=== PATIENT | male | born 1935 | race Caucasian/White ===

== ENCOUNTER 2017-04-27 06:29 | Inpatient (IN) ==
--- NOTE | 2017-04-24 10:22 | Anesthesia Evaluation PreOp ---
Date of Encounter: 04/27/17 Time of Encounter: 07:28 - Past History Planned Operation: CABG Cardiac History: Angina, HTN, Hyperlipidemia, Other (PAD) Pulmonary History: Denies Any Significant HX MEDICAL RECORDS TECHNICIAN History: Denies Any Significant HX Other Medical History: Diabetes Type II, Other (BPH and urine incontinence) Anesthesia History: No Prior Anesthetic Complications, Past Anesthesia (hernia) Alcohol Use: none Drug use: none Medications and Allergies Aspirin [Lo-Dose Aspirin EC] 81 mg PO DAILY 04/08/17 [History] Atorvastatin Calcium [Lipitor] 20 mg PO DAILY 04/08/17 [History] Docusate [Colace] 100 mg PO DAILY 04/08/17 [History] Donepezil [Aricept] 10 mg PO HS 04/08/17 [History] Famotidine [Heartburn Prevention] 20 mg PO DAILY 04/08/17 [History] Fluticasone Propionate Nasal [Flonase] 50 mcg NS PRN PRN 04/08/17 [History] Lisinopril 2.5 mg PO DAILY 04/08/17 [History] Loratadine [Claritin] 10 mg PO DAILY 04/08/17 [History] Metformin HCl [Metformin HCl ER] 1,000 mg PO DAILY 04/08/17 [History] Metoprolol Tartrate 12.5 mg PO BID 04/08/17 [History] Mirabegron [Myrbetriq] 50 mg PO DAILY 04/08/17 [History] Pregabalin [Lyrica] 50 mg PO TID 04/08/17 [History] Tamsulosin [Flomax] 0.4 mg PO DAILY 04/08/17 [History] 3 Allergy/AdvReac Type Severity Reaction Status Date / Time horse serum Allergy Itching Uncoded 04/08/17 11:21 - Meds/Allergy Pre-op Review Medications Reviewed: Yes Allergies Reviewed: Yes Beta Blockers on Current Med List: No Anesthesia Results - Labs Laboratory Tests 04/07/17 04/07/17 04/07/17 14:33 14:33 14:33 Hgb 13.7 Hct 41.6 Plt Count 369 PT 12.0 INR 1.1 Sodium 141 Potassium 4.3 BUN 15 Creatinine 0.90 Hemoglobin A1c 04/22/17 11:18 Hgb Hct Plt Count PT INR Sodium Potassium BUN Creatinine Hemoglobin A1c 8.3 H - Imaging Additional studies: cath: Impressions: There is severe three vessel coronary artery disease. The left ventricle contractility EF 50% stress: Impression: Pharmacologic stress ECG is non-diagnostic for ischemia due to submaximal HR. Gated EF = 59%. Small sized, moderate intensity, fixed defect throughout the inferior segments possibly due to a prior infarct. Moderate amount of maximino-infarct ischemia involving the inferolateral segments. SDS 6. echo: mpressions: LVEF 60%. Normal left ventricular size and systolic function. There is evidence of mild diastolic dysfunction of the left ventricle. Normal right ventricular size and function. No significant valvular dysfunction. Lack of sufficient TR gradient to estimate RVSP. Anesthesia Exam Weight: 73kg NPO (# of Hours): 8 - HEENT Pupil (Motor): EOMI Mallampati: II Teeth: Missing, Poor dentition Oral Opening: Greater than 3 - MEDICAL RECORDS TECHNICIAN LOC: Oriented MEDICAL RECORDS TECHNICIAN Motor: Normal RUE, Normal LUE, Normal RLE, Normal LLE, Normal Face MEDICAL RECORDS TECHNICIAN Sensory: Normal: RUE, LUE, RLE, LLE, Face - Cardiac Rhythm: Regular Murmur: None - Pulmonary Breath Sounds: bilateral Clear Respiratory Effort: Symmetrical Anesthesia Assess/Plan ASA Score: 4 Modified Morton Scale for Level of Consciousness: Cooperative, oriented, and tranquil Monitoring Plan: Standard Monitors, A-Line, PAC, MARIJA Recovery Plan: ICU (discussed risks of GA, lines, MARIJA and blood products. Agrees to proceed)
[2017-04-27] MEDS ORDERED: *HR* Etomidate 20 MG/10 ML AMPUL IVP ONE (06:54)
[2017-04-27] MEDS ORDERED: Famotidine 20 MG/2 ML VIAL ONE (06:54)
[2017-04-27] MEDS ORDERED: *HR* Rocuronium Bromide 50 MG/5 ML VIAL ONE (06:54)
[2017-04-27] MEDS ORDERED: Aspirin 81 MG TAB.CHEW PO ONE (06:54)
[2017-04-27] MEDS ORDERED: Tranexamic Acid 1,000 MG/10 ML VIAL ONE ×2 (06:54→09:23)
[2017-04-27] MEDS ORDERED: Protamine Sulfate 250 MG/25 ML VIAL IVP ONE (06:54)
[2017-04-27] MEDS ORDERED: CeFAZolin Syr 2,000MG/20 ML 2,000 MG/20 ML SYRINGE IVPB ONE (06:54)
[2017-04-27] MEDS ORDERED: *HR* Phenylephrine 10 MG/ML VIAL ONE ×2 (06:54→07:00)
[2017-04-27] MEDS ORDERED: Ringers Solution, Lactated 1,000 ML IVC SCH (07:00)
[2017-04-27] MEDS ORDERED: *HR* Midazolam HCl 5 MG/5 ML VIAL IVP ONE (07:02)
[2017-04-27] MEDS ORDERED: *HR* FentaNYL (PF) 1,000 MCG/20 ML VIAL ONE (07:02)
[2017-04-27] MEDS ORDERED: NiCARdipine 2.5 MG/10 ML Syringe IVPB ONE (07:04)
[2017-04-27] MEDS ORDERED: Nitroglycerin 25 MG/250 ML INFUS..BTL IVC ONE ×2 (07:04→09:16)
[2017-04-27] MEDS ORDERED: Chlorhexidine Rinse 15 ML MOUTHWASH MM ONE (07:15)
--- NOTE | 2017-04-27 07:17 | History & Physical Report ---
Date of Encounter: 04/27/17 Time of Encounter: 07:16 24 Hour HP Update - Instructions Instructions: If the History and Physical is less than 30 days old and was completed prior to A.M. admission and or procedure and has NOT been updated on calendar day of procedure please complete this update prior to performing procedure. - Update Patient reports changes in Medical Condition: No Changes in examination, assessment, or condition: No Changes in Medication: No Preop tests/diagnostics Reviewed: No Pre-Op MRSA Screen: Negative Surgery Remains Indicated: Yes Consent for Planned Operative Procedure(s) Verified: Yes - Pre-Operative Checklist Preoperative Checklist Indicated: No Prophylactic Antibiotic Ordered: Yes Home Medications Include Beta Jagruti: Yes Beta Jagruti Taken Today (Day of Surgery): Yes Beta Jagruti Taken Yesterday (Day Prior to Surgery): No Is VTE Prophylaxis Indicated?: NO
[2017-04-27 08:15] LABS: ABG Base Excess 1 mEq/L (-2 to 3); ABG Chloride 105 mEq/L (98-107); ABG Glucose 209 mg/dL (60-95); ABG HCO3 28 mEq/L (21-27); ABG Ionized Calcium 1.21 mmol/L (1.15-1.35); ABG Oxygen Saturation 66 % (95-98); ABG PCO2 55 mmHg (35-45); ABG PH 7.32 pH Units (7.32-7.45); ABG PO2 38 mmHg (85-104); ABG TCO2 30 mEq/L (20-26)
[2017-04-27 08:23] LABS: ABG Base Excess 1 mEq/L (-2 to 3); ABG Chloride 106 mEq/L (98-107); ABG Glucose 221 mg/dL (60-95); ABG HCO3 27 mEq/L (21-27); ABG Ionized Calcium 1.23 mmol/L (1.15-1.35); ABG Oxygen Saturation 100 % (95-98); ABG PCO2 49 mmHg (35-45); ABG PH 7.35 pH Units (7.32-7.45); ABG PO2 449 mmHg (85-104); ABG TCO2 29 mEq/L (20-26)
[2017-04-27] MEDS ORDERED: Insulin Regular, Human 100 UNIT/ML ONE (09:06)
[2017-04-27] MEDS ORDERED: Albumin Human 5% 50.0 GM/1,000 ML VIAL ONE (09:16)
[2017-04-27 09:22] LABS: ABG Base Excess -2 mEq/L (-2 to 3); ABG Chloride 108 mEq/L (98-107); ABG Glucose 218 mg/dL (60-95); ABG HCO3 24 mEq/L (21-27); ABG Ionized Calcium 1.02 mmol/L (1.15-1.35); ABG Oxygen Saturation 100 % (95-98); ABG PCO2 48 mmHg (35-45); ABG PH 7.31 pH Units (7.32-7.45); ABG PO2 207 mmHg (85-104); ABG TCO2 26 mEq/L (20-26)
[2017-04-27 09:48] LABS: ABG Base Excess 3 mEq/L (-2 to 3); ABG Chloride 99 mEq/L (98-107); ABG Glucose 227 mg/dL (60-95); ABG HCO3 27 mEq/L (21-27); ABG Ionized Calcium 0.93 mmol/L (1.15-1.35); ABG PCO2 41 mmHg (35-45); ABG PH 7.44 pH Units (7.32-7.45); ABG PO2 > 630 mmHg (85-104); ABG TCO2 29 mEq/L (20-26)
--- NOTE | 2017-04-27 10:07 | Anesthesia Procedures ---
Date of Encounter: 04/27/17 Time of Encounter: 08:05 Procedures: Anesthesia - Arterial Line Consent obtained: written consent Time out performed: Yes Sedation: Versed (mg): 2 Sedation: Fentanyl (mcg): 100 Supplemental Oxygen via Nasal Cannula (L/min): 2 Size (Gauge): 20 Length (inches): 5 Technique Used: sterile prep, guide wire technique, direct puncture technique Post-Procedure: line sutured into place, line taped into place, dry sterile dressing placed Patient tolerated procedure: well, no complications Complications: none Site: Radial L (easy, attempt x 1) - Central Line Placement Right IJ Consent obtained: written consent Time out performed: Yes Patient placed on monitor/pulse ox: Yes MD prep: mask, gown, gloves Central line prep: Chlorhexidine scrub Ultrasound used for placement: Yes Technique: Seldinger Lumen Inserted: Introducer Post procedure: sutured in place, good blood return, all ports aspirated, flushed, capped, sterile dressing applied Patient tolerated procedure: well, no complications Complications: none (attempt x 1, placed easily, swan placed without arrythmias , wedge approx 56cm)
[2017-04-27 10:15] LABS: ABG Base Excess 4 mEq/L (-2 to 3); ABG Chloride 99 mEq/L (98-107); ABG Glucose 202 mg/dL (60-95); ABG HCO3 28 mEq/L (21-27); ABG Ionized Calcium 1.02 mmol/L (1.15-1.35); ABG Oxygen Saturation 100 % (95-98); ABG PCO2 41 mmHg (35-45); ABG PH 7.45 pH Units (7.32-7.45); ABG PO2 555 mmHg (85-104); ABG TCO2 30 mEq/L (20-26)
[2017-04-27 10:49] LABS: ABG Base Excess 1 mEq/L (-2 to 3); ABG Chloride 104 mEq/L (98-107); ABG Glucose 136 mg/dL (60-95); ABG HCO3 27 mEq/L (21-27); ABG Oxygen Saturation 100 % (95-98); ABG PCO2 45 mmHg (35-45); ABG PH 7.38 pH Units (7.32-7.45); ABG PO2 206 mmHg (85-104); ABG TCO2 28 mEq/L (20-26)
[2017-04-27] MEDS ORDERED: Potassium Chloride 40 MEQ/200 ML BAG IVPB PRN (11:23)
[2017-04-27] MEDS ORDERED: *HR* Dextrose 50 % in Water (Syg) 50 ML SYRINGE IVP PRN (11:23)
[2017-04-27] MEDS ORDERED: Ondansetron 4 MG/2 ML VIAL IVP PRN (11:23)
[2017-04-27] MEDS ORDERED: Naloxone 0.4 MG/ML INJ IVP PRN (11:23)
[2017-04-27] MEDS ORDERED: Acetaminophen 650 MG RECTAL SUPP RC PRN (11:23)
[2017-04-27] MEDS ORDERED: Insulin Regular, Human 100 UNIT/ML IV PRN (11:23)
[2017-04-27] MEDS ORDERED: Acetaminophen 325 MG TABLET PO PRN (11:23)
--- NOTE | 2017-04-27 11:36 | Operative Note ---
Date of procedure: 04/27/17 Pre-op diagnosis: CAD Post-op diagnosis: same Procedure: 1. CABG 3 (AMIN to LAD, SVG to ramus intermediate, SVG to PDA). 2. Endoscopic vein harvest, greater saphenous vein from right lower extremity. Implants: None. Complications: None. Anesthesia: MARGE Surgeon: Susan Martinez Verifying Specialist: Aaron Sykes Specimen: None. Condition: stable Disposition: ICU Procedure in Detail: INDICATIONS FOR OPERATION: The patient is an 81-year-old type II diabetic, hypertensive man with hypercholesterolemia and COPD who has been experiencing exertional substernal chest pain radiating to both arms for several months. The patient has no associated symptoms, denying any shortness of breath, dyspnea on exertion, lightheadedness, nausea, palpitations, syncope, or vomiting. The patient states that the pain will occur with walking, carrying groceries, or occasionally awakening him from sleep. Once the pain has occurred, he requires to 60 minutes of rest in order for the symptoms to resolve. The patient underwent an excise nuclear stress test which revealed an LVEF 59% with moderate maximino-infarct ischemia involving the inferolateral segments. Subsequent cardiac catheterization revealed severe 3 vessel CAD and an LVEF 50% . In particular, the patient had a 30% ostial left main lesion, a 70-80% ostial LAD lesion, a 90% mid LAD lesion, a 95% proximal D1 lesion, a long 90% proximal LCx lesion (small vessel), a 95% distal LCx lesion, a 99% proximal OM1 lesion, a 95% ostial ramus intermediate lesion, and a completely occluded ostial RCA which fills distally via [id number] collaterals. The LCx and RCA vessels appear small and non-bypassable. The patient has been treated medically; however , has persistent symptoms that has been recommended for high risk CABG. FINDINGS AT OPERATION: The aorta was normal caliber and slightly thickened. The coronary arteries measure proximally 1.5-2 mm in diameter and had mild distal disease. The greater saphenous vein was harvested endoscopically from the right lower extremity from the knee to the groin and was of good quality. Total bypass time was 60 minutes, cross-clamp time 33 minutes, intentional hypothermia 35C. DESCRIPTION OF OPERATION: After obtaining informed Consent from the patient, he was taken to the operative were satisfactory general tracheal anesthetic was induced. Appropriate monitor lines placed and the patient's chest, abdomen, and lower extremity were prepped and draped in sterile fashion. A syringe of old blood was withdrawn from the [place] catheter for PRP treatment postoperatively. The greater saphenous vein was harvested endoscopically from the right lower extremity from the knee to the groin. The vein was removed, distended, and found to be good quality. The simultaneous tissue and skin edge reapproximation running Vicryl sutures. Simultaneously a standard mean sternotomy incision was made and the sternum divided. The AMIN was taken down from its bed and side branches divided between hemoclips. The sternum was and the pericardium opened and reflected laterally. The patient was prepared for cannulation with placing pursestring sutures in the distal ascending aorta, mid-ascending aorta, and right atrial appendage. The patient was heparinized when ACT was greater than 200 seconds, the distal ascending aorta was cannulated followed by placement of a dual stage venous cannula through the right atrial appendage and into the inferior vena cava. A stab-in antegrade metabolic cannula was placed in the mid-ascending aorta. The patient was placed on bypass and the temperature allowed to drift to 35C. The distal targets were identified and the aorta was crossclamped. The patient received 700 mL of cold antegrade crystalloid cardioplegia the aortic root and the patient's heart obtain rapid diastolic arrest. The PDA was opened with Marshall blade and the vein was anastomosed in an end-to-side fashion using running 7-0 Prolene suture. The anastomosis found to be hemostatic. This process was then repeated for the ramus intermediate branch. After completion of this anastomosis the patient received a final dose of cold antegrade crystalloid cartilage of 50 aortic root. The LAD was opened with a Marshall blade in the distal one-third where it became epicardial. The proximal two-thirds of the vessels were intramyocardial. The AMIN was anastomosed to the LAD in end-to- side fashion using running 7-0 Prolene suture. The anastomosis was found hemostatic and the mammary pedicle was tacked to the epicardium using interrupted 5-0 silk suture. Rewarming was begun during this anastomosis. The aortic cross-clamp was released and the heart distended. The veins were measured and cut at appropriate lengths. A partial occluding clamp was placed across the mid-ascending aorta and the antegrade and metabolic cannula was removed. An additional aortotomy site was made with an 11 blade in both sites enlargement 4 mm punch. The veins were anastomosed in an end-to-side fashion to the aorta using a running 5-0 Prolene suture. The vein grafts were occluded with a bulldog clamp and de-aired with a 25-gauge needle prior to removing the partial occluding clamp. The proximal distal anastomoses were found to be hemostatic and the proximal anastomoses were marked with radiopaque loops. Two right ventricular temporary Burkard patient was replaced, and 3 chest suture placed, 2 in the mediastinum and one into the left pleural space. During rewarming the patient's heart regained normal sinus rhythm spontaneously. The patient's systemic temperature reached 36C, he was ventilated and received volume. He was weaned from bypass required no inotropic support. Protamine was administered and the aortic and venous cannula removed. The pursestring sutures were secured and the venous cannulation site was reinforced with a running 4-0 Prolene suture. The pericardium was loosely approximated the midline using interrupted 0 silk suture and the sternum was refluxed using combination of sternal wires and plates. Prior to closing the sternum the PRP solution was applied to the sternal edges and the subcutaneous tissue. The pectoralis major fascia, rectus abdominis fascia, simultaneous tissue, and skin edges were reapproximated using running Vicryl sutures. A negative pressure sterile dressing was applied to the sternotomy incision. The patient was transferred to the ICU in satisfactory postoperative condition. There were no intraoperative complications, and the stripper met, needle, and sponge count were correct at end of operation. - Open Heart Detail JESSICA (Internal Mammary Artery) Usage: Yes Cardiopulmonary Bypass Time (mins): 60 Aortic Cross Clamp Time (mins): 33 Intentional Hypothermia Temperature (C.): 35
[2017-04-27] MEDS: Norepinephrine 4 MG in D5% in Water 250 ML IVC SCH (11:38)
[2017-04-27 12:10] LABS: Basophils # 0.1 K/mcL (0.0-0.2); Basophils % 0.3 %; Eosinophils # 0.3 K/mcL (0.0-0.6); Eosinophils % 1.3 %; Hematocrit 30.3 % (37.5-50.1); Hemoglobin 10.4 g/dL (12.9-16.9); Immature Granulocytes % 1.3 % (0-4); Lymphocytes # 4.6 K/mcL (0.6-4.6); Lymphocytes % 18.1 %; Mean Corpuscular HGB Conc 34.3 g/dL (31.6-35.5); Mean Corpuscular Hemoglobin 29.2 pg (28.0-33.3); Mean Corpuscular Volume 85.1 fL (83.0-100.0); Mean Platelet Volume 9.5 fL (9.4-12.4); Monocytes # 0.3 K/mcL (0.0-1.3); Monocytes % 1.2 %; Platelet Count 203 K/mcL (140-400); Red Blood Count 3.56 M/mcL (4.19-5.50); Red Cell Distribution Width 14.9 % (11.5-14.5); Segmented Neutrophils % 77.8 %
[2017-04-27 12:11] LABS: Neutrophils # 19.6 K/mcL (1.6-8.9)
[2017-04-27 12:20] LABS: INR 1.5; Prothrombin Time 16.4 Seconds (9.4-12.1)
[2017-04-27 12:21] LABS: Activated Partial Thrombo Time 33.6 Seconds (26.0-36.0)
[2017-04-27 12:24] LABS: BUN/Creatinine Ratio 16 (6-26); Blood Urea Nitrogen 11 mg/dL (8-26); Calcium 8.3 mg/dL (8.6-10.8); Carbon Dioxide 26 mEq/L (19-29); Chloride 107 mEq/L (98-109); Glucose 88 mg/dL (70-99); Magnesium 2.1 mg/dL (1.6-2.6); Osmolality,Calculated 289 (280-300); Potassium 3.5 mEq/L (3.5-4.5); Sodium 140 mEq/L (136-145); eGFR For African Americans > 60 (> 60); eGFR For Non-African Americans > 60 (> 60)
[2017-04-27 12:28] LABS: ABG Base Excess 2 mEq/L (-2 to 3); ABG HCO3 26 mEq/L (21-27); ABG Oxygen Saturation 99 % (95-98); ABG PCO2 38 mmHg (35-45); ABG PH 7.45 pH Units (7.32-7.45); ABG PO2 134 mmHg (85-104); ABG TCO2 28 mEq/L (20-26)
[2017-04-27] MEDS: *HR* Morphine 2 MG/ML SYRINGE IVP PRN ×4 (12:58→23:42)
[2017-04-27] MEDS: 0.9 % Sodium Chloride w KCl 20 MEQ/1,000 ML MLS IVC SCH (13:17)
[2017-04-27] MEDS: Pantoprazole 40 MG VIAL IVP SCH (13:17)
[2017-04-27] MEDS: Metoclopramide 10 MG/2 ML VIAL IVP SCH ×3 (13:17→23:29)
[2017-04-27] MEDS: niCARdipine 40 MG/200 ML MLS IVC SCH ×2 (13:41→20:24)
[2017-04-27] MEDS: Insulin Human Regular 100 UNIT in 0.9 % Sodium Chloride 100 ML IVC SCH (14:07)
[2017-04-27] MEDS ORDERED: 0.9 % Sodium Chloride 500 ML ONE (15:07)
--- NOTE | 2017-04-27 15:18 | Electrocardiograph Report ---
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
[2017-04-27] MEDS: CeFAZolin Premix DUPLEX 2,000 MG/50 ML BAG IVPB SCH ×2 (17:07→23:30)
[2017-04-27 18:07] LABS: Magnesium 2.3 mg/dL (1.6-2.6); Potassium 3.6 mEq/L (3.5-4.5)
[2017-04-27 18:09] LABS: ABG Base Excess 2 mEq/L (-2 to 3); ABG HCO3 27 mEq/L (21-27); ABG Oxygen Saturation 97 % (95-98); ABG PCO2 43 mmHg (35-45); ABG PH 7.41 pH Units (7.32-7.45); ABG PO2 91 mmHg (85-104); ABG TCO2 28 mEq/L (20-26)
[2017-04-27 18:16] LABS: Hematocrit 32.7 % (37.5-50.1); Hemoglobin 11.2 g/dL (12.9-16.9); Mean Corpuscular HGB Conc 34.3 g/dL (31.6-35.5); Mean Corpuscular Hemoglobin 29.4 pg (28.0-33.3); Mean Corpuscular Volume 85.8 fL (83.0-100.0); Platelet Count 269 K/mcL (140-400); Red Blood Count 3.81 M/mcL (4.19-5.50); Red Cell Distribution Width 15.2 % (11.5-14.5)
[2017-04-27 20:51] LABS: ABG Base Excess 4 mEq/L (-2 to 3); ABG HCO3 29 mEq/L (21-27); ABG Oxygen Saturation 97 % (95-98); ABG PCO2 43 mmHg (35-45); ABG PH 7.44 pH Units (7.32-7.45); ABG PO2 91 mmHg (85-104); ABG TCO2 30 mEq/L (20-26); Blood Gas Modality ASSIST CONTROL; Blood Gas PEEP 5 cm H2O; Blood Gas Respiration Rate 10; Blood Gas VT 600 cc
[2017-04-27] MEDS: Chlorhexidine Rinse 15 ML MOUTHWASH MM SCH (20:54)
[2017-04-28 00:09] LABS: ABG Base Excess 3 mEq/L (-2 to 3); ABG HCO3 27 mEq/L (21-27); ABG Oxygen Saturation 98 % (95-98); ABG PCO2 40 mmHg (35-45); ABG PH 7.44 pH Units (7.32-7.45); ABG PO2 95 mmHg (85-104); ABG TCO2 29 mEq/L (20-26); Blood Gas Modality ASSIST CONTROL; Blood Gas PEEP 5 cm H2O; Blood Gas Respiration Rate 10; Blood Gas VT 600 cc
[2017-04-28 04:24] LABS: Basophils % 0.2 %; Hematocrit 29.6 % (37.5-50.1); Immature Granulocytes % 0.7 % (0-4); Lymphocytes # 1.8 K/mcL (0.6-4.6); Lymphocytes % 8.3 %; Mean Corpuscular HGB Conc 33.8 g/dL (31.6-35.5); Mean Corpuscular Hemoglobin 28.7 pg (28.0-33.3); Mean Corpuscular Volume 85.1 fL (83.0-100.0); Mean Platelet Volume 10.1 fL (9.4-12.4); Monocytes % 9.1 %; Neutrophils # 17.6 K/mcL (1.6-8.9); Platelet Count 224 K/mcL (140-400); Red Blood Count 3.48 M/mcL (4.19-5.50); Red Cell Distribution Width 15.4 % (11.5-14.5); Segmented Neutrophils % 81.7 %
[2017-04-28 04:28] LABS: INR 1.3; Prothrombin Time 14.6 Seconds (9.4-12.1)
[2017-04-28 04:30] LABS: ABG Base Excess 3 mEq/L (-2 to 3); ABG HCO3 27 mEq/L (21-27); ABG Oxygen Saturation 98 % (95-98); ABG PCO2 38 mmHg (35-45); ABG PH 7.46 pH Units (7.32-7.45); ABG PO2 95 mmHg (85-104); ABG TCO2 28 mEq/L (20-26)
[2017-04-28 04:31] LABS: Activated Partial Thrombo Time 33.8 Seconds (26.0-36.0)
[2017-04-28 04:36] LABS: BUN/Creatinine Ratio 19 (6-26); Blood Urea Nitrogen 16 mg/dL (8-26); Calcium 8.2 mg/dL (8.6-10.8); Carbon Dioxide 26 mEq/L (19-29); Chloride 109 mEq/L (98-109); Glucose 132 mg/dL (70-99); Magnesium 2.1 mg/dL (1.6-2.6); Osmolality,Calculated 295 (280-300); Potassium 4.3 mEq/L (3.5-4.5); Sodium 141 mEq/L (136-145); eGFR For African Americans > 60 (> 60); eGFR For Non-African Americans > 60 (> 60)
[2017-04-28] MEDS: *HR* OxyCODONE/APAP 5/325 TABLET PO PRN ×2 (05:17→20:20)
[2017-04-28] MEDS: niCARdipine 40 MG/200 ML MLS IVC SCH ×3 (05:41→17:10)
[2017-04-28] MEDS: Metoclopramide 10 MG/2 ML VIAL IVP SCH ×3 (05:42→17:08)
[2017-04-28] MEDS ORDERED: Mannitol 25% vial 12.5 GM/50 ML VIAL IVP ONE (07:58)
[2017-04-28] MEDS ORDERED: Albumin Human 25% 25 GM/100 ML IV.SOLN IV ONE (07:58)
[2017-04-28] MEDS ORDERED: *HR* Heparin 10,000 UNIT/10 ML VIAL IV ONE (07:58)
[2017-04-28] MEDS ORDERED: *HR* Phenylephrine 10 MG/ML VIAL IVC ONE (07:58)
[2017-04-28] MEDS ORDERED: Lidocaine 2% Syringe 100 MG/5 ML IV ONE (07:58)
[2017-04-28] MEDS ORDERED: *HR* Magnesium Sulfate 2 GM/50 ML PIGGYBACK IVPB ONE (07:58)
[2017-04-28] MEDS ORDERED: Sodium Bicarbonate 50 MEQ/50 ML VIAL IVC ONE (07:58)
--- NOTE | 2017-04-28 08:03 | Cardiothoracic Progress Note ---
Date of Encounter: 04/28/17 Time of Encounter: 08:01 - Assessment and plan (1) CAD (coronary artery disease) Current Visit: Yes Status: Acute The patient has remained hemodynamically stable overnight. He remains intubated ; however, he is completely awake and appropriate. Hopefully he will be able to tolerate his CPAP trial this morning and be extubated. The patient will be monitored in the ICU today. The assessment and plan as outlined above was discussed with the patient and/or family members who expressed understanding and agreement. All questions were answered. Qualifiers: Coronary Disease-Associated Artery/Lesion type: [place] artery [place] vs. transplanted heart: [place] heart Associated angina: with unstable angina Qualified Code(s): I25.110 - Atherosclerotic heart disease of [place] coronary artery with unstable angina pectoris - Subjective Procedure(s) Performed: POD#1 S/P CABG3 Interval history: The patient remained hemodynamically stable overnight. He is still intubated since he has not tolerated two previous CPAP trials. This morning he is awake and appropriate. Vital Signs, Last 4 Hours Temp Pulse Resp BP Pulse Ox 04/28/17 07:00 86 10 130/58 99 04/28/17 06:22 10 122/57 99 04/28/17 06:00 99.8 F H 80 10 109/52 98 04/28/17 05:00 79 10 133/57 04/28/17 04:38 10 144/59 98 [place]gy[place] Flow Rate Oxygen Flow Rate (LPM) 35 Clinical Data, last 8 Hours Output, Chest Tube Drainage 0 Amount [Mediastinal #2] Output, Chest Tube Drainage 5 Amount [Mediastinal #2] Output, Chest Tube Drainage 5 Amount [Mediastinal #2] Output, Chest Tube Drainage 5 Amount [Mediastinal #2] Output, Chest Tube Drainage 5 Amount [Mediastinal #2] Output, Chest Tube Drainage 10 Amount [Mediastinal #2] Output, Chest Tube Drainage 5 Amount [Mediastinal #2] Output, Chest Tube Drainage 5 Amount [Mediastinal #2] Output, Chest Tube Drainage 0 Amount [Mediastinal #1] Output, Chest Tube Drainage 10 Amount [Mediastinal #1] Output, Chest Tube Drainage 0 Amount [Mediastinal #1] Output, Chest Tube Drainage 5 Amount [Mediastinal #1] Output, Chest Tube Drainage 5 Amount [Mediastinal #1] Output, Chest Tube Drainage 5 Amount [Mediastinal #1] Output, Chest Tube Drainage 5 Amount [Mediastinal #1] Output, Chest Tube Drainage 5 Amount [Mediastinal #1] Weight 04/26/17 04/27/17 04/28/17 23:59 23:59 23:59 Weight 73.028 kg - Physical Examination General: Conversant, No Apparent Distress Neck: No JVD, Normal carotid pulses Cardiac: Reg Rate and Rhythm, Normal S1 and S2, No Murmur Incision: No signs of infection, Dry/intact dressing Sternum: Stable Chest tubes: Minimal drainage, Other (No air leak.) Pacing Wires: In place Lungs: Normal Breath Sounds, No Wheeze, Rales, Rhonchi Neuro: Alert and responsive, No focal deficits noted Vascular: Normal capillary refill Extremities: No Clubbing, No Cyanosis, No Edema - Labs 04/28/17 04:10 04/28/17 04:10 Lab Results, Last 24 hours 04/27/17 04/27/17 04/27/17 11:55 11:55 11:55 WBC 25.2 H Hgb 10.4 L Hct 30.3 L Plt Count 203 INR 1.5 APTT 33.6 Sodium 140 Potassium 3.5 Chloride 107 Carbon Dioxide 26 BUN 11 Creatinine 0.67 L Glucose 88 Calcium 8.3 L Magnesium 2.1 04/27/17 04/27/17 04/28/17 17:48 17:48 04:10 WBC 37.6 H* 21.6 H Hgb 11.2 L 10.0 L Hct 32.7 L 29.6 L Plt Count 269 224 INR APTT Sodium Potassium 3.6 Chloride Carbon Dioxide BUN Creatinine Glucose Calcium Magnesium 2.3 04/28/17 04/28/17 04:10 04:10 WBC Hgb Hct Plt Count INR 1.3 APTT 33.8 Sodium 141 Potassium 4.3 Chloride 109 Carbon Dioxide 26 BUN 16 Creatinine 0.85 Glucose 132 H Calcium 8.2 L Magnesium 2.1 - Imaging Chest Xray: image reviewed (No pneumothorax. Minimal atelectasis/infiltrates.) - VTE Reasons for not Prescribing Prophylaxis: Medical contraindication Documentation of Mechanical Device: Graduated compression elastic hosiery Consult Discharge Plan - Plan Referrals: Charlene Long, [employer] [Primary Care Provider] -
[2017-04-28] MEDS: Chlorhexidine Rinse 15 ML MOUTHWASH MM SCH ×2 (08:10→20:22)
[2017-04-28] MEDS: Furosemide 20 MG/2 ML VIAL IVP SCH ×2 (08:10→20:21)
[2017-04-28] MEDS: Pantoprazole 40 MG VIAL IVP SCH (08:11)
[2017-04-28] MEDS: 0.9 % Sodium Chloride w KCl 20 MEQ/1,000 ML MLS IVC SCH (08:17)
[2017-04-28] MEDS: *HR* Morphine 2 MG/ML SYRINGE IVP PRN (09:04)
[2017-04-28] MEDS: Norepinephrine 4 MG in D5% in Water 250 ML IVC SCH (11:29)
[2017-04-28] MEDS: Insulin Human Regular 100 UNIT in 0.9 % Sodium Chloride 100 ML IVC SCH (11:29)
--- NOTE | 2017-04-28 12:07 | Pulmonology Consult Note ---
Date of Encounter: 04/28/17 Time of Encounter: 12:06 Assessment and Plan (1) Acute respiratory failure Current Visit: Yes Status: Acute In conclusion this is an 81-year-old gentleman with a history of type 2 diabetes and COPD who is POD#1 status post CABG 3. Patient has noted periods of apnea during spontaneous breathing trial I suspect that this is a reflection upon overventilation perioperatively decreasing respiratory drive which is been complicated by splinting from chest wall pain and narcotic use. One prolonged spontaneous breathing trial attempted the patient is noted to breathe and assess satisfactory rate to keep minute ventilation within the normal range this was demonstrated by repeat ABG after 30 minutes of spontaneous breathing trial. I do not feel that his underlying COPD is acutely to blame for complications related to extubation and do not feel that he has an acute exacerbation of COPD. His chest x-ray is notable for mild pulmonary vascular congestion and a close monitoring of his volume status and blood pressure is warranted given her underlying albeit mild diastolic dysfunction. If patient has continued. Of apnea postextubation would likely warrant further evaluation of central causes including stroke (intraoperative) although neurologic exam is symmetric and without focal deficit today. Again this is felt to be very unlikely. -Extubated to NIPPV which can be transitioned to NC O2 to keep SAO2 % >88% -Schedule bronchodilators every 6 hours (Duonebs) -BP control currently with Cardizem gtt which can be transitioned to oral agents in next 24-48 hours per protocol -net negative fluid balance 0.5-1L negative in next 12 hours. Agree with Lasix for this. -DVT prophylaxis per protocol -Cont narcotic analgesia to decrease splinting. -Post CABG surgical evaluation per CTS. -Statin, ASA, (given) -Outpatient Pulmonary F/u with PFTs. Thank you for consult and having us on this patient and look forward following closely with you Qualifiers: Respiratory failure complication: hypoxia Qualified Code(s): J96.01 - Acute respiratory failure with hypoxia (2) Difficulty with tracheal extubation Current Visit: Yes Status: Acute (3) Diastolic heart failure Current Visit: Yes Status: Acute Qualifiers: Heart failure chronicity: chronic Qualified Code(s): I50.32 - Chronic diastolic (congestive) heart failure (4) COPD (chronic obstructive pulmonary disease) Current Visit: Yes Status: Acute Qualifiers: COPD type: emphysema Emphysema type: unspecified Qualified Code(s): 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 (5) S/P CABG x 3 Current Visit: Yes Status: Acute (6) CAD (coronary artery disease) Current Visit: Yes Status: Acute Qualifiers: Coronary Disease-Associated Artery/Lesion type: [place] artery [place] vs. transplanted heart: [place] heart Associated angina: with unstable angina Qualified Code(s): I25.110 - Atherosclerotic heart disease of [place] coronary artery with unstable angina pectoris History of Present Illness Consult date: 04/28/17 Requesting physician: Susan Martinez Reason for consult: other (Ventilator Managment ) Chief complaint: Chest Pain History of present illness: This is an 81-year-old gentleman who is postop day 1 status post CABG with difficulty in liberation from the ventilator postoperatively. The majority of the information was gathered from the medical record and somewhat provided from the patient although conversation is limited secondary to endotracheal tube. In brief, he has a history of coronary artery disease and COPD I do not have any pulmonary function testing to evaluate the degree of obstruction. He was a longtime smoker started in his teenage years and quit about 5 years ago. From the record he also has a history of type 2 diabetes hypertension and hypercholesterolemia. He presented with substernal chest pain that had been radiating aching down both arms for several months which prompted a exercise nuclear stress test which showed a preserved ejection fraction but a moderate. Infarct ischemia involving the inferolateral segments subsequent left heart catheterization revealed severe three-vessel coronary artery disease. The patient underwent CABG 3 AMIN to LAD and SVG to ramus intermediate and SVG to PDA. There were no intraoperative complications per the record however at the time for spontaneous breathing triial patient was noted to have periods of apnea preventing extubation postoperatively this morning and was tried again and he again demonstrated periods of apnea of unclear etiology although the patient was awake and able to follow commands he would breathe upon command but he would not take breaths unless prompted. Past Med Surg Social Fam HX - Past Medical History Medical history: diabetes, hyperlipidemia, hypertension Psychiatric history: no psych history - Past Surgical History Surgical History: other - Social History Smoking Status: Unknown if ever smoked Smokeless Tobacco Status: No Alcohol use: none Drug use: none Medications and Allergies Aspirin [Lo-Dose Aspirin EC] 81 mg PO DAILY 04/08/17 [History] Atorvastatin Calcium [Lipitor] 20 mg PO DAILY 04/08/17 [History] Docusate [Colace] 100 mg PO DAILY 04/08/17 [History] Famotidine [Heartburn Prevention] 20 mg PO DAILY 04/08/17 [History] Fluticasone Propionate Nasal [Flonase] 50 mcg NS PRN PRN 04/08/17 [History] Lisinopril 2.5 mg PO DAILY 04/08/17 [History] Loratadine [Claritin] 10 mg PO DAILY 04/08/17 [History] Metformin HCl [Metformin HCl ER] 1,000 mg PO DAILY 04/08/17 [History] Metoprolol [Lopressor] 12.5 mg PO BID #0 04/08/17 [History] Mirabegron [Myrbetriq] 50 mg PO DAILY 04/08/17 [History] Pregabalin [Lyrica] 50 mg PO TID 04/08/17 [History] Tamsulosin [Flomax] 0.4 mg PO DAILY 04/08/17 [History] Donepezil HCl [Aricept] 5 mg PO DAILY 04/27/17 [History] Nitroglycerin [Nitrostat] 0.4 mg SL Q5M PRN 04/27/17 [History] Omeprazole [PriLOSEC] 40 mg PO DAILY 04/27/17 [History] Pioglitazone [Actos] 45 mg PO 0800 04/27/17 [History] Tolterodine LA (24 HR) [Detrol LA] 4 mg PO DAILY 04/27/17 [History] 3 Allergy/AdvReac Type Severity Reaction Status Date / Time horse serum Allergy Itching Uncoded 04/08/17 11:21 All Systems: A 10-system review of systems was performed and is negative for pertinent findings except as documented above in the HPI. Physical Examination Vital Signs: Vital Signs, Last 4 Hours Temp Pulse Resp BP Pulse Ox 04/28/17 11:12 10 125/58 99 04/28/17 11:00 99.5 F 68 10 130/60 99 04/28/17 10:00 70 10 127/60 98 04/28/17 09:11 10 142/63 98 04/28/17 09:00 71 10 147/63 100 General appearance: no acute distress Eyes: nonicteric ENT: other (Endotracheal tube noted in satisfactory position) Neck: no lymphadenopathy Effort: normal Inspection: other (Midline surgical scar noted clean dry and intact chest tubes noted from central anterior insertion point) Auscultation: bilateral: diminished breath sounds Cardiovascular: regular rate and rhythm Gastrointestinal: normoactive bowel sounds, hypoactive bowel sounds, soft, non- tender Integumentary: normal Extremities: no edema Musculoskeletal: no deformities normal mental status, non-focal exam mood appropriate Ventilator Settings Ventilator Settings: Ventilator Settings, Last 8 Hours Ventilator Mode A/C Ventilator Mode A/C Ventilator Mode A/C Ventilator Mode A/C Ventilator Mode A/C Ventilator Mode A/C Ventilator Mode A/C Ventilator Mode A/C Ventilator Mode A/C Ventilator Mode A/C Ventilator Mode A/C Ventilator Mode A/C Ventilator Mode A/C Ventilator Mode A/C Ventilator Tidal Volume 600 Setting Ventilator Tidal Volume 600 Setting Ventilator Tidal Volume 600 Setting Ventilator Tidal Volume 600 Setting Ventilator Tidal Volume 600 Setting Ventilator Tidal Volume 600 Setting Ventilator Tidal Volume 600 Setting Ventilator Tidal Volume 600 Setting Ventilator Tidal Volume 600 Setting Ventilator Tidal Volume 600 Setting Ventilator Tidal Volume 600 Setting Ventilator Tidal Volume 600 Setting Ventilator Tidal Volume 600 Setting Ventilator Tidal Volume 600 Setting Ventilator Respiratory Rate 10 Setting Ventilator Respiratory Rate 10 Setting Ventilator Respiratory Rate 10 Setting Ventilator Respiratory Rate 10 Setting Ventilator Respiratory Rate 10 Setting Ventilator Respiratory Rate 10 Setting Ventilator Respiratory Rate 10 Setting Ventilator Respiratory Rate 10 Setting Ventilator Respiratory Rate 10 Setting Ventilator Respiratory Rate 10 Setting Ventilator Respiratory Rate 10 Setting Ventilator Respiratory Rate 10 Setting Ventilator Respiratory Rate 10 Setting Ventilator Respiratory Rate 10 Setting Actual Respiratory Rate 10 Actual Respiratory Rate 10 Actual Respiratory Rate 12 Actual Respiratory Rate 12 Actual Respiratory Rate 12 Actual Respiratory Rate 10 Actual Respiratory Rate 10 Actual Respiratory Rate 10 Actual Respiratory Rate 10 Actual Respiratory Rate 10 Actual Respiratory Rate 10 Actual Respiratory Rate 10 Actual Respiratory Rate 10 Positive End Expiratory 5 Pressure Positive End Expiratory 5 Pressure Positive End Expiratory 5 Pressure Positive End Expiratory 5 Pressure Positive End Expiratory 5 Pressure Positive End Expiratory 5 Pressure Positive End Expiratory 5 Pressure Positive End Expiratory 5 Pressure Positive End Expiratory 5 Pressure Positive End Expiratory 5 Pressure Positive End Expiratory 5 Pressure Positive End Expiratory 5 Pressure Positive End Expiratory 5 Pressure Positive End Expiratory 5 Pressure Peak Inspiratory Airway 21 Pressure Peak Inspiratory Airway 21 Pressure Peak Inspiratory Airway 20 Pressure Peak Inspiratory Airway 20 Pressure Peak Inspiratory Airway 20 Pressure Peak Inspiratory Airway 19 Pressure Peak Inspiratory Airway 19 Pressure Peak Inspiratory Airway 19 Pressure Peak Inspiratory Airway 19 Pressure Peak Inspiratory Airway 19 Pressure Peak Inspiratory Airway 20 Pressure Peak Inspiratory Airway 21 Pressure Peak Inspiratory Airway 21 Pressure Results - Laboratory Findings CBC and BMP: 04/28/17 04:10 04/28/17 04:10 ABG ABG pH 7.46 pH Units (7.32-7.45) H 04/28/17 04:26 ABG pCO2 38 mmHg (35-45) 04/28/17 04:26 ABG pO2 95 mmHg (85-104) 04/28/17 04:26 ABG O2 Saturation 98 % (95-98) 04/28/17 04:26 PT/INR, D-dimer PT 14.6 Seconds (9.4-12.1) H 04/28/17 04:10 Abnormal lab findings: Abnormal lab results WBC 21.6 K/mcL (4.3-11.1) H 04/28/17 04:10 RBC 3.48 M/mcL (4.19-5.50) L 04/28/17 04:10 Hgb 10.0 g/dL (12.9-16.9) L 04/28/17 04:10 Hct 29.6 % (37.5-50.1) L 04/28/17 04:10 RDW 15.4 % (11.5-14.5) H 04/28/17 04:10 Neutrophils # 17.6 K/mcL (1.6-8.9) H 04/28/17 04:10 Monocytes # 2.0 K/mcL (0.0-1.3) H 04/28/17 04:10 PT 14.6 Seconds (9.4-12.1) H 04/28/17 04:10 ABG pH 7.46 pH Units (7.32-7.45) H 04/28/17 04:26 ABG Total CO2 28 mEq/L (20-26) H 04/28/17 04:26 ABG Hematocrit 23.0 % (37.5-50.1) L 04/27/17 10:43 Glucose 136 mg/dL (60-95) H 04/27/17 10:43 Glucose 132 mg/dL (70-99) H 04/28/17 04:10 POC Glucose 124 (58-89) H 04/28/17 11:21 Calcium 8.2 mg/dL (8.6-10.8) L 04/28/17 04:10 Arterial Blood Ionized Calcium 1.40 mmol/L (1.15-1.35) H 04/27/17 10:43 - Diagnostic Findings Chest x-ray: report reviewed, image reviewed - Clinical Findings Intake & Output: Intake & Output 04/27/17 04/28/17 04/28/17 23:59 07:59 15:59 Intake Total 50 / 50 50 / 50 1051 / 1051 Output Total 198 / 198 394 / 394 280 / 280 Balance -148 / -148 -344 / -344 771 / 771 Consult Discharge Plan - Plan Referrals: Charlene Long, [employer] TOP INSTALLER [Primary Care Provider] -
[2017-04-28 14:57] LABS: ABG Base Excess 0 mEq/L (-2 to 3); ABG HCO3 25 mEq/L (21-27); ABG Oxygen Saturation 96 % (95-98); ABG PCO2 41 mmHg (35-45); ABG PO2 80 mmHg (85-104); ABG TCO2 27 mEq/L (20-26); Blood Gas Modality CPAP/PS; Blood Gas PEEP 5 cm H2O; Blood Gas Pressure Support 5 cm H2O
[2017-04-28] MEDS: Insulin LISPRO 300 UNITS/3 ML VIAL SQ SCH ×2 (15:54→19:59)
[2017-04-28] MEDS: Ipratropium/Albuterol Neb 3 ML IH SCH ×2 (15:58→21:04)
[2017-04-28] MEDS ORDERED: Haloperidol Lactate 5 MG/ML VIAL IVP ONE (20:36)
[2017-04-28] MEDS ORDERED: *HR* Metoprolol 5 MG/5 ML VIAL IVP ONE (20:46)
[2017-04-29] MEDS: Metoclopramide 10 MG/2 ML VIAL IVP SCH ×3 (01:19→12:18)
[2017-04-29] MEDS: Insulin LISPRO 300 UNITS/3 ML VIAL SQ SCH ×6 (01:19→21:09)
[2017-04-29] MEDS: Ipratropium/Albuterol Neb 3 ML IH SCH ×4 (03:41→20:58)
[2017-04-29] MEDS: 0.9 % Sodium Chloride w KCl 20 MEQ/1,000 ML MLS IVC SCH ×2 (03:48→23:56)
[2017-04-29 04:04] LABS: Basophils % 0.2 %; Hematocrit 29.1 % (37.5-50.1); Hemoglobin 9.4 g/dL (12.9-16.9); Immature Granulocytes % 1.1 % (0-4); Lymphocytes # 1.9 K/mcL (0.6-4.6); Lymphocytes % 9.7 %; Mean Corpuscular HGB Conc 32.3 g/dL (31.6-35.5); Mean Corpuscular Hemoglobin 28.5 pg (28.0-33.3); Mean Corpuscular Volume 88.2 fL (83.0-100.0); Mean Platelet Volume 10.3 fL (9.4-12.4); Monocytes # 1.6 K/mcL (0.0-1.3); Monocytes % 8.2 %; Neutrophils # 16.1 K/mcL (1.6-8.9); Platelet Count 208 K/mcL (140-400); Red Cell Distribution Width 15.6 % (11.5-14.5); Segmented Neutrophils % 80.8 %
[2017-04-29] MEDS: niCARdipine 40 MG/200 ML MLS IVC SCH ×3 (04:05→18:33)
[2017-04-29 04:10] LABS: BUN/Creatinine Ratio 22 (6-26); Blood Urea Nitrogen 15 mg/dL (8-26); Calcium 8.6 mg/dL (8.6-10.8); Carbon Dioxide 23 mEq/L (19-29); Chloride 107 mEq/L (98-109); Glucose 164 mg/dL (70-99); Osmolality,Calculated 288 (280-300); Potassium 4.3 mEq/L (3.5-4.5); Sodium 137 mEq/L (136-145); eGFR For African Americans > 60 (> 60); eGFR For Non-African Americans > 60 (> 60)
--- NOTE | 2017-04-29 07:04 | Anesthesia Evaluation Post Op ---
Date of Encounter: 04/29/17 Time of Encounter: 07:02 - Vital Signs Vital Signs: Selected Entries 04/29/17 04:00 04/29/17 06:00 Temperature 99.9 F H Pulse Rate 97 Respiratory Rate 10 Blood Pressure 134/72 O2 Sat by Pulse Oximetry 95 Oxygen Delivery Method Room Air - Lungs Lungs: Clear Ascult./Percussion - Airway Airway: Non-obstructed - Cardiovascular Regular Rate - Mental Status Mental Status: Alert & Oriented, Answers Appropriately - Pain Pain Scale: 0 Pain Scale used: Numeric (1 - 10) - Nausea Vomiting Nausea Vomiting: Not Present - Hydration Hydration: Tolerates oral liquids, Acosta catheter
--- NOTE | 2017-04-29 07:25 | Cardiothoracic Progress Note ---
Date of Encounter: 04/29/17 Time of Encounter: 07:23 - Assessment and plan (1) CAD (coronary artery disease) Current Visit: Yes Status: Acute The patient has remained hemodynamically stable overnight. He remains extubated and is breathing comfortably this morning. He had some confusion last night appears appropriate this morning. Chest tubes were removed. The patient will be monitored in the ICU today. The assessment and plan as outlined above was discussed with the patient and/or family members who expressed understanding and agreement. All questions were answered. Qualifiers: Coronary Disease-Associated Artery/Lesion type: [place] artery [place] vs. transplanted heart: [place] heart Associated angina: with unstable angina Qualified Code(s): I25.110 - Atherosclerotic heart disease of [place] coronary artery with unstable angina pectoris - Subjective Procedure(s) Performed: POD#2 S/P CABG3 Interval history: The patient remained hemodynamically stable overnight. He is extubated and breathing comfortably. He had confusion last night and required Haldol. This morning he is awake and appropriate. Vital Signs, Last 4 Hours Temp Pulse Resp BP Pulse Ox 04/29/17 06:00 97 10 134/72 95 04/29/17 05:00 96 16 128/69 95 04/29/17 04:00 99.9 F H 93 14 131/67 95 04/29/17 03:41 14 95 Oxgyen Flow Rate Oxygen Flow Rate (LPM) 35 Clinical Data, last 8 Hours Output, Chest Tube Drainage 0 Amount [Mediastinal #2] Output, Chest Tube Drainage 5 Amount [Mediastinal #2] Output, Chest Tube Drainage 40 Amount [Mediastinal #1] Output, Chest Tube Drainage 20 Amount [Mediastinal #1] Weight 04/27/17 04/28/17 04/29/17 23:59 23:59 23:59 Weight 73.028 kg - Physical Examination General: Conversant, No Apparent Distress Neck: No JVD, Normal carotid pulses Cardiac: Reg Rate and Rhythm, Normal S1 and S2, No Murmur Incision: No signs of infection, Dry/intact dressing Sternum: Stable Chest tubes: Minimal drainage, Other (No air leak.) Lungs: Normal Breath Sounds, No Wheeze, Rales, Rhonchi Neuro: Alert and responsive, No focal deficits noted Vascular: Normal capillary refill Extremities: No Clubbing, No Cyanosis, No Edema - Labs 04/29/17 03:55 04/29/17 03:55 Lab Results, Last 24 hours 04/29/17 04/29/17 03:55 03:55 WBC 19.9 H Hgb 9.4 L Hct 29.1 L Plt Count 208 Sodium 137 Potassium 4.3 Chloride 107 Carbon Dioxide 23 BUN 15 Creatinine 0.69 L Glucose 164 H Calcium 8.6 - Imaging Chest Xray: image reviewed (No pneumothorax. Improved bibasilar atelectasis.) - VTE Reasons for not Prescribing Prophylaxis: Medical contraindication Documentation of Mechanical Device: Graduated compression elastic hosiery Consult Discharge Plan - Plan Referrals: Charlene Long, LEAD SOFTWARE TESTER [Primary Care Provider] -
[2017-04-29] MEDS ORDERED: Haloperidol Lactate 5 MG/ML VIAL IVP PRN (07:31)
[2017-04-29] MEDS: Chlorhexidine Rinse 15 ML MOUTHWASH MM SCH ×2 (08:59→21:09)
[2017-04-29] MEDS: *HR* OxyCODONE/APAP 5/325 TABLET PO PRN ×2 (09:07→21:54)
[2017-04-29] MEDS: Aspirin Enteric Coated 81 MG Tablet PO SCH (09:07)
[2017-04-29] MEDS: Furosemide 20 MG/2 ML VIAL IVP SCH ×2 (09:09→21:08)
[2017-04-29] MEDS: Pantoprazole 40 MG VIAL IVP SCH (09:09)
--- NOTE | 2017-04-29 09:36 | Pulmonology Progress Note ---
Date of Encounter: 04/29/17 Time of Encounter: 09:36 Assessment and Plan (1) Acute respiratory failure Current Visit: Yes Status: Acute He is tolerated nasal cannula o2 plan to wean to goal SaO2 around 92-94% Qualifiers: Respiratory failure complication: hypoxia Qualified Code(s): J96.01 - Acute respiratory failure with hypoxia (2) Difficulty with tracheal extubation Current Visit: Yes Status: Acute Successfully liberated I feel that the patient is likely over ventilated in the context of suspected obstructive lung disease he is doing well (3) Diastolic heart failure Current Visit: Yes Status: Acute Recommend that negative volume status agree with continued Lasix diuresis Qualifiers: Heart failure chronicity: chronic Qualified Code(s): I50.32 - Chronic diastolic (congestive) heart failure (4) COPD (chronic obstructive pulmonary disease) Current Visit: Yes Status: Acute It is unclear as the actual amount of time the patient has smoked is his underlying dementia and delirium likely fabricated results that was given to me per his he quit smoking in the late 1970s. At this point I would just schedule bronchodilators on an as needed basis Qualifiers: COPD type: emphysema Emphysema type: unspecified Qualified Code(s): 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 (5) S/P CABG x 3 Current Visit: Yes Status: Acute Cardiothoracic surgery is managing this. Chest tubes have been removed (6) CAD (coronary artery disease) Current Visit: Yes Status: Acute Patient to continue aspirin and statin can likely be started on beta padmaja Qualifiers: Coronary Disease-Associated Artery/Lesion type: [place] artery [place] vs. transplanted heart: [place] heart Associated angina: with unstable angina Qualified Code(s): I25.110 - Atherosclerotic heart disease of [place] coronary artery with unstable angina pectoris (7) Delirium Current Visit: Yes Status: Acute This is likely secondary to advanced age medical comorbidities critical illness. Focus on moravian of sleep-wake cycle consider adding melatonin to night regimen avoid [employer] RO[employer] HELPER medications as able avoid sensory deprivation. Consider bedside sitter and frequent orientation including impairing family to speak with the patient at bedside as able and safe Subjective Principal diagnosis: S/p CABG Interval history: Patient was successfully liberated from yesterday afternoon. Unfortunately became very delirious and inappropriate overnight. He remains hemodynamically stable. He denies complaints today when examined and appears relatively calm although he clearly confused. Chest drains were removed by CTS as well. Objective PUL Vital signs: Last Vital Signs Temp 99.0 F 04/29/17 08:00 Pulse 96 04/29/17 09:00 Resp 10 04/29/17 09:00 BP 134/68 04/29/17 09:00 Pulse Ox 95 04/29/17 09:00 General appearance: no acute distress ENT: oropharynx moist Auscultation: bilateral: diminished breath sounds Cardiovascular: regular rate and rhythm Extremities: no edema non-focal exam, other (unable to consistently or correctly answer basic questions. ) Results - Laboratory Findings CBC and BMP: 04/29/17 03:55 04/29/17 03:55 ABG ABG pH 7.40 pH Units (7.32-7.45) 04/28/17 14:52 ABG pCO2 41 mmHg (35-45) 04/28/17 14:52 ABG pO2 80 mmHg (85-104) L 04/28/17 14:52 ABG O2 Saturation 96 % (95-98) 04/28/17 14:52 PT/INR, D-dimer PT 14.6 Seconds (9.4-12.1) H 04/28/17 04:10 Abnormal lab findings: Abnormal lab results WBC 19.9 K/mcL (4.3-11.1) H 04/29/17 03:55 RBC 3.30 M/mcL (4.19-5.50) L 04/29/17 03:55 Hgb 9.4 g/dL (12.9-16.9) L 04/29/17 03:55 Hct 29.1 % (37.5-50.1) L 04/29/17 03:55 RDW 15.6 % (11.5-14.5) H 04/29/17 03:55 Neutrophils # 16.1 K/mcL (1.6-8.9) H 04/29/17 03:55 Monocytes # 1.6 K/mcL (0.0-1.3) H 04/29/17 03:55 PT 14.6 Seconds (9.4-12.1) H 04/28/17 04:10 ABG pO2 80 mmHg (85-104) L 04/28/17 14:52 ABG Total CO2 27 mEq/L (20-26) H 04/28/17 14:52 ABG Hematocrit 23.0 % (37.5-50.1) L 04/27/17 10:43 Glucose 136 mg/dL (60-95) H 04/27/17 10:43 Creatinine 0.69 mg/dL (0.72-1.25) L 04/29/17 03:55 Glucose 164 mg/dL (70-99) H 04/29/17 03:55 POC Glucose 119 (58-89) H 04/29/17 07:13 Arterial Blood Ionized Calcium 1.40 mmol/L (1.15-1.35) H 04/27/17 10:43 - Diagnostic Findings Chest x-ray: report reviewed, image reviewed - Clinical Findings Intake & Output: Intake & Output 04/28/17 04/29/17 04/29/17 23:59 07:59 15:59 Intake Total 95 / 95 1000 / 1000 Output Total 1135 / 1135 965 / 965 Balance -1040 / -1040 35 / 35 - VTE Reasons for not Prescribing Prophylaxis: Medical contraindication Documentation of Mechanical Device: Graduated compression elastic hosiery Consult Discharge Plan - Plan Referrals: Charlene Long, POST OFFICE MANAGER [Primary Care Provider] -
[2017-04-29] MEDS: Norepinephrine 4 MG in D5% in Water 250 ML IVC SCH (12:17)
[2017-04-30] MEDS: Ipratropium/Albuterol Neb 3 ML IH SCH ×5 (03:58→22:34)
[2017-04-30] MEDS: Insulin LISPRO 300 UNITS/3 ML VIAL SQ SCH ×7 (04:12→23:58)
[2017-04-30] MEDS: niCARdipine 40 MG/200 ML MLS IVC SCH (04:12)
[2017-04-30 04:45] LABS: Basophils % 0.2 %; Eosinophils % 0.1 %; Hematocrit 29.6 % (37.5-50.1); Hemoglobin 9.8 g/dL (12.9-16.9); Immature Granulocytes % 1.2 % (0-4); Lymphocytes # 1.4 K/mcL (0.6-4.6); Lymphocytes % 7.5 %; Mean Corpuscular HGB Conc 33.1 g/dL (31.6-35.5); Mean Corpuscular Hemoglobin 28.7 pg (28.0-33.3); Mean Corpuscular Volume 86.8 fL (83.0-100.0); Mean Platelet Volume 10.2 fL (9.4-12.4); Monocytes # 1.1 K/mcL (0.0-1.3); Monocytes % 6.2 %; Neutrophils # 15.2 K/mcL (1.6-8.9); Platelet Count 244 K/mcL (140-400); Red Blood Count 3.41 M/mcL (4.19-5.50); Red Cell Distribution Width 15.3 % (11.5-14.5); Segmented Neutrophils % 84.8 %
[2017-04-30 04:49] LABS: BUN/Creatinine Ratio 30 (6-26); Blood Urea Nitrogen 19 mg/dL (8-26); Calcium 8.8 mg/dL (8.6-10.8); Carbon Dioxide 25 mEq/L (19-29); Chloride 103 mEq/L (98-109); Glucose 168 mg/dL (70-99); Osmolality,Calculated 288 (280-300); Potassium 3.7 mEq/L (3.5-4.5); Sodium 136 mEq/L (136-145); eGFR For African Americans > 60 (> 60); eGFR For Non-African Americans > 60 (> 60)
--- NOTE | 2017-04-30 07:22 | Cardiothoracic Progress Note ---
Date of Encounter: 04/30/17 Time of Encounter: 07:21 - Assessment and plan (1) CAD (coronary artery disease) Current Visit: Yes Status: Acute The patient has remained hemodynamically stable overnight. He is breathing comfortably this morning. He was able to sit in a chair last evening without difficulty. The Acosta catheter will remain in place for accurate I's and O's. The patient will be transferred to the stepdown unit when a bed is available. The assessment and plan as outlined above was discussed with the patient and/or family members who expressed understanding and agreement. All questions were answered. Qualifiers: Coronary Disease-Associated Artery/Lesion type: [place] artery [place] vs. transplanted heart: [place] heart Associated angina: with unstable angina Qualified Code(s): I25.110 - Atherosclerotic heart disease of [place] coronary artery with unstable angina pectoris - Subjective Procedure(s) Performed: POD#3 S/P CABG3 Interval history: The patient remained hemodynamically stable overnight. He is breathing comfortably. He was able to sit in a chair last night without difficulty. Vital Signs, Last 4 Hours Temp Pulse Resp BP Pulse Ox 04/30/17 06:00 87 17 144/61 96 04/30/17 05:00 82 16 120/59 95 04/30/17 04:00 81 16 125/60 97 04/30/17 03:43 97.4 F L Oxgyen Flow Rate Oxygen Flow Rate (LPM) 35 Weight 04/28/17 04/29/17 04/30/17 23:59 23:59 23:59 Weight 69.1 kg - Physical Examination General: Conversant, No Apparent Distress Neck: No JVD, Normal carotid pulses Cardiac: Reg Rate and Rhythm, Normal S1 and S2, No Murmur Incision: No signs of infection, Dry/intact dressing Sternum: Stable Pacing Wires: In place Lungs: Normal Breath Sounds, No Wheeze, Rales, Rhonchi Neuro: Alert and responsive, No focal deficits noted Vascular: Normal capillary refill Extremities: No Clubbing, No Cyanosis, No Edema - Labs 04/30/17 04:15 04/30/17 04:15 Lab Results, Last 24 hours 04/30/17 04/30/17 04:15 04:15 WBC 18.0 H Hgb 9.8 L Hct 29.6 L Plt Count 244 Sodium 136 Potassium 3.7 Chloride 103 Carbon Dioxide 25 BUN 19 Creatinine 0.64 L Glucose 168 H Calcium 8.8 - VTE Reasons for not Prescribing Prophylaxis: Medical contraindication Documentation of Mechanical Device: Intermittent pneumatic compression device Consult Discharge Plan - Plan Referrals: Charlene Long CNP [Primary Care Provider] -
[2017-04-30] MEDS: Furosemide 20 MG/2 ML VIAL IVP SCH ×2 (08:42→21:15)
[2017-04-30] MEDS: Aspirin Enteric Coated 81 MG Tablet PO SCH (08:42)
[2017-04-30] MEDS: Pantoprazole 40 MG VIAL IVP SCH (08:42)
[2017-04-30] MEDS: Chlorhexidine Rinse 15 ML MOUTHWASH MM SCH ×2 (08:43→21:18)
[2017-04-30] MEDS ORDERED: *HR* Dextrose 50 % in Water (Syg) 50 ML SYRINGE IVP PRN (09:33)
[2017-04-30] MEDS ORDERED: *HR* Morphine 2 MG/ML SYRINGE IVP PRN ×2 (09:33)
[2017-04-30] MEDS ORDERED: *HR* OxyCODONE/APAP 5/325 TABLET PO PRN (09:33)
[2017-04-30] MEDS ORDERED: Naloxone 0.4 MG/ML INJ IVP PRN (09:33)
[2017-04-30] MEDS: *HR* Metformin 500 MG TABLET PO SCH (11:31)
[2017-04-30] MEDS: Loratadine 10 MG TABLET PO SCH (11:31)
[2017-04-30] MEDS: *HR* Pioglitazone 45 MG TABLET PO SCH (11:32)
[2017-04-30] MEDS: Tolterodine LA (24 HR) 4 MG CAP.ER.24H PO SCH (11:32)
[2017-04-30] MEDS: Pregabalin 50 MG CAPSULE PO SCH ×3 (11:38→21:18)
[2017-04-30] MEDS: *HR* Heparin 5,000 UNIT/ML VIAL SQ SCH ×2 (11:38→17:51)
[2017-04-30] MEDS: (Mirabegron [Myrbetriq] 50 MG) PO SCH (11:39)
[2017-05-01] MEDS: Ipratropium/Albuterol Neb 3 ML IH SCH ×4 (04:19→23:13)
[2017-05-01] MEDS: *HR* Heparin 5,000 UNIT/ML VIAL SQ SCH ×2 (06:06→16:54)
[2017-05-01] MEDS: Insulin LISPRO 300 UNITS/3 ML VIAL SQ SCH ×5 (06:06→21:41)
--- NOTE | 2017-05-01 08:01 | Cardiothoracic Progress Note ---
Date of Encounter: 05/01/17 Time of Encounter: 07:59 - Assessment and plan (1) CAD (coronary artery disease) Current Visit: Yes Status: Acute The patient has remained hemodynamically stable overnight. He is breathing comfortably this morning. He began ambulating in the room today and then in the hallway. The assessment and plan as outlined above was discussed with the patient and/or family members who expressed understanding and agreement. All questions were answered. Qualifiers: Coronary Disease-Associated Artery/Lesion type: [place] artery [place] vs. transplanted heart: [place] heart Associated angina: with unstable angina Qualified Code(s): I25.110 - Atherosclerotic heart disease of [place] coronary artery with unstable angina pectoris - Subjective Procedure(s) Performed: POD#4 S/P CABG3 Interval history: The patient remained hemodynamically stable overnight. He is breathing comfortably. He was able to sit in a chair last night without difficulty. He is more appropriate this morning. Vital Signs, Last 4 Hours Resp Pulse Ox 05/01/17 04:19 14 96 Oxgyen Flow Rate Oxygen Flow Rate (LPM) 35 Weight 04/29/17 04/30/17 05/01/17 23:59 23:59 23:59 Weight 69.1 kg 66.5 kg - Physical Examination General: Conversant, No Apparent Distress Neck: No JVD, Normal carotid pulses Cardiac: Reg Rate and Rhythm, Normal S1 and S2, No Murmur Incision: No signs of infection, Dry/intact dressing Sternum: Stable Pacing Wires: In place Lungs: Normal Breath Sounds, No Wheeze, Rales, Rhonchi Neuro: Alert and responsive, No focal deficits noted Vascular: Normal capillary refill Extremities: No Clubbing, No Cyanosis, No Edema - Labs 04/30/17 04:15 04/30/17 04:15 - VTE Reasons for not Prescribing Prophylaxis: Medical contraindication Documentation of Mechanical Device: Graduated compression elastic hosiery Consult Discharge Plan - Plan Referrals: Charlene Long CNP [Primary Care Provider] -
[2017-05-01] MEDS: Pantoprazole 40 MG VIAL IVP SCH (08:06)
[2017-05-01] MEDS: Furosemide 20 MG/2 ML VIAL IVP SCH ×2 (08:06→21:39)
[2017-05-01] MEDS: Tolterodine LA (24 HR) 4 MG CAP.ER.24H PO SCH (08:07)
[2017-05-01] MEDS: Loratadine 10 MG TABLET PO SCH (08:07)
[2017-05-01] MEDS: *HR* Metformin 500 MG TABLET PO SCH (08:07)
[2017-05-01] MEDS: Fluticasone Propionate Nasal 50 MCG/SPRAY BOTTLE NS SCH (08:08)
[2017-05-01] MEDS: *HR* Pioglitazone 45 MG TABLET PO SCH (08:08)
[2017-05-01] MEDS: Pregabalin 50 MG CAPSULE PO SCH ×3 (08:08→21:35)
[2017-05-01] MEDS: Chlorhexidine Rinse 15 ML MOUTHWASH MM SCH ×2 (08:08→21:45)
[2017-05-01] MEDS: Aspirin Enteric Coated 81 MG Tablet PO SCH (08:08)
[2017-05-01] MEDS: (Mirabegron [Myrbetriq] 50 MG) PO SCH (08:09)
[2017-05-02] MEDS: Ipratropium/Albuterol Neb 3 ML IH SCH ×4 (04:54→22:23)
[2017-05-02] MEDS: *HR* Heparin 5,000 UNIT/ML VIAL SQ SCH ×2 (05:49→17:35)
[2017-05-02 05:57] LABS: Basophils # 0.1 K/mcL (0.0-0.2); Basophils % 0.6 %; Eosinophils # 0.2 K/mcL (0.0-0.6); Eosinophils % 2.1 %; Hematocrit 28.6 % (37.5-50.1); Hemoglobin 9.4 g/dL (12.9-16.9); Immature Granulocytes % 0.9 % (0-4); Lymphocytes # 3.1 K/mcL (0.6-4.6); Lymphocytes % 28.6 %; Mean Corpuscular HGB Conc 32.9 g/dL (31.6-35.5); Mean Corpuscular Hemoglobin 28.4 pg (28.0-33.3); Mean Corpuscular Volume 86.4 fL (83.0-100.0); Monocytes # 0.9 K/mcL (0.0-1.3); Monocytes % 8.1 %; Neutrophils # 6.4 K/mcL (1.6-8.9); Nucleated Red Blood Cells 0.2 /100 WBC (0); Platelet Count 352 K/mcL (140-400); Red Blood Count 3.31 M/mcL (4.19-5.50); Red Cell Distribution Width 15.1 % (11.5-14.5); Segmented Neutrophils % 59.7 %
[2017-05-02 06:26] LABS: BUN/Creatinine Ratio 37 (6-26); Blood Urea Nitrogen 25 mg/dL (8-26); Calcium 8.4 mg/dL (8.6-10.8); Carbon Dioxide 26 mEq/L (19-29); Chloride 100 mEq/L (98-109); Glucose 151 mg/dL (70-99); Osmolality,Calculated 289 (280-300); Potassium 3.2 mEq/L (3.5-4.5); Sodium 136 mEq/L (136-145); eGFR For African Americans > 60 (> 60); eGFR For Non-African Americans > 60 (> 60)
[2017-05-02] MEDS: Insulin LISPRO 300 UNITS/3 ML VIAL SQ SCH ×4 (08:26→21:07)
[2017-05-02] MEDS: Furosemide 20 MG/2 ML VIAL IVP SCH (08:27)
[2017-05-02] MEDS: Pantoprazole 40 MG VIAL IVP SCH (08:27)
[2017-05-02] MEDS: Chlorhexidine Rinse 15 ML MOUTHWASH MM SCH ×2 (08:27→21:06)
[2017-05-02] MEDS: Loratadine 10 MG TABLET PO SCH (08:29)
[2017-05-02] MEDS: *HR* Pioglitazone 45 MG TABLET PO SCH (08:29)
[2017-05-02] MEDS: *HR* Metformin 500 MG TABLET PO SCH (08:29)
[2017-05-02] MEDS: Aspirin Enteric Coated 81 MG Tablet PO SCH (08:30)
[2017-05-02] MEDS: Tolterodine LA (24 HR) 4 MG CAP.ER.24H PO SCH (08:31)
[2017-05-02] MEDS: Pregabalin 50 MG CAPSULE PO SCH ×3 (08:31→21:05)
[2017-05-02] MEDS: (Mirabegron [Myrbetriq] 50 MG) PO SCH (08:32)
[2017-05-02] MEDS: Fluticasone Propionate Nasal 50 MCG/SPRAY BOTTLE NS SCH (08:32)
--- NOTE | 2017-05-02 10:40 | Cardiothoracic Progress Note ---
Date of Encounter: 05/02/17 Time of Encounter: 10:38 - Assessment and plan (1) CAD (coronary artery disease) Current Visit: Yes Status: Acute The patient remained hemodynamically stable overnight. He is breathing comfortably this morning. He began ambulating in the room yesterday however, he is extremely weak and will require inpatient physical therapy and rehabilitation as a bridge to home. The assessment and plan as outlined above was discussed with the patient and/or family members who expressed understanding and agreement. All questions were answered. Qualifiers: Coronary Disease-Associated Artery/Lesion type: [place] artery [place] vs. transplanted heart: [place] heart Associated angina: with unstable angina Qualified Code(s): I25.110 - Atherosclerotic heart disease of [place] coronary artery with unstable angina pectoris - Subjective Procedure(s) Performed: POD#5 S/P CABG3 Interval history: The patient remained hemodynamically stable overnight. He is breathing comfortably. He was able to sit in a chair last night without difficulty; however, he is not ambulating well. He requires at least 2 person assistance when ambulating. Vital Signs, Last 4 Hours Temp Pulse Resp BP Pulse Ox 05/02/17 09:36 16 135/71 99 05/02/17 08:00 95 05/02/17 07:25 98.2 F 94 16 135/71 93 Oxgyen Flow Rate Oxygen Flow Rate (LPM) 0 Clinical Data, last 8 Hours Output, Urine Amount 0 Weight 04/30/17 05/01/17 05/02/17 23:59 23:59 23:59 Weight 69.1 kg 66.5 kg - Physical Examination General: Conversant, No Apparent Distress Neck: No JVD, Normal carotid pulses Cardiac: Reg Rate and Rhythm, Normal S1 and S2, No Murmur Incision: No signs of infection, Dry/intact dressing Lungs: Normal Breath Sounds, No Wheeze, Rales, Rhonchi Neuro: Alert and responsive, No focal deficits noted Vascular: Normal capillary refill Musculoskeletal: No Chest Wall Tenderness Extremities: No Clubbing, No Cyanosis, No Edema - Labs 05/02/17 05:35 05/02/17 05:35 Lab Results, Last 24 hours 05/02/17 05/02/17 05:35 05:35 WBC 10.8 Hgb 9.4 L Hct 28.6 L Plt Count 352 Sodium 136 Potassium 3.2 L Chloride 100 Carbon Dioxide 26 BUN 25 Creatinine 0.68 L Glucose 151 H Calcium 8.4 L - VTE Reasons for not Prescribing Prophylaxis: Medical contraindication Documentation of Mechanical Device: Graduated compression elastic hosiery Consult Discharge Plan - Plan Referrals: Charlene Long CNP [Primary Care Provider] -
[2017-05-02] MEDS: Furosemide 20 MG TABLET PO SCH (16:26)
[2017-05-03] MEDS: Ipratropium/Albuterol Neb 3 ML IH SCH ×5 (04:44→22:33)
[2017-05-03] MEDS: *HR* Heparin 5,000 UNIT/ML VIAL SQ SCH ×2 (06:32→16:54)
[2017-05-03 06:50] LABS: BUN/Creatinine Ratio 32 (6-26); Blood Urea Nitrogen 24 mg/dL (8-26); Calcium 8.8 mg/dL (8.6-10.8); Carbon Dioxide 25 mEq/L (19-29); Chloride 100 mEq/L (98-109); Glucose 181 mg/dL (70-99); Osmolality,Calculated 291 (280-300); Potassium 3.9 mEq/L (3.5-4.5); Sodium 136 mEq/L (136-145); eGFR For African Americans > 60 (> 60); eGFR For Non-African Americans > 60 (> 60)
[2017-05-03] MEDS: (Mirabegron [Myrbetriq] 50 MG) PO SCH (08:03)
[2017-05-03] MEDS: Loratadine 10 MG TABLET PO SCH (08:16)
[2017-05-03] MEDS: *HR* Metformin 500 MG TABLET PO SCH (08:16)
[2017-05-03] MEDS: Pregabalin 50 MG CAPSULE PO SCH ×3 (08:16→20:10)
[2017-05-03] MEDS: Aspirin Enteric Coated 81 MG Tablet PO SCH (08:16)
[2017-05-03] MEDS: *HR* Pioglitazone 45 MG TABLET PO SCH (08:17)
[2017-05-03] MEDS: Fluticasone Propionate Nasal 50 MCG/SPRAY BOTTLE NS SCH (08:17)
[2017-05-03] MEDS: Tolterodine LA (24 HR) 4 MG CAP.ER.24H PO SCH (08:17)
[2017-05-03] MEDS: Insulin LISPRO 300 UNITS/3 ML VIAL SQ SCH ×4 (08:17→21:27)
[2017-05-03] MEDS: Chlorhexidine Rinse 15 ML MOUTHWASH MM SCH ×2 (08:17→20:10)
[2017-05-03] MEDS: Furosemide 20 MG TABLET PO SCH ×2 (08:26→16:54)
--- NOTE | 2017-05-03 08:49 | Cardiothoracic Progress Note ---
Date of Encounter: 05/03/17 Time of Encounter: 08:47 - Assessment and plan (1) CAD (coronary artery disease) Current Visit: Yes Status: Acute The patient remained hemodynamically stable overnight. He is breathing comfortably this morning. He is ambulating in the room; however, he is extremely weak and will require inpatient physical therapy and rehabilitation as a bridge to home. The assessment and plan as outlined above was discussed with the patient and/or family members who expressed understanding and agreement. All questions were answered. Qualifiers: Coronary Disease-Associated Artery/Lesion type: [place] artery [place] vs. transplanted heart: [place] heart Associated angina: with unstable angina Qualified Code(s): I25.110 - Atherosclerotic heart disease of [place] coronary artery with unstable angina pectoris - Subjective Procedure(s) Performed: POD#6 S/P CABG3 Interval history: The patient remained hemodynamically stable overnight. He is breathing comfortably. He was able to sit in a chair last night without difficulty; however, he is not ambulating well. He requires at least 2 person assistance when ambulating. Vital Signs, Last 4 Hours Temp Pulse Resp BP Pulse Ox 05/03/17 08:26 74 05/03/17 07:46 97.8 F 90 18 123/68 93 Oxgyen Flow Rate Oxygen Flow Rate (LPM) 0 Weight 05/01/17 05/02/17 05/03/17 23:59 23:59 23:59 Weight 66.5 kg - Physical Examination General: Conversant, No Apparent Distress Neck: No JVD, Normal carotid pulses Cardiac: Reg Rate and Rhythm, Normal S1 and S2, No Murmur Incision: No signs of infection, Dry/intact dressing Pacing Wires: In place Lungs: Normal Breath Sounds, No Wheeze, Rales, Rhonchi Neuro: Alert and responsive, No focal deficits noted Vascular: Normal capillary refill Extremities: No Clubbing, No Cyanosis, No Edema - Labs 05/02/17 05:35 05/03/17 06:15 Lab Results, Last 24 hours 05/03/17 06:15 Sodium 136 Potassium 3.9 Chloride 100 Carbon Dioxide 25 BUN 24 Creatinine 0.76 Glucose 181 H Calcium 8.8 - VTE Reasons for not Prescribing Prophylaxis: Medical contraindication Documentation of Mechanical Device: Graduated compression elastic hosiery Consult Discharge Plan - Plan Referrals: Charlene Long CNP [Primary Care Provider] -
[2017-05-04] MEDS: Ipratropium/Albuterol Neb 3 ML IH SCH ×2 (04:04→10:35)
[2017-05-04] MEDS: *HR* Heparin 5,000 UNIT/ML VIAL SQ SCH (08:58)
[2017-05-04] MEDS: Loratadine 10 MG TABLET PO SCH (08:59)
[2017-05-04] MEDS: Chlorhexidine Rinse 15 ML MOUTHWASH MM SCH (08:59)
[2017-05-04] MEDS: Insulin LISPRO 300 UNITS/3 ML VIAL SQ SCH ×2 (08:59→12:01)
[2017-05-04] MEDS: Furosemide 20 MG TABLET PO SCH (08:59)
[2017-05-04] MEDS: Aspirin Enteric Coated 81 MG Tablet PO SCH (08:59)
[2017-05-04] MEDS: (Mirabegron [Myrbetriq] 50 MG) PO SCH (08:59)
[2017-05-04] MEDS: Pregabalin 50 MG CAPSULE PO SCH ×2 (08:59→10:10)
[2017-05-04] MEDS: *HR* Pioglitazone 45 MG TABLET PO SCH (08:59)
[2017-05-04] MEDS: *HR* Metformin 500 MG TABLET PO SCH (08:59)
[2017-05-04] MEDS: Tolterodine LA (24 HR) 4 MG CAP.ER.24H PO SCH (08:59)
[2017-05-04] MEDS: Fluticasone Propionate Nasal 50 MCG/SPRAY BOTTLE NS SCH (08:59)
--- NOTE | 2017-05-04 09:28 | Discharge Summary ---
Date of Encounter: 05/04/17 Time of Encounter: 09:20 - Discharge Diagnosis (1) CAD (coronary artery disease) Priority: Primary Status: Acute Qualifiers: Coronary Disease-Associated Artery/Lesion type: [place] artery [place] vs. transplanted heart: [place] heart Associated angina: with unstable angina Qualified Code(s): I25.110 - Atherosclerotic heart disease of [place] coronary artery with unstable angina pectoris - Discharge Medications Prescriptions: OxyCODONE/APAP 5/325 [Percocet 5/325 MG] 1 each PO Q4HR PRN #42 tablet PRN Reason: Severe Pain Home Medications: Aspirin [Lo-Dose Aspirin EC] 81 mg PO DAILY 04/08/17 [History] Atorvastatin Calcium [Lipitor] 20 mg PO DAILY 04/08/17 [History] Docusate [Colace] 100 mg PO DAILY 04/08/17 [History] Famotidine [Heartburn Prevention] 20 mg PO DAILY 04/08/17 [History] Fluticasone Propionate Nasal [Flonase] 50 mcg NS PRN PRN 04/08/17 [History] Lisinopril 2.5 mg PO DAILY 04/08/17 [History] Loratadine [Claritin] 10 mg PO DAILY 04/08/17 [History] Metformin HCl [Metformin HCl ER] 1,000 mg PO DAILY 04/08/17 [History] Metoprolol [Lopressor] 12.5 mg PO BID #0 04/08/17 [History] Mirabegron [Myrbetriq] 50 mg PO DAILY 04/08/17 [History] Pregabalin [Lyrica] 50 mg PO TID 04/08/17 [History] Tamsulosin [Flomax] 0.4 mg PO DAILY 04/08/17 [History] Nitroglycerin [Nitrostat] 0.4 mg SL Q5M PRN 04/27/17 [History] Omeprazole [PriLOSEC] 40 mg PO DAILY 04/27/17 [History] Pioglitazone [Actos] 45 mg PO 0800 04/27/17 [History] Tolterodine LA (24 HR) [Detrol LA] 4 mg PO DAILY 04/27/17 [History] Donepezil HCl [Aricept] 5 mg PO DAILY #30 05/04/17 [Rx] Donepezil [Aricept] 10 mg PO HS tablet 05/04/17 [Rx] OxyCODONE/APAP 5/325 [Percocet 5/325 MG] 1 each PO Q4HR PRN #42 tablet 05/04/17 [Rx] Allergies/Adverse Reactions: 3 Allergy/AdvReac Type Severity Reaction Status Date / Time horse serum Allergy Itching Uncoded 04/08/17 11:21 Date of admission: 04/27/17 10:29 Primary care physician: Charlene Long CNP Consults: 04/27/17 11:23 Consult to Cardiac Rehabilitation-Phase1 [CONS] Routine Comment: Reason for Consult: Post open heart Call Completed: Yes Consult to Radiological Engineer [CONS] Routine Reason for SW Consult: Inpatient rehabilitation placement. 04/28/17 08:00 Consult to Occupational Therapy [CONS] Routine Comment: Evaluate, develop and implement POC Reason for Consult: rehab placement Consult to Physical Therapy [CONS] Routine Comment: Evaluate, develop and implement POC Reason for Consult: rehab placement 04/28/17 12:02 Consult to Pulmonology [CONS] Stat Consulting Provider: [facility] Reason for Consult: for vent management Call Completed: Yes Procedure(s) Performed: 1. CABG 3 (AMIN to LAD, SVG to ramus intermediate, SVG to PDA) performed April 27, 2017. 2. Endoscopic vein harvest, greater saphenous vein from right lower extremity performed April 27, 2017. Discharging clinician: Susan Martinez Anticipated date of discharge: 05/04/17 - Patient Status Disposition: Transfer Inpatient Rehab Fac Condition: Fair Functional capacity at discharge: uses cane/walker Overall status at discharge: patient is progressing back to baseline - Discharge Instructions Follow Up With: Charlene Long CNP [Primary Care Provider] - - Diet and Activity Activity: sternal precautions, no driving for four weeks, no lifting greater than 10 pounds for eight weeks - Hospital Course Hospital course: Mr. Nath is a 81 year old type II diabetic, hypertensive man with hypercholesterolemia and COPD who has been experiencing exertional substernal chest pain radiating to both arms for several months. The patient has no associated symptoms, denying any shortness of breath, dyspnea on exertion, lightheadedness, nausea, palpitations, syncope, or vomiting. The patient states that the pain will occur with walking, carrying groceries, or occasionally awakening him from sleep. Once the pain has occurred, he requires to 60 minutes of rest in order for the symptoms to resolve. The patient underwent an excise nuclear stress test which revealed an LVEF 59% with moderate maximino-infarct ischemia involving the inferolateral segments. Subsequent cardiac catheterization revealed severe 3 vessel CAD and an LVEF 50% . In particular, the patient had a 30% ostial left main lesion, a 70-80% ostial LAD lesion, a 90% mid LAD lesion, a 95% proximal D1 lesion, a long 90% proximal LCx lesion (small vessel), a 95% distal LCx lesion, a 99% proximal OM1 lesion, a 95% ostial ramus intermediate lesion, and a completely occluded ostial RCA which fills distally via [id number] collaterals. The LCx and RCA vessels appear small and non-bypassable. The patient has been treated medically; however , has persistent symptoms that has been recommended for high risk CABG. The patient underwent CABG 3 on April 27, 2017. His post-operative course was uncomplicated except for some baseline confusion. This gradually resolved over his hospital stay. The patient was transferred to the telemetry unit on POD #3. He had difficulty ambulating and will require inpatient rehabilitation as a bridge to home. He was discharged to [facility] in [place], [place] on POD #7. - Time Spent with Patient Total time spent providing and/or coordinating discharge services: Physical Examination Vital Signs, Last 4 Hours Temp Pulse Resp BP Pulse Ox 05/04/ 06:58 98.2 F 85 18 144/73 97 General: Conversant, No Apparent Distress Neck: No JVD, Normal carotid pulses Cardiac: Reg Rate and Rhythm, Normal S1 and S2, No Murmur Lungs: Normal Breath Sounds, No Wheeze, Rales, Rhonchi Neuro: Alert and responsive, No focal deficits noted Vascular: Normal capillary refill Abdomen: Soft, Non-tender Musculoskeletal: No Chest Wall Tenderness Extremities: No Clubbing, No Cyanosis, No Edema Open Heart Registry Aspirin Cont/Prescribed at DC: Yes Beta [place] Cont/Prescribed at DC: Yes Statin Cont/Prescribed at DC: Yes DAWIT/ARB Cont/Prescribed at DC: Yes - VTE Reasons for not Prescribing Prophylaxis: Medical contraindication Documentation of Mechanical Device: Graduated compression elastic hosiery
--- NOTE | 2017-05-04 09:50 | Physician Discharge Referral ---
ExtendedCare Referral Info Transfer To: [facility] Provider in Charge: Axel Martinez MD Provider in Charge after Transfer: PCP Institutional Level of Care: Skilled - Diagnosis (1) CAD (coronary artery disease) Priority: Primary Status: Acute Prognosis: Fair Aware of Diagnosis: Patient, Family Aware of Prognosis: Patient, Family - Transfer Medications Prescriptions: OxyCODONE/APAP 5/325 [Percocet 5/325 MG] 1 each PO Q4HR PRN #42 tablet PRN Reason: Severe Pain Home Medications: Aspirin [Lo-Dose Aspirin EC] 81 mg PO DAILY 04/08/17 [History] Atorvastatin Calcium [Lipitor] 20 mg PO DAILY 04/08/17 [History] Docusate [Colace] 100 mg PO DAILY 04/08/17 [History] Famotidine [Heartburn Prevention] 20 mg PO DAILY 04/08/17 [History] Fluticasone Propionate Nasal [Flonase] 50 mcg NS PRN PRN 04/08/17 [History] Lisinopril 2.5 mg PO DAILY 04/08/17 [History] Loratadine [Claritin] 10 mg PO DAILY 04/08/17 [History] Metformin HCl [Metformin HCl ER] 1,000 mg PO DAILY 04/08/17 [History] Metoprolol [Lopressor] 12.5 mg PO BID #0 04/08/17 [History] Mirabegron [Myrbetriq] 50 mg PO DAILY 04/08/17 [History] Pregabalin [Lyrica] 50 mg PO TID 04/08/17 [History] Tamsulosin [Flomax] 0.4 mg PO DAILY 04/08/17 [History] Nitroglycerin [Nitrostat] 0.4 mg SL Q5M PRN 04/27/17 [History] Omeprazole [PriLOSEC] 40 mg PO DAILY 04/27/17 [History] Pioglitazone [Actos] 45 mg PO 0800 04/27/17 [History] Tolterodine LA (24 HR) [Detrol LA] 4 mg PO DAILY 04/27/17 [History] Donepezil HCl [Aricept] 5 mg PO DAILY #30 05/04/17 [Rx] Donepezil [Aricept] 10 mg PO HS tablet 05/04/17 [Rx] OxyCODONE/APAP 5/325 [Percocet 5/325 MG] 1 each PO Q4HR PRN #42 tablet 05/04/17 [Rx] Allergies/Adverse Reactions: 3 Allergy/AdvReac Type Severity Reaction Status Date / Time horse serum Allergy Itching Uncoded 04/08/17 11:21 - Respiratory Orders Smoking Cessation: Smoking cessation has been advised. For more information, call the [place] Tobacco Quit Line at 5-242-BYVN-NOW. - Ancillary Orders May use pressure relief devices daily prn, May go on SAL[place] w/family/respon democrat w /meds at nurse discretion PRN, May consult with Dentist, Artist Relationship Manager, Toll Test Worker PRN - Advance Directives Code Status: Full Code - Mobility Orders Ambulate - Rehabiliation Orders Rehab Potential: Fair Rehab Orders: Sternal Precautions, ROM Exercises, Evaluation for Physical Therapy, Evaluation for Occupational Therapy - Treatments Skin tear care topically daily PRN per policy, May check for fecal impaction rectally daily PRN, Fleet enema rectally every other day PRN cleansing purposes - Diet Orders Regular CERTIFICATION: I certify that the transfer of the above named patient to an Extended Care Facility is necessary for the continuing treatment of the diagnosis listed. The above information is true and accurate reflection of patient's current condition. Confidential - Redisclosure prohibited without a patient's written consent.
[2017-05-04 12:10] VITALS: BP 126/67
== END 2017-05-04 13:20 | DRG 235 ==
LOC: SAMDAY 06:29 → ICNU 10:29 → 2NNU 04-30 14:42
PROVIDERS: ADMIT Thoracic Surgery (Cardiothoracic Vascular Surgery); ATTEND Thoracic Surgery (Cardiothoracic Vascular Surgery)

== ENCOUNTER 2018-03-09 09:35 | Inpatient (IN) ==
[2018-03-09] MEDS ORDERED: 0.9 % Sodium Chloride 1,000 ML IVC ONE (10:53)
--- NOTE | 2018-03-09 11:29 | Emergency Department Note ---
Disposition Clinical Impression: Pleural effusion, left, Chest pain, rule out acute myocardial infarction Disposition: Admitted As Inpatient Condition: Fair Referrals: Charlene Long CNP [Primary Care Provider] - Forms: ED Satisfaction Letter General Adult HPI - General Chief complaint: ED Shortness of Breath/Dyspnea Stated complaint: sent from Dr Time Seen by Provider: 03/09/18 10:32 Source: patient Mode of arrival: private vehicle Limitations: no limitations Nursing Notes Reviewed: Yes Vital Signs Reviewed: Yes - History of Present Illness HPI Narrative: Patient presents from home for evaluation of "lung collapsing." He states his primary care provider sent him here because his x-ray showed that his lung was collapsing. He points to the left side. He denies any pain at this time, but states that he does have intermittent left-sided chest pain that radiates into the left upper back. He also sometimes has shortness of breath, but denies feeling short of breath right now. He denies fever, chills, nausea or vomiting. He is somewhat hard of hearing and is a very poor historian. Pt Subjective Complaint: "My Doctor sent me here because my lung is collapsing" Onset (ago): day(s) Location: chest Radiation: back (Left upper) Pain Scale: 0 Quality: aching Consistency: intermittent Improves with: nothing Worsens with: nothing Associated symptoms: Reports: chest pain, malaise. Denies: confusion, cough, diaphoresis, fever/chills, headaches, loss of appetite, nausea/vomiting, rash, seizure, shortness of breath, syncope, weakness, other Treatments Prior to Arrival: none - Related Data Home Medications Medication Instructions Recorded Confirmed Aspirin [Lo-Dose Aspirin EC] 81 mg PO DAILY 04/08/17 03/09/18 Atorvastatin Calcium [Lipitor] 20 mg PO DAILY 04/08/17 03/09/18 Docusate [Colace] 100 mg PO DAILY 04/08/17 03/09/18 Famotidine [Heartburn Prevention] 20 mg PO DAILY 04/08/17 03/09/18 Fluticasone Propionate Nasal 50 mcg NS PRN PRN 04/08/17 03/09/18 [Flonase] Metformin HCl [Metformin HCl ER] 1,000 mg PO DAILY 04/08/17 03/09/18 Metoprolol [Lopressor] 12.5 mg PO BID #0 04/08/17 03/09/18 Tamsulosin [Flomax] 0.4 mg PO DAILY 04/08/17 03/09/18 Pioglitazone [Actos] 45 mg PO 0800 04/27/17 03/09/18 Insulin Glargine,Hum.rec.anlog 10 unit SQ DAILY 03/09/18 03/09/18 [Lantus Solostar] Levofloxacin [Levaquin] 750 mg PO DAILY 03/09/18 03/09/18 Linagliptin [Tradjenta] 5 mg PO DAILY 03/09/18 03/09/18 Ondansetron HCl [Zofran] 4 mg PO Q6H PRN 03/09/18 03/09/18 Pregabalin [Lyrica] 25 mg PO TID 03/09/18 03/09/18 Tolterodine Tartrate [Detrol] 4 mg PO DAILY 03/09/18 03/09/18 Previous Rx's Medication Instructions Recorded Donepezil HCl [Aricept] 5 mg PO DAILY #30 05/04/17 Allergies Allergy/AdvReac Type Severity Reaction Status Date / Time horse serum Allergy Itching Uncoded 04/08/17 11:21 All systems ED: reviewed and negative except as stated. Review of Systems: As Per HPI Constitutional: Denies: fever, chills, weakness ENT ED: Denies: throat pain, congestion, dysphagia Cardiovascular: Reports: as per HPI, chest pain, dyspnea on exertion (, "Sometimes"). Denies: palpitations, orthopnea, edema, syncope Respiratory: Reports: as per HPI, dyspnea (Sometimes), sputum production ( Sometimes, clear). Denies: cough, wheezes, hemoptysis, stridor Gastrointestinal: Denies: abdominal pain, nausea, vomiting, diarrhea, constipation Musculoskeletal: Denies: joint swelling, arthralgia Integumentary: Denies: rash Neurological: Denies: headache, weakness, numbness, paresthesias, confusion, vertigo Endocrine: Reports: fatigue Hematological/Lymphatic: Denies: easy bleeding, easy bruising Past Medical History - Past Medical History Attestation: Yes The following information was validated with the patient. Source: patient Medical history: Reports: diabetes, hyperlipidemia, hypertension, TIA Surgical history: Reports: other Psychiatric history: Reports: no psych history - Social History Smoking Status: Never smoker Smokeless Tobacco Status: No Alcohol use: Reports: none Drug use: Reports: none Physical Exam - General Limitations: no limitations General appearance: alert, in no apparent distress - Head Head exam: atraumatic, normocephalic, normal inspection - Eye Eye exam: Present: normal appearance, PERRL. Absent: scleral icterus, conjunctival injection, periorbital swelling - ENT ENT exam: mucous membranes dry - Neck Neck exam: Present: normal inspection, full ROM, trachea midline. Absent: tenderness, meningismus, lymphadenopathy - Chest Chest inspection: Present: normal inspection, symmetric chest wall rise. Absent : tenderness - Respiratory Respiratory exam: Present: respiratory distress (Tachypneic), other. Absent: wheezes, stridor, accessory muscle use, prolonged expiratory phase - Expanded Respiratory Exam Location: rhonchi: Upper (Bilateral, mild), decreased breath sounds: Left, Lower (Absent breath sounds, left lower) - Cardiovascular Cardiovascular exam: Present: normal rhythm, tachycardia, systolic murmur - Abdominal Exam Abdominal exam: Present: soft, Non-Tender. Absent: distention, guarding, rebound, rigidity, mass - Extremities Exam Extremities exam: Present: normal inspection - Back Exam Back exam: Present: normal inspection - Neurological Exam Neurological exam: Present: alert, oriented X3, CN II-XII intact, normal gait - Psychiatric Psychiatric exam: Present: normal affect, normal mood - Skin Skin exam: Present: warm, dry, intact, normal color Course Course Narrative: Patient presents for evaluation of left lung abnormality on chest x-ray. It was ordered by his primary care provider. He states that he was told his left lung is collapsed. He does have breath sounds in the left upper but no breath sounds in the left lower. He is mildly tachypneic but denies pain. He denies feeling short of breath. He is mildly tachycardic, normal rhythm, no history of trauma. No traumatic findings on exam. Labs, EKG and x-ray ordered. The x- ray from his primary care provider was done yesterday. Case discussed with Dr. Rashi Pathak. He has had [id number] time with the patient and agrees with the assessment and plan. Patient's EKG shows a sinus rhythm, no ST elevation or depression. Chest x-ray was read by the radiologist as expanding pleural effusion with compressive atelectasis of the left lung base. Patient also had a CT of the chest done yesterday which was read similarly but also shows pulmonary nodules. Follow-up CT after lung expansion recommended by radiologist. Patient's heart rate is elevated, blood pressure is 95/65. There is concern for sepsis. Sepsis order set has been added. Patient care transferred to Dr. Pathak. Vital Signs Temperature 97.4 F L 03/09/18 09:46 Pulse Rate 104 03/09/18 09:46 Respiratory Rate 16 03/09/18 09:46 Blood Pressure 95/65 03/09/18 09:46 O2 Sat by Pulse Oximetry 91 03/09/18 09:46 Temperature 97.4 F L 03/09/18 09:46 Pulse Rate 91 03/09/18 11:50 Respiratory Rate 23 03/09/18 11:50 Blood Pressure 122/78 03/09/18 11:51 O2 Sat by Pulse Oximetry 94 03/09/18 11:50 Oxygen Delivery Oxygen Delivery Room Air Medical Decision Making - Medical Records Medical records reviewed: Yes I reviewed the patient's medical records. - Lab Data Lab results reviewed: Yes I reviewed the patient's lab results. Lab results narrative: Laboratory Last Values WBC 13.6 K/mcL (4.3-11.1) H 03/09/18 11:57 RBC 4.83 M/mcL (4.19-5.50) 03/09/18 11:57 Hgb 13.7 g/dL (12.9-16.9) D 03/09/18 11:57 Hct 41.0 % (37.5-50.1) 03/09/18 11:57 MCV 84.9 fL (83.0-100.0) 03/09/18 11:57 MCH 28.4 pg (28.0-33.3) 03/09/18 11:57 MCHC 33.4 g/dL (31.6-35.5) 03/09/18 11:57 RDW 15.5 % (11.5-14.5) H 03/09/18 11:57 Plt Count 458 K/mcL (140-400) H 03/09/18 11:57 MPV 9.5 fL (9.4-12.4) 03/09/18 11:57 Immature Gran % 0.6 % (0-4) 03/09/18 11:57 Seg Neutrophils % 77.4 % 03/09/18 11:57 Lymphocytes % 13.3 % 03/09/18 11:57 Monocytes % 7.9 % 03/09/18 11:57 Eosinophils % 0.4 % 03/09/18 11:57 Basophils % 0.4 % 03/09/18 11:57 Neutrophils # 10.6 K/mcL (1.6-8.9) H 03/09/18 11:57 Lymphocytes # 1.8 K/mcL (0.6-4.6) 03/09/18 11:57 Monocytes # 1.1 K/mcL (0.0-1.3) 03/09/18 11:57 Eosinophils # 0.1 K/mcL (0.0-0.6) 03/09/18 11:57 Basophils # 0.1 K/mcL (0.0-0.2) 03/09/18 11:57 Immature Plt Fraction 4.5 % (1.1-6.1) 03/09/18 11:57 PT 12.8 Seconds (9.4-12.1) H 03/09/18 11:23 INR 1.1 03/09/18 11:23 APTT 31.5 Seconds (26.0-36.0) 03/09/18 11:23 Sodium 134 mEq/L (136-145) L 03/09/18 11:23 Potassium 4.6 mEq/L (3.5-5.1) 03/09/18 11:23 Chloride 97 mEq/L (98-107) L 03/09/18 11:23 Carbon Dioxide 30 mEq/L (23-29) H 03/09/18 11:23 BUN 16 mg/dL (8-23) 03/09/18 11:23 Creatinine 0.86 mg/dL (0.70-1.30) 03/09/18 11:23 Est GFR ( Amer) > 60 (> 60) 03/09/18 11:23 Est GFR (Non-Af Amer) > 60 (> 60) 03/09/18 11:23 BUN/Creatinine Ratio 19 (6-26) 03/09/18 11:23 Glucose 260 mg/dL (70-105) H 03/09/18 11:23 Calculated Osmolality 288 (280-300) 03/09/18 11:23 Lactic Acid 1.3 mmol/L (0.5-2.2) 03/09/18 11:23 Calcium 9.7 mg/dL (8.6-10.3) 03/09/18 11:23 Phosphorus 2.8 mg/dL (2.7-4.5) 03/09/18 11:23 Magnesium 2.0 mg/dL (1.6-2.6) 03/09/18 11:23 Total Bilirubin 0.6 mg/dL (0.3-1.0) 03/09/18 11:23 Direct Bilirubin 0.1 mg/dL (0.0-0.2) 03/09/18 11:23 Indirect Bilirubin 0.5 mg/dL (0.0-1.2) 03/09/18 11:23 AST 12 Units/L (13-39) L 03/09/18 11:23 ALT 9 Units/L (7-52) 03/09/18 11:23 Alkaline Phosphatase 85 Units/L (34-104) 03/09/18 11:23 Troponin I < 0.03 ng/mL (< 0.04) 03/09/18 11:23 B-Natriuretic Peptide 91 pg/mL (Less than 100) 03/09/18 11:57 Serum Total Protein 7.2 g/dL (6.4-8.9) 03/09/18 11:23 Albumin 3.6 g/dL (3.5-5.7) 03/09/18 11:23 Globulin 3.6 g/dL (2.4-3.5) H 03/09/18 11:23 Albumin/Globulin Ratio 1.0 (1.1-2.2) L 03/09/18 11:23 Result diagrams: 03/09/18 11:57 03/09/18 11:23 Lab Results 03/09/18 03/09/18 03/09/18 Range/Units 11:23 11:23 11:23 WBC (4.3-11.1) K/mcL RBC (4.19-5.50) M/mcL Hgb (12.9-16.9) g/dL Hct (37.5-50.1) % MCV (83.0-100.0) fL MCH (28.0-33.3) pg MCHC (31.6-35.5) g/dL RDW (11.5-14.5) % Plt Count (140-400) K/mcL MPV (9.4-12.4) fL Immature Gran % (0-4) % Seg Neutrophils % % Lymphocytes % % Monocytes % % Eosinophils % % Basophils % % Neutrophils # (1.6-8.9) K/mcL Lymphocytes # (0.6-4.6) K/mcL Monocytes # (0.0-1.3) K/mcL Eosinophils # (0.0-0.6) K/mcL Basophils # (0.0-0.2) K/mcL Immature Plt Fraction (1.1-6.1) % PT 12.8 H (9.4-12.1) Seconds INR 1.1 APTT 31.5 (26.0-36.0) Seconds Sodium 134 L (136-145) mEq/L Potassium 4.6 (3.5-5.1) mEq/L Chloride 97 L (98-107) mEq/L Carbon Dioxide 30 H (23-29) mEq/L BUN 16 (8-23) mg/dL Creatinine 0.86 (0.70-1.30) mg/dL Est GFR ( Amer) > 60 (> 60) Est GFR (Non-Af Amer) > 60 (> 60) BUN/Creatinine Ratio 19 (6-26) Glucose 260 H (70-105) mg/dL Calculated Osmolality 288 (280-300) Lactic Acid 1.3 (0.5-2.2) mmol/L Calcium 9.7 (8.6-10.3) mg/dL Phosphorus 2.8 (2.7-4.5) mg/dL Magnesium 2.0 (1.6-2.6) mg/dL Total Bilirubin 0.6 (0.3-1.0) mg/dL Direct Bilirubin 0.1 (0.0-0.2) mg/dL Indirect Bilirubin 0.5 (0.0-1.2) mg/dL AST 12 L (13-39) Units/L ALT 9 (7-52) Units/L Alkaline Phosphatase 85 (34-104) Units/L Troponin I < 0.03 (< 0.04) ng/mL B-Natriuretic Peptide (Less than 100) pg/mL Serum Total Protein 7.2 (6.4-8.9) g/dL Albumin 3.6 (3.5-5.7) g/dL Globulin 3.6 H (2.4-3.5) g/dL Albumin/Globulin Ratio 1.0 L (1.1-2.2) 03/09/18 03/09/18 Range/Units 11:57 11:57 WBC 13.6 H (4.3-11.1) K/mcL RBC 4.83 (4.19-5.50) M/mcL Hgb 13.7 D (12.9-16.9) g/dL Hct 41.0 (37.5-50.1) % MCV 84.9 (83.0-100.0) fL MCH 28.4 (28.0-33.3) pg MCHC 33.4 (31.6-35.5) g/dL RDW 15.5 H (11.5-14.5) % Plt Count 458 H (140-400) K/mcL MPV 9.5 (9.4-12.4) fL Immature Gran % 0.6 (0-4) % Seg Neutrophils % 77.4 % Lymphocytes % 13.3 % Monocytes % 7.9 % Eosinophils % 0.4 % Basophils % 0.4 % Neutrophils # 10.6 H (1.6-8.9) K/mcL Lymphocytes # 1.8 (0.6-4.6) K/mcL Monocytes # 1.1 (0.0-1.3) K/mcL Eosinophils # 0.1 (0.0-0.6) K/mcL Basophils # 0.1 (0.0-0.2) K/mcL Immature Plt Fraction 4.5 (1.1-6.1) % PT (9.4-12.1) Seconds INR APTT (26.0-36.0) Seconds Sodium (136-145) mEq/L Potassium (3.5-5.1) mEq/L Chloride (98-107) mEq/L Carbon Dioxide (23-29) mEq/L BUN (8-23) mg/dL Creatinine (0.70-1.30) mg/dL Est GFR ( Amer) (> 60) Est GFR (Non-Af Amer) (> 60) BUN/Creatinine Ratio (6-26) Glucose (70-105) mg/dL Calculated Osmolality (280-300) Lactic Acid (0.5-2.2) mmol/L Calcium (8.6-10.3) mg/dL Phosphorus (2.7-4.5) mg/dL Magnesium (1.6-2.6) mg/dL Total Bilirubin (0.3-1.0) mg/dL Direct Bilirubin (0.0-0.2) mg/dL Indirect Bilirubin (0.0-1.2) mg/dL AST (13-39) Units/L ALT (7-52) Units/L Alkaline Phosphatase (34-104) Units/L Troponin I (< 0.04) ng/mL B-Natriuretic Peptide 91 (Less than 100) pg/mL Serum Total Protein (6.4-8.9) g/dL Albumin (3.5-5.7) g/dL Globulin (2.4-3.5) g/dL Albumin/Globulin Ratio (1.1-2.2) - Radiology Data Radiology results reviewed: Yes I reviewed the patient's radiology results. Chest X-Ray 03/09/18 10:55 IMPRESSION: Enlarging or shifting left pleural effusion which occupies the lower half of the left hemithorax with some compressive atelectasis left lung base. D/ / 03/09/2018 11:37:06 Edward Shah MD / Yashira Chau Interpreting Provider: Edward Shah MD - EKG Data EKG #1 EKG attestation: Yes I reviewed and interpreted this EKG. EKG shows normal: sinus rhythm Rate: normal Rhythm: NSR When compared to previous EKG there are: previous EKG unavailable Interpretation: nonspecific ST-T wave changes
[2018-03-09] MEDS ORDERED: Azithromycin 500 MG in D5% in Water 250 ML IVPB ONE (11:30)
[2018-03-09] MEDS ORDERED: cefTRIAXone 1,000 MG in 0.9 % Sodium Chloride Mini Bag 100 ML IVPB ONE (11:30)
[2018-03-09 11:59] LABS: INR 1.1; Prothrombin Time 12.8 Seconds (9.4-12.1)
[2018-03-09 12:02] LABS: Activated Partial Thrombo Time 31.5 Seconds (26.0-36.0)
[2018-03-09 12:04] LABS: Basophils # 0.1 K/mcL (0.0-0.2); Basophils % 0.4 %; Eosinophils # 0.1 K/mcL (0.0-0.6); Eosinophils % 0.4 %; Immature Granulocytes % 0.6 % (0-4); Immature Platelets 4.5 % (1.1-6.1); Lymphocytes # 1.8 K/mcL (0.6-4.6); Lymphocytes % 13.3 %; Mean Corpuscular HGB Conc 33.4 g/dL (31.6-35.5); Mean Corpuscular Hemoglobin 28.4 pg (28.0-33.3); Mean Corpuscular Volume 84.9 fL (83.0-100.0); Mean Platelet Volume 9.5 fL (9.4-12.4); Monocytes # 1.1 K/mcL (0.0-1.3); Monocytes % 7.9 %; Neutrophils # 10.6 K/mcL (1.6-8.9); Platelet Count 458 K/mcL (140-400); Red Blood Count 4.83 M/mcL (4.19-5.50); Red Cell Distribution Width 15.5 % (11.5-14.5); Segmented Neutrophils % 77.4 %
[2018-03-09 12:05] LABS: Hemoglobin 13.7 g/dL (12.9-16.9)
[2018-03-09 12:07] LABS: Troponin I < 0.03 ng/mL (< 0.04)
[2018-03-09 12:12] LABS: Alanine Aminotransferase 9 Units/L (7-52); Albumin 3.6 g/dL (3.5-5.7); Alkaline Phosphatase 85 Units/L (34-104); Aspartate Amino Transferase 12 Units/L (13-39); BUN/Creatinine Ratio 19 (6-26); Bilirubin,Direct 0.1 mg/dL (0.0-0.2); Bilirubin,Indirect 0.5 mg/dL (0.0-1.2); Bilirubin,Total 0.6 mg/dL (0.3-1.0); Blood Urea Nitrogen 16 mg/dL (8-23); Calcium 9.7 mg/dL (8.6-10.3); Carbon Dioxide 30 mEq/L (23-29); Chloride 97 mEq/L (98-107); Globulin 3.6 g/dL (2.4-3.5); Glucose 260 mg/dL (70-105); Osmolality,Calculated 288 (280-300); Phosphorous 2.8 mg/dL (2.7-4.5); Potassium 4.6 mEq/L (3.5-5.1); Sodium 134 mEq/L (136-145); Total Protein 7.2 g/dL (6.4-8.9); eGFR For Non-African Americans > 60 (> 60)
--- NOTE | 2018-03-09 12:26 | Emergency Department Note ---
Disposition Clinical Impression: Pleural effusion, left, Chest pain, rule out acute myocardial infarction Disposition: Admitted As Inpatient Condition: Fair Referrals: Charlene Long CNP [Primary Care Provider] - Forms: ED Satisfaction Letter Time of Disposition: 12:31 SOB HPI - General Chief Complaint: ED Shortness of Breath/Dyspnea Stated Complaint: sent from Time Seen by Provider: 03/09/18 10:32 Source: patient Limitations: no limitations Nursing Notes Reviewed: Yes Vital Signs Reviewed: Yes - History of Present Illness 82-year-old male received in signout start of my shift pending laboratory evaluation and imaging. Patient presented to the emergency department today for evaluation of intermittent chest pain and shortness of breath. He had a chest x-ray performed by his PCP which showed a large amount of fluid in the left lung. Patient believes that he had a history of tumor however he has not had an evaluation prior to this time. Patient becomes very dyspneic with exertion. He does report intermittent chest pain with exertion that is in the center of his chest, denies associated diaphoresis or nausea. Patient is resting comfortably in the emergency department. On his initial evaluation the patient was tachycardic and there was concern for possible sepsis in the septic order set was initiated. He was given fluids and ceftriaxone, on my reevaluation the patient has a BP of systolic 116 and a heart rate of 89 and is resting comfortably in the room. Denies nausea, vomiting, diarrhea, abdominal pain, rash, syncope. - Related Data Home Medications Medication Instructions Recorded Confirmed Aspirin [Lo-Dose Aspirin EC] 81 mg PO DAILY 04/08/17 04/27/17 Atorvastatin Calcium [Lipitor] 20 mg PO DAILY 04/08/17 04/27/17 Docusate [Colace] 100 mg PO DAILY 04/08/17 04/27/17 Famotidine [Heartburn Prevention] 20 mg PO DAILY 04/08/17 04/27/17 Fluticasone Propionate Nasal 50 mcg NS PRN PRN 04/08/17 04/27/17 [Flonase] Lisinopril 2.5 mg PO DAILY 04/08/17 04/27/17 Loratadine [Claritin] 10 mg PO DAILY 04/08/17 04/27/17 Metformin HCl [Metformin HCl ER] 1,000 mg PO DAILY 04/08/17 04/27/17 Metoprolol [Lopressor] 12.5 mg PO BID #0 04/08/17 04/27/17 Mirabegron [Myrbetriq] 50 mg PO DAILY 04/08/17 04/27/17 Pregabalin [Lyrica] 50 mg PO TID 04/08/17 04/27/17 Tamsulosin [Flomax] 0.4 mg PO DAILY 04/08/17 04/27/17 Nitroglycerin [Nitrostat] 0.4 mg SL Q5M PRN 04/27/17 04/27/17 Omeprazole [PriLOSEC] 40 mg PO DAILY 04/27/17 04/27/17 Pioglitazone [Actos] 45 mg PO 0800 04/27/17 04/27/17 Tolterodine LA (24 HR) [Detrol LA] 4 mg PO DAILY 04/27/17 04/27/17 Previous Rx's Medication Instructions Recorded Donepezil HCl [Aricept] 5 mg PO DAILY #30 05/04/17 Donepezil [Aricept] 10 mg PO HS tablet 05/04/17 OxyCODONE/APAP 5/325 [Percocet 1 each PO Q4HR PRN #42 tablet 05/04/17 5/325 MG] Allergies Allergy/AdvReac Type Severity Reaction Status Date / Time horse serum Allergy Itching Uncoded 04/08/17 11:21 All systems ED: reviewed and negative except as stated. Review of Systems: As Per HPI Past Medical History - Past Medical History Medical history: Reports: diabetes, hyperlipidemia, hypertension, TIA Surgical history: Reports: other Psychiatric history: Reports: no psych history - Social History Smoking Status: Never smoker Smokeless Tobacco Status: No Alcohol use: Reports: none Drug use: Reports: none Physical Exam General: Alert and in no acute distress Skin: Warm, dry, intact Head: Normocephalic and atraumatic Neck: Supple, trachea midline and no tenderness Cardiovascular: RRR, no murmur, normal perfusion Respiratory: Decreased lung sounds on the left without evidence of wheezing or rhonchi Musculoskeletal: Normal strength, no tenderness, swelling or deformity GI: Soft, nontender, nondistended. Bowel sounds present Neuro: A&O to person, place, time and situation. No focal deficits noted on exam - General Limitations: no limitations General appearance: alert, in no apparent distress Course Vital Signs Temperature 97.4 F L 03/09/18 09:46 Pulse Rate 104 03/09/18 09:46 Respiratory Rate 16 03/09/18 09:46 Blood Pressure 95/65 03/09/18 09:46 O2 Sat by Pulse Oximetry 91 03/09/18 09:46 Temperature 97.4 F L 03/09/18 09:46 Pulse Rate 91 03/09/18 11:50 Respiratory Rate 23 03/09/18 11:50 Blood Pressure 122/78 03/09/18 11:51 O2 Sat by Pulse Oximetry 94 03/09/18 11:50 Oxygen Delivery Oxygen Delivery Room Air Shortness of Breath/Dyspnea - MDM Narrative Medical decision making narrative: Patient will be admitted for further evaluation of his chest pain as well as the large left pleural effusion. Upon review of the labs and patient vital signs I do not believe the patient has sepsis as he is without fever or leukocytosis and his heart rate improved after 1 L of fluids. Patient is comfortable with the plan for admission to hospital for further evaluation. - Medical Records Medical records reviewed: Yes I reviewed the patient's medical records. - Lab Data Lab results reviewed: Yes I reviewed the patient's lab results. Result diagrams: 03/09/18 11:57 03/09/18 11:23 Lab Results 03/09/18 03/09/18 03/09/18 Range/Units 11:23 11:23 11:23 WBC (4.3-11.1) K/mcL RBC (4.19-5.50) M/mcL Hgb (12.9-16.9) g/dL Hct (37.5-50.1) % MCV (83.0-100.0) fL MCH (28.0-33.3) pg MCHC (31.6-35.5) g/dL RDW (11.5-14.5) % Plt Count (140-400) K/mcL MPV (9.4-12.4) fL Immature Gran % (0-4) % Seg Neutrophils % % Lymphocytes % % Monocytes % % Eosinophils % % Basophils % % Neutrophils # (1.6-8.9) K/mcL Lymphocytes # (0.6-4.6) K/mcL Monocytes # (0.0-1.3) K/mcL Eosinophils # (0.0-0.6) K/mcL Basophils # (0.0-0.2) K/mcL Immature Plt Fraction (1.1-6.1) % PT 12.8 H (9.4-12.1) Seconds INR 1.1 APTT 31.5 (26.0-36.0) Seconds Sodium 134 L (136-145) mEq/L Potassium 4.6 (3.5-5.1) mEq/L Chloride 97 L (98-107) mEq/L Carbon Dioxide 30 H (23-29) mEq/L BUN 16 (8-23) mg/dL Creatinine 0.86 (0.70-1.30) mg/dL Est GFR ( Amer) > 60 (> 60) Est GFR (Non-Af Amer) > 60 (> 60) BUN/Creatinine Ratio 19 (6-26) Glucose 260 H (70-105) mg/dL Calculated Osmolality 288 (280-300) Lactic Acid 1.3 (0.5-2.2) mmol/L Calcium 9.7 (8.6-10.3) mg/dL Phosphorus 2.8 (2.7-4.5) mg/dL Magnesium 2.0 (1.6-2.6) mg/dL Total Bilirubin 0.6 (0.3-1.0) mg/dL Direct Bilirubin 0.1 (0.0-0.2) mg/dL Indirect Bilirubin 0.5 (0.0-1.2) mg/dL AST 12 L (13-39) Units/L ALT 9 (7-52) Units/L Alkaline Phosphatase 85 (34-104) Units/L Troponin I < 0.03 (< 0.04) ng/mL Serum Total Protein 7.2 (6.4-8.9) g/dL Albumin 3.6 (3.5-5.7) g/dL Globulin 3.6 H (2.4-3.5) g/dL Albumin/Globulin Ratio 1.0 L (1.1-2.2) 03/09/18 Range/Units 11:57 WBC 13.6 H (4.3-11.1) K/mcL RBC 4.83 (4.19-5.50) M/mcL Hgb 13.7 D (12.9-16.9) g/dL Hct 41.0 (37.5-50.1) % MCV 84.9 (83.0-100.0) fL MCH 28.4 (28.0-33.3) pg MCHC 33.4 (31.6-35.5) g/dL RDW 15.5 H (11.5-14.5) % Plt Count 458 H (140-400) K/mcL MPV 9.5 (9.4-12.4) fL Immature Gran % 0.6 (0-4) % Seg Neutrophils % 77.4 % Lymphocytes % 13.3 % Monocytes % 7.9 % Eosinophils % 0.4 % Basophils % 0.4 % Neutrophils # 10.6 H (1.6-8.9) K/mcL Lymphocytes # 1.8 (0.6-4.6) K/mcL Monocytes # 1.1 (0.0-1.3) K/mcL Eosinophils # 0.1 (0.0-0.6) K/mcL Basophils # 0.1 (0.0-0.2) K/mcL Immature Plt Fraction 4.5 (1.1-6.1) % PT (9.4-12.1) Seconds INR APTT (26.0-36.0) Seconds Sodium (136-145) mEq/L Potassium (3.5-5.1) mEq/L Chloride (98-107) mEq/L Carbon Dioxide (23-29) mEq/L BUN (8-23) mg/dL Creatinine (0.70-1.30) mg/dL Est GFR ( Amer) (> 60) Est GFR (Non-Af Amer) (> 60) BUN/Creatinine Ratio (6-26) Glucose (70-105) mg/dL Calculated Osmolality (280-300) Lactic Acid (0.5-2.2) mmol/L Calcium (8.6-10.3) mg/dL Phosphorus (2.7-4.5) mg/dL Magnesium (1.6-2.6) mg/dL Total Bilirubin (0.3-1.0) mg/dL Direct Bilirubin (0.0-0.2) mg/dL Indirect Bilirubin (0.0-1.2) mg/dL AST (13-39) Units/L ALT (7-52) Units/L Alkaline Phosphatase (34-104) Units/L Troponin I (< 0.04) ng/mL Serum Total Protein (6.4-8.9) g/dL Albumin (3.5-5.7) g/dL Globulin (2.4-3.5) g/dL Albumin/Globulin Ratio (1.1-2.2) - Radiology Data Radiology results reviewed: Yes I reviewed the patient's radiology results.
[2018-03-09] MEDS ORDERED: OXYCODONE Oral CONC 10 MG/0.5 ML ORAL.SYG SL PRN ×2 (13:04)
[2018-03-09] MEDS ORDERED: Naloxone 0.4 MG/ML INJ IVP PRN (13:04)
[2018-03-09] MEDS ORDERED: Ipratropium/Albuterol Neb 3 ML IH PRN (14:51)
--- NOTE | 2018-03-09 15:02 | Internal Med History&Physical ---
Date of Encounter: 03/09/18 Time of Encounter: 14:00 Internal Medicine - H&P: HPI Chief complaint: SOB Admitted From: Home History of present illness: Mr. Nath is a 82 year old male with past history of CAD status post CABG in April 2017, PAD, diabetes, hypertension, ex-smoker, presented to the ED after being referred by his PCP for incidental finding of large left-sided pleural effusion. He was being worked up for prolonged history of dyspnea and underwent CT chest yesterday. It showed large left-sided pleural effusion with compressive atelectasis of the left lower lobe. In addition, there was a hypoattenuating 2.6 x 1.9 cm nodular area within the atelectatic left lower lobe and a noncalcified 6 mm nodule along the major fissure in the right lower lobe. Therefore, his PCP directed him to come to the ED for further evaluation. He reports that he has been short of breath for the last 3-4 month with recently developed cough without significant sputum production. Associated with intermittent left-sided chest pain that occurs usually upon coughing. Denies any fever/chills, chest pain, palpitation, orthopnea, PND, or leg swelling. No nausea/vomiting, abdominal pain, change in bowel habits, dysuria, or urinary frequency. Denies any sick contacts. He has a history of 35 pack year smoking but quit about 30 years ago. In the ED, he was borderline hypotensive and had heart rate of 104. He was afebrile and saturating 91% on room air. His heart rate and blood pressure did improve with 1 L of IV fluid. Labwork showed mild leukocytosis of 13.6 but otherwise unremarkable. Lactic acid, BNP, and troponin were normal. Repeat chest x-ray done in the ED showed enlarging or shifting left pleural effusion occupying the lower half of the left hemithorax. He was admitted for further management. Past Med Surg Social Fam HX - Past Medical History Medical history: coronary artery disease, diabetes, hyperlipidemia, hypertension , TIA Additional medical history: OSTEOPOROSIS,GOUT,BPH, PAD Psychiatric history: no psych history - Past Surgical History Surgical History: other Additional surgical history: HERNIA REPAIR INGUINAL. CABG April 2017 - Social History Smoking Status: Former smoker Smokeless Tobacco Status: No Alcohol use: none Drug use: none - Family History Mother History Unknown: Yes Living Status: Father History Unknown: Yes Living Status: Internal Medicine - H&P: Meds Aspirin [Lo-Dose Aspirin EC] 81 mg PO DAILY 04/08/17 [History] Atorvastatin Calcium [Lipitor] 20 mg PO DAILY 04/08/17 [History] Docusate [Colace] 100 mg PO DAILY 04/08/17 [History] Famotidine [Heartburn Prevention] 20 mg PO DAILY 04/08/17 [History] Fluticasone Propionate Nasal [Flonase] 50 mcg NS PRN PRN 04/08/17 [History] Metformin HCl [Metformin HCl ER] 1,000 mg PO DAILY 04/08/17 [History] Metoprolol [Lopressor] 12.5 mg PO BID #0 04/08/17 [History] Tamsulosin [Flomax] 0.4 mg PO DAILY 04/08/17 [History] Pioglitazone [Actos] 45 mg PO 0800 04/27/17 [History] Donepezil HCl [Aricept] 5 mg PO DAILY #30 05/04/17 [Rx] Insulin Glargine,Hum.rec.anlog [Lantus Solostar] 10 unit SQ DAILY 03/09/18 [ History] Levofloxacin [Levaquin] 750 mg PO DAILY 03/09/18 [History] Linagliptin [Tradjenta] 5 mg PO DAILY 03/09/18 [History] Ondansetron HCl [Zofran] 4 mg PO Q6H PRN 03/09/18 [History] Pregabalin [Lyrica] 25 mg PO TID 03/09/18 [History] Tolterodine Tartrate [Detrol] 4 mg PO DAILY 03/09/18 [History] 3 Allergy/AdvReac Type Severity Reaction Status Date / Time horse serum Allergy Itching Uncoded 04/08/17 11:21 All Systems PM: A 10-system review of systems was performed and is negative for pertinent findings except as documented above in the HPI. - Constitutional Vitals: Temp Pulse Resp BP Pulse Ox 97.4 F L 89 21 127/78 95 03/09/18 09:46 03/09/18 13:49 03/09/18 13:49 03/09/18 13:49 03/09/18 13:49 Exam: General: Alert and oriented, not in acute distress. HEENT:EOMI, pupils equal, round and reactive. Cardiovascular:Normal S1 & S2, No JVD. Pulse regular. Lungs: Absent breath sound on the left lower lung field, otherwise no rhonchi/ wheeze/rales Abdomen:Soft, non-tender, no rigidity. Extremities:No deformity or swelling Neurological:Normal cognition and motor skills. Non-focal Skin:Normal color, no rash, no lesions. Pulses:Carotid and radial pulses normal +2. Rest of the physical exam is non contributory Internal Med - H&P Results - Labs CBC & Chem 7: 03/09/18 11:57 03/09/18 11:23 - Assessment and plan (1) Pleural effusion, left Current Visit: Yes Status: Acute Assessment and plan: Incidental finding noted on the outpatient CT chest done yesterday for the workup of chronic dyspnea It also showed possible hypoattenuating nodular area in the left lower lobe, patient does have history of 35 pack year of smoking -> quit 30 years ago ?malignant effusion vs. parapneumonic effusion given elevated WBC BNP normal, no JVD or leg swelling. Low suspicion for CHF Saturating well on room air, no evidence of mediastinal shift spoke to IR for pleural drainage, send fluid for analysis including LDH, protein , Gram stain, culture Treat for CAP with IV Hector/azithromycin Sputum culture if possible may need repeat imaging once lung has expanded to better characterize a questionable left lower lobe nodule (2) CAD (coronary artery disease) Current Visit: No Status: Acute Assessment and plan: Status post CABG in April 2017. Continue statin, beta padmaja Resume aspirin post thoracentesis Qualifiers: Coronary Disease-Associated Artery/Lesion type: unspecified vessel or lesion type [place] vs. transplanted heart: [place] heart Associated angina: without angina Qualified Code(s): I25.10 - Atherosclerotic heart disease of [place] coronary artery without angina pectoris (3) Diabetes mellitus Current Visit: Yes Status: Acute Assessment and plan: Patient takes Tradjenta, Actos, and metformin at home ADA diet post-procedure Accu-Cheks before meals and at bedtime Hold off on oral hypoglycemic agents, Low-dose scale coverage Qualifiers: Diabetes mellitus type: type 2 Diabetes mellitus snf insulin use: unspecified manager intermediate insulin use status Diabetes mellitus complication status : with unspecified complications Qualified Code(s): E11.8 - Type 2 diabetes mellitus with unspecified complications (4) Hypertension Current Visit: Yes Status: Acute Assessment and plan: Resume all meds Qualifiers: Hypertension type: essential hypertension Qualified Code(s): I10 - Essential (primary) hypertension (5) DVT prophylaxis Current Visit: Yes Status: Acute Assessment and plan: Subcutaneous heparin postprocedure - Time Spent With Patient Total time spent is greater than 50% in coordination of care (as documented) at patient's floor/unit and/or counseling patient: Greater than 35 minutes
[2018-03-09] MEDS ORDERED: D5% in Water 1,000 ML IVC PRN (15:21)
[2018-03-09] MEDS ORDERED: *HR* Dextrose 50 % in Water (Syg) 50 ML SYRINGE IVP PRN (15:21)
[2018-03-09] MEDS ORDERED: Dextrose Gel 15 GM/37.5 ML TUBE PO PRN ×2 (15:21)
[2018-03-09 15:43] LABS: RBC,Pleural Fluid 0.004 M/mcL
[2018-03-09 16:07] LABS: Appearance of Pleural Fl Hazy (Clear)
[2018-03-09 16:09] LABS: Total Protein,Pleural Fluid 4.7 g/dL (No Ref Range)
[2018-03-09 17:40] LABS: Bilirubin,Urine Negative (Negative); Blood,Urine Negative (Negative); Clarity,Urine Clear (Clear); Color,Urine Yellow (Yellow); Glucose,Urine (UA) 250 mg/dL (Normal); Ketones,Urine Negative (Negative); Leukocyte Esterase,Urine Negative (Negative); Nitrite,Urine Negative (Negative); PH,Urine 6.5 pH Units (5.0-8.0); Protein,Urine Trace mg/dL (Neg-Trace); Specific Gravity,Urine > 1.030 (1.010-1.025); Urobilinogen,Urine Normal (Normal)
[2018-03-09 17:44] LABS: Bacteria,Urine None Seen per hpf (None-Few); Hyaline Casts,Urine None Seen per lpf (None-Few); RBC,Urine 0-3 per hpf (0-3); Squamous Epithelial Cell,Urine Few per lpf (None-Few); WBC,Urine 0-3 per hpf (0-3)
[2018-03-09] MEDS: Pregabalin 25 MG CAPSULE PO SCH ×2 (18:39→20:57)
[2018-03-09] MEDS: *HR* Heparin 5,000 UNIT/ML VIAL SQ SCH (19:01)
[2018-03-09] MEDS: Insulin LISPRO 300 UNITS/3 ML VIAL SQ SCH ×2 (19:01→20:59)
[2018-03-09] MEDS ORDERED: Ondansetron ODT 4 MG TAB.RAPDIS PO PRN (20:45)
[2018-03-10 04:36] LABS: Basophils # 0.1 K/mcL (0.0-0.2); Basophils % 0.7 %; Eosinophils # 0.2 K/mcL (0.0-0.6); Eosinophils % 1.3 %; Hematocrit 50.6 % (37.5-50.1); Immature Granulocytes % 0.6 % (0-4); Lymphocytes # 2.7 K/mcL (0.6-4.6); Lymphocytes % 23.9 %; Mean Corpuscular HGB Conc 31.6 g/dL (31.6-35.5); Mean Corpuscular Hemoglobin 27.9 pg (28.0-33.3); Mean Corpuscular Volume 88.2 fL (83.0-100.0); Mean Platelet Volume 12.1 fL (9.4-12.4); Monocytes # 0.8 K/mcL (0.0-1.3); Monocytes % 6.7 %; Neutrophils # 7.6 K/mcL (1.6-8.9); Platelet Count 269 K/mcL (140-400); Red Blood Count 5.74 M/mcL (4.19-5.50); Segmented Neutrophils % 66.8 %
[2018-03-10 06:27] LABS: BUN/Creatinine Ratio 21 (6-26); Blood Urea Nitrogen 14 mg/dL (8-23); Calcium 8.9 mg/dL (8.6-10.3); Carbon Dioxide 22 mEq/L (23-29); Chloride 105 mEq/L (98-107); Glucose 183 mg/dL (70-105); Osmolality,Calculated 289 (280-300); Potassium 5.1 mEq/L (3.5-5.1); Sodium 137 mEq/L (136-145); eGFR For Non-African Americans > 60 (> 60)
[2018-03-10] MEDS: *HR* Heparin 5,000 UNIT/ML VIAL SQ SCH ×2 (06:32→16:38)
[2018-03-10] MEDS: Insulin LISPRO 300 UNITS/3 ML VIAL SQ SCH ×4 (08:21→21:47)
[2018-03-10] MEDS: Pregabalin 25 MG CAPSULE PO SCH ×3 (08:22→21:46)
[2018-03-10] MEDS: Aspirin Enteric Coated 81 MG Tablet PO SCH (08:22)
[2018-03-10] MEDS: Fluticasone Propionate Nasal 50 MCG/SPRAY BOTTLE NS SCH (08:22)
[2018-03-10] MEDS: Famotidine 20 MG TABLET PO SCH (08:22)
[2018-03-10] MEDS: cefTRIAXone 1,000 MG in Water for inj. (sterile) 20 ML 10 ML IVP SCH (11:53)
--- NOTE | 2018-03-10 12:58 | Pulmonology Consult Note ---
Date of Encounter: 03/10/18 Time of Encounter: 11:00 Assessment and Plan (1) Pleural effusion, left Current Visit: Yes Status: Acute Patient pleural effusion more likely is transudate of likely due to secondary to diastolic heart failure to continue diuresis as tolerated. We will reevaluate tomorrow for possible ultrasound-guided thoracentesis if needed. I reviewed the CT scan images the left lower lobe atelectasis has not doubtful hypoattenuating lesion but we need to be reevaluated after good lung expansion. So we will repeat imaging as an outpatient after adequate drainage of pleural fluid. Patient V/Q mismatch is at baseline patient is saturating well on room air. (2) COPD (chronic obstructive pulmonary disease) Current Visit: No Status: Acute To continue with current regimen of bronchodilators agree with ceftriaxone and azithromycin. low likelihood for pneumonia and was soon de-escalate. Qualifiers: COPD type: emphysema Emphysema type: unspecified Qualified Code(s): 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 (3) Diastolic heart failure Current Visit: No Status: Acute To diuresis as tolerated the repeat Echo tomorrow Qualifiers: Heart failure chronicity: chronic Qualified Code(s): I50.32 - Chronic diastolic (congestive) heart failure History of Present Illness Consult date: 03/10/18 Requesting physician: Harjinder Torres Reason for consult: pleural effusion Chief complaint: Shortness of breath History of present illness: 82-year-old male with past medical history significant for diastolic heart failure, coronary artery disease, CABG comes with worsening shortness of breath is going on for 3-4 weeks with some cough not much sputum production denies any fever or chills found to have a large left-sided pleural effusion Showed most likely transudate and proteins were little bit higher, body fluid culture preliminary was negative on the Gram stain and no organism on cultures. Patient denies any fever or chills denies any chest pain or chest tightness palpitation or syncope pulmonary was consult that for doubtful hypoattenuating lesion in the left lower lobe atelectasis for possible malignancy. Past Med Surg Social Fam HX - Past Medical History Medical history: coronary artery disease, diabetes, hyperlipidemia, hypertension , TIA Additional medical history: OSTEOPOROSIS,GOUT,BPH, PAD Psychiatric history: no psych history - Past Surgical History Surgical History: other Additional surgical history: HERNIA REPAIR INGUINAL. CABG April 2017 - Social History Smoking Status: Former smoker Smokeless Tobacco Status: No Alcohol use: none Drug use: none - Family History Mother History Unknown: Yes Living Status: Father History Unknown: Yes Living Status: Medications and Allergies Aspirin [Lo-Dose Aspirin EC] 81 mg PO DAILY 04/08/17 [History] Atorvastatin Calcium [Lipitor] 20 mg PO DAILY 04/08/17 [History] Docusate [Colace] 100 mg PO DAILY 04/08/17 [History] Famotidine [Heartburn Prevention] 20 mg PO DAILY 04/08/17 [History] Fluticasone Propionate Nasal [Flonase] 50 mcg NS PRN PRN 04/08/17 [History] Metformin HCl [Metformin HCl ER] 1,000 mg PO DAILY 04/08/17 [History] Metoprolol [Lopressor] 12.5 mg PO BID #0 04/08/17 [History] Tamsulosin [Flomax] 0.4 mg PO DAILY 04/08/17 [History] Pioglitazone [Actos] 45 mg PO 0800 04/27/17 [History] Donepezil HCl [Aricept] 5 mg PO DAILY #30 05/04/17 [Rx] Insulin Glargine,Hum.rec.anlog [Lantus Solostar] 10 unit SQ DAILY 03/09/18 [ History] Levofloxacin [Levaquin] 750 mg PO DAILY 03/09/18 [History] Linagliptin [Tradjenta] 5 mg PO DAILY 03/09/18 [History] Ondansetron HCl [Zofran] 4 mg PO Q6H PRN 03/09/18 [History] Pregabalin [Lyrica] 25 mg PO TID 03/09/18 [History] Tolterodine Tartrate [Detrol] 4 mg PO DAILY 03/09/18 [History] 3 Allergy/AdvReac Type Severity Reaction Status Date / Time horse serum Allergy Itching Uncoded 04/08/17 11:21 All Systems: The remainder of the systems were reviewed and are negative Physical Examination Vital Signs: Vital Signs, Last 4 Hours Pulse Resp BP Pulse Ox 03/10/18 11:38 80 17 107/71 91 Auscultation: left: diminished breath sounds Results - Laboratory Findings CBC and BMP: 03/10/18 04:02 03/10/18 05:31 PT/INR, D-dimer PT 12.8 Seconds (9.4-12.1) H 03/09/18 11:23 Abnormal lab findings: Abnormal lab results WBC 11.4 K/mcL (4.3-11.1) H 03/10/18 04:02 RBC 5.74 M/mcL (4.19-5.50) H 03/10/18 04:02 Hct 50.6 % (37.5-50.1) H 03/10/18 04:02 MCH 27.9 pg (28.0-33.3) L 03/10/18 04:02 RDW 18.0 % (11.5-14.5) H 03/10/18 04:02 PT 12.8 Seconds (9.4-12.1) H 03/09/18 11:23 Carbon Dioxide 22 mEq/L (23-29) L 03/10/18 05:31 Creatinine 0.66 mg/dL (0.70-1.30) L 03/10/18 05:31 Glucose 183 mg/dL (70-105) H 03/10/18 05:31 POC Glucose 166 mg/dL (70-99) H 03/09/18 18:48 AST 12 Units/L (13-39) L 03/09/18 11:23 Globulin 3.6 g/dL (2.4-3.5) H 03/09/18 11:23 Albumin/Globulin Ratio 1.0 (1.1-2.2) L 03/09/18 11:23 Ur Specific [place] > 1.030 (1.010-1.025) H 03/09/18 17:24 Urine Glucose (UA) 250 mg/dL (Normal) H 03/09/18 17:24 Pleural Appearance Hazy (Clear) A 03/09/18 14:15 Pleural RBC 0.004 M/mcL (0.000-0.002) H 03/09/18 14:15 - Clinical Findings Intake & Output: Intake & Output 03/09/18 03/10/18 03/10/18 23:59 07:59 15:59 Intake Total 350 / 350 0 / 0 250 / 250 Output Total 650 / 650 Balance 350 / 350 0 / 0 -400 / -400 Weight 72.3 kg Consult Discharge Plan - Plan Referrals: Charlene Long, COMPLIANCE AND CONTROL ANALYST [Primary Care Provider] -
[2018-03-10 13:20] LABS: Lactate Dehydrogenase 265 Units/L (140-271)
[2018-03-10] MEDS: Azithromycin 500 MG in D5% in Water 250 ML IVPB SCH (14:24)
[2018-03-10] MEDS ORDERED: Furosemide 40 MG/4 ML VIAL IVP ONE (14:26)
--- NOTE | 2018-03-10 14:32 | Internal Med Progress Note ---
Hospitalist Progress Note - Encounter Date of Encounter: 03/10/18 Time of Encounter: 12:45 - Subjective Interval History: Underwent thoracentesis yesterday uneventfully. Drained 1L of straw-colored fluid. States that he feels about the same as yesterday. Denies any chest pain , worsening cough or sputum production. No fever/chills. - Exam Vitals: Temp Pulse Resp BP Pulse Ox 98.0 F 80 17 107/71 91 03/10/18 07:15 03/10/18 11:38 03/10/18 11:38 03/10/18 11:38 03/10/18 11:38 Exam: General: Alert and oriented, not in acute distress. Cardiovascular:Normal S1 & S2, No JVD. Pulse regular. Lungs: diminished breath sound on the left lower lung field, otherwise no rhonchi/wheeze/rales Abdomen:Soft, non-tender, no rigidity. Extremities:No deformity or swelling Neurological:Normal cognition and motor skills. Non-focal - Assessment and Plan (1) Pleural effusion, left Current Visit: Yes Status: Acute Assessment and Plan: Incidental finding noted on the outpatient CT chest done yesterday for the workup of chronic dyspnea It also showed possible hypoattenuating nodular area in the left lower lobe, patient does have history of 35 pack year of smoking -> quit 30 years ago ?malignant effusion vs. parapneumonic effusion given elevated WBC BNP normal, no JVD or leg swelling. Pleural fluid LDH 100, protein 4.7. Gram stain -ve discussed with pulmonary, leaning toward transudate effusion given low LDH. Will try 1 dose of IV lasix 40mg and monitor will also get Echocardiogram WBC downtrending with IV Hector/azithromycin, continue PT/OT, 6 minute walk test to evaluate for home oxygen requirement (2) CAD (coronary artery disease) Current Visit: No Status: Acute Assessment and Plan: Status post CABG in April 2017. Continue statin, beta padmaja aspirin resumed after thoracentesis Echo as above (3) Diabetes mellitus Current Visit: Yes Status: Acute Assessment and Plan: Patient takes Tradjenta, Actos, and metformin at home ADA diet, Accu-Cheks before meals and at bedtime Hold off on oral hypoglycemic agents, Low-dose scale coverage (4) Hypertension Current Visit: Yes Status: Acute Assessment and Plan: Given low normal blood pressure, we will hold off on beta padmaja while being diuresed. (5) DVT prophylaxis Current Visit: Yes Status: Acute Assessment and Plan: Subcutaneous heparin - Time Spent with Patient Total time spent is greater than 50% in coordination of care (as documented) at patient's floor/unit and/or counseling patient: Greater than 35 minutes Plan of Care Discussed with: patient (Also discussed with pulmonology in great length) Internal Medicine: Result - Labs CBC & Chem 7: 03/10/18 04:02 03/10/18 05:31 Labs: Short CBC 03/10/18 Range/Units 04:02 WBC 11.4 H (4.3-11.1) K/mcL Hgb 16.0 D (12.9-16.9) g/dL Hct 50.6 H (37.5-50.1) % Plt Count 269 (140-400) K/mcL Neutrophils # 7.6 (1.6-8.9) K/mcL BMP 03/10/18 05:31 Sodium 137 Potassium 5.1 Chloride 105 Carbon Dioxide 22 L BUN 14 Creatinine 0.66 L Glucose 183 H Calcium 8.9 Cardiac Enzymes 03/09/18 Range/Units 18:09 Troponin I < 0.03 (< 0.04) ng/mL Urine 03/09/18 Range/Units 17:24 Urine Color Yellow (Yellow) Urine Clarity Clear (Clear) Urine pH 6.5 (5.0-8.0) pH Units Ur Specific [place] > 1.030 H (1.010-1.025) Urine Protein Trace (Neg-Trace) mg/dL Urine Glucose (UA) 250 H (Normal) mg/dL - ABG Interpretation ABG results: PT/INR, D-dimer PT 12.8 Seconds (9.4-12.1) H 03/09/18 11:23 Consult Discharge Plan - Plan Referrals: Charlene Long, [employer] STEWARD/STEWARDESS [Primary Care Provider] - (2) CAD (coronary artery disease) Qualifiers: Coronary Disease-Associated Artery/Lesion type: unspecified vessel or lesion type [place] vs. transplanted heart: [place] heart Associated angina: without angina Qualified Code(s): I25.10 - Atherosclerotic heart disease of [place] coronary artery without angina pectoris (3) Diabetes mellitus Qualifiers: Diabetes mellitus type: type 2 Diabetes mellitus snf insulin use: unspecified terminal system operator insulin use status Diabetes mellitus complication status : with unspecified complications Qualified Code(s): E11.8 - Type 2 diabetes mellitus with unspecified complications (4) Hypertension Qualifiers: Hypertension type: essential hypertension Qualified Code(s): I10 - Essential (primary) hypertension
[2018-03-10 22:25] LABS: Bilirubin,Urine Negative (Negative); Blood,Urine Negative (Negative); Clarity,Urine Clear (Clear); Color,Urine Yellow (Yellow); Glucose,Urine (UA) Normal (Normal); Ketones,Urine Negative (Negative); Leukocyte Esterase,Urine Negative (Negative); Nitrite,Urine Negative (Negative); Protein,Urine Negative (Neg-Trace); Specific Gravity,Urine 1.005 (1.010-1.025); Urobilinogen,Urine Normal (Normal)
[2018-03-11] MEDS: *HR* Heparin 5,000 UNIT/ML VIAL SQ SCH ×2 (06:39→17:39)
[2018-03-11] MEDS: Insulin LISPRO 300 UNITS/3 ML VIAL SQ SCH ×3 (10:01→17:39)
[2018-03-11 10:46] VITALS: BP 146/87
[2018-03-11] MEDS: Aspirin Enteric Coated 81 MG Tablet PO SCH (11:31)
[2018-03-11] MEDS: cefTRIAXone 1,000 MG in Water for inj. (sterile) 20 ML 10 ML IVP SCH (11:31)
[2018-03-11] MEDS: Famotidine 20 MG TABLET PO SCH (11:31)
[2018-03-11] MEDS: Pregabalin 25 MG CAPSULE PO SCH ×2 (11:31→17:39)
[2018-03-11] MEDS: Fluticasone Propionate Nasal 50 MCG/SPRAY BOTTLE NS SCH (11:33)
--- NOTE | 2018-03-11 12:59 | Pulmonology Progress Note ---
Date of Encounter: 03/11/18 Time of Encounter: 10:00 Assessment and Plan (1) Pleural effusion, left Current Visit: Yes Status: Acute Patient is left-sided pleural effusion most likely due to heart failure. Need to make sure that it does not have malignant pleural effusion we will do a repeat left-sided thoracentesis and will send back pleural fluid studies and cytology. We will recommend an outpatient diuretic regimen and we will see him in the clinic in 2 weeks. Patient will need repeat imaging as an outpatient once get reexpansion after thoracentesis. Please order a CAT scan within 1 week of discharge. (2) COPD (chronic obstructive pulmonary disease) Current Visit: No Status: Acute In terms of her baseline we will send him on short-acting bronchodilators and Spiriva. Qualifiers: COPD type: emphysema Emphysema type: unspecified Qualified Code(s): 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 (3) Diastolic heart failure Current Visit: No Status: Acute To continue diuresis as tolerated patient will need outpatient editor managing director management he will need education about cardiac diet like salt water restriction. Qualifiers: Heart failure chronicity: chronic Qualified Code(s): I50.32 - Chronic diastolic (congestive) heart failure Subjective Principal diagnosis: Left sided pleural effusion Interval history: 82-year-old male persistent has acute on chronic diastolic heart failure left- sided pleural effusion the initial thoracentesis showed most likely transudative /pseudo-exudative patient repeat x-ray showed still persistent moderate to large pleural effusion we will attempt thoracentesis today afternoon. Patient denies any chest pain or chest tightness has some shortness of breath on exertion denies any fever or chills much cough or sputum production. Objective PUL Vital signs: Last Vital Signs Temp 97.9 F 03/11/18 10:44 Pulse 96 03/11/18 10:44 Resp 15 03/11/18 10:44 BP 146/87 03/11/18 10:44 Pulse Ox 94 03/11/18 10:44 Auscultation: left: diminished breath sounds Results - Laboratory Findings CBC and BMP: 03/11/18 14:14 03/11/18 14:14 PT/INR, D-dimer PT 12.8 Seconds (9.4-12.1) H 03/09/18 11:23 Abnormal lab findings: Abnormal lab results WBC 11.4 K/mcL (4.3-11.1) H 03/10/18 04:02 RBC 5.74 M/mcL (4.19-5.50) H 03/10/18 04:02 Hct 50.6 % (37.5-50.1) H 03/10/18 04:02 MCH 27.9 pg (28.0-33.3) L 03/10/18 04:02 RDW 18.0 % (11.5-14.5) H 03/10/18 04:02 PT 12.8 Seconds (9.4-12.1) H 03/09/18 11:23 Carbon Dioxide 22 mEq/L (23-29) L 03/10/18 05:31 Creatinine 0.66 mg/dL (0.70-1.30) L 03/10/18 05:31 Glucose 183 mg/dL (70-105) H 03/10/18 05:31 POC Glucose 220 mg/dL (70-99) H 03/11/18 11:21 AST 12 Units/L (13-39) L 03/09/18 11:23 Globulin 3.6 g/dL (2.4-3.5) H 03/09/18 11:23 Albumin/Globulin Ratio 1.0 (1.1-2.2) L 03/09/18 11:23 Ur Specific [place] 1.005 (1.010-1.025) L 03/10/18 22:15 Pleural Appearance Hazy (Clear) A 03/09/18 14:15 Pleural RBC 0.004 M/mcL (0.000-0.002) H 03/09/18 14:15 - Clinical Findings Intake & Output: Intake & Output 03/10/18 03/11/18 03/11/18 23:59 07:59 15:59 Intake Total 250 / 250 120 / 120 Output Total 100 / 100 Balance 150 / 150 120 / 120 Weight 70.6 kg Consult Discharge Plan - Plan Instructions: Diabetes Mellitus Type 2 in Adults (DC), Chronic Hypertension (DC ) Additional Instructions: Follow up with pulmonary in 2 weeks Referrals: Charlene Long CNP [Primary Care Provider] - 03/16/18 1:00 pm Clayton Lin MD [Partnered Physician] - (Web request entered, office will call with date and time of appointment. thank you) Prescriptions: Furosemide [Lasix] 20 mg PO DAILY #30 tablet
--- NOTE | 2018-03-11 13:46 | Discharge Summary ---
- NOTES TO OUTPATIENT PROVIDER Notes to Outpatient Provider: Patient was admitted for incidental finding of left-sided pleural effusion. Underwent thoracentesis 2 uneventfully. Given low pleural fluid LDH, it was deemed that the fluid is consistent with transudative and was diuresed with IV Lasix. Repeat echo did not show any significant change in his EF. He was also treated empirically for possible CAP given his symptoms of cough and leukocytosis. He will be discharged home on PO lasix 20mg and was advised to complete the course of levaquin that was prescribed to him as an outpatient. Cytology pending at the time of admission and he will follow with pulmonary in 2 weeks. Orders not resulted at time of discharge: Pending orders 03/11/18 08:00 Basic Metabolic Panel AM 0400 Complete Blood Count [HEME] AM 0400 Magnesium AM 0400 03/11/18 13:43 CXR, portable [XR chest 1V portable] [XR] Routine Date of Encounter: 03/11/18 Time of Encounter: 13:30 - Discharge Diagnosis (1) Pleural effusion, left Priority: Primary Status: Acute (2) CAD (coronary artery disease) Priority: Secondary Status: Acute Qualifiers: Coronary Disease-Associated Artery/Lesion type: unspecified vessel or lesion type [place] vs. 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 Nath is a 82 year old male was admitted for incidental finding of left- sided pleural effusion that was noted during the workup of chronic dyspnea. Underwent thoracentesis 2 uneventfully. Given low pleural fluid LDH, it was deemed that the fluid is consistent with transudative and was diuresed with IV Lasix. Repeat echo did not show any significant change in his EF. He was also treated empirically for possible CAP given his symptoms of cough and leukocytosis. He will be discharged home on PO lasix 20mg and was advised to complete the course of levaquin that was prescribed to him as an outpatient. Cytology pending at the time of admission and he will follow with pulmonary in 2 weeks. Discharge discussed with: patient, social work, labor relations consultant - Time Spent with Patient Total time spent providing and/or coordinating discharge services: Greater than 30 minutes - Discharge Medications Prescriptions: Furosemide [Lasix] 20 mg PO DAILY #30 tablet Home Medications: Aspirin [Lo-Dose Aspirin EC] 81 mg PO DAILY 04/08/17 [History] Atorvastatin Calcium [Lipitor] 20 mg PO DAILY 04/08/17 [History] Docusate [Colace] 100 mg PO DAILY 04/08/17 [History] Famotidine [Heartburn Prevention] 20 mg PO DAILY 04/08/17 [History] Fluticasone Propionate Nasal [Flonase] 50 mcg NS PRN PRN 04/08/17 [History] Metformin HCl [Metformin HCl ER] 1,000 mg PO DAILY 04/08/17 [History] Metoprolol [Lopressor] 12.5 mg PO BID #0 04/08/17 [History] Tamsulosin [Flomax] 0.4 mg PO DAILY 04/08/17 [History] Pioglitazone [Actos] 45 mg PO 0800 04/27/17 [History] Donepezil HCl [Aricept] 5 mg PO DAILY #30 05/04/17 [Rx] Insulin Glargine,Hum.rec.anlog [Lantus Solostar] 10 unit SQ DAILY 03/09/18 [ History] Levofloxacin [Levaquin] 750 mg PO DAILY 03/09/18 [History] Linagliptin [Tradjenta] 5 mg PO DAILY 03/09/18 [History] Ondansetron HCl [Zofran] 4 mg PO Q6H PRN 03/09/18 [History] Pregabalin [Lyrica] 25 mg PO TID 03/09/18 [History] Tolterodine Tartrate [Detrol] 4 mg PO DAILY 03/09/18 [History] Furosemide [Lasix] 20 mg PO DAILY #30 tablet 03/11/18 [Rx] Allergies/Adverse Reactions: 3 Allergy/AdvReac Type Severity Reaction Status Date / Time horse serum Allergy Itching Uncoded 04/08/17 11:21 Date of admission: 03/09/18 14:52 Primary care physician: Charlene Long CNP Consults: 03/10/18 10:02 Consult to Pulmonology [CONS] Routine Consulting Provider: [facility] [place] Reason for Consult: new onset left side pleural effusion, malignant vs. parapneumonic Call Completed: Yes 03/10/18 14:25 Consult to Occupational Therapy [CONS] Routine Comment: Evaluate, develop and implement POC Reason for Consult: left pleural effusion, deconditioning Does patient have active BEDREST order?: No Is patient medically & hemodynamically stable?: Yes Consult to Physical Therapy [CONS] Routine Comment: Evaluate, develop and implement POC Reason for Consult: left pleural effusion, deconditioning Does patient have active BEDREST order?: No Is patient medically & hemodynamically stable?: Yes 03/10/18 16:12 Consult to Pulmonology [CONS] Routine Consulting Provider: Clayton Lin Reason for Consult: L pleural effusion Call Completed: Yes - Constitutional Vitals: Temp Pulse Resp BP Pulse Ox 97.9 F 96 15 146/87 94 03/11/18 10:44 03/11/18 10:44 03/11/18 10:44 03/11/18 10:44 03/11/18 10:44 Exam: General: Alert and oriented, not in acute distress. Cardiovascular:Normal S1 & S2, No JVD. Pulse regular. Lungs: diminished breath sound on the left lower lung field, otherwise no rhonchi/wheeze/rales Abdomen:Soft, non-tender, no rigidity. Extremities:No deformity or swelling Neurological:Normal cognition and motor skills. Non-focal - Patient Status Disposition: Home Health Service Condition: Fair Overall status at discharge: patient is progressing back to baseline - Discharge Instructions Instructions: Diabetes Mellitus Type 2 in Adults (DC), Chronic Hypertension (DC ) Follow Up With: Charlene Long CNP [Primary Care Provider] - Additional Instructions: Follow up with pulmonary in 2 weeks - Diet and Activity Activity: as per physical therapy Diet: diabetic diet
--- NOTE | 2018-03-11 13:51 | Procedure Note ---
<Dk Valdez - Last Filed: 03/11/18 14:01> Date of procedure: 03/11/18 Pre-op diagnosis: pleural effusion Post-op diagnosis: same Procedure: Informed consent was obtained from the patient. Time out performed. Area of pleural effusion was identified by ultrasound and site was marked. Area over left back was prepped and draped in normal sterile technique, and anesthetized using 3cc of lidocaine. A 20 guage needle/catheter was advanced into the pleural space and clear yellow fluid was seen in the syringe. Approximately ` 1500 cc of fluid was drained. Pt tolerated the procedure well, EBL was none. Post-procedure chest xray is pending. Specimen was sent to lab for further anaylsis. Surgeon: Dk Valdez Manual Arts Teacher: Clayton Lin Estimated blood loss (cc): 2 Specimen: pleural fluid <Clayton Lin - Last Filed: 03/11/18 16:58> Procedure: 1.5 litres of Serosanguineous fluid was removed patient tolerated well Post operative CXR interval resolution of pleural effusion with expansion of left lung no pneumothorax . Was there an bankruptcy assistant present: Yes Manual Arts Teacher: Clayton Lin
--- NOTE | 2018-03-11 13:52 | Physician Discharge Referral ---
Home Health/Hosp Referral Info Transfer to: Home Health - Diagnosis (1) Pleural effusion, left Priority: Primary Status: Acute (2) CAD (coronary artery disease) Priority: Secondary Status: Acute (3) Diabetes mellitus Priority: Secondary Status: Acute (4) Hypertension Priority: Secondary Status: Acute (5) DVT prophylaxis Priority: Secondary Status: Acute - Respiratory Orders Smoking Cessation: Smoking cessation has been advised. For more information, call the [place] Tobacco Quit Line at 4-987-TRSJ-NOW. - Services Needed Following services are medically necessary services: Physical Therapy, Occupational Therapy - Transfer Medications Prescriptions: Furosemide [Lasix] 20 mg PO DAILY #30 tablet Home Medications: Aspirin [Lo-Dose Aspirin EC] 81 mg PO DAILY 04/08/17 [History] Atorvastatin Calcium [Lipitor] 20 mg PO DAILY 04/08/17 [History] Docusate [Colace] 100 mg PO DAILY 04/08/17 [History] Famotidine [Heartburn Prevention] 20 mg PO DAILY 04/08/17 [History] Fluticasone Propionate Nasal [Flonase] 50 mcg NS PRN PRN 04/08/17 [History] Metformin HCl [Metformin HCl ER] 1,000 mg PO DAILY 04/08/17 [History] Metoprolol [Lopressor] 12.5 mg PO BID #0 04/08/17 [History] Tamsulosin [Flomax] 0.4 mg PO DAILY 04/08/17 [History] Pioglitazone [Actos] 45 mg PO 0800 04/27/17 [History] Donepezil HCl [Aricept] 5 mg PO DAILY #30 05/04/17 [Rx] Insulin Glargine,Hum.rec.anlog [Lantus Solostar] 10 unit SQ DAILY 03/09/18 [ History] Levofloxacin [Levaquin] 750 mg PO DAILY 03/09/18 [History] Linagliptin [Tradjenta] 5 mg PO DAILY 03/09/18 [History] Ondansetron HCl [Zofran] 4 mg PO Q6H PRN 03/09/18 [History] Pregabalin [Lyrica] 25 mg PO TID 03/09/18 [History] Tolterodine Tartrate [Detrol] 4 mg PO DAILY 03/09/18 [History] Furosemide [Lasix] 20 mg PO DAILY #30 tablet 03/11/18 [Rx] Allergies/Adverse Reactions: 3 Allergy/AdvReac Type Severity Reaction Status Date / Time horse serum Allergy Itching Uncoded 04/08/17 11:21 Certification: Further, I certify that my clinical findings support that this patient is homebound (i.e. absences from home require considerable and taxing effort and are for medical reasons or [employer] services or infrequently or short duration when for other reasons) because: Homebound Reason: Patient requires assistance of a person or device to safely leave home Attestation: My signature below is to certify that this patient is under my care and that I, or nurse practitioner, or a physician's special events assistant working with me, has a face-to -face encounter with this patient.
[2018-03-11 14:35] LABS: Basophils # 0.1 K/mcL (0.0-0.2); Basophils % 0.5 %; Eosinophils # 0.1 K/mcL (0.0-0.6); Eosinophils % 0.7 %; Hematocrit 49.3 % (37.5-50.1); Hemoglobin 16.2 g/dL (12.9-16.9); Immature Granulocytes % 0.5 % (0-4); Lymphocytes # 2.5 K/mcL (0.6-4.6); Mean Corpuscular HGB Conc 32.9 g/dL (31.6-35.5); Mean Corpuscular Hemoglobin 27.7 pg (28.0-33.3); Mean Corpuscular Volume 84.3 fL (83.0-100.0); Mean Platelet Volume 9.9 fL (9.4-12.4); Monocytes # 0.8 K/mcL (0.0-1.3); Monocytes % 5.7 %; Neutrophils # 9.7 K/mcL (1.6-8.9); Platelet Count 413 K/mcL (140-400); Red Blood Count 5.85 M/mcL (4.19-5.50); Red Cell Distribution Width 15.7 % (11.5-14.5); Segmented Neutrophils % 73.6 %
[2018-03-11 14:49] LABS: BUN/Creatinine Ratio 17 (6-26); Blood Urea Nitrogen 12 mg/dL (8-23); Calcium 9.5 mg/dL (8.6-10.3); Carbon Dioxide 26 mEq/L (23-29); Chloride 98 mEq/L (98-107); Glucose 216 mg/dL (70-105); Magnesium 1.9 mg/dL (1.6-2.6); Osmolality,Calculated 282 (280-300); Sodium 133 mEq/L (136-145); eGFR For Non-African Americans > 60 (> 60)
[2018-03-11] MEDS: Azithromycin 500 MG in D5% in Water 250 ML IVPB SCH (17:31)
--- NOTE | 2018-03-12 00:32 | Electrocardiograph Report ---
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
[2018-03-12 13:45] LABS: Fluid Source for Albumin PLEURAL FLD
[2018-03-12 13:47] LABS: Fluid Source for Albumin PLEURAL FLD
== END 2018-03-11 18:50 | disposition home health service (06) | DRG 291 ==
LOC: 3ANU 09:35 → EMEROOARM 09:35 → SUATTDRO 14:21 → 3ANU 17:29
PROVIDERS: ADMIT Internal Medicine; ATTEND Internal Medicine

== ENCOUNTER 2018-04-09 10:04 | Observation (INO) ==
--- NOTE | 2018-04-09 10:22 | Emergency Department Note ---
Disposition Clinical Impression: Pleural effusion, Elevated brain natriuretic peptide (BNP) level Chest pain Qualifiers: Chest pain type: unspecified Qualified Code(s): R07.9 - Chest pain, unspecified Pneumonia Qualifiers: Pneumonia type: due to unspecified organism Laterality: left Lung location: unspecified part of lung Qualified Code(s): J18.9 - Pneumonia, unspecified organism Disposition: Admitted As Inpatient Condition: Fair Time of Disposition: 11:43 General Adult HPI - General Chief complaint: ED Chest Pain Stated complaint: CP Time Seen by Provider: 04/09/18 10:08 Source: patient, family Limitations: no limitations Nursing Notes Reviewed: Yes Vital Signs Reviewed: Yes - History of Present Illness HPI Narrative: Patient is a 82-year-old male that since emergency department with left-sided c hest pain. Patient states this is been ongoing since yesterday evening. Patient states that the chest pain is intermittent. Patient does have a history of coronary bypass surgery done in 2017. Patient does state that he has 3 stents placed. Patient denies any radiation of his pain. Patient states that he has not short of breath, nauseated or diaphoretic. Patient states that he had similar pain approximately 2 weeks ago and was seen here in the emergency department was discharged home. Patient states that the pain began when he was asleep last night and woke him from sleep. Patient states that nothing seems to make his pain any better or worse. Patient denies significant nitroglycerin or aspirin. Pain Scale: 0 - Related Data Home Medications Medication Instructions Recorded Confirmed Aspirin [Lo-Dose Aspirin EC] 81 mg PO DAILY 04/08/17 04/09/18 Atorvastatin Calcium [Lipitor] 20 mg PO DAILY 04/08/17 04/09/18 Docusate [Colace] 100 mg PO DAILY 04/08/17 04/09/18 Metoprolol [Lopressor] 12.5 mg PO BID #0 04/08/17 04/09/18 Insulin Glargine,Hum.rec.anlog 15 unit SQ DAILY 03/09/18 04/09/18 [Lantus Solostar] Ondansetron HCl [Zofran] 4 mg PO Q6H PRN 03/09/18 04/09/18 Omeprazole [PriLOSEC] 40 mg PO DAILY 04/09/18 04/09/18 Previous Rx's Medication Instructions Recorded Furosemide [Lasix] 20 mg PO DAILY #30 tablet 03/11/18 Allergies Allergy/AdvReac Type Severity Reaction Status Date / Time horse serum Allergy Itching Uncoded 04/09/18 10:07 All systems ED: reviewed and negative except as stated. Constitutional: Denies: other (denies diaphoresis) Cardiovascular: Reports: chest pain Respiratory: Denies: dyspnea Gastrointestinal: Denies: nausea Past Medical History - Past Medical History Medical history: Reports: coronary artery disease, diabetes, hyperlipidemia, hypertension, TIA Surgical history: Reports: other Psychiatric history: Reports: no psych history - Social History Smoking Status: Former smoker Smokeless Tobacco Status: No Alcohol use: Reports: none Drug use: Reports: none Physical Exam - General Limitations: no limitations General appearance: alert, in no apparent distress - Head Head exam: atraumatic, normocephalic - Eye Eye exam: Present: normal appearance, EOMI - Neck Neck exam: Present: normal inspection, full ROM, trachea midline - Respiratory Respiratory exam: Present: normal lung sounds bilaterally. Absent: respiratory distress, wheezes - Cardiovascular Cardiovascular exam: Present: regular rate, normal rhythm, normal heart sounds, +S1, +S2 - Abdominal Exam Abdominal exam: Present: soft, Non-Tender, normal bowel sounds - Extremities Exam Extremities exam: Present: other (2+ pitting edema) - Neurological Exam Neurological exam: Present: alert, oriented X3 - Psychiatric Psychiatric exam: Present: normal affect, normal mood - Skin Skin exam: Present: warm, dry, intact Course Vital Signs Temperature 97.8 F 04/09/18 10:08 Pulse Rate 90 04/09/18 10:08 Respiratory Rate 20 04/09/18 10:08 Blood Pressure 124/82 04/09/18 10:08 O2 Sat by Pulse Oximetry 93 04/09/18 10:08 Temperature 97.8 F 04/09/18 10:13 Pulse Rate 80 04/09/18 10:13 Respiratory Rate 20 04/09/18 10:13 Blood Pressure 138/75 04/09/18 10:13 O2 Sat by Pulse Oximetry 95 04/09/18 10:20 Oxygen Delivery Oxygen Delivery Room Air Medical Decision Making - MDM Narrative Medical decision making narrative: Due the patient presents emergency Department with left-sided chest pain and a extensive cardiac history there is concern for possible cardiac involvement. We will obtain basic laboratory tests including CBC, BMP troponin chest x-ray and EKG. patient's troponin was negative. Patient had a mildly elevated BNP. EKG did not show any acute ischemic changes. Chest x-ray show concerning for worsening left-sided pleural effusion and possible pneumonia. Patient had been hospitalized approximately one month ago. Patient will be started on vancomycin and Zosyn to cover for HCAP. Patient is a mildly elevated white count of 12.7. Patient is afebrile and not tachycardic at this time. I do not feel the patient needs surgical criteria or sepsis. Do not feel the patient requires any form of fluid bolus. Patient will need to be admitted to the hospital for further evaluation and management. I spoke with Dr. Farris and she has accepted the patient to their service. Patient be admitted to the hospital this time for further evaluation and management. - Medical Records Medical records reviewed: Yes I reviewed the patient's medical records. - Lab Data Lab results reviewed: Yes I reviewed the patient's lab results. Result diagrams: 04/09/18 10:29 04/09/18 10:29 Lab Results 04/09/18 04/09/18 04/09/18 Range/Units 10:29 10:29 10:29 WBC 12.7 H (4.3-11.1) K/mcL RBC 5.35 (4.19-5.50) M/mcL Hgb 14.3 (12.9-16.9) g/dL Hct 44.8 (37.5-50.1) % MCV 83.7 (83.0-100.0) fL MCH 26.7 L (28.0-33.3) pg MCHC 31.9 (31.6-35.5) g/dL RDW 15.4 H (11.5-14.5) % Plt Count 548 H (140-400) K/mcL MPV 9.6 (9.4-12.4) fL Immature Gran % 0.6 (0-4) % Seg Neutrophils % 73.1 % Lymphocytes % 16.3 % Monocytes % 8.1 % Eosinophils % 1.3 % Basophils % 0.6 % Neutrophils # 9.3 H (1.6-8.9) K/mcL Lymphocytes # 2.1 (0.6-4.6) K/mcL Monocytes # 1.0 (0.0-1.3) K/mcL Eosinophils # 0.2 (0.0-0.6) K/mcL Basophils # 0.1 (0.0-0.2) K/mcL PT 13.2 H (9.4-12.1) Seconds INR 1.2 Sodium (136-145) mEq/L Potassium (3.5-5.1) mEq/L Chloride (98-107) mEq/L Carbon Dioxide (23-29) mEq/L BUN (8-23) mg/dL Creatinine (0.70-1.30) mg/dL Est GFR ( Amer) (> 60) Est GFR (Non-Af Amer) (> 60) BUN/Creatinine Ratio (6-26) Glucose (70-105) mg/dL Calculated Osmolality (280-300) Calcium (8.6-10.3) mg/dL Troponin I (< 0.04) ng/mL B-Natriuretic Peptide 130 H (Less than 100) pg/mL 04/09/18 Range/Units 10:29 WBC (4.3-11.1) K/mcL RBC (4.19-5.50) M/mcL Hgb (12.9-16.9) g/dL Hct (37.5-50.1) % MCV (83.0-100.0) fL MCH (28.0-33.3) pg MCHC (31.6-35.5) g/dL RDW (11.5-14.5) % Plt Count (140-400) K/mcL MPV (9.4-12.4) fL Immature Gran % (0-4) % Seg Neutrophils % % Lymphocytes % % Monocytes % % Eosinophils % % Basophils % % Neutrophils # (1.6-8.9) K/mcL Lymphocytes # (0.6-4.6) K/mcL Monocytes # (0.0-1.3) K/mcL Eosinophils # (0.0-0.6) K/mcL Basophils # (0.0-0.2) K/mcL PT (9.4-12.1) Seconds INR Sodium 136 (136-145) mEq/L Potassium 4.5 (3.5-5.1) mEq/L Chloride 99 (98-107) mEq/L Carbon Dioxide 28 (23-29) mEq/L BUN 12 (8-23) mg/dL Creatinine 0.76 (0.70-1.30) mg/dL Est GFR ( Amer) > 60 (> 60) Est GFR (Non-Af Amer) > 60 (> 60) BUN/Creatinine Ratio 16 (6-26) Glucose 183 H (70-105) mg/dL Calculated Osmolality 286 (280-300) Calcium 9.8 (8.6-10.3) mg/dL Troponin I < 0.03 (< 0.04) ng/mL B-Natriuretic Peptide (Less than 100) pg/mL - Radiology Data Radiology results reviewed: Yes I reviewed the patient's radiology results. Chest X-Ray 04/09/18 10:17 IMPRESSION: Worsened opacification of left mid to lower lung zones concerning for worsening left pleural effusion with associated atelectasis or infiltrate. Other underlying pathology not excluded. Continued follow-up recommended. D/ / 04/09/2018 11:09:58 [facility] Inter[facility] Provider: Te Martinez MD - EKG Data EKG #1 EKG attestation: Yes I reviewed and interpreted this EKG. EKG results narrative: EKG shows a sinus rhythm at 82 bpm, OR interval 253 consistent with a first- degree AV block. QRS duration 93, QTC 420. No evidence of STEMI on EKG. This is compared to previous EKG on 03/15/18 which showed a sinus rhythm at a rate of 97 bpm. Attestation Statement - Attestation Attestation: I examined this patient and my medical decision-making was reviewed with the Resident Physician, Dr. León. I agree with the documented findings, disposition and treatment plan as described except to the extent set forth below. Patient is an 82-year-old white male with a history of diabetes hypertension hyperlipidemia who presents to emergency permit today with complaints of left- sided chest pain. Patient states the pain began during the night and woke him from sleep. Patient has associated mild dyspnea. Patient was hospitalized present one month ago with similar symptoms and found to have a left pleural effusion which required thoracentesis 2, fluid analysis showed translated changes and he was covered with antibiotics for possible pneumonia. Patient states he really has not felt better since he arrived home from that hospitalization and then began to have recurrent pain and shortness of breath last night. Patient is in no acute distress resting comfortably at bedside with no increased work of breathing. Patient denies any diaphoresis, no abdominal pain nausea vomiting no back or flank discomfort. Patient had prior CABG remotely. I agree with patient's physical exam findings as documented. Vital signs are stable. EKG was normal sinus rhythm with no acute ischemia. Patient's chest x-ray shows worsening left pleural effusion. Patient with leukocytosis otherwise labs unremarkable. Patient will be admitted for evaluation of this pleural effusion. He will receive a dose of Lasix here and likely require repeat thoracentesis. Patient's troponin is within normal limits. We will cover him also for pneumonia due to persistent worsening pleural effusion. Patient at this time as stable respiratory status and resting E bedside hemodynamically stable. Case was discussed with hospitalist to accept patient for admission.
[2018-04-09 10:39] LABS: Basophils # 0.1 K/mcL (0.0-0.2); Basophils % 0.6 %; Eosinophils # 0.2 K/mcL (0.0-0.6); Eosinophils % 1.3 %; Hematocrit 44.8 % (37.5-50.1); Hemoglobin 14.3 g/dL (12.9-16.9); Immature Granulocytes % 0.6 % (0-4); Lymphocytes # 2.1 K/mcL (0.6-4.6); Lymphocytes % 16.3 %; Mean Corpuscular HGB Conc 31.9 g/dL (31.6-35.5); Mean Corpuscular Hemoglobin 26.7 pg (28.0-33.3); Mean Corpuscular Volume 83.7 fL (83.0-100.0); Mean Platelet Volume 9.6 fL (9.4-12.4); Monocytes % 8.1 %; Neutrophils # 9.3 K/mcL (1.6-8.9); Platelet Count 548 K/mcL (140-400); Red Blood Count 5.35 M/mcL (4.19-5.50); Red Cell Distribution Width 15.4 % (11.5-14.5); Segmented Neutrophils % 73.1 %
[2018-04-09] MEDS: Aspirin 81 MG TAB.CHEW PO ONE ×2 (10:40→10:43)
[2018-04-09 10:48] LABS: INR 1.2; Prothrombin Time 13.2 Seconds (9.4-12.1)
[2018-04-09 11:00] LABS: Troponin I < 0.03 ng/mL (< 0.04)
[2018-04-09 11:02] LABS: BUN/Creatinine Ratio 16 (6-26); Blood Urea Nitrogen 12 mg/dL (8-23); Calcium 9.8 mg/dL (8.6-10.3); Carbon Dioxide 28 mEq/L (23-29); Chloride 99 mEq/L (98-107); Glucose 183 mg/dL (70-105); Osmolality,Calculated 286 (280-300); Potassium 4.5 mEq/L (3.5-5.1); Sodium 136 mEq/L (136-145); eGFR For Non-African Americans > 60 (> 60)
[2018-04-09] MEDS ORDERED: Piperacillin/Tazobactam 3.375 GM in 0.9 % Sodium Chloride Mini Bag 100 ML IVPB ONE (11:16)
[2018-04-09] MEDS ORDERED: Acetaminophen 325 MG TABLET PO PRN (13:24)
[2018-04-09] MEDS ORDERED: *HR* OxyCODONE Immed Rel 5 MG TABLET PO PRN (13:24)
[2018-04-09] MEDS ORDERED: *HR* HYDROcodone/Acet 5/325 mg TABLET PO PRN (13:24)
[2018-04-09] MEDS ORDERED: Naloxone 0.4 MG/ML INJ IVP PRN (13:24)
[2018-04-09] MEDS ORDERED: Furosemide 40 MG/4 ML VIAL IVP ONE (13:26)
[2018-04-09] MEDS ORDERED: *HR* Dextrose 50 % in Water (Syg) 50 ML SYRINGE IVP PRN (13:29)
[2018-04-09] MEDS ORDERED: Dextrose Gel 15 GM/37.5 ML TUBE PO PRN ×2 (13:29)
[2018-04-09] MEDS ORDERED: D5% in Water 1,000 ML IVC PRN (13:29)
[2018-04-09 14:12] LABS: Lactate Dehydrogenase 141 Units/L (140-271)
--- NOTE | 2018-04-09 16:12 | Electrocardiograph Report ---
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
[2018-04-09 16:31] LABS: Total Protein,Pleural Fluid 3.8 g/dL (No Ref Range)
[2018-04-09 16:53] LABS: Appearance of Pleural Fl Cloudy (Clear)
[2018-04-09] MEDS: *HR* Heparin 5,000 UNIT/ML VIAL SQ SCH (18:05)
[2018-04-09] MEDS: Insulin LISPRO 300 UNITS/3 ML VIAL SQ SCH (18:27)
--- NOTE | 2018-04-09 19:23 | Internal Med History&Physical ---
Addendum entered and electronically signed by Harjinder Torres MD 04/09/18 14:34: Also discussed with pulmonary regarding his recurrent L pleural effusion. Will follow up after thoracentesis to re-evaluate the lesion seen on the last scan. Original Note: Date of Encounter: 04/09/18 Time of Encounter: 14:00 Internal Medicine - H&P: HPI Chief complaint: chest discomfort Admitted From: Home History of present illness: Mr. Nath is a 82 year old male with past history of CAD status post CABG in April 2017, PAD, diabetes, hypertension, ex-smoker, presented to the ED for left sided chest pain. Sharp, intermittent, non-radiating, no aggravating/relieving factors. Similar to the episode that led to an admission back in late February when he was found to have incidental finding of large left-sided pleural effusion. It was deemed transudative and was discharged home on PO lasix 20mg QD with repeat CT and follow up with Pulmonary as an outpatient which he was not able to make it to. At that time, there was a hypoattenuating 2.6 x 1.9 cm nodular area within the atelectatic left lower lobe and a nonca lcified 6 mm nodule along the major fissure in the right lower lobe. Otherwise, he endorses cough that is actually resolving, no sputum production or hemoptysis. He does however have 40lbs weight loss for the last several months. Denies any fever/chills, palpitation, orthopnea, PND, or leg swelling. No nausea/vomiting, abdominal pain, change in bowel habits, dysuria, or urinary frequency. Denies any sick contacts. He has a history of 35 pack year smoking but quit about 30 years ago. In the ED, he was afebrile and hemodynamically stable. Saturating 95% on room air. Labwork showed mild leukocytosis of 12.7 and slightly elevated BNP of 130. Troponin -ve, EKG NSR without ST-T changes. Chest x-ray showed worsening left-sided pleural effusion. He was started on IV Vanc/zosyn and admitted for further management. Past Med Surg Social Fam HX - Past Medical History Attestation: Yes The following information was validated with the patient. Medical history: coronary artery disease, diabetes, hyperlipidemia, hypertension, osteoporosis, peripheral artery disease, TIA Additional medical history: gout, bph Psychiatric history: no psych history - Past Surgical History Surgical History: coronary bypass (CABG), other Additional surgical history: hernia repair - Social History Smoking Status: Former smoker Smokeless Tobacco Status: No Alcohol use: none Drug use: none - Family History Mother Living Status: Father Living Status: Internal Medicine - H&P: Meds Aspirin [Lo-Dose Aspirin EC] 81 mg PO DAILY 04/08/17 [History] Atorvastatin Calcium [Lipitor] 20 mg PO DAILY 04/08/17 [History] Docusate [Colace] 100 mg PO DAILY 04/08/17 [History] Metoprolol [Lopressor] 12.5 mg PO BID #0 04/08/17 [History] Insulin Glargine,Hum.rec.anlog [Lantus Solostar] 15 unit SQ DAILY 03/09/18 [History] Ondansetron HCl [Zofran] 4 mg PO Q6H PRN 03/09/18 [History] Furosemide [Lasix] 20 mg PO DAILY #30 tablet 03/11/18 [Rx] Omeprazole [PriLOSEC] 40 mg PO DAILY 04/09/18 [History] Allergy/AdvReac Type Severity Reaction Status Date / Time horse serum Allergy Itching Uncoded 04/09/18 10:07 All Systems PM: A 10-system review of systems was performed and is negative for pertinent findi ngs except as documented above in the HPI. - Constitutional Vitals: Temp Pulse Resp BP Pulse Ox 97.4 F L 85 14 120/68 93 04/09/18 12:47 04/09/18 12:47 04/09/18 12:47 04/09/18 12:47 04/09/18 12:47 Exam: General: Alert and oriented, not in acute distress. HEENT:EOMI, pupils equal, round and reactive. Cardiovascular:Normal S1 & S2, No JVD. Pulse regular. Lungs: Absent breath sound on the left lung field, dull to percussion. Otherwise no rhonchi/wheeze/rales Abdomen:Soft, non-tender, no rigidity. Extremities:No deformity or swelling Neurological:Normal cognition and motor skills. Non-focal Skin:Normal color, no rash, no lesions. Pulses:Carotid and radial pulses normal +2. Rest of the physical exam is non contributory Internal Med - H&P Results - Labs CBC & Chem 7: 04/09/18 10:29 04/09/18 10:29 Labs: Short CBC 04/09/18 Range/Units 10:29 WBC 12.7 H (4.3-11.1) K/mcL Hgb 14.3 (12.9-16.9) g/dL Hct 44.8 (37.5-50.1) % Plt Count 548 H (140-400) K/mcL Neutrophils # 9.3 H (1.6-8.9) K/mcL BMP 04/09/18 10:29 Sodium 136 Potassium 4.5 Chloride 99 Carbon Dioxide 28 BUN 12 Creatinine 0.76 Glucose 183 H Calcium 9.8 Cardiac Enzymes 04/09/18 Range/Units 10:29 Troponin I < 0.03 (< 0.04) ng/mL - Impressions ITS Impressions Chest X-Ray 04/09/18 10:17 IMPRESSION: Worsened opacification of left mid to lower lung zones concerning for worsening left pleural effusion with associated atelectasis or infiltrate. Other underlying pathology not excluded. Continued follow-up recommended. D/ / 04/09/2018 11:09:58 Te Martinez MD / [facility] Interpreting Provider: Te Martinez MD - Assessment and plan (1) Pleural effusion, left Current Visit: Yes Status: Acute Assessment and plan: recent admission in late February for same problem, was discharged on a course of abx for CAP as well as low dose diuretics as his pleural fluid was deemed to be transudative based on low LDH cytology was negative at that time discussed with IR, for thoracentesis today send fluid for analysis including LDH, protein, bacterial/fungal culture Imaging study back then showed possible hypoattenuating nodular area in the left lower lobe, patient does have history of 35 pack year of smoking -> quit [address] chest after thoracentesis for re-evaluation of that nodular area BNP also slightly elevated compared to the prior, will give IV lasix 40mg and reassess for the need of diuretics tomorrow Started on vanc/zosyn for HCAP coverage, continue (2) Diabetes mellitus Current Visit: No Status: Chronic Assessment and plan: NPO for now in anticipation for thoracentesis ADA diet after the procedure, can then switch accuchecks and sliding scale coverage to AC+HS resume levemir at lower dose Qualifiers: Diabetes mellitus type: type 2 Diabetes mellitus group home insulin use: 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 Continue ASA, statin, beta padmaja Qualifiers: Coronary Disease-Associated Artery/Lesion type: unspecified vessel or lesion type [place] vs. transplanted heart: [place] heart Associated angina: without angina Qualified Code(s): I25.10 - Atherosclerotic heart disease of [place] co ronary artery without angina pectoris (4) Hypertension Current Visit: No Status: Chronic Assessment and plan: resume home meds Qualifiers: Hypertension type: essential hypertension Qualified Code(s): I10 - Essential (primary) hypertension (5) DVT prophylaxis Current Visit: Yes Status: Acute Assessment and plan: SQ heparin - Time Spent With Patient Total time spent is greater than 50% in coordination of care (as documented) at patient's floor/unit and/or counseling patient:
--- NOTE | 2018-04-09 19:33 | IR Procedure Note ---
Date of procedure: 04/09/18 Consent Obtained: Verbal consent, Written consent Timeout: Correct patient and procedure verified, Correct site verified, Time out performed, Skin prep completed Local anesthetic: Lidocaine 1% Indications: pleural effusion Procedure Performed: left thoracentesis Was there an marketing administrative assistant present: No Results/Findings: multiloculated effusion Estimated blood loss (cc): 1 Complications: None; Tolerated procedure well Post Procedure Treatment Plan: CXR Specimen: 15 cc serosanguinous fluid aspirated
[2018-04-09] MEDS: Piperacillin/Tazobactam 3.375 GM in 0.9 % Sodium Chloride Mini Bag 100 ML IVPB SCH (21:27)
[2018-04-09] MEDS: Insulin DETEMIR 100 UNIT/ML X5UNITS SQ SCH (21:27)
[2018-04-10] MEDS: Piperacillin/Tazobactam 3.375 GM in 0.9 % Sodium Chloride Mini Bag 100 ML IVPB SCH ×4 (00:05→23:36)
[2018-04-10] MEDS: Insulin LISPRO 300 UNITS/3 ML VIAL SQ SCH ×4 (02:21→17:19)
[2018-04-10 05:17] LABS: Basophils # 0.1 K/mcL (0.0-0.2); Basophils % 0.5 %; Eosinophils # 0.2 K/mcL (0.0-0.6); Eosinophils % 1.4 %; Immature Granulocytes % 0.5 % (0-4); Lymphocytes # 2.5 K/mcL (0.6-4.6); Lymphocytes % 19.1 %; Mean Corpuscular HGB Conc 33.3 g/dL (31.6-35.5); Mean Corpuscular Volume 80.9 fL (83.0-100.0); Mean Platelet Volume 10.2 fL (9.4-12.4); Monocytes # 1.1 K/mcL (0.0-1.3); Monocytes % 8.4 %; Platelet Count 447 K/mcL (140-400); Red Blood Count 5.19 M/mcL (4.19-5.50); Red Cell Distribution Width 15.4 % (11.5-14.5); Segmented Neutrophils % 70.1 %
[2018-04-10 05:20] LABS: Neutrophils # 9.3 K/mcL (1.6-8.9)
[2018-04-10] MEDS: *HR* Heparin 5,000 UNIT/ML VIAL SQ SCH ×2 (06:25→17:20)
[2018-04-10] MEDS ORDERED: Insulin DETEMIR 100 UNIT/ML X5UNITS SQ SCH (09:00)
[2018-04-10 09:12] LABS: BUN/Creatinine Ratio 17 (6-26); Blood Urea Nitrogen 12 mg/dL (8-23); Calcium 9.3 mg/dL (8.6-10.3); Carbon Dioxide 28 mEq/L (23-29); Chloride 100 mEq/L (98-107); Glucose 161 mg/dL (70-105); Osmolality,Calculated 289 (280-300); Potassium 3.9 mEq/L (3.5-5.1); Sodium 138 mEq/L (136-145); eGFR For Non-African Americans > 60 (> 60)
[2018-04-10] MEDS: Aspirin Enteric Coated 81 MG Tablet PO SCH (10:00)
--- NOTE | 2018-04-10 10:27 | Pulmonology Consult Note ---
Date of Encounter: 04/10/18 Time of Encounter: 09:00 Assessment and Plan (1) Pleural effusion Current Visit: Yes Status: Acute Patient has this recurrent pleural effusion on the left side most of the does lymphocyte 8 and it was transudative secondary to his diastolic heart failure this time the pleural fluid LDH according to light study vasitis 5 exudative criteria but we need to get the pleural fluid to serum albumin gradient was less than 1.2 that is transudative or if it is greater than 1.2 that it is exudative I called the lab and the pleural fluid albumin order and serum albumin order. Since the patient has recurrent pleural effusion we will disucss about the Pleurx catheter if patient is agreeable we will talk with Dr. Marks our int erventional farm management professor.will give CT chest to evaluate for pleural anatomy for possible loculated pleural effusion in that case he will need Ct guided chest tube drainage. (2) Diastolic heart failure Current Visit: No Status: Acute Patient has chronic diastolic heart failure clinically doesnt look like he has fluid overload Qualifiers: Heart failure chronicity: chronic Qualified Code(s): I50.32 - Chronic diastolic (congestive) heart failure (3) Pneumonia Current Visit: Yes Status: Acute patient doesnt have clinically symptoms the chest imaging might be old changes from the previous episode will get CT chest . Qualifiers: Pneumonia type: due to unspecified organism Laterality: left Lung location: lower lobe of lung Qualified Code(s): J18.1 - Lobar pneumonia, unspecified organism (4) COPD (chronic obstructive pulmonary disease) Current Visit: No Status: Acute To continue bronchodilators doent look he is in COPD exacerbations . Qualifiers: COPD type: emphysema Emphysema type: unspecified Qualified Code(s): 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 History of Present Illness Consult date: 04/10/18 Requesting physician: Harjinder Torres Reason for consult: chest pain, abnormal CXR/CT Chief complaint: chest pain History of present illness: 82-year-old male known well known to the pulmonary service was seen last time for left-sided pleural effusion which seems to be transudative at that time had some left lower lobe consolidation with the plan to follow-up in pulmonary clinic in 8 weeks to document resolution in the meantime before he made to the pulmonary clinic he developed this left-sided chest pain which is nonspecific found to have this left-sided recurrent pleural effusion yesterday interventional radiology try to tap cannot get much pulmonary was consult that for suspicion for loculated left-sided pleural effusion. Patient denies any complaints except for some cough not much sputum production denies any hemoptysis patient has this 40 pound weight loss denies any constitutional symptoms denies any active GERD or neuro symptoms. Past Med Surg Social Fam HX - Past Medical History Medical history: coronary artery disease, diabetes, hyperlipidemia, hypertension, osteoporosis, peripheral artery disease, TIA Additional medical history: gout, bph Psychiatric history: no psych history - Past Surgical History Surgical History: coronary bypass (CABG), other Additional surgical history: hernia repair - Social History Smoking Status: Former smoker Smokeless Tobacco Status: No Alcohol use: none Drug use: none - Family History Mother Living Status: Father Living Status: Medications and Allergies Aspirin [Lo-Dose Aspirin EC] 81 mg PO DAILY 04/08/17 [History] Atorvastatin Calcium [Lipitor] 20 mg PO DAILY 04/08/17 [History] Docusate [Colace] 100 mg PO DAILY 04/08/17 [History] Metoprolol [Lopressor] 12.5 mg PO BID #0 04/08/17 [History] Insulin Glargine,Hum.rec.anlog [Lantus Solostar] 15 unit SQ DAILY 03/09/18 [History] Ondansetron HCl [Zofran] 4 mg PO Q6H PRN 03/09/18 [History] Furosemide [Lasix] 20 mg PO DAILY #30 tablet 03/11/18 [Rx] Omeprazole [PriLOSEC] 40 mg PO DAILY 04/09/18 [History] Allergy/AdvReac Type Severity Reaction Status Date / Time horse serum Allergy Itching Uncoded 04/09/18 10:07 All Systems: The remainder of the systems were reviewed and are negative. Physical Examination Vital Signs: Vital Signs, Last 4 Hours Temp Pulse Resp BP Pulse Ox 04/10/18 10:00 92 04/10/18 08:03 97.5 F L 87 16 110/74 92 Results - Laboratory Findings CBC and BMP: 04/10/18 04:26 04/10/18 08:44 PT/INR, D-dimer PT 13.2 Seconds (9.4-12.1) H 04/09/18 10:29 Abnormal lab findings: Abnormal lab results WBC 13.2 K/mcL (4.3-11.1) H 04/10/18 04:26 MCV 80.9 fL (83.0-100.0) L 04/10/18 04:26 MCH 27.0 pg (28.0-33.3) L 04/10/18 04:26 RDW 15.4 % (11.5-14.5) H 04/10/18 04:26 Plt Count 447 K/mcL (140-400) H 04/10/18 04:26 Neutrophils # 9.3 K/mcL (1.6-8.9) H 04/10/18 04:26 PT 13.2 Seconds (9.4-12.1) H 04/09/18 10:29 Creatinine 0.69 mg/dL (0.70-1.30) L 04/10/18 08:44 Glucose 161 mg/dL (70-105) H 04/10/18 08:44 POC Glucose 216 mg/dL (70-99) H 04/09/18 18:18 B-Natriuretic Peptide 130 pg/mL (Less than 100) H 04/09/18 10:29 Pleural Appearance Cloudy (Clear) A 04/09/18 15:25 - Microbiology Findings Microbiology Findings: Microbiology, Last 48 Hours 04/09/18 15:25 Body Fluid Culture - Preliminary Pleural Fluid - Clinical Findings Intake & Output: Intake & Output 04/09/18 04/10/18 04/10/18 23:59 07:59 15:59 Intake Total 350 / 350 350 / 350 Balance 350 / 350 350 / 350 Consult Discharge Plan - Plan Referrals: NONE,PCP [Primary Care Provider] -
--- NOTE | 2018-04-10 11:28 | Internal Med Progress Note ---
Hospitalist Progress Note - Encounter Date of Encounter: 04/10/18 Time of Encounter: 10:00 - Subjective Interval History: States that he feels about the same as yesterday, no SOB or hemoptysis. - Exam Vitals: Temp Pulse Resp BP Pulse Ox 97.5 F L 71 16 102/65 92 04/10/18 11:25 04/10/18 11:25 04/10/18 11:25 04/10/18 11:25 04/10/18 11:25 Exam: General: Alert and oriented, not in acute distress. Cardiovascular:Normal S1 & S2, No JVD. Pulse regular. Lungs: Absent breath sound on the left lung field, dull to percussion. Otherwise no rhonchi/wheeze/rales Abdomen:Soft, non-tender, no rigidity. Extremities:No deformity or swelling Neurological:Normal cognition and motor skills. Non-focal - Assessment and Plan (1) Pleural effusion, left Current Visit: Yes Status: Acute Assessment and Plan: recent admission in late February for same problem, was discharged on a course of abx for CAP as well as low dose diuretics as his pleural fluid was deemed to be transudative based on low LDH Imaging study back then showed possible hypoattenuating nodular area in the left lower lobe, patient does have history of 35 pack year of smoking -> quit 30 years ago cytology was negative at that time underwent thoracentesis by IR, concern for loculated effusion and was only able to aspirate 15ml pleural fluid analysis appears to be exudative this time discussed with pulm at length today, will obtain CT chest to see whether there is loculation or not continue D2 abx and diuresis (2) Diabetes mellitus Current Visit: No Status: Chronic Assessment and Plan: levemir 10U at HS and sliding scale coverage ADA diet, accuchecks AC+HS (3) CAD (coronary artery disease) Current Visit: No Status: Chronic Assessment and Plan: Status post CABG in April 2017. Continue ASA, statin, beta padmaja (4) Hypertension Current Visit: No Status: Chronic Assessment and Plan: resume home meds (5) DVT prophylaxis Current Visit: Yes Status: Acute Assessment and Plan: SQ heparin - Time Spent with Patient Total time spent is greater than 50% in coordination of care (as documented) at patient's floor/unit and/or counseling patient: Plan of Care Discussed with: income tax consultant (with pulmonary) Internal Medicine: Result - Labs CBC & Chem 7: 04/10/18 04:26 04/10/18 08:44 Labs: Short CBC 04/10/18 Range/Units 04:26 WBC 13.2 H (4.3-11.1) K/mcL Hgb 14.0 (12.9-16.9) g/dL Hct 42.0 (37.5-50.1) % Plt Count 447 H (140-400) K/mcL Neutrophils # 9.3 H (1.6-8.9) K/mcL BMP 04/09/18 04/10/18 10:29 08:44 Sodium 136 138 Potassium 4.5 3.9 Chloride 99 100 Carbon Dioxide 28 28 BUN 12 12 Creatinine 0.76 0.69 L Glucose 183 H 161 H Calcium 9.8 9.3 Cardiac Enzymes 04/09/18 04/09/18 Range/Units 10:29 16:20 Troponin I < 0.03 < 0.03 (< 0.04) ng/mL - ABG Interpretation ABG results: PT/INR, D-dimer PT 13.2 Seconds (9.4-12.1) H 04/09/18 10:29 - Impressions Impressions Chest X-Ray 04/09/18 10:17 IMPRESSION: Worsened opacification of left mid to lower lung zones concerning for worsening left pleural effusion with associated atelectasis or infiltrate. Other underlying pathology not excluded. Continued follow-up recommended. D/ / 04/09/2018 11:09:58 Te Martinez MD / [facility] Interpreting Provider: Te Martinez MD Thoracentesis 04/09/18 13:48 IMPRESSION: Multiloculated left pleural effusion. Ultrasound-guided thoracentesis performed. D/ / Jagdish Coon MD / Jagdish Coon MD Interpreting Provider: Jagdish Coon MD Chest X-Ray 04/09/18 15:31 IMPRESSION: Minimal decrease in size of large left effusion. No pneumothorax/hydropneumothorax. D/ / Alessio Delgadillo / Alessio Delgadillo Interpreting Provider: Alessio Delgadillo Consult Discharge Plan - Plan Referrals: NONE,PCP [Primary Care Provider] - (2) Diabetes mellitus Qualifiers: Diabetes mellitus type: type 2 Diabetes mellitus detention insulin use: unspecified detention insulin use status Diabetes mellitus complication status: with unspecified complications Qualified Code(s): E11.8 - Type 2 diabetes m ellitus with unspecified complications (3) CAD (coronary artery disease) Qualifiers: Coronary Disease-Associated Artery/Lesion type: unspecified vessel or lesion type [place] vs. transplanted heart: [place] heart Associated angina: without angina Qualified Code(s): I25.10 - Atherosclerotic heart disease of [place] coronary artery without angina pectoris (4) Hypertension Qualifiers: Hypertension type: essential hypertension Qualified Code(s): I10 - Essential (primary) hypertension
[2018-04-10] MEDS: Furosemide 40 MG/4 ML VIAL IVP SCH (14:21)
[2018-04-10] MEDS: Insulin DETEMIR 100 UNIT/ML X5UNITS SQ SCH (20:27)
[2018-04-10] MEDS ORDERED: Insulin LISPRO 300 UNITS/3 ML VIAL SQ SCH (21:00)
[2018-04-11 01:15] LABS: Basophils # 0.1 K/mcL (0.0-0.2); Basophils % 0.5 %; Eosinophils # 0.2 K/mcL (0.0-0.6); Eosinophils % 1.5 %; Hematocrit 39.3 % (37.5-50.1); Hemoglobin 13.3 g/dL (12.9-16.9); Immature Granulocytes % 0.5 % (0-4); Lymphocytes # 2.2 K/mcL (0.6-4.6); Mean Corpuscular HGB Conc 33.8 g/dL (31.6-35.5); Mean Corpuscular Hemoglobin 27.3 pg (28.0-33.3); Mean Corpuscular Volume 80.7 fL (83.0-100.0); Mean Platelet Volume 9.6 fL (9.4-12.4); Monocytes % 7.8 %; Neutrophils # 9.3 K/mcL (1.6-8.9); Platelet Count 552 K/mcL (140-400); Red Blood Count 4.87 M/mcL (4.19-5.50); Red Cell Distribution Width 15.1 % (11.5-14.5); Segmented Neutrophils % 72.7 %
[2018-04-11 01:34] LABS: BUN/Creatinine Ratio 20 (6-26); Blood Urea Nitrogen 14 mg/dL (8-23); Carbon Dioxide 26 mEq/L (23-29); Chloride 96 mEq/L (98-107); Glucose 217 mg/dL (70-105); Magnesium 1.7 mg/dL (1.6-2.6); Osmolality,Calculated 285 (280-300); Potassium 3.2 mEq/L (3.5-5.1); Sodium 134 mEq/L (136-145); Vancomycin,Trough 9 mcg/mL (5-10); eGFR For Non-African Americans > 60 (> 60)
[2018-04-11] MEDS: *HR* Heparin 5,000 UNIT/ML VIAL SQ SCH ×2 (05:25→18:38)
[2018-04-11] MEDS: Piperacillin/Tazobactam 3.375 GM in 0.9 % Sodium Chloride Mini Bag 100 ML IVPB SCH ×2 (08:41→18:43)
[2018-04-11] MEDS: Furosemide 40 MG/4 ML VIAL IVP SCH (08:41)
[2018-04-11] MEDS: Aspirin Enteric Coated 81 MG Tablet PO SCH (08:41)
--- NOTE | 2018-04-11 10:44 | Pulmonology Progress Note ---
Date of Encounter: 04/11/18 Time of Encounter: 10:30 Assessment and Plan (1) Pleural effusion Current Visit: Yes Status: Acute Patient is coming with recurrent pleural effusion almost every 2-[address] scan did not show any evidence of loculated effusion discussed with Dr. Marks patient agreeable for Pleurx catheter patient is on list tomorrow morning. (2) Diastolic heart failure Current Visit: No Status: Acute Continue diuresis as tolerated the management according to primary team. Qualifiers: Heart failure chronicity: chronic Qualified Code(s): I50.32 - Chronic diastolic (congestive) heart failure (3) Pneumonia Current Visit: Yes Status: Acute He now pneumonia and this current admission de-escalate antibiotics. Qualifiers: Pneumonia type: due to unspecified organism Laterality: left Lung location: lower lobe of lung Qualified Code(s): J18.1 - Lobar pneumonia, unspecified organism (4) COPD (chronic obstructive pulmonary disease) Current Visit: No Status: Acute To continue with bronchodilators. Qualifiers: COPD type: emphysema Emphysema type: unspecified Qualified Code(s): 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 Subjective Principal diagnosis: left sided recurrent pleural effusion Interval history: Patient says his back to his baseline denies any chest pain denies any cough or sputum production repeat CT chest showed slightly increased pocket of pleural effusion no evidence of loculation patient denies any fever or chills or any other constitutional symptoms. Objective PUL Vital signs: Last Vital Signs Temp 97.3 F L 04/11/18 07:21 Pulse 83 04/11/18 07:21 Resp 18 04/11/18 07:21 BP 135/71 04/11/18 07:21 Pulse Ox 94 04/11/18 08:45 Auscultation: left: diminished breath sounds (basilar ) depressed Results - Laboratory Findings CBC and BMP: 04/11/18 00:47 04/11/18 00:47 PT/INR, D-dimer PT 13.2 Seconds (9.4-12.1) H 04/09/18 10:29 Abnormal lab findings: Abnormal lab results WBC 12.8 K/mcL (4.3-11.1) H 04/11/18 00:47 MCV 80.7 fL (83.0-100.0) L 04/11/18 00:47 MCH 27.3 pg (28.0-33.3) L 04/11/18 00:47 RDW 15.1 % (11.5-14.5) H 04/11/18 00:47 Plt Count 552 K/mcL (140-400) H 04/11/18 00:47 Neutrophils # 9.3 K/mcL (1.6-8.9) H 04/11/18 00:47 PT 13.2 Seconds (9.4-12.1) H 04/09/18 10:29 Sodium 134 mEq/L (136-145) L 04/11/18 00:47 Potassium 3.2 mEq/L (3.5-5.1) L 04/11/18 00:47 Chloride 96 mEq/L (98-107) L 04/11/18 00:47 Glucose 217 mg/dL (70-105) H 04/11/18 00:47 POC Glucose 364 mg/dL (70-99) H 04/10/18 19:31 B-Natriuretic Peptide 130 pg/mL (Less than 100) H 04/09/18 10:29 Pleural Appearance Cloudy (Clear) A 04/09/18 15:25 - Microbiology Findings Microbiology Findings: Microbiology, Last 48 Hours 04/09/18 15:25 Body Fluid Culture - Preliminary Pleural Fluid - Clinical Findings Intake & Output: Intake & Output 04/10/18 04/11/18 04/11/18 23:59 07:59 15:59 Intake Total 460 / 460 350 / 350 120 / 120 Output Total 200 / 200 Balance 460 / 460 150 / 150 120 / 120 Weight 69 kg Consult Discharge Plan - Plan Referrals: NONE,PCP [Primary Care Provider] -
[2018-04-11] MEDS: Insulin LISPRO 300 UNITS/3 ML VIAL SQ SCH ×4 (11:29→21:46)
--- NOTE | 2018-04-11 11:34 | Internal Med Progress Note ---
Hospitalist Progress Note - Encounter Date of Encounter: 04/11/18 Time of Encounter: 10:00 - Subjective Interval History: No acute events overnight, no significant improvement from when he first presented but denies worsening chest pain, SOB. No hemoptysis. - Exam Vitals: Temp Pulse Resp BP Pulse Ox 97.3 F L 83 18 135/71 94 04/11/18 07:21 04/11/18 07:21 04/11/18 07:21 04/11/18 07:21 04/11/18 08:45 Exam: General: Alert and oriented, not in acute distress. Cardiovascular:Normal S1 & S2, No JVD. Pulse regular. Lungs: Absent breath sound on the left lung field, dull to percussion. Otherwise no rhonchi/wheeze/rales Abdomen:Soft, non-tender, no rigidity. Extremities:No deformity or swelling Neurological:Normal cognition and motor skills. Non-focal - Assessment and Plan (1) Pleural effusion, left Current Visit: Yes Status: Acute Assessment and Plan: recent admission in late February for same problem, was discharged on a course of abx for CAP as well as low dose diuretics as his pleural fluid was deemed to be transudative based on low LDH Imaging study back then showed possible hypoattenuating nodular area in the left lower lobe, patient does have history of 35 pack year of smoking -> quit 30 years ago. Cytology was negative at that time underwent thoracentesis by IR on 04/09, concern for loculated effusion and was only able to aspirate 15ml pleural fluid analysis appears to be exudative this time CT chest 04/10 did not show any loculation. Slightly increased L pleural effusion with L basilar consolidation discussed with pulm Re: CT findings, potentially plan for PleurX catheter insertion tomorrow continue D3 abx and diuresis the above plan was discussed in detail with the pt's son (2) Diabetes mellitus Current Visit: No Status: Chronic Assessment and Plan: levemir 10U at HS. Increase sliding scale coverage to moderate dose ADA diet, accuchecks AC+HS (3) CAD (coronary artery disease) Current Visit: No Status: Chronic Assessment and Plan: Status post CABG in April 2017. Continue ASA, statin, beta padmaja (4) Hypertension Current Visit: No Status: Chronic Assessment and Plan: resume home meds (5) Hypokalemia Current Visit: Yes Status: Acute Assessment and Plan: likely due to diuresis, replete orally (6) DVT prophylaxis Current Visit: Yes Status: Acute Assessment and Plan: SQ heparin - Time Spent with Patient Total time spent is greater than 50% in coordination of care (as documented) at patient's floor/unit and/or counseling patient: Plan of Care Discussed with: patient Internal Medicine: Result - Labs CBC & Chem 7: 04/11/18 00:47 04/11/18 00:47 Labs: Short CBC 04/11/18 Range/Units 00:47 WBC 12.8 H (4.3-11.1) K/mcL Hgb 13.3 (12.9-16.9) g/dL Hct 39.3 (37.5-50.1) % Plt Count 552 H (140-400) K/mcL Neutrophils # 9.3 H (1.6-8.9) K/mcL BMP 04/11/18 00:47 Sodium 134 L Potassium 3.2 L Chloride 96 L Carbon Dioxide 26 BUN 14 Creatinine 0.71 Glucose 217 H Calcium 9.0 - ABG Interpretation ABG results: PT/INR, D-dimer PT 13.2 Seconds (9.4-12.1) H 04/09/18 10:29 - Impressions Impressions Chest CT 04/10/18 11:24 IMPRESSION: 1. Slight interval increased volume left-sided pleural effusion with left basilar consolidation which may reflect pneumonia. 2. Sequela from old granulomatous disease. 3. Calcific atherosclerosis aorta and coronary arteries. Previous open-heart surgery. 4. Small hiatal hernia. D/ / Boogie Drew / Boogie Drew Interpreting Provider: Boogie Drew Consult Discharge Plan - Plan Referrals: NONE,PCP [Primary Care Provider] - (2) Diabetes mellitus Qualifiers: Diabetes mellitus type: type 2 Diabetes mellitus snf insulin use: unspecified long term care administrator insulin use status Diabetes mellitus complication status: with unspecified complications Qualified Code(s): E11.8 - Type 2 diabetes mellitus with unspecified complications (3) CAD (coronary artery disease) Qualifiers: Coronary Disease-Associated Artery/Lesion type: unspecified vessel or lesion type [place] vs. transplanted heart: [place] heart Associated angina: without angina Qualified Code(s): I25.10 - Atherosclerotic heart disease of [place] coronary artery without angina pectoris (4) Hypertension Qualifiers: Hypertension type: essential hypertension Qualified Code(s): I10 - Essential (primary) hypertension
[2018-04-11 15:53] LABS: Fluid Source for Albumin PLEURAL
[2018-04-11] MEDS: Insulin DETEMIR 100 UNIT/ML X5UNITS SQ SCH (21:46)
[2018-04-12] MEDS: Piperacillin/Tazobactam 3.375 GM in 0.9 % Sodium Chloride Mini Bag 100 ML IVPB SCH ×3 (03:08→20:43)
[2018-04-12 05:17] LABS: Basophils # 0.1 K/mcL (0.0-0.2); Basophils % 0.6 %; Eosinophils # 0.1 K/mcL (0.0-0.6); Hemoglobin 14.2 g/dL (12.9-16.9); Immature Granulocytes % 0.6 % (0-4); Lymphocytes # 2.6 K/mcL (0.6-4.6); Lymphocytes % 20.5 %; Mean Corpuscular Volume 81.9 fL (83.0-100.0); Neutrophils # 8.6 K/mcL (1.6-8.9); Platelet Count 550 K/mcL (140-400); Red Blood Count 5.25 M/mcL (4.19-5.50); Red Cell Distribution Width 15.3 % (11.5-14.5); Segmented Neutrophils % 69.3 %
[2018-04-12 05:24] LABS: INR 1.2; Prothrombin Time 13.6 Seconds (9.4-12.1)
[2018-04-12 05:34] LABS: BUN/Creatinine Ratio 19 (6-26); Blood Urea Nitrogen 13 mg/dL (8-23); Calcium 9.1 mg/dL (8.6-10.3); Carbon Dioxide 26 mEq/L (23-29); Chloride 101 mEq/L (98-107); Glucose 167 mg/dL (70-105); Magnesium 1.7 mg/dL (1.6-2.6); Osmolality,Calculated 286 (280-300); Potassium 3.7 mEq/L (3.5-5.1); Sodium 136 mEq/L (136-145); eGFR For Non-African Americans > 60 (> 60)
[2018-04-12] MEDS: *HR* Heparin 5,000 UNIT/ML VIAL SQ SCH ×2 (05:55→17:53)
[2018-04-12] MEDS: Insulin LISPRO 300 UNITS/3 ML VIAL SQ SCH ×4 (09:14→20:50)
[2018-04-12] MEDS: Aspirin Enteric Coated 81 MG Tablet PO SCH (09:15)
[2018-04-12] MEDS: Furosemide 20 MG TABLET PO SCH (09:15)
--- NOTE | 2018-04-12 11:22 | Pulmonology Progress Note ---
<Therese Markslove M - Last Filed: 04/12/18 16:51> Objective PUL Vital signs: Last Vital Signs Temp 97.5 F L 04/12/18 15:39 Pulse 88 04/12/18 15:39 Resp 16 04/12/18 15:39 BP 138/74 04/12/18 15:39 Pulse Ox 95 04/12/18 15:39 Results - Laboratory Findings CBC and BMP: 04/12/18 04:04 04/12/18 04:04 PT/INR, D-dimer PT 13.6 Seconds (9.4-12.1) H 04/12/18 04:04 Abnormal lab findings: Abnormal lab results WBC 12.5 K/mcL (4.3-11.1) H 04/12/18 04:04 MCV 81.9 fL (83.0-100.0) L 04/12/18 04:04 MCH 27.0 pg (28.0-33.3) L 04/12/18 04:04 RDW 15.3 % (11.5-14.5) H 04/12/18 04:04 Plt Count 550 K/mcL (140-400) H 04/12/18 04:04 PT 13.6 Seconds (9.4-12.1) H 04/12/18 04:04 Creatinine 0.67 mg/dL (0.70-1.30) L 04/12/18 04:04 Glucose 167 mg/dL (70-105) H 04/12/18 04:04 POC Glucose 220 mg/dL (70-99) H 04/11/18 21:02 B-Natriuretic Peptide 130 pg/mL (Less than 100) H 04/09/18 10:29 Pleural Appearance Cloudy (Clear) A 04/09/18 15:25 Pleural RBC 0.018 M/mcL (0.000-0.002) H 04/12/18 10:36 Vancomycin Trough 21 mcg/mL (5-10) H 04/12/18 14:03 - Microbiology Findings Microbiology Findings: Microbiology, Last 48 Hours 04/12/18 10:36 Body Fluid Culture - Preliminary Pleural Fluid 04/09/18 15:25 Body Fluid Culture - Final Pleural Fluid 04/09/18 15:25 Acid Fast Stain - Final Pleural Fluid - Clinical Findings Intake & Output: Intake & Output 04/12/18 04/12/18 04/12/18 07:59 15:59 23:59 Intake Total 700 / 700 0 / 0 Balance 700 / 700 0 / 0 Weight 72.3 kg Consult Discharge Plan - Plan Referrals: NONE,PCP [Primary Care Provider] - - Attending Attestation I examined this patient and my medical decision-making was reviewed with the Resident Physician. I agree with the documented findings, disposition and treatment plan as described except to the extent set forth below. Patient seen and examined. Labs, radiology, chart personally reviewed. 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 Catheter was connected with chest tube chamber and more fluid was draining and since there is a masslike on the chest x-ray will repeat CT chest to have a better visualization of that area. Patient can be discharged home soon and he will need and home health aid. take away worker is working on that. Cytology of the fluid has been sent again and it is pending. <Zeynep Doshi - Last Filed: 04/12/18 19:41> Date of Encounter: 04/12/18 Time of Encounter: 11:15 Assessment and Plan (1) Pleural effusion Current Visit: Yes Status: Acute History of recurrent pleural effusions PleurX catheter placed today, no complications--1150 mL bloody fluid drained CXR showing position of catheter, decreased size of partially loculated left pleural effusion, LLL mass 4.4 x 4.7 cm 04/09 Acid fast smear of pleural fluid: no acid fast bacilli seen 04/09 Acid fast pleural fluid culture: no growth--incubation ongoing 04/12 Pleural fluid culture results pending Plan Await cytology and lab results Repeat chest CT without contrast for better visualization of left lung mass Outpatient follow up in pulmonology clinic Will need Home Health as he is going home with PleurX Anticipate he'll be discharged soon (2) Diastolic heart failure Current Visit: No Status: Acute Furosemide 20 mg PO dailyy--management per primary team Qualifiers: Heart failure chronicity: chronic Qualified Code(s): I50.32 - Chronic diastolic (congestive) heart failure (3) Pneumonia Current Visit: Yes Status: Acute Currently receiving zosyn, will go home on PO antibiotics Antibiotic therapy as per primary team Qualifiers: Pneumonia type: due to unspecified organism Laterality: left Lung location: lower lobe of lung Qualified Code(s): J18.1 - Lobar pneumonia, unspecified organism (4) COPD (chronic obstructive pulmonary disease) Current Visit: No Status: Acute Qualifiers: COPD type: emphysema Emphysema type: unspecified Qualified Code(s): 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 Subjective Principal diagnosis: left sided recurrent pleural effusion Interval history: Seen and examined at bedside this morning. Patient was asleep in bed when I entered the room, but awake easily. He has no complaints and denies pain at site of PleurX catheter insertion. He reports his breathing is the same as yesterday; dyspnea has not increased and has had no chest pain. Objective PUL Vital signs: Last Vital Signs Temp 97.4 F L 04/12/18 09:41 Pulse 89 04/12/18 09:41 Resp 16 04/12/18 09:41 BP 155/75 04/12/18 09:41 Pulse Ox 97 04/12/18 09:41 General appearance: no acute distress, asleep Eyes: nonicteric ENT: oropharynx moist Neck: supple Effort: normal Auscultation: bilateral: clear Cardiovascular: regular rate and rhythm Gastrointestinal: normoactive bowel sounds, soft, non-tender, non-distended Integumentary: normal Extremities: no cyanosis, no edema, no clubbing, pink and warm, pulses normal Musculoskeletal: no deformities, other (PleurX dressing is clean and dry) normal mental status, non-focal exam, pupils equal and round, CN II-XII normal mood appropriate, affect normal Results - Laboratory Findings CBC and BMP: 04/12/18 04:04 04/12/18 04:04 PT/INR, D-dimer PT 13.6 Seconds (9.4-12.1) H 04/12/18 04:04 Abnormal lab findings: Abnormal lab results WBC 12.5 K/mcL (4.3-11.1) H 04/12/18 04:04 MCV 81.9 fL (83.0-100.0) L 04/12/18 04:04 MCH 27.0 pg (28.0-33.3) L 04/12/18 04:04 RDW 15.3 % (11.5-14.5) H 04/12/18 04:04 Plt Count 550 K/mcL (140-400) H 04/12/18 04:04 PT 13.6 Seconds (9.4-12.1) H 04/12/18 04:04 Creatinine 0.67 mg/dL (0.70-1.30) L 04/12/18 04:04 Glucose 167 mg/dL (70-105) H 04/12/18 04:04 POC Glucose 220 mg/dL (70-99) H 04/11/18 21:02 B-Natriuretic Peptide 130 pg/mL (Less than 100) H 04/09/18 10:29 Pleural Appearance Cloudy (Clear) A 04/09/18 15:25 - Microbiology Findings Microbiology Findings: Microbiology, Last 48 Hours 04/09/18 15:25 Acid Fast Stain - Final Pleural Fluid 04/09/18 15:25 Body Fluid Culture - Preliminary Pleural Fluid - Clinical Findings Intake & Output: Intake & Output 04/11/18 04/12/18 04/12/18 23:59 07:59 15:59 Intake Total 250 / 250 700 / 700 0 / 0 Balance 250 / 250 700 / 700 0 / 0 Weight 72.3 kg
[2018-04-12] MEDS ORDERED: Aminoglycoside Consult 1 EACH MC ONE (11:44)
--- NOTE | 2018-04-12 11:48 | Internal Med Progress Note ---
Hospitalist Progress Note - Encounter Date of Encounter: 04/12/18 Time of Encounter: 11:00 - Subjective Interval History: No acute events overnight, underwent PleurX catheter insertion uneventfully this morning. Denies worsening chest pain, SOB. No hemoptysis. - Exam Vitals: Temp Pulse Resp BP Pulse Ox 97.4 F L 89 16 155/75 97 04/12/18 09:41 04/12/18 09:41 04/12/18 09:41 04/12/18 09:41 04/12/18 09:41 Exam: General: Alert and oriented, not in acute distress. Cardiovascular:Normal S1 & S2, No JVD. Pulse regular. Lungs: Improving breath sound on the left lung field. No rhonchi/wheeze/rales. Dressing over Pleurx catheter site appears dry and clean Abdomen:Soft, non-tender, no rigidity. Extremities:No deformity or swelling Neurological:Normal cognition and motor skills. Non-focal - Assessment and Plan (1) Pleural effusion, left Current Visit: Yes Status: Acute Assessment and Plan: recent admission in late February for same problem, was discharged on a course of abx for CAP as well as low dose diuretics as his pleural fluid was deemed to be transudative based on low LDH Imaging study back then showed possible hypoattenuating nodular area in the left lower lobe, patient does have history of 35 pack year of smoking -> quit 30 years ago. Cytology was negative at that time underwent thoracentesis by IR on 04/09, concern for loculated effusion and was only able to aspirate 15ml pleural fluid analysis appears to be exudative this time CT chest 04/10 did not show any loculation. Slightly increased L pleural effusion with L basilar consolidation underwent Pleurx catheter insertion today, post procedure XR shows LLL mass Patient is not keen on having bx done as inpatient continue D4 abx and diuresis PT/OT and SW to assist him with catheter care anticipate d/c tomorrow with PO abx and follow up outpatient for bx and cytology follow up (2) Diabetes mellitus Current Visit: No Status: Chronic Assessment and Plan: levemir 10U at HS with moderate sliding scale coverage ADA diet, accuchecks AC+HS (3) CAD (coronary artery disease) Current Visit: No Status: Chronic Assessment and Plan: Status post CABG in April 2017. Continue ASA, statin, beta padmaja (4) Hypertension Current Visit: No Status: Chronic Assessment and Plan: resume home meds (5) Hypokalemia Current Visit: Yes Status: Acute Assessment and Plan: likely due to diuresis, normal today (6) DVT prophylaxis Current Visit: Yes Status: Acute Assessment and Plan: SQ heparin - Time Spent with Patient Total time spent is greater than 50% in coordination of care (as documented) at patient's floor/unit and/or counseling patient: Plan of Care Discussed with: patient Internal Medicine: Result - Labs CBC & Chem 7: 04/12/18 04:04 04/12/18 04:04 Labs: Short CBC 04/12/18 Range/Units 04:04 WBC 12.5 H (4.3-11.1) K/mcL Hgb 14.2 (12.9-16.9) g/dL Hct 43.0 (37.5-50.1) % Plt Count 550 H (140-400) K/mcL Neutrophils # 8.6 (1.6-8.9) K/mcL BMP 04/12/18 04:04 Sodium 136 Potassium 3.7 Chloride 101 Carbon Dioxide 26 BUN 13 Creatinine 0.67 L Glucose 167 H Calcium 9.1 - ABG Interpretation ABG results: PT/INR, D-dimer PT 13.6 Seconds (9.4-12.1) H 04/12/18 04:04 - Impressions Impressions Chest X-Ray 04/12/18 10:24 IMPRESSION: Placement of a left chest tube with significantly decreased size of the partially loculated left pleural effusion. Left lower lobe mass measuring approximately 4.4 x 4.7 cm in size. 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 transplanted heart: [place] heart Associated angina: without angina Qualified Code(s): I25.10 - Atherosclerotic heart disease of [place] artery without angina pectoris (4) Hypertension Qualifiers: Hypertension type: essential hypertension Qualified Code(s): I10 - Essential (primary) hypertension
[2018-04-12 15:27] LABS: RBC,Pleural Fluid 0.018 M/mcL
[2018-04-12 17:43] LABS: Appearance of Pleural Fl Cloudy (Clear)
[2018-04-12] MEDS: Insulin DETEMIR 100 UNIT/ML X5UNITS SQ SCH (20:49)
[2018-04-13] MEDS: *HR* Heparin 5,000 UNIT/ML VIAL SQ SCH ×2 (04:20→17:55)
[2018-04-13] MEDS: Piperacillin/Tazobactam 3.375 GM in 0.9 % Sodium Chloride Mini Bag 100 ML IVPB SCH ×3 (04:25→15:31)
[2018-04-13] MEDS: Insulin LISPRO 300 UNITS/3 ML VIAL SQ SCH ×3 (08:00→17:56)
--- NOTE | 2018-04-13 08:30 | Pulmonology Progress Note ---
<SudhapollyLiz M - Last Filed: 04/13/18 13:08> Objective PUL Vital signs: Last Vital Signs Temp 97.5 F L 04/13/18 11:43 Pulse 98 04/13/18 11:43 Resp 16 04/13/18 11:43 BP 155/85 04/13/18 11:43 Pulse Ox 95 04/13/18 11:43 Results - Laboratory Findings CBC and BMP: 04/13/18 11:21 04/13/18 11:21 PT/INR, D-dimer PT 13.6 Seconds (9.4-12.1) H 04/12/18 04:04 Abnormal lab findings: Abnormal lab results WBC 17.4 K/mcL (4.3-11.1) H 04/13/18 11:21 MCV 80.8 fL (83.0-100.0) L 04/13/18 11:21 MCH 26.9 pg (28.0-33.3) L 04/13/18 11:21 RDW 15.3 % (11.5-14.5) H 04/13/18 11:21 Plt Count 574 K/mcL (140-400) H 04/13/18 11:21 Neutrophils # 13.8 K/mcL (1.6-8.9) H 04/13/18 11:21 PT 13.6 Seconds (9.4-12.1) H 04/12/18 04:04 Sodium 133 mEq/L (136-145) L 04/13/18 11:21 Glucose 298 mg/dL (70-105) H 04/13/18 11:21 POC Glucose 239 mg/dL (70-99) H 04/12/18 15:46 B-Natriuretic Peptide 130 pg/mL (Less than 100) H 04/09/18 10:29 Pleural Appearance Cloudy (Clear) A 04/12/18 10:36 Pleural RBC 0.018 M/mcL (0.000-0.002) H 04/12/18 10:36 Vancomycin Trough 21 mcg/mL (5-10) H 04/12/18 14:03 - Microbiology Findings Microbiology Findings: Microbiology, Last 48 Hours 04/12/18 10:36 Body Fluid Culture - Preliminary Pleural Fluid 04/09/18 15:25 Body Fluid Culture - Final Pleural Fluid 04/09/18 15:25 Acid Fast Stain - Final Pleural Fluid - Clinical Findings Intake & Output: Intake & Output 04/12/18 04/13/18 04/13/18 23:59 07:59 15:59 Intake Total 120 / 120 Output Total 540 / 540 Balance -540 / -540 120 / 120 Weight 73.1 kg Consult Discharge Plan - Plan Instructions: Levofloxacin (By mouth) Additional Instructions: follow up with Dr Holliday in 7 days Referrals: NONE,PCP [Primary Care Provider] - Prescriptions: levoFLOXacin [Levaquin] 750 mg PO DAILY #7 tablet - Attending Attestation I examined this patient and my medical decision-making was reviewed with the Resident Physician. I agree with the documented findings, disposition and treatment plan as described except to the extent set forth below. Patient seen and examined. Labs, radiology, chart personally reviewed. 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 Patient clinically is feeling better and breathing better. Disconnected from the chest tube chamber and advised the nurse to change the dressing. From pulmonary standpoint patient can be discharged home and can be seen in the office in 7-10 days. Patient will need to home health aid to help him to drain the fluid which can be started early next week. Please call for any questions. <Zeynep Doshi - Last Filed: 04/13/18 21:14> Date of Encounter: 04/13/18 Time of Encounter: 12:45 Assessment and Plan (1) Pleural effusion Status: Acute History of recurrent pleural effusions PleurX catheter placed 04/12 without complications--1150 mL bloody fluid drained CXR 04/12: showing position of catheter, decreased size of partially loculated left pleural effusion, LLL mass 4.4 x 4.[address] 04/13: Substantial decrease of left pleural effusion and left lung atelectasis after placement of chest tube; multiple calcified granulomas noted in the right lung and stable intrapulmonary LN of right major fissure--no obvious mass Pleural fluid culture 04/09: No growth, final Pleural fluid culture 04/12: No growth after 24 hours Acid-fast stain of pleural fluid: No acid-fast bacilli on smear; culture continues to incubate Plan Patient clinically improved, can be discharged from pulmonary standpoint Outpatient follow-up in office within 7-10 days Home health on discharge to help manage drain after discharged (2) Diastolic heart failure Status: Chronic Management per primary team Qualifiers: Heart failure chronicity: chronic Qualified Code(s): I50.32 - Chronic diastolic (congestive) heart failure (3) Pneumonia Status: Acute Will go home on PO antibiotics Antibiotic course as per primary team Qualifiers: Pneumonia type: due to unspecified organism Laterality: left Lung location: lower lobe of lung Qualified Code(s): J18.1 - Lobar pneumonia, unspecified organism (4) COPD (chronic obstructive pulmonary disease) Status: Chronic Continue bronchodilators Qualifiers: COPD type: emphysema Emphysema type: unspecified Qualified Code(s): 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 Subjective Principal diagnosis: left sided recurrent pleural effusion Interval history: Patient appears clinically improved and endorses no complaints at time of my exam. He denies pain at catheter site. He reports his breathing is the same as yesterday. Denies dyspnea and chest pain. Objective PUL Vital signs: Last Vital Signs Temp 98.0 F 04/13/18 07:27 Pulse 91 04/13/18 07:27 Resp 16 04/13/18 07:27 BP 147/81 04/13/18 07:27 Pulse Ox 94 04/13/18 07:27 General appearance: no acute distress, alert Eyes: nonicteric ENT: oropharynx moist Neck: supple Effort: normal Auscultation: left: other (no wheezes, rhonchi, rales; L lung sounds are improved) Cardiovascular: regular rate and rhythm Gastrointestinal: normoactive bowel sounds, soft Integumentary: normal Extremities: no cyanosis, no edema, pulses normal normal mental status, non-focal exam, pupils equal and round, CN II-XII normal mood appropriate Results - Laboratory Findings CBC and BMP: 04/13/18 11:21 04/13/18 11:21 PT/INR, D-dimer PT 13.6 Seconds (9.4-12.1) H 04/12/18 04:04 Abnormal lab findings: Abnormal lab results WBC 12.5 K/mcL (4.3-11.1) H 04/12/18 04:04 MCV 81.9 fL (83.0-100.0) L 04/12/18 04:04 MCH 27.0 pg (28.0-33.3) L 04/12/18 04:04 RDW 15.3 % (11.5-14.5) H 04/12/18 04:04 Plt Count 550 K/mcL (140-400) H 04/12/18 04:04 PT 13.6 Seconds (9.4-12.1) H 04/12/18 04:04 Creatinine 0.67 mg/dL (0.70-1.30) L 04/12/18 04:04 Glucose 167 mg/dL (70-105) H 04/12/18 04:04 POC Glucose 239 mg/dL (70-99) H 04/12/18 15:46 B-Natriuretic Peptide 130 pg/mL (Less than 100) H 04/09/18 10:29 Pleural Appearance Cloudy (Clear) A 04/12/18 10:36 Pleural RBC 0.018 M/mcL (0.000-0.002) H 04/12/18 10:36 Vancomycin Trough 21 mcg/mL (5-10) H 04/12/18 14:03 - Microbiology Findings Microbiology Findings: Microbiology, Last 48 Hours 04/12/18 10:36 Body Fluid Culture - Preliminary Pleural Fluid 04/09/18 15:25 Body Fluid Culture - Final Pleural Fluid 04/09/18 15:25 Acid Fast Stain - Final Pleural Fluid - Clinical Findings Intake & Output: Intake & Output 04/12/18 04/13/18 04/13/18 23:59 07:59 15:59 Intake Total 120 / 120 Output Total 540 / 540 Balance -540 / -540 120 / 120 Weight 73.1 kg
[2018-04-13] MEDS: Aspirin Enteric Coated 81 MG Tablet PO SCH (10:37)
[2018-04-13] MEDS: Furosemide 20 MG TABLET PO SCH (10:37)
[2018-04-13 12:11] LABS: Basophils # 0.1 K/mcL (0.0-0.2); Basophils % 0.5 %; Eosinophils # 0.1 K/mcL (0.0-0.6); Eosinophils % 0.3 %; Hematocrit 43.8 % (37.5-50.1); Hemoglobin 14.6 g/dL (12.9-16.9); Immature Granulocytes % 0.5 % (0-4); Lymphocytes # 2.2 K/mcL (0.6-4.6); Lymphocytes % 12.6 %; Mean Corpuscular HGB Conc 33.3 g/dL (31.6-35.5); Mean Corpuscular Hemoglobin 26.9 pg (28.0-33.3); Mean Corpuscular Volume 80.8 fL (83.0-100.0); Mean Platelet Volume 10.4 fL (9.4-12.4); Monocytes # 1.2 K/mcL (0.0-1.3); Monocytes % 6.7 %; Neutrophils # 13.8 K/mcL (1.6-8.9); Platelet Count 574 K/mcL (140-400); Red Blood Count 5.42 M/mcL (4.19-5.50); Red Cell Distribution Width 15.3 % (11.5-14.5); Segmented Neutrophils % 79.4 %
[2018-04-13 12:26] LABS: BUN/Creatinine Ratio 20 (6-26); Blood Urea Nitrogen 14 mg/dL (8-23); Calcium 9.2 mg/dL (8.6-10.3); Carbon Dioxide 23 mEq/L (23-29); Chloride 100 mEq/L (98-107); Glucose 298 mg/dL (70-105); Magnesium 1.7 mg/dL (1.6-2.6); Osmolality,Calculated 288 (280-300); Potassium 4.6 mEq/L (3.5-5.1); Sodium 133 mEq/L (136-145); eGFR For Non-African Americans > 60 (> 60)
[2018-04-13 16:15] VITALS: BP 137/82
--- NOTE | 2018-04-13 16:17 | Physician Discharge Referral ---
Home Health/Hosp Referral Info Transfer to: Home Health Provider in Charge Post Discharge: PCP - Diagnosis (1) Pneumonia Priority: Secondary Status: Resolved (2) Pleural effusion Priority: Primary Status: Acute (3) Diastolic heart failure Priority: Secondary Status: Acute (4) COPD (chronic obstructive pulmonary disease) Priority: Secondary Status: Acute (5) S/P CABG x 3 Priority: Secondary Status: Acute (6) Diabetes mellitus Priority: Secondary Status: Chronic (7) Hypertension Priority: Secondary Status: Chronic - Respiratory Orders None Smoking Cessation: Smoking cessation has been advised. For more information, call the [place] Tobacco Quit Line at 5-216-VAAI-NOW. - Diet/Nutrition Diet/Nutrition Orders: Cardiac - Activity Activity Orders: Up ad destiney - Services Needed Following services are medically necessary services: Nursing, Home Health Aide, Physical Therapy, Occupational Therapy - Transfer Medications Home Medications: Aspirin [Lo-Dose Aspirin EC] 81 mg PO DAILY 04/08/17 [History] Atorvastatin Calcium [Lipitor] 20 mg PO DAILY 04/08/17 [History] Docusate [Colace] 100 mg PO DAILY 04/08/17 [History] Metoprolol [Lopressor] 12.5 mg PO BID #0 04/08/17 [History] Insulin Glargine,Hum.rec.anlog [Lantus Solostar] 15 unit SQ DAILY 03/09/18 [History] Ondansetron HCl [Zofran] 4 mg PO Q6H PRN 03/09/18 [History] Furosemide [Lasix] 20 mg PO DAILY #30 tablet 03/11/18 [Rx] Omeprazole [PriLOSEC] 40 mg PO DAILY 04/09/18 [History] Allergies/Adverse Reactions: Allergy/AdvReac Type Severity Reaction Status Date / Time horse serum Allergy Itching Uncoded 04/09/18 10:07 Certification: Further, I certify that my clinical findings support that this patient is homebound (i.e. absences from home require considerable and taxing effort and are for medical reasons or orthodoxy services or infrequently or short duration when for other reasons) because: Homebound Reason: Patient requires assistance of a person or device to safely leave home Attestation: My signature below is to certify that this patient is under my care and that I, or nurse practitioner, or a physician's assistant professor of chemistry working with me, has a [id number] encounter with this patient.
--- NOTE | 2018-04-13 16:18 | Discharge Summary ---
Orders not resulted at time of discharge: Pending orders 04/09/18 15:25 AFB Culture, Body Fluid [TB] Routine AFB Smear [TB] Routine Fungal Culture [MYC] Routine 04/09/18 15:53 Cytology [PTH] Stat 04/12/18 10:33 Glucose,Pleural Fluid [BF] Routine LDH,Pleural Fluid [BF] Routine Total Protein,Pleural Fluid [BF] Routine pH,Pleural Fluid [BF] Routine Cytology [PTH] Routine 04/12/18 10:36 Albumin,Body Fluid Routine Culture,Body Fluid [RM] Routine 04/12/18 10:38 Cell Count w Diff, Pleural Fld [BF] Routine 04/12/18 10:39 Culture,Body Fluid [RM] Routine 04/12/18 10:41 Albumin,Body Fluid Routine Date of Encounter: 04/13/18 Time of Encounter: 15:53 - Discharge Diagnosis (1) Pneumonia Priority: Secondary Status: Acute Qualifiers: Pneumonia type: due to unspecified organism Laterality: left Lung location: lower lobe of lung Qualified Code(s): J18.1 - Lobar pneumonia, unspecified organism (2) Pleural effusion Priority: Primary Status: Acute (3) Diastolic heart failure Priority: Secondary Status: Chronic Qualifiers: Heart failure chronicity: chronic Qualified Code(s): I50.32 - Chronic diastolic (congestive) heart failure (4) COPD (chronic obstructive pulmonary disease) Priority: Secondary Status: Chronic Qualifiers: COPD type: emphysema Emphysema type: unspecified Qualified Code(s): 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 (5) S/P CABG x 3 Priority: Secondary Status: Chronic (6) Diabetes mellitus Priority: Secondary Status: Chronic Qualifiers: Diabetes mellitus type: type 2 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 Nath is a 82 year old male with past history of CAD status post CABG in April 2017, PAD, diabetes, hypertension, ex-smoker, presented to the ED for left sided chest pain. in late February when he was found to have incidental finding of large left-sided pleural effusion. It was deemed transudative and was discharged home on PO lasix 20mg QD with repeat CT and follow up with Pulmonary as an outpatient which he was not able to make it to. At that time, there was a hypoattenuating 2.6 x 1.9 cm nodular area within the atelectatic left lower lobe and a noncalcified 6 mm nodule along the major fissure in the right lower lobe. . Labwork showed mild leukocytosis of 12.7 and slightly elevated BNP of 130. Troponin -ve, EKG NSR without ST-T changes. Chest x-ray showed worsening left-sided pleural effusion. He was started on IV Vanc/zosyn and admitted for further management on 04/09. Pulmonary was consulted on admission, he had left thoracentesis on 04/10. Slightly increased L pleural effusion with L basilar consolidation underwent Pleurx catheter insertion on 04/12, post procedure XR shows LLL mass. PTOT recommmended SNF, but the patient refused. The patient is going home with home care and home PT therapy. I discussed it with his . The patient is going to follow-up was pulmonary clinic in a week for biopsy, Homecare is going to take care of pleurix I discussed with Dr Holliday, he is ok to discharge the patient and follow up as OP. I will giv eolrla levaquin for 7 days due to persistent leukocytosis follow up outpatient for bx and cytology follow up Discharge discussed with: patient, family Time spent discussing smoking cessation with patient: more than 10 minutes - Time Spent with Patient Total time spent providing and/or coordinating discharge services: Greater than 30 minutes - Discharge Medications Prescriptions: levoFLOXacin [Levaquin] 750 mg PO DAILY #7 tablet Home Medications: Aspirin [Lo-Dose Aspirin EC] 81 mg PO DAILY 04/08/17 [History] Atorvastatin Calcium [Lipitor] 20 mg PO DAILY 04/08/17 [History] Docusate [Colace] 100 mg PO DAILY 04/08/17 [History] Metoprolol [Lopressor] 12.5 mg PO BID #0 04/08/17 [History] Insulin Glargine,Hum.rec.anlog [Lantus Solostar] 15 unit SQ DAILY 03/09/18 [History] Ondansetron HCl [Zofran] 4 mg PO Q6H PRN 03/09/18 [History] Furosemide [Lasix] 20 mg PO DAILY #30 tablet 03/11/18 [Rx] Omeprazole [PriLOSEC] 40 mg PO DAILY 04/09/18 [History] levoFLOXacin [Levaquin] 750 mg PO DAILY #7 tablet 04/13/18 [Rx] Allergies/Adverse Reactions: Allergy/AdvReac Type Severity Reaction Status Date / Time horse serum Allergy Itching Uncoded 04/09/18 10:07 Date of admission: 04/09/18 11:43 Primary care physician: PCP NONE Consults: 04/09/18 13:25 Consult to Pulmonology [CONS] Routine Consulting Provider: Pulm Crit [facility] Sleep [facility]ie Reason for Consult: recurrent L pleural effusion Call Completed: Yes 04/09/18 13:35 Consult to Advisor Consultant [CONS] Routine Reason for SW Consult: Patient states he has home health services but unsure who it is through and if he has a nurse and aide. 04/09/18 13:48 Consult to Interventional Radiology [CONS] Routine Consulting Provider: Radiology Interventional Cols Reason for Consult: recurrent L pleural effusion Call Completed: Yes 04/12/18 07:37 Consult to Occupational Therapy [CONS] Routine Comment: Evaluate, develop and implement POC Reason for Consult: recurrent L pleural effusion, deconditioning Does patient have active BEDREST order?: No Is patient medically & hemodynamically stable?: Yes Consult to Physical Therapy [CONS] Routine Comment: Evaluate, develop and implement POC Reason for Consult: recurrent L pleural effusion, deconditioning Does patient have active BEDREST order?: No Is patient medically & hemodynamically stable?: Yes Anticipated date of discharge: 04/13/18 - Constitutional Vitals: Temp Pulse Resp BP Pulse Ox 97.5 F L 98 16 155/85 95 04/13/18 11:43 04/13/18 11:43 04/13/18 11:43 04/13/18 11:43 04/13/18 11:43 General appearance: Present: A&O X 3 Exam: General: Alert and oriented, not in acute distress. Cardiovascular:Normal S1 & S2, No JVD. Pulse regular. Lungs: Improving breath sound on the left lung field. No rhonchi/wheeze/rales. Dressing over Pleurx catheter site appears dry and clean Abdomen:Soft, non-tender, no rigidity. Extremities:No deformity or swelling Neurological:Normal cognition and motor skills. Non-focal - Patient Status Disposition: Home Health Service Functional capacity at discharge: uses cane/walker Overall status at discharge: patient is progressing back to baseline - Discharge Instructions Follow Up With: NONE,PCP [Primary Care Provider] - Additional Instructions: follow up with Dr Holliday in 7 days - Diet and Activity Activity: ambulate only with your walker Diet: low fat, low cholesterol
[2018-04-15 06:44] LABS: Fluid Source for Albumin PLEURAL
== END 2018-04-13 19:48 | disposition home health service (06) ==
LOC: 3BNU 10:04 → EMEROOARM 10:04 → SUATTDRO 11:43 → 3BNU 12:28 → 2ANU 04-12 12:46
PROVIDERS: ADMIT Internal Medicine Nephrology; ATTEND Hospitalist

== ENCOUNTER 2018-04-17 10:05 | Inpatient (IN) ==
--- NOTE | 2018-04-17 11:06 | Emergency Department Note ---
Disposition Clinical Impression: Falls frequently Chest pain Qualifiers: Chest pain type: unspecified Qualified Code(s): R07.9 - Chest pain, unspecified Disposition: Admitted As Inpatient Condition: Fair Referrals: Charlene Long CNP [Primary Care Provider] - Forms: ED Satisfaction Letter, Work/School Release Time of Disposition: 14:10 General Adult HPI - General Chief complaint: ED General Medical Stated complaint: "needs heart drain flushed" Time Seen by Provider: 04/17/18 10:23 Source: patient, family Mode of arrival: wheelchair Limitations: no limitations Nursing Notes Reviewed: Yes Vital Signs Reviewed: Yes - History of Present Illness HPI Narrative: Frail-appearing 82-year-old male is brought by family to the emergency department for drainage of a Pleurx catheter that was placed into the left chest on 04/12/18 after chest x-ray showed a large left-sided pleural effusion. The patient was admitted to the hospital service at that time with pulmonary consultation. He was discharged home on the with instructions to follow-up with the pulmonary clinic within 7-10 days for further management and potential biopsy of a left lung mass as evidenced on chest x-ray imaging. At the time of discharge, he was [facility] a [facility] however he declined this offer. He was sent home with home health care and in-home physical therapy. His home health care team was past with Pleurx drainage however, when the home health care nurse came to the residence 2 days ago, she did not have the proper supplies to change the dressing according to family report. The patient denies any difficulty in breathing. He does complain of a persistent cough that is productive of a clear colored sputum. He also complains of some intermittent left-sided chest pain (none at the moment) which she describes as similar to the pain which brought him to the emergency department in the first place on 04/12. He denies any fever or chills. He denies any pain with inspiration or hemoptysis. The patient was discharged home on Levaquin, 750 mg by mouth daily 7 days. Of note, the patient's family members disclosed that the patient has fallen 3 times since his discharge home. One instance he fell while getting out of bed, another while leaning against his truck, and one while ambulating through the home. He does state that on one of these instances, he did strike the back of his head. He denies any headache or visual disturbances. He denies any numbness/tingling/weakness of the extremities. He denies any neck pain or back pain. Family members at bedside state that this is not uncommon when the patient's blood glucose levels are significantly elevated. Family members state the patient is fairly noncompliant with taking his medications for glycemic control. Location: chest Pain Scale: 3 Consistency: constant Improves with: nothing Worsens with: nothing Associated symptoms: Reports: denies other symptoms - Related Data Home Medications Medication Instructions Recorded Confirmed Aspirin [Lo-Dose Aspirin EC] 81 mg PO DAILY 04/08/17 04/09/18 Atorvastatin Calcium [Lipitor] 20 mg PO DAILY 04/08/17 04/09/18 Docusate [Colace] 100 mg PO DAILY 04/08/17 04/09/18 Metoprolol [Lopressor] 12.5 mg PO BID #0 04/08/17 04/09/18 Insulin Glargine,Hum.rec.anlog 15 unit SQ DAILY 03/09/18 04/09/18 [Lantus Solostar] Ondansetron HCl [Zofran] 4 mg PO Q6H PRN 03/09/18 04/09/18 Omeprazole [PriLOSEC] 40 mg PO DAILY 04/09/18 04/09/18 Previous Rx's Medication Instructions Recorded Furosemide [Lasix] 20 mg PO DAILY #30 tablet 03/11/18 levoFLOXacin [Levaquin] 750 mg PO DAILY #7 tablet 04/13/18 Allergies Allergy/AdvReac Type Severity Reaction Status Date / Time horse serum Allergy Itching Uncoded 04/09/18 10:07 Review of Systems: Needs Pleurx drainage All systems ED: reviewed and negative except as stated. Review of Systems: As Per HPI Constitutional: Denies: fever, chills, weakness, weight change Eyes: Denies: eye pain, eye discharge, vision change ENT ED: Denies: ear pain, throat pain, dental pain, hearing loss, epistaxis, congestion, dysphagia Cardiovascular: Reports: as per HPI, chest pain (Intermittent). Denies: palpitations, dyspnea on exertion, edema, syncope Respiratory: Denies: cough, dyspnea, wheezes, hemoptysis, stridor Gastrointestinal: Denies: abdominal pain, nausea, vomiting, diarrhea, const ipation, hematemesis, melena, hematochezia Genitourinary: Denies: urgency, dysuria, frequency, hematuria Musculoskeletal: Denies: back pain, neck pain, arthralgia, myalgia Integumentary: Denies: rash, abrasion, lesions Neurological: Denies: headache, weakness, numbness, paresthesias, confusion, abnormal gait, vertigo Psychiatric: Denies: anxiety, depression, suicidal thoughts, homicidal thoughts, auditory hallucinations, visual hallucinations Endocrine: Denies: fatigue Hematological/Lymphatic: Denies: easy bleeding, easy bruising Allergic/Immunologic: Denies: facial swelling, urticaria Past Medical History - Past Medical History Attestation: Yes The following information was validated with the patient. Source: patient, obtained from family, nursing notes reviewed Medical history: Reports: coronary artery disease, diabetes, hyperlipidemia, hypertension, osteoporosis, peripheral artery disease, TIA Surgical history: Reports: coronary bypass (CABG), other Psychiatric history: Reports: no psych history - Social History Smoking Status: Former smoker Smokeless Tobacco Status: No Alcohol use: Reports: none Drug use: Reports: none Physical Exam - General Limitations: no limitations General appearance: alert, in no apparent distress - Head Head exam: atraumatic, normocephalic, normal inspection - Expanded Head Exam Head exam physicial: Absent: laceration, abrasion, contusion, hematoma, raccoon eyes, Tovar's sign - Eye Eye exam: Present: normal appearance, PERRL, EOMI. Absent: nystagmus - ENT ENT exam: mucous membranes moist - Neck Neck exam: Present: normal inspection, full ROM, trachea midline. Absent: tenderness (No midline tenderness) - Chest Chest inspection: Present: symmetric chest wall rise, other (Pleurx catheter noted to the left posterior thorax). Absent: tenderness - Respiratory Respiratory exam: Present: other (Abdomen his lung sounds, left lower lobe). Absent: respiratory distress, wheezes, stridor, accessory muscle use, prolonged expiratory phase - Cardiovascular Cardiovascular exam: Present: regular rate, normal rhythm, normal heart sounds - Abdominal Exam Abdominal exam: Present: soft, Non-Tender, normal bowel sounds - Extremities Exam Extremities exam: Present: normal inspection, full ROM. Absent: tenderness, pedal edema - Neurological Exam Neurological exam: Present: alert, oriented X3 - Psychiatric Psychiatric exam: Present: flat affect - Skin Skin exam: Present: warm, dry, intact, normal color. Absent: rash Course Course Narrative: Utilizing sterile technique, 400 mL of blood tinged fluid was drained from the patient's Pleurx catheter. Drainage time of approximately 10 minutes. Patient tolerated this well with only minor discomfort. When he complains of discomfort, the rate of drainage was slowed to a tolerable rate. Dressing reapplied. Insertion site of the Pleurx catheter tube did not look obviously infected. No purulent discharge or drainage. No surrounding cellulitis. - Consultations Consultation #1: I spoke with Dr. Crowder hospitalist on-call who is accepted the patient for admission to the hospitalist care due to his frequent falls and complaints of in termittent left-sided chest pain. Time: 14:09 Vital Signs Temperature 97.3 F L 04/17/18 10:14 Pulse Rate 92 04/17/18 10:14 Respiratory Rate 16 04/17/18 10:14 Blood Pressure 121/74 04/17/18 10:14 O2 Sat by Pulse Oximetry 97 04/17/18 10:14 Temperature 97.3 F L 04/17/18 10:27 Pulse Rate 81 04/17/18 11:52 Respiratory Rate 18 04/17/18 11:52 Blood Pressure 120/77 04/17/18 11:52 O2 Sat by Pulse Oximetry 98 04/17/18 11:53 Oxygen Delivery Oxygen Delivery Room Air Medical Decision Making - MDM Narrative Medical decision making narrative: I discussed this patient's case with Dr. Merino. Dr. Merino has had a hyta-us-mrrr evaluation with the patient, reviewed his laboratory and radiology workup. Chest x-ray makes mention to the possibility of an empyema however the patient is afebrile. He is not hypotensive. He is not tachycardic. White count is slightly elevated however this has trended down since the day of his discharge o n April 13. He is currently on oral levofloxacin. Dr. Merino recommends against additional antibiotics at this time. Patient's had verbalized concern for the ability to take care of this patient and manage him at home. She requested consultation with social insurance specialist for potential extended care facility placement. I spoke with Ankita social insurance specialist recreational therapy technician. Ankita has reviewed the patient 's information and states that the patient will require a social admit to the hospitalist service, as he has [employer], which requires a precertification for extended care facility placement. She states that this cannot happen until Thursday at the earliest. - Medical Records Medical records reviewed: Yes I reviewed the patient's medical records. - Lab Data Lab results reviewed: Yes I reviewed the patient's lab results. Lab results narrative: Lab Results 04/17/18 04/17/18 04/17/18 Range/Units 11:19 11:19 11:19 WBC 15.2 H (4.3-11.1) K/mcL RBC 5.15 (4.19-5.50) M/mcL Hgb 13.9 (12.9-16.9) g/dL Hct 43.0 (37.5-50.1) % MCV 83.5 (83.0-100.0) fL MCH 27.0 L (28.0-33.3) pg MCHC 32.3 (31.6-35.5) g/dL RDW 15.5 H (11.5-14.5) % Plt Count 575 H (140-400) K/mcL MPV 9.8 (9.4-12.4) fL Immature Gran % 1.1 (0-4) % Seg Neutrophils % 76.1 % Lymphocytes % 13.2 % Monocytes % 8.0 % Eosinophils % 0.9 % Basophils % 0.7 % Neutrophils # 11.6 H (1.6-8.9) K/mcL Lymphocytes # 2.0 (0.6-4.6) K/mcL Monocytes # 1.2 (0.0-1.3) K/mcL Eosinophils # 0.1 (0.0-0.6) K/mcL Basophils # 0.1 (0.0-0.2) K/mcL PT 13.0 H (9.4-12.1) Seconds INR 1.2 APTT 32.7 (26.0-36.0) Seconds Sodium 133 L (136-145) mEq/L Potassium 4.4 (3.5-5.1) mEq/L Chloride 97 L (98-107) mEq/L Carbon Dioxide 25 (23-29) mEq/L BUN 14 (8-23) mg/dL Creatinine 0.70 (0.70-1.30) mg/dL Est GFR ( Amer) > 60 (> 60) Est GFR (Non-Af Amer) > 60 (> 60) BUN/Creatinine Ratio 20 (6-26) Glucose 224 H (70-105) mg/dL Calculated Osmolality 283 (280-300) Calcium 9.6 (8.6-10.3) mg/dL Troponin I < 0.03 (< 0.04) ng/mL Result diagrams: 04/17/18 11:04/17/18: Lab Results 04/17/18 04/17/18 04/17/18 Range/Units 11: 11:03 05: WBC 15.2 H (4.3-11.1) K/mcL RBC 5.15 (4.19-5.50) M/mcL Hgb 13.9 (12.9-16.9) g/dL Hct 43.0 (37.5-50.1) % MCV 83.5 (83.0-100.0) fL MCH 27.0 L (28.0-33.3) pg MCHC 32.3 (31.6-35.5) g/dL RDW 15.5 H (11.5-14.5) % Plt Count 575 H (140-400) K/mcL MPV 9.8 (9.4-12.4) fL Immature Gran % 1.1 (0-4) % Seg Neutrophils % 76.1 % Lymphocytes % 13.2 % Monocytes % 8.0 % Eosinophils % 0.9 % Basophils % 0.7 % Neutrophils # 11.6 H (1.6-8.9) K/mcL Lymphocytes # 2.0 (0.6-4.6) K/mcL Monocytes # 1.2 (0.0-1.3) K/mcL Eosinophils # 0.1 (0.0-0.6) K/mcL Basophils # 0.1 (0.0-0.2) K/mcL PT 13.0 H (9.4-12.1) Seconds INR 1.2 APTT 32.7 (26.0-36.0) Seconds Sodium 133 L (136-145) mEq/L Potassium 4.4 (3.5-5.1) mEq/L Chloride 97 L (98-107) mEq/L Carbon Dioxide 25 (23-29) mEq/L BUN 14 (8-23) mg/dL Creatinine 0.70 (0.70-1.30) mg/dL Est GFR ( Amer) > 60 (> 60) Est GFR (Non-Af Amer) > 60 (> 60) BUN/Creatinine Ratio 20 (6-26) Glucose 224 H (70-105) mg/dL Calculated Osmolality 283 (280-300) Calcium 9.6 (8.6-10.3) mg/dL Troponin I < 0.03 (< 0.04) ng/mL - Radiology Data Radiology results reviewed: Yes I reviewed the patient's radiology results. Chest X-Ray 04/17/18 10:33 IMPRESSION: Left-sided chest tube remains in place. Persistent opacities to left mid to lower lung zone correlating with loculated hydropneumothorax/empyema with adjacent atelectasis or infiltrates noted on prior CT chest 04/13/2018. There may be some slightly improved aeration. No new acute or worsening cardiopulmonary process noted. D/ / 04/17/2018 11:05:01 Te Martinez MD / veena Interpreting Provider: Te Martinez MD Cervical Spine CT 04/17/18 10:54 IMPRESSION: No acute abnormality of the cervical spine. Multilevel degenerative changes. D/ / Te Martinez MD / Te Martinez MD Interpreting Provider: Te Martinez MD Head CT 04/17/18 10:54 IMPRESSION: No acute intracranial abnormality. Cerebral atrophy. D/ / Brayan Haney MD / Brayan Haney MD Interpreting Provider: Brayan Haney MD - EKG Data EKG #1 EKG attestation: Yes I reviewed and interpreted this EKG. EKG results narrative: EKG reviewed by Dr. Merino as well. EKG shows a sinus rhythm at a rate of 84 bpm. NJ interval 235, QRS duration 94, QT/QTc interval 30/450. No ectopy noted. No ST elevation. No significant changes when compared to an EKG dated from 04/09/18.
[2018-04-17 11:29] LABS: Basophils # 0.1 K/mcL (0.0-0.2); Basophils % 0.7 %; Eosinophils # 0.1 K/mcL (0.0-0.6); Eosinophils % 0.9 %; Hemoglobin 13.9 g/dL (12.9-16.9); Immature Granulocytes % 1.1 % (0-4); Lymphocytes % 13.2 %; Mean Corpuscular HGB Conc 32.3 g/dL (31.6-35.5); Mean Corpuscular Volume 83.5 fL (83.0-100.0); Mean Platelet Volume 9.8 fL (9.4-12.4); Monocytes # 1.2 K/mcL (0.0-1.3); Neutrophils # 11.6 K/mcL (1.6-8.9); Platelet Count 575 K/mcL (140-400); Red Blood Count 5.15 M/mcL (4.19-5.50); Red Cell Distribution Width 15.5 % (11.5-14.5); Segmented Neutrophils % 76.1 %
[2018-04-17 11:37] LABS: INR 1.2
[2018-04-17 11:40] LABS: Activated Partial Thrombo Time 32.7 Seconds (26.0-36.0)
[2018-04-17 11:51] LABS: BUN/Creatinine Ratio 20 (6-26); Blood Urea Nitrogen 14 mg/dL (8-23); Calcium 9.6 mg/dL (8.6-10.3); Carbon Dioxide 25 mEq/L (23-29); Chloride 97 mEq/L (98-107); Glucose 224 mg/dL (70-105); Osmolality,Calculated 283 (280-300); Potassium 4.4 mEq/L (3.5-5.1); Sodium 133 mEq/L (136-145); Troponin I < 0.03 ng/mL (< 0.04); eGFR For Non-African Americans > 60 (> 60)
--- NOTE | 2018-04-17 12:49 | Emergency Department Note ---
Disposition Clinical Impression: Chest pain, Falls frequently Disposition: Admitted As Inpatient Condition: Fair Referrals: Charlene Long, LIFE CARE PLANNER [Primary Care Provider] - Forms: ED Satisfaction Letter, Work/School Release General Adult HPI - General Chief complaint: ED General Medical Stated complaint: "needs heart drain flushed" Time Seen by Provider: 04/17/18 10:23 Source: patient, family Mode of arrival: wheelchair Limitations: no limitations - History of Present Illness Location: chest Pain Scale: 3 Improves with: nothing Worsens with: nothing Associated symptoms: Reports: denies other symptoms - Related Data Home Medications Medication Instructions Recorded Confirmed Aspirin [Lo-Dose Aspirin EC] 81 mg PO DAILY 04/08/17 04/09/18 Atorvastatin Calcium [Lipitor] 20 mg PO DAILY 04/08/17 04/09/18 Docusate [Colace] 100 mg PO DAILY 04/08/17 04/09/18 Metoprolol [Lopressor] 12.5 mg PO BID #0 04/08/17 04/09/18 Insulin Glargine,Hum.rec.anlog 15 unit SQ DAILY 03/09/18 04/09/18 [Lantus Solostar] Ondansetron HCl [Zofran] 4 mg PO Q6H PRN 03/09/18 04/09/18 Omeprazole [PriLOSEC] 40 mg PO DAILY 04/09/18 04/09/18 Donepezil [Aricept] 5 mg PO HS 04/17/18 Metformin HCl [Metformin HCl ER] 500 mg PO BID 04/17/18 Pioglitazone HCl 45 mg PO QAM 04/17/18 Pregabalin [Lyrica] 25 mg PO TID 04/17/18 Tamsulosin [Flomax] 0.4 mg PO DAILY 04/17/18 Tolterodine Tartrate [Detrol] 4 mg PO QPM 04/17/18 Previous Rx's Medication Instructions Recorded Furosemide [Lasix] 20 mg PO DAILY #30 tablet 03/11/18 levoFLOXacin [Levaquin] 750 mg PO DAILY #7 tablet 04/13/18 Allergies Allergy/AdvReac Type Severity Reaction Status Date / Time horse serum Allergy Itching Uncoded 04/17/18 15:54 Constitutional: Denies: fever, chills, weakness, weight change Eyes: Denies: eye pain, eye discharge, vision change ENT ED: Denies: ear pain, throat pain, dental pain, hearing loss, epistaxis, congestion, dysphagia Cardiovascular: Reports: as per HPI, chest pain (Intermittent). Denies: palpitations, dyspnea on exertion, edema, syncope Respiratory: Denies: cough, dyspnea, wheezes, hemoptysis, stridor Gastrointestinal: Denies: abdominal pain, nausea, vomiting, diarrhea, constipation, hematemesis, melena, hematochezia Genitourinary: Denies: urgency, dysuria, frequency, hematuria Musculoskeletal: Denies: back pain, neck pain, arthralgia, myalgia Integumentary: Denies: rash, abrasion, lesions Neurological: Denies: headache, weakness, numbness, paresthesias, confusion, abnormal gait, vertigo Psychiatric: Denies: anxiety, depression, suicidal thoughts, homicidal thoughts, auditory hallucinations, visual hallucinations Endocrine: Denies: fatigue Hematological/Lymphatic: Denies: easy bleeding, easy bruising Allergic/Immunologic: Denies: facial swelling, urticaria Past Medical History - Past Medical History Medical history: Reports: coronary artery disease, diabetes, hyperlipidemia, hypertension, osteoporosis, peripheral artery disease, TIA Surgical history: Reports: coronary bypass (CABG), other Psychiatric history: Reports: no psych history - Social History Smoking Status: Former smoker Smokeless Tobacco Status: No Alcohol use: Reports: none Drug use: Reports: none Physical Exam - General Limitations: no limitations General appearance: alert, in no apparent distress Course Vital Signs Temperature 97.3 F L 04/17/18 10:14 Pulse Rate 92 04/17/18 10:14 Respiratory Rate 16 04/17/18 10:14 Blood Pressure 121/74 04/17/18 10:14 O2 Sat by Pulse Oximetry 97 04/17/18 10:14 Temperature 97.3 F L 04/17/18 10:27 Pulse Rate 81 04/17/18 11:52 Respiratory Rate 18 04/17/18 11:52 Blood Pressure 120/77 04/17/18 11:52 O2 Sat by Pulse Oximetry 98 04/17/18 11:53 Oxygen Delivery Oxygen Delivery Room Air Medical Decision Making - Lab Data Result diagrams: 04/17/18 11:19 04/17/18 11:19 Lab Results 04/17/18 04/17/18 04/17/18 Range/Units 11:19 11:19 11:19 WBC 15.2 H (4.3-11.1) K/mcL RBC 5.15 (4.19-5.50) M/mcL Hgb 13.9 (12.9-16.9) g/dL Hct 43.0 (37.5-50.1) % MCV 83.5 (83.0-100.0) fL MCH 27.0 L (28.0-33.3) pg MCHC 32.3 (31.6-35.5) g/dL RDW 15.5 H (11.5-14.5) % Plt Count 575 H (140-400) K/mcL MPV 9.8 (9.4-12.4) fL Immature Gran % 1.1 (0-4) % Seg Neutrophils % 76.1 % Lymphocytes % 13.2 % Monocytes % 8.0 % Eosinophils % 0.9 % Basophils % 0.7 % Neutrophils # 11.6 H (1.6-8.9) K/mcL Lymphocytes # 2.0 (0.6-4.6) K/mcL Monocytes # 1.2 (0.0-1.3) K/mcL Eosinophils # 0.1 (0.0-0.6) K/mcL Basophils # 0.1 (0.0-0.2) K/mcL PT 13.0 H (9.4-12.1) Seconds INR 1.2 APTT 32.7 (26.0-36.0) Seconds Sodium 133 L (136-145) mEq/L Potassium 4.4 (3.5-5.1) mEq/L Chloride 97 L (98-107) mEq/L Carbon Dioxide 25 (23-29) mEq/L BUN 14 (8-23) mg/dL Creatinine 0.70 (0.70-1.30) mg/dL Est GFR ( Amer) > 60 (> 60) Est GFR (Non-Af Amer) > 60 (> 60) BUN/Creatinine Ratio 20 (6-26) Glucose 224 H (70-105) mg/dL Calculated Osmolality 283 (280-300) Calcium 9.6 (8.6-10.3) mg/dL Troponin I < 0.03 (< 0.04) ng/mL Attestation Statement - Attestation Attestation: For this encounter, I have reviewed the TRANSPORT NURSE or PA documentation, treatment plan, and medical decision making; and I have had face to face time with this patient. . Patient presents to emergency department requesting his chest strain to be drained. Patient had drained placed for pleural effusion. He had biopsy performed this week but does not have the results. Home health was unable to drain it because he did not the right supplies. Family is also concerned about 3 falls since his been home. They are requesting IV placed in an ECF. Patient is in no acute distress laying on the bed. Abdomen soft. Lungs diminished in the left base. Plan. We were able to tap into his drain. 400 mL were obtained by [facility]. Social work is unable to place the patient to an ECF from the ED. He will be admitted as the family is unable to care for him at home. Chest X-Ray 04/17/18 10:33 IMPRESSION: Left-sided chest tube remains in place. Persistent opacities to left mid to lower lung zone correlating with loculated hydropneumothorax/empyema with adjacent atelectasis or infiltrates noted on prior CT chest 04/13/2018. There may be some slightly improved aeration. No new acute or worsening cardiopulmonary process noted. D/ / 04/17/2018 11:05:01 Te Martinez MD / veena Interpreting Provider: Te Martinez MD Cervical Spine CT 04/17/18 10:54 IMPRESSION: No acute abnormality of the cervical spine. Multilevel degenerative changes. D/ / Te Martinez MD / Te Martinez MD Interpreting Provider: Te Martinez MD
[2018-04-17] MEDS ORDERED: traMADol 50 MG TABLET PO PRN (14:34)
[2018-04-17] MEDS ORDERED: *HR* OxyCODONE Immed Rel 5 MG TABLET PO PRN (14:34)
[2018-04-17] MEDS ORDERED: Acetaminophen 325 MG TABLET PO PRN (14:34)
[2018-04-17] MEDS ORDERED: Naloxone 0.4 MG/ML INJ IVP PRN (14:34)
--- NOTE | 2018-04-17 14:49 | Internal Med History&Physical ---
Date of Encounter: 04/17/18 Time of Encounter: 14:10 Internal Medicine - H&P: HPI Chief complaint: frequent fall Admitted From: Home History of present illness: Mr. Nath is a 82 year old male with past history of recurrent L pleural effusion on PleurX catheter inserted on 04/12, CAD status post CABG in April 2017, PAD, diabetes, hypertension, ex-smoker, presented to the ED for frequent fall. Family states that they are also having issues with pleural fluid drainage equipment as well. This is his 3rd admission since late February when was first noted to have L pleural effusion. During the last admission, after PleurX catheter insertion, he was recommended to be discharged to SNF but patient refused. Patient's states that patient has since then fallen 3 times without significant head injury or LOC. Denies any focal weakness /numbness, chest pain, palpitation, orthopnea, PND, or leg swelling. States that he missed his step prior to falling on all occasions. No change in his symptomatology otherwise. Denies any fever/chills, nausea/vomiting, abdominal pain, change in bowel habits, dysuria, or urinary frequency. Denies any sick contacts. In the ED, he was afebrile and hemodynamically stable. Saturating 97% on room air. Labwork showed persistent leukocytosis of 15.2. Troponin -ve, EKG NSR without ST-T changes. CT head and C spine did not show any sequelae of traumatic injury. CXR again demonstrated persistent left mid to lower zone opacities. He had 400 mL of serosanguineous fluid drained in the ER and admitted for further management. Past Med Surg Social Fam HX - Past Medical History Attestation: Yes The following information was validated with the patient. Medical history: coronary artery disease, diabetes, hyperlipidemia, hypertension, osteoporosis, peripheral artery disease, TIA Additional medical history: gout, bph Psychiatric history: no psych history - Past Surgical History Surgical History: coronary bypass (CABG), other Additional surgical history: hernia repair - Social History Smoking Status: Former smoker Smokeless Tobacco Status: No Alcohol use: none Drug use: none - Family History Mother Living Status: Father Living Status: Internal Medicine - H&P: Meds Aspirin [Lo-Dose Aspirin EC] 81 mg PO DAILY 04/08/17 [History] Atorvastatin Calcium [Lipitor] 20 mg PO DAILY 04/08/17 [History] Docusate [Colace] 100 mg PO DAILY 04/08/17 [History] Metoprolol [Lopressor] 12.5 mg PO BID #0 04/08/17 [History] Insulin Glargine,Hum.rec.anlog [Lantus Solostar] 15 unit SQ DAILY 03/09/18 [History] Ondansetron HCl [Zofran] 4 mg PO Q6H PRN 03/09/18 [History] Furosemide [Lasix] 20 mg PO DAILY #30 tablet 03/11/18 [Rx] Omeprazole [PriLOSEC] 40 mg PO DAILY 04/09/18 [History] levoFLOXacin [Levaquin] 750 mg PO DAILY #7 tablet 04/13/18 [Rx] Allergy/AdvReac Type Severity Reaction Status Date / Time horse serum Allergy Itching Uncoded 04/09/18 10:07 All Systems PM: A 10-system review of systems was performed and is negative for pertinent findings except as documented above in the HPI. - Constitutional Vitals: Temp Pulse Resp BP Pulse Ox 97.3 F L 81 18 120/77 98 04/17/18 10:27 04/17/18 11:52 04/17/18 11:52 04/17/18 11:52 04/17/18 11:53 Exam: General: Alert and oriented, not in acute distress. HEENT:EOMI, pupils equal, round and reactive. Cardiovascular:Normal S1 & S2, No JVD. Pulse regular. Lungs: Decreased breath sound on the left lung field, dull to percussion. Otherwise no rhonchi/wheeze/rales Abdomen:Soft, non-tender, no rigidity. Extremities:No deformity or swelling Neurological:CN II-XII intact, power and sensation fully intact in all 4 limbs. No cerebellar signs, pronator drift -ve, Babinski downgoing bilaterally Skin:Normal color, no rash, no lesions. Pulses:Carotid and radial pulses normal +2. Rest of the physical exam is non contributory Internal Med - H&P Results - Labs CBC & Chem 7: 04/17/18 11:19 04/17/18 11:19 Labs: Short CBC 04/17/18 Range/Units 11: WBC 15.2 H (4.3-11.1) K/mcL Hgb 13.9 (12.9-16.9) g/dL Hct 43.0 (37.5-50.1) % Plt Count 575 H (140-400) K/mcL Neutrophils # 11.6 H (1.6-8.9) K/mcL BMP 04/17/18 11:19 Sodium 133 L Potassium 4.4 Chloride 97 L Carbon Dioxide 25 BUN 14 Creatinine 0.70 Glucose 224 H Calcium 9.6 Cardiac Enzymes 04/17/18 Range/Units 11:19 Troponin I < 0.03 (< 0.04) ng/mL - Impressions ITS Impressions Chest X-Ray 04/17/18 10:33 IMPRESSION: Left-sided chest tube remains in place. Persistent opacities to left mid to lower lung zone correlating with loculated hydropneumothorax/empyema with adjacent atelectasis or infiltrates noted on prior CT chest 04/13/2018. There may be some slightly improved aeration. No new acute or worsening cardiopulmonary process noted. D/ / 04/17/2018 11:05:01 Te Martinez MD / veena Interpreting Provider: Te Martinez MD Cervical Spine CT 04/17/18 10:54 IMPRESSION: No acute abnormality of the cervical spine. Multilevel degenerative changes. D/ / Te Martinez MD / Te Martinez MD Interpreting Provider: Te Martinez MD Head CT 04/17/18 10:54 IMPRESSION: No acute intracranial abnormality. Cerebral atrophy. D/ / Brayan Haney MD / Bryaan Haney MD Interpreting Provider: Brayan Haney MD - Assessment and plan (1) Falls frequently Current Visit: Yes Status: Acute Assessment and plan: He was recently discharged from our facility after having Pleurx catheter inserted for recurrent L pleural effusion. At the time of discharge, he was recommended SNF placement which patient refused. Patient has been falling multiple times at home, no traumatic sequelae noted on CT imagings PT/OT/SW for placement (2) Pleural effusion, left Current Visit: No Status: Acute Assessment and plan: s/p PleurX catheter insertion on 04/12 etiology remains unclear but fluid analysis during the last thoracentesis was exudative continue levaquin that he was discharged home with cytology -ve x2 had issues at home with drainage equipment, drained 400ml in the ED will need pulm consult on Thursday for further rec in terms of diagnosis ?pleuroscopy (3) CAD (coronary artery disease) Current Visit: No Status: Chronic Assessment and plan: Status post CABG in April 2017. Resume home meds once reconciled Qualifiers: Coronary Disease-Associated Artery/Lesion type: unspecified vessel or lesion type [place] vs. transplanted heart: [place] heart Associated angina: without angina Qualified Code(s): I25.10 - Atherosclerotic heart disease of [place] coronary artery without angina pectoris (4) Diabetes mellitus Current Visit: No Status: Chronic Assessment and plan: ADA diet sliding scale coverage to AC+HS resume levemir at lower dose Qualifiers: Diabetes mellitus type: type 2 Diabetes mellitus residential insulin use: unspecified residential insulin use status Diabetes mellitus complication status: with unspecified complications Qualified Code(s): E11.8 - Type 2 diabetes mellitus with unspecified complications (5) Hypertension Current Visit: No Status: Chronic Assessment and plan: resume home meds Qualifiers: Hypertension type: essential hypertension Qualified Code(s): I10 - Essential (primary) hypertension (6) DVT prophylaxis Current Visit: No Status: Acute Assessment and plan: SQ heparin - Time Spent With Patient Total time spent is greater than 50% in coordination of care (as documented) at patient's floor/unit and/or counseling patient:
[2018-04-17] MEDS ORDERED: Dextrose Gel 15 GM/37.5 ML TUBE PO PRN ×2 (15:02)
[2018-04-17] MEDS ORDERED: D5% in Water 1,000 ML IVC PRN (15:02)
[2018-04-17] MEDS ORDERED: *HR* Dextrose 50 % in Water (Syg) 50 ML SYRINGE IVP PRN (15:02)
[2018-04-17] MEDS: *HR* Heparin 5,000 UNIT/ML VIAL SQ SCH (17:12)
[2018-04-17] MEDS: Insulin LISPRO 300 UNITS/3 ML VIAL SQ SCH ×2 (17:13→21:14)
[2018-04-17] MEDS: Insulin DETEMIR 100 UNIT/ML X5UNITS SQ SCH (21:14)
[2018-04-18 06:09] LABS: Basophils # 0.1 K/mcL (0.0-0.2); Basophils % 0.5 %; Eosinophils # 0.1 K/mcL (0.0-0.6); Eosinophils % 0.7 %; Hematocrit 38.9 % (37.5-50.1); Hemoglobin 12.8 g/dL (12.9-16.9); Immature Granulocytes % 0.7 % (0-4); Lymphocytes # 2.3 K/mcL (0.6-4.6); Lymphocytes % 13.3 %; Mean Corpuscular HGB Conc 32.9 g/dL (31.6-35.5); Mean Corpuscular Hemoglobin 26.8 pg (28.0-33.3); Mean Corpuscular Volume 81.6 fL (83.0-100.0); Mean Platelet Volume 9.6 fL (9.4-12.4); Monocytes # 1.3 K/mcL (0.0-1.3); Monocytes % 7.4 %; Neutrophils # 13.1 K/mcL (1.6-8.9); Platelet Count 586 K/mcL (140-400); Red Blood Count 4.77 M/mcL (4.19-5.50); Red Cell Distribution Width 15.2 % (11.5-14.5); Segmented Neutrophils % 77.4 %
[2018-04-18] MEDS: *HR* Heparin 5,000 UNIT/ML VIAL SQ SCH ×2 (06:12→17:10)
[2018-04-18 06:29] LABS: BUN/Creatinine Ratio 17 (6-26); Blood Urea Nitrogen 10 mg/dL (8-23); Calcium 9.2 mg/dL (8.6-10.3); Carbon Dioxide 25 mEq/L (23-29); Chloride 99 mEq/L (98-107); Glucose 200 mg/dL (70-105); Magnesium 1.6 mg/dL (1.6-2.6); Osmolality,Calculated 279 (280-300); Potassium 3.9 mEq/L (3.5-5.1); Sodium 132 mEq/L (136-145); eGFR For Non-African Americans > 60 (> 60)
[2018-04-18] MEDS: Insulin LISPRO 300 UNITS/3 ML VIAL SQ SCH ×4 (08:53→20:46)
[2018-04-18] MEDS: levoFLOXacin 750 MG TABLET PO SCH (08:53)
--- NOTE | 2018-04-18 10:04 | Internal Med Progress Note ---
Hospitalist Progress Note - Encounter Date of Encounter: 04/18/18 Time of Encounter: 08:30 - Subjective Interval History: No acute events overnight. Denies any significant left-sided chest pain, shortness of breath, sputum production, cough, or fever/chills. - Exam Vitals: Temp Pulse Resp BP Pulse Ox 98.1 F 91 15 142/75 97 04/18/18 06:41 04/18/18 06:41 04/18/18 06:41 04/18/18 06:41 04/18/18 08:58 Exam: General: Alert and oriented, not in acute distress. Cardiovascular:Normal S1 & S2, No JVD. Pulse regular. Lungs: Decreased breath sound on the left lung field, dull to percussion. Otherwise no rhonchi/wheeze/rales Abdomen:Soft, non-tender, no rigidity. Extremities:No deformity or swelling Neurological:CN II-XII intact, power and sensation fully intact in all 4 limbs. No cerebellar signs, pronator drift -ve, Babinski downgoing bilaterally - Assessment and Plan (1) Falls frequently Current Visit: Yes Status: Acute Assessment and Plan: He was recently discharged from our facility after having Pleurx catheter inserted for recurrent L pleural effusion. At the time of discharge, he was recommended SNF placement which patient refused. Patient has been falling multiple times at home, no traumatic sequelae noted on CT imagings PT/OT/SW for placement (2) Pleural effusion, left Current Visit: No Status: Acute Assessment and Plan: s/p PleurX catheter insertion on 04/12 etiology remains unclear but fluid analysis during the last thoracentesis was exudative had issues at home with drainage equipment, drained 400ml in the ED previously treated with IV Vanc/zosyn and now on PO levaquin for possible PNA (although less likely) -> complete the course cytology -ve x3 will probably need pulm consult tomorrow for further rec in terms of diagnosis ?pleuroscopy (3) CAD (coronary artery disease) Current Visit: No Status: Chronic Assessment and Plan: Status post CABG in April 2017. Resume home meds once reconciled (4) Diabetes mellitus Current Visit: No Status: Chronic Assessment and Plan: ADA diet sliding scale coverage to AC+HS resume levemir at lower dose (5) Hypertension Current Visit: No Status: Chronic Assessment and Plan: resume home meds once reconciled (6) DVT prophylaxis Current Visit: No Status: Acute Assessment and Plan: SQ heparin - Time Spent with Patient Total time spent is greater than 50% in coordination of care (as documented) at patient's floor/unit and/or counseling patient: Plan of Care Discussed with: patient Internal Medicine: Result - Labs CBC & Chem 7: 04/18/18 05:55 04/18/18 05:55 Labs: Short CBC 04/17/18 04/18/18 Range/Units 11:19 05:55 WBC 15.2 H 17.0 H (4.3-11.1) K/mcL Hgb 13.9 12.8 L (12.9-16.9) g/dL Hct 43.0 38.9 (37.5-50.1) % Plt Count 575 H 586 H (140-400) K/mcL Neutrophils # 11.6 H 13.1 H (1.6-8.9) K/mcL BMP 04/17/18 04/18/18 11:19 05:55 Sodium 133 L 132 L Potassium 4.4 3.9 Chloride 97 L 99 Carbon Dioxide 25 25 BUN 14 10 Creatinine 0.70 0.58 L Glucose 224 H 200 H Calcium 9.6 9.2 Cardiac Enzymes 04/17/18 Range/Units 11:19 Troponin I < 0.03 (< 0.04) ng/mL - ABG Interpretation ABG results: PT/INR, D-dimer PT 13.0 Seconds (9.4-12.1) H 04/17/18 11:19 - Impressions Impressions Chest X-Ray 04/17/18 10:33 IMPRESSION: Left-sided chest tube remains in place. Persistent opacities to left mid to lower lung zone correlating with loculated hydropneumothorax/empyema with adjacent atelectasis or infiltrates noted on prior CT chest 04/13/2018. There may be some slightly improved aeration. No new acute or worsening cardiopulmonary process noted. D/ / 04/17/2018 11:05:01 Te Martinez MD / veena Interpreting Provider: Te Martinez MD Cervical Spine CT 04/17/18 10:54 IMPRESSION: No acute abnormality of the cervical spine. Multilevel degenerative changes. D/ / Te Martinez MD / Te Martinez MD Interpreting Provider: Te Martinez MD Head CT 04/17/18 10:54 IMPRESSION: No acute intracranial abnormality. Cerebral atrophy. D/ / Brayan Haney MD / Brayan Haney MD Interpreting Provider: Brayan Haney MD Consult Discharge Plan - Plan Referrals: Charlene Long PERSONAL SERVICE REPRESENTATIVE [Primary Care Provider] - (3) CAD (coronary artery disease) Qualifiers: Coronary Disease-Associated Artery/Lesion type: unspecified vessel or lesion type [place] vs. transplanted heart: [place] heart Associated angina: without angina Qualified Code(s): I25.10 - Atherosclerotic heart disease of [place] coronary artery without angina pectoris (4) Diabetes mellitus Qualifiers: Diabetes mellitus type: type 2 Diabetes mellitus mcfp insulin use: unspecified tube winder hand insulin use status Diabetes mellitus complication status: with unspecified complications Qualified Code(s): E11.8 - Type 2 diabetes mellitus with unspecified complications (5) Hypertension Qualifiers: Hypertension type: essential hypertension Qualified Code(s): I10 - Essential (primary) hypertension
[2018-04-18] MEDS: Insulin DETEMIR 100 UNIT/ML X5UNITS SQ SCH (20:45)
[2018-04-19] MEDS: *HR* Heparin 5,000 UNIT/ML VIAL SQ SCH ×2 (06:09→20:16)
[2018-04-19 08:34] LABS: BUN/Creatinine Ratio 18 (6-26); Blood Urea Nitrogen 13 mg/dL (8-23); Calcium 9.1 mg/dL (8.6-10.3); Carbon Dioxide 24 mEq/L (23-29); Chloride 101 mEq/L (98-107); Glucose 206 mg/dL (70-105); Osmolality,Calculated 284 (280-300); Potassium 4.1 mEq/L (3.5-5.1); Sodium 134 mEq/L (136-145); eGFR For Non-African Americans > 60 (> 60)
[2018-04-19 08:35] LABS: Basophils # 0.1 K/mcL (0.0-0.2); Basophils % 0.5 %; Eosinophils # 0.1 K/mcL (0.0-0.6); Eosinophils % 0.6 %; Hematocrit 42.7 % (37.5-50.1); Hemoglobin 14.2 g/dL (12.9-16.9); Immature Granulocytes % 0.9 % (0-4); Lymphocytes # 2.6 K/mcL (0.6-4.6); Lymphocytes % 15.6 %; Mean Corpuscular HGB Conc 33.3 g/dL (31.6-35.5); Mean Corpuscular Hemoglobin 26.9 pg (28.0-33.3); Mean Platelet Volume 9.9 fL (9.4-12.4); Monocytes # 1.4 K/mcL (0.0-1.3); Monocytes % 8.6 %; Neutrophils # 12.4 K/mcL (1.6-8.9); Platelet Count 641 K/mcL (140-400); Red Blood Count 5.27 M/mcL (4.19-5.50); Red Cell Distribution Width 15.3 % (11.5-14.5); Segmented Neutrophils % 73.8 %
[2018-04-19] MEDS: Insulin LISPRO 300 UNITS/3 ML VIAL SQ SCH ×4 (09:36→22:04)
[2018-04-19] MEDS: levoFLOXacin 750 MG TABLET PO SCH (09:37)
--- NOTE | 2018-04-19 14:58 | Electrocardiograph Report ---
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
[2018-04-19] MEDS ORDERED: Ondansetron ODT 4 MG TAB.RAPDIS PO PRN (16:46)
--- NOTE | 2018-04-19 16:47 | Internal Med Progress Note ---
Hospitalist Progress Note - Encounter Date of Encounter: 04/19/18 Time of Encounter: 16:44 - Subjective Interval History: Pt requesting to go home. He denies fever, chills, N/V ro diarrhea. He denies chest pain or SOB. - Exam Vitals: Temp Pulse Resp BP Pulse Ox 97.9 F 102 15 118/71 94 04/19/18 11:00 04/19/18 16:23 04/19/18 11:00 04/19/18 16:23 04/19/18 11:00 Exam: General: Alert and oriented, not in acute distress. Cardiovascular:Normal S1 & S2, No JVD. Pulse regular. Lungs: Decreased breath sound on the left lung field, dull to percussion. Otherwise no rhonchi/wheeze/rales Abdomen:Soft, non-tender, no rigidity. Extremities:No deformity or swelling Neurological:CN II-XII intact, power and sensation fully intact in all 4 limbs. No cerebellar signs, pronator drift -ve, Babinski down going bilaterally. Skin: warm dry. No rash bruises or bumps. - Assessment and Plan (1) CAD (coronary artery disease) Current Visit: No Status: Chronic Assessment and Plan: Status post CABG in April 2017. Home meds resumed (2) Pleural effusion, left Current Visit: No Status: Acute Assessment and Plan: s/p PleurX catheter insertion on 04/12 etiology remains unclear but fluid analysis during the last thoracentesis was exudative had issues at home with drainage equipment, drained 400ml in the ED previously treated with IV Vanc/zosyn and now on PO levaquin for possible PNA (although less likely) Restarting on Vanc and Zosyn especially in lught of persistent leukocytosis. Pulmonology to see in consult and agrees with plan. (3) Diabetes mellitus Current Visit: No Status: Chronic Assessment and Plan: ADA diet sliding scale coverage to AC+HS resume levemir at lower dose (4) Hypertension Current Visit: No Status: Chronic (5) Falls frequently Current Visit: Yes Status: Acute Assessment and Plan: He was recently discharged from our facility after having [id number] inserted for recurrent L pleural effusion. At the time of discharge, he was recommended SNF placement which patient refused. Patient has been falling multiple times at home, no traumatic sequelae noted on CT imagings PT/OT/SW for placement (6) Leukocytosis Current Visit: Yes Status: Acute Assessment and Plan: of unclear significance. Pt not chronically on steroids. Will restart on Vancomycin and Zosyn. 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 Family states that they are also having issues with pleural fluid drainage equipment as well. This is his 3rd admission since late February when was first noted to have L pleural effusion. During the last admission, after PleurX catheter insertion, he was recommended to be discharged to SNF but p atient refused. Patient's states that patient has since then fallen 3 times without significant head injury or LOC. Denies any focal weakness/numbness, chest pain, palpitation, orthopnea, PND, or leg swelling. States that he missed his step prior to falling on all occasions. No change in his symptomatology otherwise. Denies any fever/chills, nausea/vomiting, abdominal pain, change in bowel habits, dysuria, or urinary frequency. Denies any sick contacts. In the ED, he was afebrile and hemodynamically stable. Saturating 97% on room air. Labwork showed persistent leukocytosis of 15.2. Troponin -ve, EKG NSR without ST-T changes. CT head and C spine did not show any sequelae of traumatic injury. CXR again demonstrated persistent left mid to lower zone opacities. He had 400 mL of serosanguineous fluid drained in the ER and admitted for further management. - Time Spent with Patient Total time spent is greater than 50% in coordination of care (as documented) at patient's floor/unit and/or counseling patient: less than 15 minutes Plan of Care Discussed with: patient Internal Medicine: Result - Labs CBC & Chem 7: 04/19/18 08:10 04/19/18 08:10 Labs: Short CBC 04/19/18 Range/Units 08:10 WBC 16.8 H (4.3-11.1) K/mcL Hgb 14.2 (12.9-16.9) g/dL Hct 42.7 (37.5-50.1) % Plt Count 641 H (140-400) K/mcL Neutrophils # 12.4 H (1.6-8.9) K/mcL BMP 04/19/18 08:10 Sodium 134 L Potassium 4.1 Chloride 101 Carbon Dioxide 24 BUN 13 Creatinine 0.71 Glucose 206 H Calcium 9.1 - ABG Interpretation ABG results: PT/INR, D-dimer PT 13.0 Seconds (9.4-12.1) H 04/17/18 11:19 Consult Discharge Plan - Plan Referrals: Charlene Long, PAINT FACTORY WORKER [Primary Care Provider] - (1) CAD (coronary artery disease) Qualifiers: Coronary Disease-Associated Artery/Lesion type: unspecified vessel or lesion type [place] vs. transplanted heart: [place] heart Associated angina: without angina Qualified Code(s): I25.10 - Atherosclerotic heart disease of [place] coronary artery without angina pectoris (3) Diabetes mellitus Qualifiers: Diabetes mellitus type: type 2 Diabetes mellitus correction insulin use: unspecified correction insulin use status Diabetes mellitus complication status: with unspecified complications Qualified Code(s): E11.8 - Type 2 diabetes mellitus with unspecified complications (4) Hypertension Qualifiers: Hypertension type: essential hypertension Qualified Code(s): I10 - Essential (primary) hypertension
--- NOTE | 2018-04-19 17:08 | Pulmonology Consult Note ---
Date of Encounter: 04/19/18 Time of Encounter: 16:50 Assessment and Plan (1) Pleural effusion Current Visit: No Status: Acute Patient had recurrent left-sided pleural effusion well-known to the pulmonary service during the last admission he got the left-sided Pleurx catheter during this admission patient got drained 400 and will of serosanguineous fluid pulmonary was consult did patient is a chest x-ray shows a possible loculated hydropneumothorax possible him for empyema will need to get CT chest without contrast to better delineate the anatomy the residents have does not have acute and probably tomorrow morning will get the necessary attachment from the endoscopy staff tried to drain and there is anyone to fluid and we can send samples for pleural fluid culture and Gram stain is referred from the emergency room was not sent to microbiology. To continue broad-spectrum antibiotics for now CT chest as ordered will follow-up with imaging. Low suspicion for empyema. Pulmonary we will continue to follow. History of Present Illness Consult date: 04/19/18 Requesting physician: Mile Moise Reason for consult: pleural effusion Chief complaint: frequent falls History of present illness: 82-year-old male with past medical history significant for hypertension, diabetes, coronary artery disease supported by CABG in 2017 with some diastolic heart failure comes with recurrent episode pleural effusion initially few pleural tap showed transudate and the last time showed an exudative pleural e ffusion with serosanguineous in origin concerning for malignancy pleural fluid cytology was so far negative repeat CT scan showed the left-sided lower lobe lung mass is more of atelectasis than a lung mass. The patient had a Pleurx catheter last time and he was sent home patient had frequent falls after the last discharge and also had some issues with the pleural fluid drainage due to acute blood issues the patient came to the ER here for workup for his fall had a trauma series of imaging which was negative and ER drained almost 400 mL of serosanguineous fluid no samples were sent to the lab as I called them and encouraged about pleural fluid cultures. Patient denies any chest pain denies any fever or chills or constitutional symptoms patient feels fine he wants to leave tomorrow for their election day denies any headache denies any nausea vomiting denies any palpitation or syncope. Patient denies any active neuro a GERD symptoms pulmonary was consult consult her for admission left-sided pleural effusion with chest x-ray showing some possible loculated pneumothorax concerning for empyema. Past Med Surg Social Fam HX - Past Medical History Medical history: coronary artery disease, diabetes, hyperlipidemia, hype rtension, osteoporosis, peripheral artery disease, TIA Additional medical history: gout, bph Psychiatric history: no psych history - Past Surgical History Surgical History: coronary bypass (CABG), other Additional surgical history: hernia repair - Social History Smoking Status: Former smoker Smokeless Tobacco Status: No Alcohol use: none Drug use: none - Family History Mother Living Status: Father Living Status: Medications and Allergies Aspirin [Lo-Dose Aspirin EC] 81 mg PO DAILY 04/08/17 [History] Atorvastatin Calcium [Lipitor] 20 mg PO DAILY 04/08/17 [History] Docusate [Colace] 100 mg PO DAILY 04/08/17 [History] Metoprolol [Lopressor] 12.5 mg PO BID #0 04/08/17 [History] Insulin Glargine,Hum.rec.anlog [Lantus Solostar] 15 unit SQ DAILY 03/09/18 [History] Ondansetron HCl [Zofran] 4 mg PO Q6H PRN 03/09/18 [History] Furosemide [Lasix] 20 mg PO DAILY #30 tablet 03/11/18 [Rx] Omeprazole [PriLOSEC] 40 mg PO DAILY 04/09/18 [History] levoFLOXacin [Levaquin] 750 mg PO DAILY #7 tablet 04/13/18 [Rx] Donepezil [Aricept] 5 mg PO HS 04/17/18 [History] Metformin HCl [Metformin HCl ER] 500 mg PO DAILY 04/17/18 [History] Pioglitazone HCl 45 mg PO QAM 04/17/18 [History] Pregabalin [Lyrica] 25 mg PO TID 04/17/18 [History] Tamsulosin [Flomax] 0.4 mg PO DAILY 04/17/18 [History] Tolterodine Tartrate [Detrol] 4 mg PO QPM 04/17/18 [History] Amoxicillin [Amoxil] 500 mg PO BID 04/18/18 [History] Linagliptin [Tradjenta] 5 mg PO DAILY 04/18/18 [History] Lisinopril 2.5 mg PO DAILY 04/18/18 [History] Allergy/AdvReac Type Severity Reaction Status Date / Time horse serum Allergy Itching Uncoded 04/17/18 15:54 All Systems: The remainder of the systems were reviewed and are negative Physical Examination Vital Signs: Vital Signs, Last 4 Hours Pulse BP 04/19/18 16:23 102 118/71 Auscultation: left: diminished breath sounds Cardiovascular: regular rate and rhythm Results - Laboratory Findings CBC and BMP: 04/19/18 08:10 04/19/18 08:10 PT/INR, D-dimer PT 13.0 Seconds (9.4-12.1) H 04/17/18 11:19 Abnormal lab findings: Abnormal lab results WBC 16.8 K/mcL (4.3-11.1) H 04/19/18 08:10 MCV 81.0 fL (83.0-100.0) L 04/19/18 08:10 MCH 26.9 pg (28.0-33.3) L 04/19/18 08:10 RDW 15.3 % (11.5-14.5) H 04/19/18 08:10 Plt Count 641 K/mcL (140-400) H 04/19/18 08:10 Neutrophils # 12.4 K/mcL (1.6-8.9) H 04/19/18 08:10 Monocytes # 1.4 K/mcL (0.0-1.3) H 04/19/18 08:10 PT 13.0 Seconds (9.4-12.1) H 04/17/18 11:19 Sodium 134 mEq/L (136-145) L 04/19/18 08:10 Glucose 206 mg/dL (70-105) H 04/19/18 08:10 POC Glucose 204 mg/dL (70-99) H 04/18/18 20:43 - Clinical Findings Intake & Output: Intake & Output 04/19/18 04/19/18 04/19/18 07:59 15:59 23:59 Intake Total 960 / 960 Balance 960 / 960 Weight 67.8 kg Consult Discharge Plan - Plan Referrals: Charlene Long, RECOVERY ANALYST [Primary Care Provider] -
[2018-04-19] MEDS ORDERED: Vancomycin 1 EACH in 0.9 % Sodium Chloride 250 ML IVPB SCH (22:00)
[2018-04-19] MEDS: Insulin DETEMIR 100 UNIT/ML X5UNITS SQ SCH (22:01)
[2018-04-19] MEDS: Pregabalin 25 MG CAPSULE PO SCH (22:12)
[2018-04-20] MEDS: Piperacillin/Tazobactam 3.375 GM in 0.9 % Sodium Chloride Mini Bag 100 ML IVPB SCH ×4 (00:15→23:56)
[2018-04-20 05:19] LABS: Basophils # 0.1 K/mcL (0.0-0.2); Basophils % 0.5 %; Eosinophils # 0.1 K/mcL (0.0-0.6); Eosinophils % 0.9 %; Hematocrit 37.8 % (37.5-50.1); Immature Granulocytes % 1.1 % (0-4); Lymphocytes # 2.4 K/mcL (0.6-4.6); Lymphocytes % 15.1 %; Mean Corpuscular HGB Conc 33.3 g/dL (31.6-35.5); Mean Corpuscular Hemoglobin 26.8 pg (28.0-33.3); Mean Corpuscular Volume 80.4 fL (83.0-100.0); Mean Platelet Volume 9.8 fL (9.4-12.4); Monocytes # 1.4 K/mcL (0.0-1.3); Monocytes % 8.9 %; Neutrophils # 11.5 K/mcL (1.6-8.9); Platelet Count 561 K/mcL (140-400); Red Cell Distribution Width 15.4 % (11.5-14.5); Segmented Neutrophils % 73.5 %
[2018-04-20 05:20] LABS: Hemoglobin 12.6 g/dL (12.9-16.9)
[2018-04-20 05:55] LABS: BUN/Creatinine Ratio 19 (6-26); Blood Urea Nitrogen 13 mg/dL (8-23); Calcium 8.8 mg/dL (8.6-10.3); Carbon Dioxide 26 mEq/L (23-29); Chloride 100 mEq/L (98-107); Glucose 184 mg/dL (70-105); Osmolality,Calculated 283 (280-300); Potassium 3.9 mEq/L (3.5-5.1); Sodium 134 mEq/L (136-145); eGFR For Non-African Americans > 60 (> 60)
[2018-04-20] MEDS: *HR* Heparin 5,000 UNIT/ML VIAL SQ SCH ×2 (06:21→16:51)
[2018-04-20] MEDS ORDERED: levoFLOXacin 750 MG TABLET PO SCH (09:00)
[2018-04-20] MEDS: Insulin LISPRO 300 UNITS/3 ML VIAL SQ SCH ×4 (09:03→22:00)
[2018-04-20] MEDS: levoFLOXacin 750 MG TABLET PO SCH (09:04)
[2018-04-20] MEDS: Pregabalin 25 MG CAPSULE PO SCH ×3 (09:04→21:55)
[2018-04-20] MEDS: Furosemide 20 MG TABLET PO SCH (09:05)
[2018-04-20] MEDS: Aspirin Enteric Coated 81 MG Tablet PO SCH (09:06)
[2018-04-20] MEDS: *HR* Metformin 500 MG TABLET PO SCH (09:07)
[2018-04-20] MEDS: (Linagliptin [Tradjenta] 5 MG) PO SCH (09:07)
--- NOTE | 2018-04-20 12:01 | Internal Med Progress Note ---
Hospitalist Progress Note - Encounter Date of Encounter: 04/20/18 Time of Encounter: 11:59 - Subjective Interval History: Patient with history of recurrent pleural effusion has a pleural BX catheter, history of CAD had a CABG in the past, diabetes, hypertension, high cholesterol and PAD patient admitted with recurrent fall had about 3 falls came in admitted x-ray does not show any fractur e patient x-ray shows a persistent left pleural effusion 400 mL drained from the ER and patient is on vancomycin and by mouth Levaquin patient seen by library associate and have follow-up CT shows a persistent pleural effusion cultures and cell count has been sent and the pulmonary follow-up evaluation today he denies any fever or chills - Exam Vitals: Temp Pulse Resp BP Pulse Ox 96.5 F L 85 17 118/70 96 04/20/18 11:36 04/20/18 11:36 04/20/18 04:09 04/20/18 11:36 04/20/18 04:09 Exam: General: Alert and oriented, not in acute distress. Cardiovascular:Normal S1 & S2, No JVD. Pulse regular. Lungs: Decreased breath sound on the left lung field, dull to percussion. Otherwise no rhonchi/wheeze/rales Abdomen:Soft, non-tender, no rigidity. Extremities:No deformity or swelling Neurological:CN II-XII intact, power and sensation fully intact in all 4 limbs. No cerebellar signs, pronator drift -ve, Babinski down going bilaterally. Skin: warm dry. No rash bruises or bumps. - Assessment and Plan (1) Falls frequently Current Visit: Yes Status: Acute Assessment and Plan: will consult pt/ot evaluation (2) Leukocytosis Current Visit: Yes Status: Acute Assessment and Plan: persietnt concern for pneumonia/empyema pulm following (3) CAD (coronary artery disease) Current Visit: No Status: Chronic Assessment and Plan: no chest pain (4) Pleural effusion, left Current Visit: No Status: Acute Assessment and Plan: recurrent and persistent nurse tried to aspirate but not muhc return awaits pulm fu evaluation (5) Diabetes mellitus Current Visit: No Status: Chronic Assessment and Plan: continue on sliding scale (6) Hypertension Current Visit: No Status: Chronic Assessment and Plan: well controllled DVT Prophylaxis: heparin - Time Spent with Patient Total time spent is greater than 50% in coordination of care (as documented) at patient's floor/unit and/or counseling patient: Internal Medicine: Result - Labs CBC & Chem 7: 04/20/18 04:57 04/20/18 04:57 Labs: Short CBC 04/20/18 Range/Units 04:57 WBC 15.7 H (4.3-11.1) K/mcL Hgb 12.6 L D (12.9-16.9) g/dL Hct 37.8 (37.5-50.1) % Plt Count 561 H (140-400) K/mcL Neutrophils # 11.5 H (1.6-8.9) K/mcL BMP 04/20/18 04:57 Sodium 134 L Potassium 3.9 Chloride 100 Carbon Dioxide 26 BUN 13 Creatinine 0.67 L Glucose 184 H Calcium 8.8 - ABG Interpretation ABG results: PT/INR, D-dimer PT 13.0 Seconds (9.4-12.1) H 04/17/18 11:19 - Impressions Impressions Chest CT 04/19/18 16:50 IMPRESSION: 1. Small left hydropneumothorax. Left chest tube remains present. 2. Left lower lobe opacification consistent with atelectasis and possible superimposed pneumonia. 3. Nonobstructive renal calculi and cholelithiasis. D/ / Ruchi Sheppard MD / Ruchi Sheppard MD Interpreting Provider: Ruchi Sheppard MD Consult Discharge Plan - Plan Referrals: Charlene Long, RADIOSONDE OPERATOR [Primary Care Provider] - (3) CAD (coronary artery disease) Qualifiers: Coronary Disease-Associated Artery/Lesion type: unspecified vessel or lesion type [place] vs. transplanted heart: [place] heart Associated angina: without angina Qualified Code(s): I25.10 - Atherosclerotic heart disease of [place] coronary artery without angina pectoris (5) Diabetes mellitus Qualifiers: Diabetes mellitus type: type 2 Diabetes mellitus exterminator termite insulin use: unspecified exterminator termite insulin use status Diabetes mellitus complication status: with unspecified complications Qualified Code(s): E11.8 - Type 2 diabetes me [place] with unspecified complications (6) Hypertension Qualifiers: Hypertension type: essential hypertension Qualified Code(s): I10 - Essential (primary) hypertension
[2018-04-20] MEDS: *HR* Pioglitazone 45 MG TABLET PO SCH (12:03)
--- NOTE | 2018-04-20 13:06 | Pulmonology Progress Note ---
Date of Encounter: 04/20/18 Time of Encounter: 13:00 Assessment and Plan (1) Pneumonia Current Visit: No Status: Acute Patient with persistent leukocytosis of unclear etiology it is unclear to me that he actually has pneumonia at this point let alone empyema. A Reasonable place to start would be did aspirate some fluid from the Pleurx catheter and sen d it off her fluid analysis including Gram stain LDH cell count etc. If no clear clinical evidence of infection from aspirated fluid or if the fluid cannot be aspirated would recommend stopping antimicrobials unless another source of infection can be ascertained at the very most 5-7 days of continuation of therapy by mouth would be appropriate such as Augmentin, if further questions arise would consider infectious disease consultation He should have pulmonary follow-up in the next 1-2 weeks to follow-up. I doubt any of the findings in the lung are related to hit the reason that he was admitted to the hospital which is my understanding to be frequent falls I will defer to the primary service for further management of this. Pulmonary will sign off please call with any questions Qualifiers: Pneumonia type: due to unspecified organism Laterality: left Lung location: lower lobe of lung Qualified Code(s): J18.1 - Lobar pneumonia, unspecified organism (2) Pleural effusion Current Visit: No Status: Acute Subjective Principal diagnosis: Pneumonia Interval history: No clinical change overnight patient states that he denies any cough hemoptysis or fevers. Otherwise hemodynamically stable Objective PUL Vital signs: Last Vital Signs Temp 96.5 F L 04/20/18 11:36 Pulse 85 04/20/18 11:36 Resp 17 04/20/18 04:09 BP 118/70 04/20/18 11:36 Pulse Ox 96 04/20/18 04:09 General appearance: no acute distress Eyes: nonicteric Neck: supple Auscultation: left: rales, bilateral: diminished breath sounds Cardiovascular: regular rate and rhythm Gastrointestinal: normoactive bowel sounds, soft Integumentary: normal Extremities: no cyanosis, no edema Musculoskeletal: no deformities normal mental status, pupils equal and round mood appropriate Results - Laboratory Findings CBC and BMP: 04/20/18 04:57 04/20/18 04:57 PT/INR, D-dimer PT 13.0 Seconds (9.4-12.1) H 04/17/18 11:19 Abnormal lab findings: Abnormal lab results WBC 15.7 K/mcL (4.3-11.1) H 04/20/18 04:57 Hgb 12.6 g/dL (12.9-16.9) L D 04/20/18 04:57 MCV 80.4 fL (83.0-100.0) L 04/20/18 04:57 MCH 26.8 pg (28.0-33.3) L 04/20/18 04:57 RDW 15.4 % (11.5-14.5) H 04/20/18 04:57 Plt Count 561 K/mcL (140-400) H 04/20/18 04:57 Neutrophils # 11.5 K/mcL (1.6-8.9) H 04/20/18 04:57 Monocytes # 1.4 K/mcL (0.0-1.3) H 04/20/18 04:57 PT 13.0 Seconds (9.4-12.1) H 04/17/18 11:19 Sodium 134 mEq/L (136-145) L 04/20/18 04:57 Creatinine 0.67 mg/dL (0.70-1.30) L 04/20/18 04:57 Glucose 184 mg/dL (70-105) H 04/20/18 04:57 POC Glucose 169 mg/dL (70-99) H 04/20/18 07:18 - Diagnostic Findings CT scan - chest: report reviewed, image reviewed - Clinical Findings Intake & Output: Intake & Output 04/19/18 04/20/18 04/20/18 23:59 07:59 15:59 Intake Total 100 / 100 240 / 240 Output Total 0 / 0 0 / 0 Balance 0 / 0 100 / 100 240 / 240 Weight 68.2 kg Consult Discharge Plan - Plan Referrals: Charlene Long, ENVIRONMENTAL ENGINEERING MANAGER [Primary Care Provider] -
[2018-04-20] MEDS: Insulin DETEMIR 100 UNIT/ML X5UNITS SQ SCH (21:55)
[2018-04-21 04:57] LABS: Hematocrit 35.9 % (37.5-50.1); Hemoglobin 11.9 g/dL (12.9-16.9); Mean Corpuscular HGB Conc 33.1 g/dL (31.6-35.5); Mean Corpuscular Hemoglobin 27.1 pg (28.0-33.3); Mean Corpuscular Volume 81.8 fL (83.0-100.0); Mean Platelet Volume 9.5 fL (9.4-12.4); Platelet Count 542 K/mcL (140-400); Red Blood Count 4.39 M/mcL (4.19-5.50); Red Cell Distribution Width 15.4 % (11.5-14.5)
[2018-04-21] MEDS: *HR* Heparin 5,000 UNIT/ML VIAL SQ SCH ×2 (05:43→17:29)
--- NOTE | 2018-04-21 08:19 | Internal Med Progress Note ---
<EatonInocente Gavin - Last Filed: 04/21/18 12:11> Hospitalist Progress Note - Encounter Date of Encounter: 04/21/18 Time of Encounter: 08:30 - Subjective Interval History: Laying comfortably in bed. Says he felt off balance yst. Has not been out of bed much since arrival. Occasionally productive cough with clear sputum. Complains of pain where pleurx catheter exits. He denies muscle weakness, dizziness/lightheadedness, blurry vision, diplopia, chest pain, sob, abdominal pain, N/V. - Exam Vitals: Temp Pulse Resp BP Pulse Ox 97.3 F L 99 15 102/59 91 04/21/18 07:15 04/21/18 07:15 04/21/18 07:15 04/21/18 07:15 04/21/18 07:15 Exam: General: Awake, alert, no signs acute distress or toxicity Eye: Pupil equal and round, eomi, no scleral icterus HENT: Atraumatic, normocephalic, oropharynx patent, moist mucus membranes Chest: Symmetric chest rise, non tender to palpation Pulmonary: Normal resp effort, decreased air movement, scattered mild rhonchi L>R, no wheezing or rales appreciated Cardiac: RRR, S1/S2+, no murmurs, rubs, gallops appreciated, radial pulses 2+ bilat, no edema Abdominal: Soft, non-tender, non-distended, no guarding, no rigidity Extremities: No swelling, clubbing, full ROM Integumentary: [place], warm, dry, intact Neuro: CN intact, 4/5 muscle strength symmetric bilat LE>UE, no focal deficits - Assessment and Plan (1) Pneumonia Current Visit: No Status: Acute Assessment and Plan: -CT chest 04/19/18 Small left hydropneumothorax. Left chest tube remains present. Left lower lobe opacification consistent with atelectasis and possible superimposed pneumonia. Nonobstructive renal calculi and cholelithiasis. -Day 2 vanc and zosyn, day 4 po levofloxacin -Pulm followed and recommends aspirating fluid from pleurx catheter for culture/gram stain, LDH, cell count. -If no evidence of infection dc abx or can deescalate to augmentin for 5-7 days -Consider ID consult if infectious -Pulm fu 1-2 weeks after dc -Afebrile, wbc 16.8 (2) Pleural effusion, left Current Visit: No Status: Acute Assessment and Plan: -Recurrent L sided pleural effusion -as pleux catheter in place on L side -Drained 400ml serosanguineous fluid in ED. -Concern of loculated hydropneumothorax vs empyema -Pulm followed -CT chest 04/19/18 Small left hydropneumothorax. Left chest tube remains present. Left lower lobe opacification consistent with atelectasis and possible superimposed pneumonia. Nonobstructive renal calculi and cholelithiasis. -Prelim culture 04/19/18 from pleurx catheter neg -Nursing tried to aspirate fluid 04/20/18 but got only 1ml return from pleurx catheter, sample sent to lab (3) Falls frequently Current Visit: Yes Status: Acute Assessment and Plan: -Reason came to ED -Fallen 3x without injury since dc on 04/13/18 -Uses cane to walk at home -CT head 04/17/18 showed cerebral atrophy and age appropriate chronic small vessel ischemic changes -Recommended SNF at dc 04/13/18 but refused -PT eval this admission again recommends SNF for PT at time of dc -Continue PT/OT and will again recommend SNF for PT at dc (4) CAD (coronary artery disease) Current Visit: No Status: Chronic Assessment and Plan: -Hx of CAD s/p CABG 04/2017 -Continue home meds (5) Diabetes mellitus Current Visit: No Status: Chronic Assessment and Plan: -Med SSI (6) Hypertension Current Visit: No Status: Chronic Assessment and Plan: -BP lower today, 102/59 most recently -Hold lisinopril today (7) Leukocytosis Current Visit: Yes Status: Acute Assessment and Plan: -Leukocytosis appears to be persistent since arrival despite abx therapy. -WBC 15-17 last 5 days -On vanc, zosyn, levofloxacin -Has L pleurx catheter in place for recurring pleural effusions -No other signs of infection -Prelim fluid culture from pleurx neg -Will continue to monitor DVT Prophylaxis: Heparin - Time Spent with Patient Total time spent is greater than 50% in coordination of care (as documented) at patient's floor/unit and/or counseling patient: less than 15 minutes Plan of Care Discussed with: patient Internal Medicine: Result - Labs CBC & Chem 7: 04/21/18 04:39 04/20/18 04:57 Labs: Short CBC 04/21/18 Range/Units 04:39 WBC 16.8 H (4.3-11.1) K/mcL Hgb 11.9 L (12.9-16.9) g/dL Hct 35.9 L (37.5-50.1) % Plt Count 542 H (140-400) K/mcL - ABG Interpretation ABG results: PT/INR, D-dimer PT 13.0 Seconds (9.4-12.1) H 04/17/18 11:19 Consult Discharge Plan - Plan Referrals: Charlene Long CNP [Primary Care Provider] - <Bharat Palomares - Last Filed: 04/21/18 15:26> Hospitalist Progress Note - Encounter Date of Encounter: 04/21/18 - Exam Vitals: Temp Pulse Resp BP Pulse Ox 97.3 F L 99 15 102/59 91 04/21/18 07:15 04/21/18 07:15 04/21/18 07:15 04/21/18 07:15 04/21/18 07:15 - Assessment and Plan (1) CAD (coronary artery disease) Current Visit: No Status: Chronic (2) Pleural effusion, left Current Visit: No Status: Acute (3) Diabetes mellitus Current Visit: No Status: Chronic (4) Hypertension Current Visit: No Status: Chronic (5) Pneumonia Current Visit: No Status: Acute (6) Falls frequently Current Visit: Yes Status: Acute (7) Leukocytosis Current Visit: Yes Status: Acute (8) Diastolic heart failure Current Visit: No Status: Chronic (9) COPD (chronic obstructive pulmonary disease) Current Visit: No Status: Chronic - Time Spent with Patient Total time spent is greater than 50% in coordination of care (as documented) at patient's floor/unit and/or counseling patient: Internal Medicine: Result - Labs CBC & Chem 7: 04/21/18 04:39 04/20/18 04:57 Labs: Short CBC 04/21/18 Range/Units 04:39 WBC 16.8 H (4.3-11.1) K/mcL Hgb 11.9 L (12.9-16.9) g/dL Hct 35.9 L (37.5-50.1) % Plt Count 542 H (140-400) K/mcL - ABG Interpretation ABG results: PT/INR, D-dimer PT 13.0 Seconds (9.4-12.1) H 04/17/18 11:19 - Attending Attestation I examined this patient and my medical decision-making was reviewed with the Resident Physician on 04/21/18. I agree with the documented findings, disposition and treatment plan as described except to the extent set forth below. Mr Nath is currently admitted for recurrent falls and concern for pneumonia. He remains moderate to high risk due to potential for worsening clinical status. Mr Nath is resting comfortably. No fever or chills. No CP. Culture neg thus far. No GI issues. Exam alert Comfortable Mucus membranes dry Heart reg and not tachy No wheeze. Lungs diminished Abd soft I/P 1. Chronic pleural effusion s/p Pleuryx. 2. Recurrent falls 3. Possible pneumonia Further diagnoses and plan as above. Working on d/c to SNF. <Inocente Eaton - Last Filed: 04/21/18 12:11> (1) Pneumonia Qualifiers: Pneumonia type: due to unspecified organism Laterality: left Lung location: lower lobe of lung Qualified Code(s): J18.1 - Lobar pneumonia, unspecified organism (4) CAD (coronary artery disease) Qualifiers: Coronary Disease-Associated Artery/Lesion type: unspecified vessel or lesion type [place] vs. transplanted heart: lime heart Associated angina: without angina Qualified Code(s): I25.10 - Atherosclerotic heart disease of [place] coronary artery without angina pectoris (5) Diabetes mellitus Qualifiers: Diabetes mellitus type: type 2 Diabetes mellitus correction insulin use: unspecified director of convention services insulin use status Diabetes mellitus complication status: with unspecified complications Qualified Code(s): E11.8 - Type 2 diabetes mellitus with unspecified complications; Z79.4 - care home (current) use of insulin (6) Hypertension Qualifiers: Hypertension type: essential hypertension Qualified Code(s): I10 - Essential (primary) hypertension <Bharat Palomares - Last Filed: 04/21/18 15:26> (1) CAD (coronary artery disease) Qualifiers: Coronary Disease-Associated Artery/Lesion type: [place] artery [place] vs. transplanted heart: lime heart Associated angina: without angina Qualified Code(s): I25.10 - Atherosclerotic heart disease of [place] coronary artery without angina pectoris (3) Diabetes mellitus Qualifiers: Diabetes mellitus type: type 2 Diabetes mellitus correction insulin use: with correction use Diabetes mellitus complication status: with unspecified complications Qualified Code(s): E11.8 - Type 2 diabetes mellitus with unspecified complications; Z79.4 - care home (current) use of insulin (4) Hypertension Qualifiers: Hypertension type: essential hypertension Qualified Code(s): I10 - Essential (primary) hypertension (5) Pneumonia Qualifiers: Pneumonia type: due to unspecified organism Laterality: left Lung location: lower lobe of lung Qualified Code(s): J18.1 - Lobar pneumonia, unspecified organism (7) Leukocytosis Qualifiers: Leukocytosis type: unspecified Qualified Code(s): D72.829 - Elevated white blood cell count, unspecified (8) Diastolic heart failure Qualifiers: Heart failure chronicity: chronic Qualified Code(s): I50.32 - Chronic diastolic (congestive) heart failure (9) 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
[2018-04-21] MEDS: levoFLOXacin 750 MG TABLET PO SCH (09:46)
[2018-04-21] MEDS: Aspirin Enteric Coated 81 MG Tablet PO SCH (09:46)
[2018-04-21] MEDS: *HR* Metformin 500 MG TABLET PO SCH (09:47)
[2018-04-21] MEDS: Pregabalin 25 MG CAPSULE PO SCH ×3 (09:47→20:07)
[2018-04-21] MEDS: Furosemide 20 MG TABLET PO SCH (09:47)
[2018-04-21] MEDS: *HR* Pioglitazone 45 MG TABLET PO SCH (09:47)
[2018-04-21] MEDS: Insulin LISPRO 300 UNITS/3 ML VIAL SQ SCH ×3 (09:57→16:57)
[2018-04-21] MEDS: Piperacillin/Tazobactam 3.375 GM in 0.9 % Sodium Chloride Mini Bag 100 ML IVPB SCH ×2 (10:00→17:28)
[2018-04-21] MEDS: (Linagliptin [Tradjenta] 5 MG) PO SCH (10:04)
[2018-04-21] MEDS ORDERED: Insulin LISPRO 300 UNITS/3 ML VIAL SQ SCH (10:10)
[2018-04-21] MEDS: Insulin DETEMIR 100 UNIT/ML X5UNITS SQ SCH (20:07)
[2018-04-22] MEDS: Piperacillin/Tazobactam 3.375 GM in 0.9 % Sodium Chloride Mini Bag 100 ML IVPB SCH ×2 (00:07→08:48)
[2018-04-22] MEDS: *HR* Heparin 5,000 UNIT/ML VIAL SQ SCH (06:48)
--- NOTE | 2018-04-22 07:21 | Discharge Summary ---
<Inocente Eaton - Last Filed: 04/22/18 15:19> - NOTES TO OUTPATIENT PROVIDER Notes to Outpatient Provider: Admitted for falls and recurring L pleural effusion. Drained 400mL from pleurx cath in ED. Was treated for suspected pneumonia and will dc with 5 days augmentin. He remained weak throughout stay and PT recommended SNF with PT which he agreed to. He will need followup in 1-[address] Marks (pulmonology). Fluid aspirated from pleurx final result still pending, please followup when resulted. Orders not resulted at time of discharge: Pending orders 04/19/18 12:15 Culture,Body Fluid [RM] Routine 04/22/18 04:00 Portable CXR [XR chest 1V portable] [XR] AM 0400 04/22/18 06:50 BMP [Basic Metabolic Panel] AM 0400 Complete Blood Count [HEME] AM 0400 04/22/18 08:00 Vancomycin,Trough Timed Date of Encounter: 04/22/18 Time of Encounter: 08:15 - Discharge Diagnosis (1) Pneumonia Priority: Primary Status: Acute Assessment and Plan: -CT chest 04/19/18 Small left hydropneumothorax. Left chest tube remains present. Left lower lobe opacification consistent with atelectasis and possible superimposed pneumonia. Nonobstructive renal calculi and cholelithiasis. -Day 2 vanc and zosyn, day 4 po levofloxacin -Pulm followed and recommends aspirating fluid from pleurx catheter for culture/gram stain, LDH, cell count. -If no evidence of infection dc abx or can deescalate to augmentin for 5-7 days -Consider ID consult if infectious -Pulm fu 1-2 weeks after dc -Afebrile, wbc 14.4 -Will dc with augmentin as not enough fluid able to be aspirated Qualifiers: Pneumonia type: due to unspecified organism Laterality: left Lung location: lower lobe of lung Qualified Code(s): J18.1 - Lobar pneumonia, unspecified organism (2) Pleural effusion, left Priority: Secondary Status: Acute Assessment and Plan: -Recurrent L sided pleural effusion -as pleux catheter in place on L side -Drained 400ml serosanguineous fluid in ED. -Concern of loculated hydropneumothorax vs empyema -Pulm followed -CT chest 04/19/18 Small left hydropneumothorax. Left chest tube remains present. Left lower lobe opacification consistent with atelectasis and possible superimposed pneumonia. Nonobstructive renal calculi and cholelithiasis. -Prelim culture 04/19/18 from pleurx catheter neg -Nursing tried to aspirate fluid 04/20/18 but got only 1ml return from pleurx catheter, sample sent to lab (3) Falls frequently Priority: Secondary Status: Acute Assessment and Plan: -Reason came to ED -Fallen 3x without injury since dc on 04/13/18 -Uses cane to walk at home -CT head 04/17/18 showed cerebral atrophy and age appropriate chronic small vessel ischemic changes -Recommended SNF at dc 04/13/18 but refused -PT eval this admission again recommends SNF for PT at time of dc -Continue PT/OT and will again recommend SNF for PT at dc (4) CAD (coronary artery disease) Priority: Secondary Status: Chronic Assessment and Plan: -Hx of CAD s/p CABG 04/2017 -Continue home meds Qualifiers: Coronary Disease-Associated Artery/Lesion type: [place] artery [place] vs. 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 use: with mcc use Diabetes mellitus complication status: with unspecified complications Qualified Code(s): E11.8 - Type 2 diabetes mellitus with unspecified complications; Z79.4 - salvage determiner (current) use of insulin (6) Hypertension Priority: Secondary Status: Chronic Assessment and Plan: -BP lower today, 100/76 most recently -Hold lisinopril today Qualifiers: Hypertension type: essential hypertension Qualified Code(s): I10 - Essential (primary) hypertension (7) Leukocytosis Priority: Secondary Status: Acute Assessment and Plan: -Leukocytosis appears to be persistent since arrival despite abx therapy. -WBC 15-17 last 5 days -On vanc, zosyn, levofloxacin -Has L pleurx catheter in place for recurring pleural effusions -No other signs of infection -Prelim fluid culture from pleurx neg -Will continue to monitor Qualifiers: Leukocytosis type: unspecified Qualified Code(s): D72.829 - Elevated white blood cell count, unspecified Hospital course: Mr. Nath is a 82 year old male who presented to the ED for frequent fall. Family stated that they are also having issues with pleural fluid drainage equipment as well. This is his 3rd admission since late February when was first noted to have L pleural effusion. During the last admission, after PleurX catheter insertion, he was recommended to be discharged to SNF but patient refused. Patient's stated that patient has since then fallen 3 times without significant head injury or LOC. In the ED, he was afebrile and hemodynamically stable. Saturating 97% on room air. Labwork showed persistent leukocytosis of 15.2. Troponin -ve, EKG NSR without ST-T changes. CT head and C spine did not show any sequelae of traumatic injury. CXR again demonstrated persistent left mid to lower zone opacities. He had 400 mL of serosanguineous fluid drained in the ER and admitted for further management. CT chest 04/19/18 Small left hydropneumothorax. Left chest tube remains present. Left lower lobe opacification consistent with atelectasis and possible superimposed pneumonia. Nonobstructive renal calculi and cholelithiasis. Got 5 days PO levofloxacin, 3 days vanc and zosyn for suspected pneumonia. Pulm followed and recommended aspirating fluid from pleurx catheter for culture/gram stain, LDH, cell count. Not enough fluid was able to be aspirated from pleurx. Initial fluid culture from ED is prelim neg. Will transition to PO augmentin for 5 days at [place]. PT evaluated him again and recommended SNF with PT at [place] which he agreed to this admission. Will need pulm followup in 1-2 weeks. Discharge discussed with: patient - Time Spent with Patient Total time spent providing and/or coordinating discharge services: Greater than 30 minutes - Discharge Medications Home Medications: Aspirin [Lo-Dose Aspirin EC] 81 mg PO DAILY 04/08/17 [History] Atorvastatin Calcium [Lipitor] 20 mg PO DAILY 04/08/17 [History] Docusate [Colace] 100 mg PO DAILY 04/08/17 [History] Metoprolol [Lopressor] 12.5 mg PO BID #0 04/08/17 [History] Insulin Glargine,Hum.rec.anlog [Lantus Solostar] 10 unit SQ DAILY 03/09/18 [History] Ondansetron HCl [Zofran] 4 mg PO Q6H PRN 03/09/18 [History] Furosemide [Lasix] 20 mg PO DAILY #30 tablet 03/11/18 [Rx] Omeprazole [PriLOSEC] 40 mg PO DAILY 04/09/18 [History] Donepezil [Aricept] 5 mg PO HS 04/17/18 [History] Metformin HCl [Metformin HCl ER] 500 mg PO DAILY 04/17/18 [History] Pioglitazone HCl 45 mg PO QAM 04/17/18 [History] Pregabalin [Lyrica] 25 mg PO TID 04/17/18 [History] Tamsulosin [Flomax] 0.4 mg PO DAILY 04/17/18 [History] Tolterodine Tartrate [Detrol] 4 mg PO QPM 04/17/18 [History] Linagliptin [Tradjenta] 5 mg PO DAILY 04/18/18 [History] Lisinopril 2.5 mg PO DAILY 04/18/18 [History] Amoxicillin/Clavulanate [Augmentin] 875 mg PO BIDWM 7 Days tablet 04/22/18 [Rx] Allergies/Adverse Reactions: Allergy/AdvReac Type Severity Reaction Status Date / Time horse serum Allergy Itching Uncoded 04/17/18 15:54 Date of admission: 04/21/18 11:59 Primary care physician: Charlene Long CNP Consults: 04/17/18 14:07 Consult to Finished Hardware Erector [CONS] Stat Reason for SW Consult: ECF placement. Frequent falls. PleurX catheter management. 04/17/18 14:36 Consult to Occupational Therapy [CONS] Routine Comment: Evaluate, develop and implement POC Reason for Consult: frequent fall, recurrent L pleural effusion Does patient have active BEDREST order?: No Is patient medically & hemodynamically stable?: Yes Consult to Physical Therapy [CONS] Routine Comment: Evaluate, develop and implement POC Reason for Consult: frequent fall, recurrent L pleural effusion Does patient have active BEDREST order?: No Is patient medically & hemodynamically stable?: Yes 04/17/18 16:34 Consult to Nutrition [CONS] Routine Comment: Consulting Provider: NUTRITION Reason for Dietary Consult: MST Score Consult to Pastoral Services [CONS] Routine Comment: 04/19/18 16:51 Consult to Pulmonology [CONS] Routine Consulting Provider: Pulm Crit Care [facility] Sleep [place] Reason for Consult: pleurex cath not draning properly Call Completed: Yes 04/20/18 11:44 Consult to Invasive Line Access Team [CONS] Routine Reason for Consult: Limited access with need for JOSUE - refusing to allow staff to attempt to place new IV Line Type: EPIV 04/21/18 12:05 Consult to Interventional Radiology [CONS] Routine Consulting Provider: Radiology Interventional Cols Reason for Consult: Possible reposition of L pleurx cath Time Notified: 12:05 Call Completed: Yes Discharging clinician: Inocente Eaton Anticipated date of discharge: 04/22/18 - Constitutional Vitals: Temp Pulse Resp BP Pulse Ox 97.7 F 92 17 115/68 94 04/22/18 07:01 04/22/18 07:01 04/22/18 07:01 04/22/18 07:01 04/22/18 07:01 Exam: General: Awake, alert, no signs acute distress or toxicity Eye: Pupil equal and round, eomi, no scleral icterus HENT: Atraumatic, normocephalic, oropharynx patent, moist mucus membranes Chest: Symmetric chest rise, non tender to palpation Pulmonary: Normal resp effort, decreased air movement, scattered mild rhonchi L>R, no wheezing or rales appreciated Cardiac: RRR, S1/S2+, no murmurs, rubs, gallops appreciated, radial pulses 2+ bilat, no edema Abdominal: Soft, non-tender, non-distended, no guarding, no rigidity Extremities: No swelling, clubbing, full ROM Integumentary: [place], warm, dry, intact Neuro: CN intact, 4/5 muscle strength symmetric bilat LE>UE, no focal deficits - Patient Status Disposition: Transfer SNF Condition: Fair Functional capacity at discharge: uses cane/walker Overall status at discharge: patient is progressing back to baseline - Discharge Instructions Instructions: Hypokalemia (DC), Pneumonia (DC) Follow Up With: Charlene Long CNP [Primary Care Provider] - Liz Marks MD [Partnered Physician] - - Diet and Activity Activity: as per physical therapy, increase activity as tolerated, resume usual activities as tolerated Diet: diabetic diet <Bharat Palomares Hodan - Last Filed: 04/22/18 17:15> Orders not resulted at time of discharge: Pending orders 04/19/18 12:15 Culture,Body Fluid [RM] Routine Date of Encounter: 04/22/18 - Discharge Diagnosis (1) CAD (coronary artery disease) Status: Chronic Qualifiers: Coronary Disease-Associated Artery/Lesion type: [place] artery [place] vs. transplanted heart: [place] heart Associated angina: without angina Qualified Code(s): I25.10 - Atherosclerotic heart disease of [place] coronary artery without angina pectoris (2) Pleural effusion, left Status: Acute (3) Diabetes mellitus Status: Chronic Qualifiers: Diabetes mellitus type: type 2 Diabetes mellitus mcc insulin use: with mcc use Diabetes mellitus complication status: with unspecified complications Qualified Code(s): E11.8 - Type 2 diabetes mellitus with unspecified complications; Z79.4 - salvage determiner (current) use of insulin (4) Hypertension Status: Chronic Qualifiers: Hypertension type: essential hypertension Qualified Code(s): I10 - Essential (primary) hypertension (5) Pneumonia Status: Acute Qualifiers: Pneumonia type: due to other aerobic Gram-negative bacteria Laterality: left Lung location: lower lobe of lung Qualified Code(s): J15.6 - Pneumonia due to other Gram-negative bacteria (6) Falls frequently Status: Acute (7) Leukocytosis Status: Acute Qualifiers: Leukocytosis type: unspecified Qualified Code(s): D72.829 - Elevated white blood cell count, unspecified Hospital course: Mr. Nath is a 82 year old male - Time Spent with Patient Total time spent providing and/or coordinating discharge services: 38min Date of admission: 04/21/18 11:59 Primary care physician: Charlene Long CNP Consults: 04/17/18 14:07 Consult to Finished Hardware Erector [CONS] Stat Reason for SW Consult: ECF placement. Frequent falls. PleurX catheter management. 04/17/18 14:36 Consult to Occupational Therapy [CONS] Routine Comment: Evaluate, develop and implement POC Reason for Consult: frequent fall, recurrent L pleural effusion Does patient have active BEDREST order?: No Is patient medically & hemodynamically stable?: Yes Consult to Physical Therapy [CONS] Routine Comment: Evaluate, develop and implement POC Reason for Consult: frequent fall, recurrent L pleural effusion Does patient have active BEDREST order?: No Is patient medically & hemodynamically stable?: Yes 04/17/18 16:34 Consult to Nutrition [CONS] Routine Comment: Consulting Provider: NUTRITION Reason for Dietary Consult: MST Score Consult to Pastoral Services [CONS] Routine Comment: 04/19/18 16:51 Consult to Pulmonology [CONS] Routine Consulting Provider: Pulm Crit Care [facility] [place] Reason for Consult: pleurex cath not draning properly Call Completed: Yes 04/20/18 11:44 Consult to Invasive Line Access Team [CONS] Routine Reason for Consult: Limited access with need for JOSUE - refusing to allow staff to attempt to place new IV Line Type: EPIV 04/21/18 12:05 Consult to Interventional Radiology [CONS] Routine Consulting Provider: Radiology Interventional Cols Reason for Consult: Possible reposition of L pleurx cath Time Notified: 12:05 Call Completed: Yes - Constitutional Vitals: Temp Pulse Resp BP Pulse Ox 96.2 F L 91 18 100/76 96 04/22/18 11:09 04/22/18 10:49 04/22/18 10:49 04/22/18 10:49 04/22/18 10:49 - Attending Attestation I examined this patient and my medical decision-making was reviewed with the Resident Physician on 04/22/18. I agree with the documented findings, disposition and treatment plan as described except to the extent set forth below. Mr Nath has been hospitalized for recurrent falls and concern for pneumonia. He was seen by pulmonary and culture of pleural fluid was negative. He is af ebrile and has been approved for SNF. He is moving better today. Exam alert Comfortable Mucus membranes dry Heart distant and regular No wheeze Abd soft and nontender Moves all extremities Plan D/C to SNF today.
[2018-04-22 07:42] LABS: BUN/Creatinine Ratio 23 (6-26); Blood Urea Nitrogen 16 mg/dL (8-23); Calcium 8.6 mg/dL (8.6-10.3); Carbon Dioxide 28 mEq/L (23-29); Chloride 100 mEq/L (98-107); Glucose 180 mg/dL (70-105); Osmolality,Calculated 284 (280-300); Potassium 3.6 mEq/L (3.5-5.1); Sodium 134 mEq/L (136-145); eGFR For Non-African Americans > 60 (> 60)
[2018-04-22 08:23] LABS: Hemoglobin 12.1 g/dL (12.9-16.9); Mean Corpuscular HGB Conc 33.6 g/dL (31.6-35.5); Mean Corpuscular Hemoglobin 27.2 pg (28.0-33.3); Mean Corpuscular Volume 80.9 fL (83.0-100.0); Mean Platelet Volume 9.9 fL (9.4-12.4); Platelet Count 548 K/mcL (140-400); Red Blood Count 4.45 M/mcL (4.19-5.50); Red Cell Distribution Width 15.5 % (11.5-14.5)
[2018-04-22 08:40] LABS: Eosinophils # 0.6 K/mcL (0.0-0.6); Monocytes # 0.9 K/mcL (0.0-1.3); Neutrophils # 10.9 K/mcL (1.6-8.9); Platelet Estimate Marked Increase (Normal)
[2018-04-22 08:41] LABS: Reactive Lymphocytes Present (Not Present)
[2018-04-22] MEDS: Furosemide 20 MG TABLET PO SCH (08:51)
[2018-04-22] MEDS: *HR* Pioglitazone 45 MG TABLET PO SCH (08:52)
[2018-04-22] MEDS: Aspirin Enteric Coated 81 MG Tablet PO SCH (08:52)
[2018-04-22] MEDS: Pregabalin 25 MG CAPSULE PO SCH (08:53)
[2018-04-22] MEDS: levoFLOXacin 750 MG TABLET PO SCH (08:53)
[2018-04-22] MEDS: *HR* Metformin 500 MG TABLET PO SCH (08:53)
[2018-04-22] MEDS: Insulin LISPRO 300 UNITS/3 ML VIAL SQ SCH ×2 (09:06→12:19)
[2018-04-22] MEDS: (Linagliptin [Tradjenta] 5 MG) PO SCH (09:12)
[2018-04-22 10:50] VITALS: BP 100/76
--- NOTE | 2018-04-22 13:47 | Physician Discharge Referral ---
ExtendedCare Referral Info Transfer To: SNF Provider in Charge: Dr Palomares Provider in Charge after Transfer: PCP Institutional Level of Care: Skilled - Diagnosis (1) Pneumonia Priority: Primary Status: Acute (2) Pleural effusion, left Priority: Secondary Status: Acute (3) Falls frequently Priority: Secondary Status: Acute (4) CAD (coronary artery disease) Priority: Secondary Status: Chronic (5) Diabetes mellitus Priority: Secondary Status: Chronic (6) Hypertension Priority: Secondary Status: Chronic (7) Leukocytosis Priority: Secondary Status: Acute - Transfer Medications Home Medications: Aspirin [Lo-Dose Aspirin EC] 81 mg PO DAILY 04/08/17 [History] Atorvastatin Calcium [Lipitor] 20 mg PO DAILY 04/08/17 [History] Docusate [Colace] 100 mg PO DAILY 04/08/17 [History] Metoprolol [Lopressor] 12.5 mg PO BID #0 04/08/17 [History] Insulin Glargine,Hum.rec.anlog [Lantus Solostar] 10 unit SQ DAILY 03/09/18 [History] Ondansetron HCl [Zofran] 4 mg PO Q6H PRN 03/09/18 [History] Furosemide [Lasix] 20 mg PO DAILY #30 tablet 03/11/18 [Rx] Omeprazole [PriLOSEC] 40 mg PO DAILY 04/09/18 [History] Donepezil [Aricept] 5 mg PO HS 04/17/18 [History] Metformin HCl [Metformin HCl ER] 500 mg PO DAILY 04/17/18 [History] Pioglitazone HCl 45 mg PO QAM 04/17/18 [History] Pregabalin [Lyrica] 25 mg PO TID 04/17/18 [History] Tamsulosin [Flomax] 0.4 mg PO DAILY 04/17/18 [History] Tolterodine Tartrate [Detrol] 4 mg PO QPM 04/17/18 [History] Linagliptin [Tradjenta] 5 mg PO DAILY 04/18/18 [History] Lisinopril 2.5 mg PO DAILY 04/18/18 [History] Amoxicillin/Clavulanate [Augmentin] 875 mg PO BIDWM 7 Days tablet 04/22/18 [Rx] Allergies/Adverse Reactions: Allergy/AdvReac Type Severity Reaction Status Date / Time horse serum Allergy Itching Uncoded 04/17/18 15:54 - Respiratory Orders Smoking Cessation: Smoking cessation has been advised. For more information, call the [place] Tobacco Quit Line at 1-279-BVVP-NOW. - Advance Directives Code Status: DNR-Comfort Care (DNI) - Mobility Orders Other (Per PT) - Rehabiliation Orders Rehab Potential: Fair Rehab Orders: Evaluation for Physical Therapy, Evaluation for [employer] apy CERTIFICATION: I certify that the transfer of the above named patient to an Extended Care Facility is necessary for the continuing treatment of the diagnosis listed. The above information is true and accurate reflection of patient's current condition. Confidential - Redisclosure prohibited without a patient's written consent.
[2018-04-22] MEDS ORDERED: Aminoglycoside Consult 1 EACH MC ONE (17:36)
== END 2018-04-22 17:37 | DRG 186 ==
LOC: 2NENU 10:05 → EMEROOARM 10:05 → SUATTDRO 14:21 → 2NENU 16:12
PROVIDERS: ADMIT Internal Medicine; ATTEND Internal Medicine

== ENCOUNTER 2018-04-23 18:51 | Observation (INO) ==
--- NOTE | 2018-04-23 22:57 | Internal Med History&Physical ---
<Mahendra Andrade - Last Filed: 04/24/18 02:35> Date of Encounter: 04/24/18 Time of Encounter: 22:40 Internal Medicine - H&P: HPI Chief complaint: chest tube malfunction Admitted From: Hospital to Hospital Transfer Plans for Post Hospital Care: Home History of present illness: Mr. Nath is a 82 year old male with past medical history of CAD (S/p CABG), DM, HLD, HTN, osteoporosis, peripheral artery disease, TIA, PAD, former smoker, recurrent left sided pleural effusions. He has a PleurX catheter which was inserted on 04/12. After PleurX catheter placement at [facility], he was recommended to go to SNF but refused and was having recurrent falls at home. He came back to the hospital on 04/17 and was readmitted for frequent falls. At that time, patient was also having issues with drainage from pleurX catheter, so pulmonology was consulted to evaluate the patient. CXR was done at that time, showing hydropneumothorax. Patient had left chest tube placed. Patient was discharged to SNF ([facility]) with oral antibiotics. After going to [facility], the chest tube was accidentally cut while the nurse was performing a dressing change. Patient was sent to [facility] ED for further evaluation. Decision was made to transfer the patient to [facility], since the charge out clerk here was the one who placed the chest tube to begin with. He will be admitted, prior oral antibiotics will be continued, and pulmonology consult will be placed. Today, patient denies any new complaints. He denies nausea, vomiting, diarrhea, fever, chills, shortness of breath. He does report intermittent pain at the catheter site. He denies any cough or congestion. At [facility] ED, chest tube dressing was changed and babbling gauze was applied with Tegaderm. Chest tube was clamped with hemostatic and bandage on and of tube before transfer. Vitals from [facility] ED: temperature 97.2, pulse 97, respirations 20, blood pressure 116/77, oxygen saturation 95% on room air at [facility], CT of the cervical spine was done because patient was complaining of leg weakness and was found on floor. There was no evidence of acute cervical spine trauma. head CT done at [facility] showed no evidence of acute intracranial trauma, large rights are [place] and say vascular distribution remote infarction, mild diffuse cerebral atrophy. Past Med Surg Social Fam HX - Past Medical History Medical history: coronary artery disease, diabetes, hyperlipidemia, hypertension, osteoporosis, peripheral artery disease, TIA Additional medical history: gout, bph Psychiatric history: no psych history - Past Surgical History Surgical History: coronary bypass (CABG), other Additional surgical history: hernia repair - Social History Smoking Status: Former smoker Smokeless Tobacco Status: No Alcohol use: none Drug use: none - Family History Mother Living Status: Father Living Status: Internal Medicine - H&P: Meds Aspirin [Lo-Dose Aspirin EC] 81 mg PO DAILY 04/08/17 [History] Atorvastatin Calcium [Lipitor] 20 mg PO DAILY 04/08/17 [History] Docusate [Colace] 100 mg PO DAILY 04/08/17 [History] Metoprolol [Lopressor] 12.5 mg PO BID #0 04/08/17 [History] Insulin Glargine,Hum.rec.anlog [Lantus Solostar] 10 unit SQ DAILY 03/09/18 [History] Ondansetron HCl [Zofran] 4 mg PO Q6H PRN 03/09/18 [History] Furosemide [Lasix] 20 mg PO DAILY #30 tablet 03/11/18 [Rx] Omeprazole [PriLOSEC] 40 mg PO DAILY 04/09/18 [History] Donepezil [Aricept] 5 mg PO HS 04/17/18 [History] Metformin HCl [Metformin HCl ER] 500 mg PO DAILY 04/17/18 [History] Pioglitazone HCl 45 mg PO QAM 04/17/18 [History] Pregabalin [Lyrica] 25 mg PO TID 04/17/18 [History] Tamsulosin [Flomax] 0.4 mg PO DAILY 04/17/18 [History] Tolterodine Tartrate [Detrol] 4 mg PO QPM 04/17/18 [History] Linagliptin [Tradjenta] 5 mg PO DAILY 04/18/18 [History] Lisinopril 2.5 mg PO DAILY 04/18/18 [History] Amoxicillin/Clavulanate [Augmentin] 875 mg PO BIDWM 7 Days tablet 04/22/18 [Rx] Allergy/AdvReac Type Severity Reaction Status Date / Time horse serum Allergy Itching Uncoded 04/17/18 15:54 All Systems PM: A 10-system review of systems was performed and is negative for pertinent findings except as documented above in the HPI. - Constitutional Constitutional: as per HPI - EENT Eyes: as per HPI Ears: as per HPI Nose, mouth and throat: as per HPI - Breasts Breasts: as per HPI - Cardiovascular Cardiovascular ROS IM: as per HPI - Respiratory Respiratory: as per HPI - Gastrointestinal Gastrointestinal: as per HPI - Genitourinary Genitourinary ROS male: as per HPI - Musculoskeletal Musculoskeletal ROS IM: as per HPI - Integumentary Integumentary IM: as per HPI - Neurological Neurological ROS: as per HPI - Psychiatric Psychiatric: as per HPI - Endocrine Endocrine IM: as per HPI - Hematologic/Lymphatic Hematologic/Lymphatic: as per HPI - Allergic/Immunologic Allergic/Immunologic: as per HPI - Constitutional Vitals: Temp Pulse Resp BP Pulse Ox 98 F 97 17 128/69 93 04/23/18 22:00 04/23/18 22:00 04/23/18 22:00 04/23/18 22:00 04/23/18 22:00 General appearance: Present: A&O X 3, pleasant, no acute distress, underweight Exam: Patient was laying in bed comfortably sleeping upon my exam. He answers questions, but does have baseline dementia so his history is unreliable. - Head Head exam: Present: atraumatic, normocephalic - Eye Eye exam: Present: EOMI, normal appearance, PERRL, conjuntiva pink, sclera anict jamari. Absent: scleral icterus Pupils: Present: PERRL - ENT ENT exam: Present: mucous membranes dry - Neck Neck exam general surgery: Present: supple, trachea midline - Respiratory Additional comments: Decreased breath sounds in the left lung huber. Left-sided PleurX catheter present on patient's dorsal side. Clean dressing is applied, there is no evidence of leakage or purulent discharge. End of catheter is clamped with hemostat. - Cardiovascular Cardiovascular exam: Present: RRR, +S1, +S2. Absent: diastolic murmur, gallop, systolic murmur, tachycardia - GI/Abdominal GI/Abdominal exam: Present: soft, no peritoneal signs. Absent: distended, guarding, hernia, hepatomegaly, pulsatile mass, splenomegaly, tenderness - Extremities Exam Extremities exam: Absent: cyanotic, pedal edema Additional comments: Patient complains of pain in his toes more prominent on the right leg compared to the left. He states that this is a chronic problem for him due to his diabetic neuropathy. - Neurological Exam Neurological exam: Present: alert, oriented X3, no focal deficits, strengths equal and symetr throughout. Absent: pronater drift, facial droop, speech deficit - Assessment and plan (1) Pleural effusion, left Current Visit: No Status: Acute Assessment and plan: 82-year-old male with recurrent left-sided exudative pleural effusions had PleurX catheter which was placed on 04/12. Plan was to discharge to SNF, but patient refused and he was discharged home, where he had frequent falls. He was admitted back to [facility] on 04/17 and treated for suspected PNA, evaluated by PT/OT and then patient was discharged to halfway on 04/22. Per [facility] ED reports, While at SNF, nurse was doing doing a dressing change on PleurX catheter and accidentally cut catheter, and patient was transferred to [facility] ED, where dressing change was done. He was sent to [facility] for evaluation of PleurX catheter by pulmonology service. Plan: consult to pulmonology regarding management of PleurX catheter patient was discharged on 04/22 with plan to take 5 days of Augmentin for suspected pneumonia. Will continue this once home med list is verified. discharge back to [facility] once catheter issues have been resolved. (2) COPD (chronic obstructive pulmonary disease) Current Visit: No Status: Chronic Assessment and plan: Does not appear to be in acute exacerbation. PRN Banca dilators Qualifiers: COPD type: emphysema Emphysema type: unspecified Qualified Code(s): 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 (3) Falls frequently Current Visit: No Status: Acute Assessment and plan: Patient comes from [facility], and was referred there during his last hospitalization due to frequent falls. Plan will be to discharge back to [facility] for rehabilitation (4) CAD (coronary artery disease) Current Visit: No Status: Chronic Assessment and plan: S/p CABG continue home medications once med list verified. Qualifiers: Coronary Disease-Associated Artery/Lesion type: havas[place]ai artery [place] vs. transplanted heart: havasupai heart Associated angina: without angina Qualified Code(s): I25.10 - Atherosclerotic heart disease of havasupai coronary artery without angina pectoris (5) Diastolic heart failure Current Visit: No Status: Chronic Assessment and plan: Last echo from 03/10/18 showed LVEF 45-50%, mild LV diastolic dyfunction, mildly dilated LV, normal RV structure and fucntion, no significant valvular dysfunction, moderate pleural effusion. does not appear to be in acute exacerbation at this time. re start home medications once medication list verified. Qualifiers: Heart failure chronicity: chronic Qualified Code(s): I50.32 - Chronic diastolic (congestive) heart failure (6) Hypertension Current Visit: No Status: Chronic Qualifiers: Hypertension type: essential hypertension Qualified Code(s): I10 - Es sential (primary) hypertension (7) Diabetes mellitus Current Visit: No Status: Chronic Assessment and plan: History of type II diabetes, hold oral diabetes medications, low-dose sliding scale insulin, ADA diet Qualifiers: Diabetes mellitus type: type 2 Diabetes mellitus [employer] insulin use: with [employer] use Diabetes mellitus complication status: with unspecified complications Qualified Code(s): E11.8 - Type 2 diabetes mellitus with unspecified complications; Z79.4 - [facility] (current) use of insulin (8) DVT prophylaxis Current Visit: No Status: Acute Assessment and plan: Heparin SQ - Time Spent With Patient Total time spent is greater than 50% in coordination of care (as documented) at patient's floor/unit and/or counseling patient: <Naeem Ruiz A - Last Filed: 04/24/18 02:44> Date of Encounter: 04/23/18 Internal Medicine - H&P: HPI History of present illness: Mr. Nath is a 82 year old male All Systems PM: A 10-system review of systems was performed and is negative for pertinent findings except as documented above in the HPI. - Constitutional Vitals: Temp Pulse Resp BP Pulse Ox 98.3 F 114 14 148/81 95 04/24/18 00:23 04/24/18 00:23 04/24/18 00:23 04/24/18 00:23 04/24/18 00:23 - Time Spent With Patient Total time spent is greater than 50% in coordination of care (as documented) at patient's floor/unit and/or counseling patient: - Attending Attestation I performed a history and physical examination the patient is discussed the case with the resident. I reviewed the resident's documentation agree with the assessment and plan. Pulmonary consult for the morning to replace Pleurx catheter. Patient currently stable otherwise.
[2018-04-23] MEDS ORDERED: Naloxone 0.4 MG/ML INJ IVP PRN (23:23)
[2018-04-23] MEDS ORDERED: Acetaminophen 325 MG TABLET PO PRN (23:23)
[2018-04-23] MEDS ORDERED: Dextrose Gel 15 GM/37.5 ML TUBE PO PRN ×2 (23:26)
[2018-04-23] MEDS ORDERED: D5% in Water 1,000 ML IVC PRN (23:26)
[2018-04-23] MEDS ORDERED: *HR* Dextrose 50 % in Water (Syg) 50 ML SYRINGE IVP PRN (23:26)
[2018-04-23] MEDS ORDERED: Ipratropium/Albuterol Neb 3 ML IH PRN (23:46)
[2018-04-24] MEDS ORDERED: Insulin LISPRO 300 UNITS/3 ML VIAL SQ SCH ×2 (00:30→23:27)
[2018-04-24] MEDS ORDERED: Ondansetron ODT 4 MG TAB.RAPDIS PO PRN (02:44)
[2018-04-24 04:13] LABS: Basophils # 0.1 K/mcL (0.0-0.2); Basophils % 0.6 %; Eosinophils # 0.2 K/mcL (0.0-0.6); Eosinophils % 1.4 %; Hematocrit 35.6 % (37.5-50.1); Immature Granulocytes % 1.1 % (0-4); Lymphocytes % 13.7 %; Mean Corpuscular HGB Conc 33.7 g/dL (31.6-35.5); Mean Corpuscular Hemoglobin 27.3 pg (28.0-33.3); Mean Corpuscular Volume 80.9 fL (83.0-100.0); Mean Platelet Volume 9.5 fL (9.4-12.4); Monocytes # 1.4 K/mcL (0.0-1.3); Monocytes % 9.4 %; Platelet Count 555 K/mcL (140-400); Red Cell Distribution Width 15.8 % (11.5-14.5); Segmented Neutrophils % 73.8 %
[2018-04-24 04:21] LABS: INR 1.2; Prothrombin Time 13.5 Seconds (9.4-12.1)
[2018-04-24 04:37] LABS: BUN/Creatinine Ratio 22 (6-26); Blood Urea Nitrogen 13 mg/dL (8-23); Calcium 8.9 mg/dL (8.6-10.3); Carbon Dioxide 28 mEq/L (23-29); Chloride 99 mEq/L (98-107); Glucose 178 mg/dL (70-105); Magnesium 1.8 mg/dL (1.6-2.6); Osmolality,Calculated 285 (280-300); Phosphorous 2.1 mg/dL (2.7-4.5); Potassium 3.3 mEq/L (3.5-5.1); Sodium 135 mEq/L (136-145); eGFR For Non-African Americans > 60 (> 60)
[2018-04-24] MEDS ORDERED: *HR* Heparin 5,000 UNIT/ML VIAL SQ SCH (06:00)
[2018-04-24] MEDS: Insulin LISPRO 300 UNITS/3 ML VIAL SQ SCH ×2 (08:36→12:18)
--- NOTE | 2018-04-24 08:44 | Pulmonology Consult Note ---
Date of Encounter: 04/24/18 Time of Encounter: 08:00 Assessment and Plan (1) Pleural effusion Status: Acute Patient had recurrent pleural effusion in the past supported by Pleurx catheter with residual hydropneumothorax repeated the chest x-ray did not show any worsening of pleural effusion or the pneumothorax component patient has this same residual hydropneumothorax without much change. I spoke with Dr. Marks he will assess the catheter whether to be removed or it can be salvaged most likely on Thursday as an outpatient patient need not to be inpatient for this. I asked for a hemostat different from the one that was sent from [facility] I personally placed it on the catheter ,I spoke with the hospitalist and he can be discharged to the [facility] today and will reevaluate the situation as an outpatient as patient does not have any worsening hydropneumothorax. To complete the course of antibiotics which he was discharged from the previous admission. Thank you for the consultation. History of Present Illness Consult date: 04/24/18 Requesting physician: Mahendra Andrade Reason for consult: pleural effusion Chief complaint: Pleurx catheter issues History of present illness: 82-year-old male with past medical history of diabetes hypertension heart failure with left-sided recurrent pleural effusion with residual hy dropneumothorax supported by Pleurx catheter was sent from his [facility] when the nurse at the [facility] was cutting the dressing she accidentally cut the tube at the end which is the only reason he was referred back to the hospital patient denies any chest pain ,denies any chest tightness denies much shortness of breath his symptoms are at baseline was sent back to a [facility] from the last admission after he had multiple recurrent falls. Pulmonary was consulted for evaluation of Pleurx catheter. Past Med Surg Social Fam HX - Past Medical History Medical history: coronary artery disease, diabetes, hyperlipidemia, hypertension, osteoporosis, peripheral artery disease, TIA Additional medical history: gout, bph Psychiatric history: no psych history - Past Surgical History Surgical History: coronary bypass (CABG), other Additional surgical history: hernia repair - Social History Smoking Status: Former smoker Smokeless Tobacco Status: No Alcohol use: none Drug use: none - Family History Mother Living Status: Father Living Status: Medications and Allergies Aspirin [Lo-Dose Aspirin EC] 81 mg PO DAILY 04/08/17 [History] Atorvastatin Calcium [Lipitor] 20 mg PO DAILY 04/08/17 [History] Docusate [Colace] 100 mg PO DAILY 04/08/17 [History] Metoprolol [Lopressor] 12.5 mg PO BID #0 04/08/17 [History] Insulin Glargine,Hum.rec.anlog [Lantus Solostar] 10 unit SQ DAILY 03/09/18 [History] Ondansetron HCl [Zofran] 4 mg PO Q6H PRN 03/09/18 [History] Furosemide [Lasix] 20 mg PO DAILY #30 tablet 03/11/18 [Rx] Omeprazole [PriLOSEC] 40 mg PO DAILY 04/09/18 [History] Donepezil [Aricept] 5 mg PO HS 04/17/18 [History] Metformin HCl [Metformin HCl ER] 1,000 mg PO DAILY 04/17/18 [History] Pioglitazone HCl 45 mg PO QAM 04/17/18 [History] Pregabalin [Lyrica] 25 mg PO TID 04/17/18 [History] Tamsulosin [Flomax] 0.4 mg PO DAILY 04/17/18 [History] Tolterodine Tartrate [Detrol] 4 mg PO QPM 04/17/18 [History] Linagliptin [Tradjenta] 5 mg PO DAILY 04/18/18 [History] Amoxicillin/Clavulanate [Augmentin] 875 mg PO BIDWM 7 Days tablet 04/22/18 [Rx] Phos-NaK [Neutra-Phos] 1 each PO DAILY 3 Days powd.pack 04/24/18 [Rx] Allergy/AdvReac Type Severity Reaction Status Date / Time horse serum Allergy Itching Uncoded 04/17/18 15:54 All Systems: The remainder of the systems were reviewed and are negative Physical Examination Vital Signs: Vital Signs, Last 4 Hours Temp Pulse Resp BP Pulse Ox 04/24/18 07:00 98.2 F 98 18 130/73 96 Auscultation: left: diminished breath sounds Results - Laboratory Findings CBC and BMP: 04/24/18 03:25 04/24/18 03:25 PT/INR, D-dimer PT 13.5 Seconds (9.4-12.1) H 04/24/18 03:25 Abnormal lab findings: Abnormal lab results WBC 14.9 K/mcL (4.3-11.1) H 04/24/18 03:25 Hgb 12.0 g/dL (12.9-16.9) L 04/24/18 03:25 Hct 35.6 % (37.5-50.1) L 04/24/18 03:25 MCV 80.9 fL (83.0-100.0) L 04/24/18 03:25 MCH 27.3 pg (28.0-33.3) L 04/24/18 03:25 RDW 15.8 % (11.5-14.5) H 04/24/18 03:25 Plt Count 555 K/mcL (140-400) H 04/24/18 03:25 Neutrophils # 11.0 K/mcL (1.6-8.9) H 04/24/18 03:25 Monocytes # 1.4 K/mcL (0.0-1.3) H 04/24/18 03:25 PT 13.5 Seconds (9.4-12.1) H 04/24/18 03:25 Sodium 135 mEq/L (136-145) L 04/24/18 03:25 Potassium 3.3 mEq/L (3.5-5.1) L 04/24/18 03:25 Creatinine 0.58 mg/dL (0.70-1.30) L 04/24/18 03:25 Glucose 178 mg/dL (70-105) H 04/24/18 03:25 Phosphorus 2.1 mg/dL (2.7-4.5) L 04/24/18 03:25 - Clinical Findings Intake & Output: Intake & Output 04/23/18 04/24/18 04/24/18 23:59 07:59 15:59 Intake Total 0 / 0 0 / 0 Output Total 0 / 0 Balance 0 / 0 0 / 0 Weight 70.2 kg 70.2 kg Consult Discharge Plan - Plan Instructions: Phosphate Supplement (By mouth) Referrals: Charlene Long BUSINESS ADMINISTRATION INSTRUCTOR [Primary Care Provider] - Prescriptions: Phos-NaK [Neutra-Phos] 1 each PO DAILY 3 Days powd.pack
[2018-04-24] MEDS ORDERED: Pregabalin 25 MG CAPSULE PO SCH (09:00)
[2018-04-24] MEDS ORDERED: Furosemide 20 MG TABLET PO SCH (09:00)
[2018-04-24] MEDS ORDERED: Aspirin Enteric Coated 81 MG Tablet PO SCH (09:00)
[2018-04-24 10:48] VITALS: BP 117/67
--- NOTE | 2018-04-24 12:17 | Discharge Summary ---
- NOTES TO OUTPATIENT PROVIDER Notes to Outpatient Provider: follow up with doctor maldonado next week for removal of the cathter Orders not resulted at time of discharge: Pending orders 04/24/18 11:51 XR chest 1V portable [XR] Stat Date of Encounter: 04/24/18 Time of Encounter: 12:13 - Discharge Diagnosis (1) Pleural effusion, left Priority: Primary Status: Acute (2) DVT prophylaxis Priority: Secondary Status: Acute (3) Falls frequently Priority: Secondary Status: Acute (4) CAD (coronary artery disease) Priority: Secondary Status: Chronic Qualifiers: Coronary Disease-Associated Artery/Lesion type: [place] artery [place] vs. transplanted heart: [place] heart Associated angina: without angina Qualified Code(s): I25.10 - Atherosclerotic heart disease of [place] coronary artery without angina pectoris (5) COPD (chronic obstructive pulmonary disease) Priority: Secondary Status: Chronic Qualifiers: COPD type: emphysema Emphysema type: unspecified Qualified Code(s): 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 (6) Diabetes mellitus Priority: Secondary Status: Chronic Qualifiers: Diabetes mellitus type: type 2 Diabetes mellitus penitentiary insulin use: with intermediate project manager use Diabetes mellitus complication status: with unspecified complications Qualified Code(s): E11.8 - Type 2 diabetes mellitus with unspecified complications; Z79.4 - jail (current) use of insulin (7) Diastolic heart failure Priority: Secondary Status: Chronic Qualifiers: Heart failure chronicity: chronic Qualified Code(s): I50.32 - Chronic diastolic (congestive) heart failure (8) Hypertension Priority: Secondary Status: Chronic Qualifiers: Hypertension type: essential hypertension Qualified Code(s): I10 - Essential (primary) hypertension Hospital course: "Mr. Nath is a 82 year old male with past medical history of CAD (S/p CABG), DM, HLD, HTN, osteoporosis, peripheral artery disease, TIA, PAD, former smoker, recurrent left sided pleural effusions. He has a PleurX catheter which was inserted on 04/12. After PleurX catheter placement at [facility], he was recommended to go to SNF but refused and was having recurrent falls at home. He came back to the hospital on 04/17 and was readmitted for frequent falls. At that time, patient was also having issues with drainage from pleurX catheter, so pulmonology was consulted to evaluate the patient. CXR was done at that time, showing hydropneumothorax. Patient had left chest tube placed. Patient was discharged to SNF ([facility]) with oral antibiotics. After going to [facility], the chest tube was accidentally cut while the nurse was performing a dressing change. Patient was sent to [facility] ED for further evaluation. Decision was made to transfer the patient to [facility], since the diversional therapist here was the one who placed the chest tube to begin with. He will be admitted, prior oral antibiotics will be continued, and pulmonology consult will be placed. Today, patient denies any new complaints. He denies nausea, vomiting, diarrhea, fever, chills, shortness of breath. He does report intermittent pain at the catheter site. He denies any cough or congestion. At [facility] ED, chest tube dressing was changed and babbling gauze was applied with Tegaderm. Chest tube was clamped with hemostatic and bandage on and of tube before transfer. Vitals from [facility] ED: temperature 97.2, pulse 97, respirations 20, blood pressure 116/77, oxygen saturation 95% on room air at [facility] ED, CT of the cervical spine was done because patient was complaining of leg weakness and was found on floor. There was no evidence of acute cervical spine trauma. head CT done at [facility] showed no evidence of acute intracranial trauma, large rights are Imelda and say vascular distribution remote infarction, mild diffuse cerebral atrophy." Patient presented with the above presentation. Pulmonology was consulted who recommended outpatient follow-up with Dr. Okeefe (04/28) for catheter removal after reviewing the chest x-ray performed on admission 04/24. He is to continue oral antibiotics (augmentin) which he was prescribed on recent discharge on 04/22 to complete a 14 day course. all electrolytes replaced. i discussed above with the nursing staff. patient is to follow with Dr. okeefe on 04/28 for catheter removal. Lisinopril 2.5 mg PO DAILY was not entered on admission as a part of his medication list. to be continued if not CI Discharge discussed with: nurse, exchange underwriting consultant - Time Spent with Patient Total time spent providing and/or coordinating discharge services: Less than 30 minutes - Discharge Medications Home Medications: Aspirin [Lo-Dose Aspirin EC] 81 mg PO DAILY 04/08/17 [History] Atorvastatin Calcium [Lipitor] 20 mg PO DAILY 04/08/17 [History] Docusate [Colace] 100 mg PO DAILY 04/08/17 [History] Metoprolol [Lopressor] 12.5 mg PO BID #0 04/08/17 [History] Insulin Glargine,Hum.rec.anlog [Lantus Solostar] 10 unit SQ DAILY 03/09/18 [History] Ondansetron HCl [Zofran] 4 mg PO Q6H PRN 03/09/18 [History] Furosemide [Lasix] 20 mg PO DAILY #30 tablet 03/11/18 [Rx] Omeprazole [PriLOSEC] 40 mg PO DAILY 04/09/18 [History] Donepezil [Aricept] 5 mg PO HS 04/17/18 [History] Metformin HCl [Metformin HCl ER] 1,000 mg PO DAILY 04/17/18 [History] Pioglitazone HCl 45 mg PO QAM 04/17/18 [History] Pregabalin [Lyrica] 25 mg PO TID 04/17/18 [History] Tamsulosin [Flomax] 0.4 mg PO DAILY 04/17/18 [History] Tolterodine Tartrate [Detrol] 4 mg PO QPM 04/17/18 [History] Linagliptin [Tradjenta] 5 mg PO DAILY 04/18/18 [History] Amoxicillin/Clavulanate [Augmentin] 875 mg PO BIDWM 7 Days tablet 04/22/18 [Rx] Allergies/Adverse Reactions: Allergy/AdvReac Type Severity Reaction Status Date / Time horse serum Allergy Itching Uncoded 04/17/18 15:54 Date of admission: 04/23/18 21:32 Primary care physician: Charlene Long CNP Consults: 04/23/18 23:21 Consult to Pulmonology [CONS] Routine Consulting Provider: [facility] Reason for Consult: S/P pleurX catheter placement by pulmonology service during prior admission, patient has since gone to SNF, and catheter was accidentally cut by nurse during dressing change. Call Completed: Yes - Constitutional Vitals: Temp Pulse Resp BP Pulse Ox 97.7 F 86 18 117/67 95 04/24/18 10:44 04/24/18 10:44 04/24/18 10:44 04/24/18 10:44 04/24/18 10:44 General appearance: Present: A&O X 3, pleasant, no acute distress, underweight Exam: General appearance: Present: A&O X 3, pleasant, no acute distress, underweight Exam: Patient was laying in bed comfortably sleeping upon my exam. He answers questions, but does have baseline dementia so his history is unreliable. - Head Head exam: Present: atraumatic, normocephalic - Eye Eye exam: Present: EOMI, normal appearance, PERRL, conjuntiva pink, sclera anicteric. Absent: scleral icterus Pupils: Present: PERRL - ENT ENT exam: Present: mucous membranes dry - Neck Neck exam general surgery: Present: supple, trachea midline - Respiratory Additional comments: Decreased breath sounds in the left lung huber. Left-sided PleurX catheter present on patient's dorsal side. Clean dressing is applied, there is no evidence of leakage or purulent discharge. End of catheter is clamped with hemostat. - Cardiovascular Cardiovascular exam: Present: RRR, +S1, +S2. Absent: diastolic murmur, gallop, systolic murmur, tachycardia - GI/Abdominal GI/Abdominal exam: Present: soft, no peritoneal signs. Absent: distended, guarding, hernia, hepatomegaly, pulsatile mass, splenomegaly, tenderness - Extremities Exam Extremities exam: Absent: cyanotic, pedal edema Additional comments: Patient complains of pain in his toes more prominent on the right leg compared to the left. He states that this is a chronic problem for him due to his diabetic neuropathy. - Neurological Exam Neurological exam: Present: alert, oriented X3, no focal deficits, strengths equal and symetr throughout. Absent: pronater drift, facial droop, speech deficit - Patient Status Disposition: Transfer SNF Condition: Fair Functional capacity at discharge: independent ambulation Overall status at discharge: patient is progressing back to baseline - Discharge Instructions Follow Up With: Charlene Long TELECOMMUNICATIONS LINESWORKER [Primary Care Provider] - - Diet and Activity Activity: as per physical therapy Diet: advance to your usual diet
--- NOTE | 2018-04-24 12:29 | Physician Discharge Referral ---
ExtendedCare Referral Info Transfer To: SNF Provider in Charge after Transfer: PCP Institutional Level of Care: Skilled - Diagnosis (1) Pleural effusion, left Priority: Primary Status: Acute (2) DVT prophylaxis Priority: Secondary Status: Acute (3) Falls frequently Priority: Secondary Status: Acute (4) CAD (coronary artery disease) Priority: Secondary Status: Chronic (5) COPD (chronic obstructive pulmonary disease) Priority: Secondary Status: Chronic (6) Diabetes mellitus Priority: Secondary Status: Chronic (7) Diastolic heart failure Priority: Secondary Status: Chronic (8) Hypertension Priority: Secondary Status: Chronic Aware of Diagnosis: Patient - Transfer Medications Home Medications: Aspirin [Lo-Dose Aspirin EC] 81 mg PO DAILY 04/08/17 [History] Atorvastatin Calcium [Lipitor] 20 mg PO DAILY 04/08/17 [History] Docusate [Colace] 100 mg PO DAILY 04/08/17 [History] Metoprolol [Lopressor] 12.5 mg PO BID #0 04/08/17 [History] Insulin Glargine,Hum.rec.anlog [Lantus Solostar] 10 unit SQ DAILY 03/09/18 [History] Ondansetron HCl [Zofran] 4 mg PO Q6H PRN 03/09/18 [History] Furosemide [Lasix] 20 mg PO DAILY #30 tablet 03/11/18 [Rx] Omeprazole [PriLOSEC] 40 mg PO DAILY 04/09/18 [History] Donepezil [Aricept] 5 mg PO HS 04/17/18 [History] Metformin HCl [Metformin HCl ER] 1,000 mg PO DAILY 04/17/18 [History] Pioglitazone HCl 45 mg PO QAM 04/17/18 [History] Pregabalin [Lyrica] 25 mg PO TID 04/17/18 [History] Tamsulosin [Flomax] 0.4 mg PO DAILY 04/17/18 [History] Tolterodine Tartrate [Detrol] 4 mg PO QPM 04/17/18 [History] Linagliptin [Tradjenta] 5 mg PO DAILY 04/18/18 [History] Amoxicillin/Clavulanate [Augmentin] 875 mg PO BIDWM 7 Days tablet 04/22/18 [Rx] Allergies/Adverse Reactions: Allergy/AdvReac Type Severity Reaction Status Date / Time horse serum Allergy Itching Uncoded 04/17/18 15:54 - Respiratory Orders Smoking Cessation: Smoking cessation has been advised. For more information, call the [place] Tobacco Quit Line at 3-349-XMMD-NOW. - Advance Directives Code Status: DNR-Comfort Care (DNI) - Mobility Orders Other (as per PT) - Rehabiliation Orders Rehab Potential: Fair Rehab Orders: ROM Exercises, Evaluation for Physical Therapy, Evaluation for Occupational Therapy CERTIFICATION: I certify that the transfer of the above named patient to an Extended Care Facility is necessary for the continuing treatment of the diagnosis listed. The above information is true and accurate reflection of patient's current condition. Confidential - Redisclosure prohibited without a patient's written consent.
[2018-04-24] MEDS ORDERED: TOLTERODINE TARTRATE 4 MG PO SCH (18:00)
== END 2018-04-24 18:39 ==
LOC: 2NENU 21:32 → INTOOBSV 21:32
PROVIDERS: ADMIT Internal Medicine; ATTEND Internal Medicine

== ENCOUNTER 2018-05-12 07:58 | Observation (INO) ==
[2018-05-12] MEDS ORDERED: Isovue-370 500 ML INFUS..BTL IV ONE (08:06)
[2018-05-12] MEDS ORDERED: 0.9 % Sodium Chloride 1,000 ML IVC ONE (08:08)
--- NOTE | 2018-05-12 08:09 | Emergency Department Note ---
Disposition Clinical Impression: Empyema of lung, Hyponatremia Chest pain Qualifiers: Chest pain type: unspecified Qualified Code(s): R07.9 - Chest pain, unspecified Disposition: Admitted As Inpatient Condition: Fair General Adult HPI - General Stated complaint: pleurisy Time Seen by Provider: 05/12/18 08:04 Nursing Notes Reviewed: Yes Vital Signs Reviewed: Yes - History of Present Illness HPI Narrative: 82-year-old male presents emergency department with concern for chest pain. Does have past medical history of coronary artery disease. Patient also has history of pleural effusion. He recently had a drain that was removed at his last admission. Patient states he has some shortness of breath as well. Patient states that his chest pain today is sharp in nature. Patient denies any nausea, vomiting, fever, hemoptysis, lower extremity swelling urine - Related Data Home Medications Medication Instructions Recorded Confirmed Aspirin [Lo-Dose Aspirin EC] 81 mg PO DAILY 04/08/17 05/12/18 Atorvastatin Calcium [Lipitor] 20 mg PO DAILY 04/08/17 05/12/18 Docusate [Colace] 100 mg PO DAILY 04/08/17 05/12/18 Metoprolol [Lopressor] 12.5 mg PO BID #0 04/08/17 05/12/18 Insulin Glargine,Hum.rec.anlog 10 unit SQ DAILY 03/09/18 05/12/18 [Lantus Solostar] Ondansetron HCl [Zofran] 4 mg PO Q6H PRN 03/09/18 05/12/18 Omeprazole [PriLOSEC] 40 mg PO DAILY 04/09/18 05/12/18 Donepezil [Aricept] 5 mg PO HS 04/17/18 05/12/18 Metformin HCl [Metformin HCl ER] 1,000 mg PO DAILY 04/17/18 05/12/18 Pioglitazone HCl 45 mg PO QAM 04/17/18 05/12/18 Tamsulosin [Flomax] 0.4 mg PO DAILY 04/17/18 05/12/18 Tolterodine Tartrate [Detrol] 4 mg PO QPM 04/17/18 05/12/18 Linagliptin [Tradjenta] 5 mg PO DAILY 04/18/18 05/12/18 Amoxicillin/Clavulanate [Augmentin] 875 mg PO BID 05/12/18 05/12/18 Fluconazole [Diflucan] 200 mg PO QWEEK 05/12/18 05/12/18 Insulin LISPRO [HumaLOG] 0 unit SQ TID 05/12/18 05/12/18 Lactobacillus Acidophilus 1 cap PO BID 05/12/18 05/12/18 [Acidophilus] Pantothenic Acid 500 mg PO DAILY 05/12/18 05/12/18 Phos-NaK [Neutra-Phos] 1 pack PO DAILY 05/12/18 05/12/18 Pregabalin [Lyrica] 50 mg PO TID 05/12/18 05/12/18 Previous Rx's Medication Instructions Recorded Furosemide [Lasix] 20 mg PO DAILY #30 tablet 03/11/18 Allergies Allergy/AdvReac Type Severity Reaction Status Date / Time horse serum Allergy Itching Uncoded 04/17/18 15:54 All systems ED: reviewed and negative except as stated. Review of Systems: As Per HPI Constitutional: Denies: fever Cardiovascular: Reports: chest pain. Denies: palpitations, syncope Respiratory: Reports: dyspnea. Denies: cough Gastrointestinal: Denies: abdominal pain, nausea, vomiting Genitourinary: Denies: dysuria Past Medical History - Past Medical History Medical history: Reports: coronary artery disease, diabetes, hyperlipidemia, hypertension, osteoporosis, peripheral artery disease, TIA Surgical history: Reports: coronary bypass (CABG), other Psychiatric history: Reports: no psych history - Social History Smoking Status: Former smoker Smokeless Tobacco Status: No Alcohol use: Reports: none Drug use: Reports: none Physical Exam - General Limitations: other General appearance: alert - Head Head exam: normocephalic - Eye Eye exam: Present: EOMI. Absent: scleral icterus - ENT ENT exam: normal oropharynx - Neck Neck exam: Present: trachea midline - Chest Chest inspection: Present: symmetric chest wall rise - Respiratory Respiratory exam: Present: normal lung sounds bilaterally. Absent: respiratory distress, accessory muscle use - Cardiovascular Cardiovascular exam: Present: normal rhythm - Abdominal Exam Abdominal exam: Present: soft, Non-Tender. Absent: distention, guarding, rebound, rigidity - Extremities Exam Extremities exam: Present: normal capillary refill. Absent: pedal edema - Back Exam Back exam: Present: full ROM - Neurological Exam Neurological exam: Present: alert, oriented X3 - Psychiatric Psychiatric exam: Present: normal affect, normal mood - Skin Skin exam: Present: warm, dry, intact, normal color Course Vital Signs Temperature 99.8 F H 05/12/18 08:00 Pulse Rate 91 05/12/18 08:00 Respiratory Rate 12 05/12/18 08:00 Blood Pressure 126/74 05/12/18 08:00 O2 Sat by Pulse Oximetry 99 05/12/18 08:00 Temperature 99.8 F H 05/12/18 08:00 Pulse Rate 89 05/12/18 10:23 Respiratory Rate 17 05/12/18 10:23 Blood Pressure 120/67 05/12/18 10:23 O2 Sat by Pulse Oximetry 98 05/12/18 10:23 Oxygen Delivery Oxygen Delivery Room Air Medical Decision Making - MDM Narrative Medical decision making narrative: 82-year-old male presents emergency department with concern for chest pain and shortness of breath. EKG did not reveal any ischemic ST changes. Troponin was negative. We did obtain a chest x-ray that revealed residual edema as well as small left pleural effusion. We did obtain a CTA as patient is at high risk for pulmonary embolus. Did not reveal any evidence of pulmonary embolus. However, it did show a moderate left-sided pleural effusion that was containing gas. Concern that it could represent an empyema per radiology. At this time, patient does have a leukocytosis of 15.5 We will obtain blood cultures, lactic acid. We will provide vancomycin and cefepime. The patient's chest pain, is most likely secondary to the pleural effusion, and is very atypical, however, with patient having previous known coronary artery disease, there is concern for needing for chest pain observation as well on obtaining delta troponins. Patient is given pain medication for chest pain here. Also tonight, patient's sodium has been decreasing. Is currently 130. This is most lower than it has been in the past. I spoke with the hospitalist, Dr. Haney agree to accept the patient for admission. Patient was hemodynamically stable not in any acute distress. I told patient as well as family member at bedside. They agree to plan. Chest CTA 05/12/18 08:06 IMPRESSION: 1. No pulmonary embolus. 2. Re-demonstration of a moderate left pleural effusion containing gas. Findings may be iatrogenic or represent an empyema. Adjacent atelectasis of the left lower lobe is also unchanged since 04/19/2018. Superimposed infection would be difficult to exclude. 3. Trace right effusion with adjacent atelectasis. D/ / 05/12/2018 10:22:51 Lisa Helms MD / bcarter Interpreting Provider: Lisa Helms MD Chest X-Ray 05/12/18 08:07 IMPRESSION: Decreased volume of small left pleural effusion with residual edema versus atelectasis in the left lower lung zone. D/ / Jelani Muller MD / Jelani Muller MD Interpreting Provider: Jelani Muller MD - Lab Data Result diagrams: 05/12/18 08:06 05/12/18 08:06 Lab Results 05/12/18 05/12/18 05/12/18 Range/Units 08:06 08:06 08:06 WBC 15.5 H (4.3-11.1) K/mcL RBC 4.16 L (4.19-5.50) M/mcL Hgb 10.9 L (12.9-16.9) g/dL Hct 32.8 L (37.5-50.1) % MCV 78.8 L (83.0-100.0) fL MCH 26.2 L (28.0-33.3) pg MCHC 33.2 (31.6-35.5) g/dL RDW 15.3 H (11.5-14.5) % Plt Count 739 H (140-400) K/mcL MPV 9.1 L (9.4-12.4) fL Immature Gran % 1.0 (0-4) % Seg Neutrophils % 75.8 % Lymphocytes % 14.2 % Monocytes % 8.0 % Eosinophils % 0.5 % Basophils % 0.5 % Neutrophils # 11.7 H (1.6-8.9) K/mcL Lymphocytes # 2.2 (0.6-4.6) K/mcL Monocytes # 1.2 (0.0-1.3) K/mcL Eosinophils # 0.1 (0.0-0.6) K/mcL Basophils # 0.1 (0.0-0.2) K/mcL Sodium 130 L (136-145) mEq/L Potassium 4.2 (3.5-5.1) mEq/L Chloride 94 L (98-107) mEq/L Carbon Dioxide 29 (23-29) mEq/L BUN 11 (8-23) mg/dL Creatinine 0.57 L (0.70-1.30) mg/dL Est GFR ( Amer) > 60 (> 60) Est GFR (Non-Af Amer) > 60 (> 60) BUN/Creatinine Ratio 19 (6-26) Glucose 161 H (70-105) mg/dL Calculated Osmolality 273 L (280-300) Lactic Acid (0.5-2.2) mmol/L Calcium 9.3 (8.6-10.3) mg/dL Troponin I < 0.03 (< 0.04) ng/mL B-Natriuretic Peptide 114 H (Less than 100) pg/mL 05/12/18 Range/Units 08:24 WBC (4.3-11.1) K/mcL RBC (4.19-5.50) M/mcL Hgb (12.9-16.9) g/dL Hct (37.5-50.1) % MCV (83.0-100.0) fL MCH (28.0-33.3) pg MCHC (31.6-35.5) g/dL RDW (11.5-14.5) % Plt Count (140-400) K/mcL MPV (9.4-12.4) fL Immature Gran % (0-4) % Seg Neutrophils % % Lymphocytes % % Monocytes % % Eosinophils % % Basophils % % Neutrophils # (1.6-8.9) K/mcL Lymphocytes # (0.6-4.6) K/mcL Monocytes # (0.0-1.3) K/mcL Eosinophils # (0.0-0.6) K/mcL Basophils # (0.0-0.2) K/mcL Sodium (136-145) mEq/L Potassium (3.5-5.1) mEq/L Chloride (98-107) mEq/L Carbon Dioxide (23-29) mEq/L BUN (8-23) mg/dL Creatinine (0.70-1.30) mg/dL Est GFR ( Amer) (> 60) Est GFR (Non-Af Amer) (> 60) BUN/Creatinine Ratio (6-26) Glucose (70-105) mg/dL Calculated Osmolality (280-300) Lactic Acid 1.0 (0.5-2.2) mmol/L Calcium (8.6-10.3) mg/dL Troponin I (< 0.04) ng/mL B-Natriuretic Peptide (Less than 100) pg/mL - EKG Data EKG #1 EKG attestation: Yes I reviewed and interpreted this EKG. EKG results narrative: 8:13 Heart rate 92 bpm, MO interval 258 ms, QRS duration 92 ms, QT 356 ms, normal axis. Sinus rhythm ventricular rate 90 beats for minute. First-degree AV block. No ischemic ST changes when in comparison with his previous EKG. Attestation Statement - Attestation Attestation: I, Gaston Sánchez DO, examined this patient [id number] and my medical decision-making was reviewed with Dr. Varghese Tristan, Resident Physician. I agree with the documented findings, disposition and treatment plan as described except to the extent set forth below. Please see my progress notes for details.
[2018-05-12 08:35] LABS: Basophils # 0.1 K/mcL (0.0-0.2); Basophils % 0.5 %; Eosinophils # 0.1 K/mcL (0.0-0.6); Eosinophils % 0.5 %; Hematocrit 32.8 % (37.5-50.1); Hemoglobin 10.9 g/dL (12.9-16.9); Lymphocytes # 2.2 K/mcL (0.6-4.6); Lymphocytes % 14.2 %; Mean Corpuscular HGB Conc 33.2 g/dL (31.6-35.5); Mean Corpuscular Hemoglobin 26.2 pg (28.0-33.3); Mean Corpuscular Volume 78.8 fL (83.0-100.0); Mean Platelet Volume 9.1 fL (9.4-12.4); Monocytes # 1.2 K/mcL (0.0-1.3); Neutrophils # 11.7 K/mcL (1.6-8.9); Platelet Count 739 K/mcL (140-400); Red Blood Count 4.16 M/mcL (4.19-5.50); Red Cell Distribution Width 15.3 % (11.5-14.5); Segmented Neutrophils % 75.8 %
--- NOTE | 2018-05-12 08:44 | Emergency Department Note ---
Disposition Clinical Impression: Empyema of lung Chest pain Qualifiers: Chest pain type: unspecified Qualified Code(s): R07.9 - Chest pain, unspecified Disposition: Admitted As Inpatient Condition: Fair Time of Disposition: 11:17 General Adult HPI - General Chief complaint: ED Shortness of Breath/Dyspnea Stated complaint: pleurisy Time Seen by Provider: 05/12/18 08:04 Source: patient, EMS Limitations: no limitations - History of Present Illness Pain Scale: 10 - Related Data Home Medications Medication Instructions Recorded Confirmed Aspirin [Lo-Dose Aspirin EC] 81 mg PO DAILY 04/08/17 04/24/18 Atorvastatin Calcium [Lipitor] 20 mg PO DAILY 04/08/17 04/24/18 Docusate [Colace] 100 mg PO DAILY 04/08/17 04/24/18 Metoprolol [Lopressor] 12.5 mg PO BID #0 04/08/17 04/24/18 Insulin Glargine,Hum.rec.anlog 10 unit SQ DAILY 03/09/18 04/24/18 [Lantus Solostar] Ondansetron HCl [Zofran] 4 mg PO Q6H PRN 03/09/18 04/24/18 Omeprazole [PriLOSEC] 40 mg PO DAILY 04/09/18 04/24/18 Donepezil [Aricept] 5 mg PO HS 04/17/18 04/24/18 Metformin HCl [Metformin HCl ER] 1,000 mg PO DAILY 04/17/18 04/24/18 Pioglitazone HCl 45 mg PO QAM 04/17/18 04/24/18 Pregabalin [Lyrica] 25 mg PO TID 04/17/18 04/24/18 Tamsulosin [Flomax] 0.4 mg PO DAILY 04/17/18 04/24/18 Tolterodine Tartrate [Detrol] 4 mg PO QPM 04/17/18 04/24/18 Linagliptin [Tradjenta] 5 mg PO DAILY 04/18/18 04/24/18 Previous Rx's Medication Instructions Recorded Furosemide [Lasix] 20 mg PO DAILY #30 tablet 03/11/18 Allergies Allergy/AdvReac Type Severity Reaction Status Date / Time horse serum Allergy Itching Uncoded 04/17/18 15:54 Past Medical History - Past Medical History Medical history: Reports: coronary artery disease, diabetes, hyperlipidemia, hypertension, osteoporosis, peripheral artery disease, TIA Surgical history: Reports: coronary bypass (CABG), other Psychiatric history: Reports: no psych history - Social History Smoking Status: Former smoker Smokeless Tobacco Status: No Alcohol use: Reports: none Drug use: Reports: none Physical Exam - General Limitations: no limitations General appearance: alert, in no apparent distress Course Vital Signs Temperature 99.8 F H 05/12/18 08:00 Pulse Rate 91 05/12/18 08:00 Respiratory Rate 12 05/12/18 08:00 Blood Pressure 126/74 05/12/18 08:00 O2 Sat by Pulse Oximetry 99 05/12/18 08:00 Temperature 99.8 F H 05/12/18 08:00 Pulse Rate 89 05/12/18 10:23 Respiratory Rate 17 05/12/18 10:23 Blood Pressure 120/67 05/12/18 10:23 O2 Sat by Pulse Oximetry 98 05/12/18 10:23 Oxygen Delivery Oxygen Delivery Room Air Medical Decision Making - Lab Data Result diagrams: 05/12/18 08:06 05/12/18 08:06 Lab Results 05/12/18 05/12/18 05/12/18 Range/Units 08:06 08:06 08:06 WBC 15.5 H (4.3-11.1) K/mcL RBC 4.16 L (4.19-5.50) M/mcL Hgb 10.9 L (12.9-16.9) g/dL Hct 32.8 L (37.5-50.1) % MCV 78.8 L (83.0-100.0) fL MCH 26.2 L (28.0-33.3) pg MCHC 33.2 (31.6-35.5) g/dL RDW 15.3 H (11.5-14.5) % Plt Count 739 H (140-400) K/mcL MPV 9.1 L (9.4-12.4) fL Immature Gran % 1.0 (0-4) % Seg Neutrophils % 75.8 % Lymphocytes % 14.2 % Monocytes % 8.0 % Eosinophils % 0.5 % Basophils % 0.5 % Neutrophils # 11.7 H (1.6-8.9) K/mcL Lymphocytes # 2.2 (0.6-4.6) K/mcL Monocytes # 1.2 (0.0-1.3) K/mcL Eosinophils # 0.1 (0.0-0.6) K/mcL Basophils # 0.1 (0.0-0.2) K/mcL Sodium 130 L (136-145) mEq/L Potassium 4.2 (3.5-5.1) mEq/L Chloride 94 L (98-107) mEq/L Carbon Dioxide 29 (23-29) mEq/L BUN 11 (8-23) mg/dL Creatinine 0.57 L (0.70-1.30) mg/dL Est GFR ( Amer) > 60 (> 60) Est GFR (Non-Af Amer) > 60 (> 60) BUN/Creatinine Ratio 19 (6-26) Glucose 161 H (70-105) mg/dL Calculated Osmolality 273 L (280-300) Lactic Acid (0.5-2.2) mmol/L Calcium 9.3 (8.6-10.3) mg/dL Troponin I < 0.03 (< 0.04) ng/mL B-Natriuretic Peptide 114 H (Less than 100) pg/mL 05/12/18 Range/Units 08:24 WBC (4.3-11.1) K/mcL RBC (4.19-5.50) M/mcL Hgb (12.9-16.9) g/dL Hct (37.5-50.1) % MCV (83.0-100.0) fL MCH (28.0-33.3) pg MCHC (31.6-35.5) g/dL RDW (11.5-14.5) % Plt Count (140-400) K/mcL MPV (9.4-12.4) fL Immature Gran % (0-4) % Seg Neutrophils % % Lymphocytes % % Monocytes % % Eosinophils % % Basophils % % Neutrophils # (1.6-8.9) K/mcL Lymphocytes # (0.6-4.6) K/mcL Monocytes # (0.0-1.3) K/mcL Eosinophils # (0.0-0.6) K/mcL Basophils # (0.0-0.2) K/mcL Sodium (136-145) mEq/L Potassium (3.5-5.1) mEq/L Chloride (98-107) mEq/L Carbon Dioxide (23-29) mEq/L BUN (8-23) mg/dL Creatinine (0.70-1.30) mg/dL Est GFR ( Amer) (> 60) Est GFR (Non-Af Amer) (> 60) BUN/Creatinine Ratio (6-26) Glucose (70-105) mg/dL Calculated Osmolality (280-300) Lactic Acid 1.0 (0.5-2.2) mmol/L Calcium (8.6-10.3) mg/dL Troponin I (< 0.04) ng/mL B-Natriuretic Peptide (Less than 100) pg/mL Attestation Statement - Attestation Attestation: I, Gaston Sánchez DO, examined this patient [id number] and my medical decision-making was reviewed with Mary Raymond PGY-1, Resident Physician. I agree with the documented findings, disposition and treatment plan as described except to the extent set forth below. Please see my progress notes for details. 82-year-old male presents to the emergency room from an outside facility with concern for pleural effusion causing pleuritic chest pain. Patient denies any falls trauma or injury. He was seen and evaluated and treated in the last month for similar issues. He has had a thoracentesis completed twice with fluid removal. [facility] the patient is a DNR CC. He has had medical intervention in between that paperwork being signed by description is a DNR CCA. Vital signs initial presentation were stable. Patient is denying nausea vomiting or diarrhea. Denies any fevers or chills. Denies any headache or vision change. Patient appears to have appropriate medical decision-making capacity despite the fact of his baseline medical issues. We will add on the side of caution with medical evaluation here at this time. He is describing chest discomfort and persistent shortness of breath. He is stable on his home oxygen requirement at this point. Lungs have dimin ished aeration bilaterally. Abdomen is soft nontender nondistended no guarding no rigidity. Heart appears to be regular. No visible signs of fluid in the lower extremities. He does have protective boots in his bilateral feet secondary to pressure related ulcers. Patient will have detailed workup completed here in the emergency room and admission process to be established. We will continue to monitor closely. Suspicion is the patient has progression of his pleural effusion and will require draining again. We will continue monitor closely. See detailed documentation of the physical exam, medical intervention, medical decision-making and disposition in the resident physician's note. No critical care applied to the patient's treatment course at this time. 1100 CT imaging is concerning for stable empyema. This is most likely the issue causing the patient's symptoms here today. Antibiotic regimen will be started. The patient is being treated is a DNR CCA at this time. He will be admitted. The hospitalist Dr. Holguin reviewed the case as well as the presentation and medical recommendations after our evaluation here in the emergency room. No other acute concerns or issues noted at this time. Patient is otherwise hemodynamically stable. He does not show any acute signs of septic-like presentation. This is most likely a progression of his stable illness. We will continue to monitor here in the emergency room until admission processes has been completed. Patient is otherwise clinically stable. We did recommend continuation of the cardiac evaluation secondary to the patient's symptoms being different than previous. This will be completed in the hospital setting.
[2018-05-12] MEDS ORDERED: *HR* FentaNYL (PF) 100 MCG/2 ML VIAL IVP ONE (08:47)
[2018-05-12 09:00] LABS: Troponin I < 0.03 ng/mL (< 0.04)
[2018-05-12 09:05] LABS: BUN/Creatinine Ratio 19 (6-26); Blood Urea Nitrogen 11 mg/dL (8-23); Calcium 9.3 mg/dL (8.6-10.3); Carbon Dioxide 29 mEq/L (23-29); Chloride 94 mEq/L (98-107); Glucose 161 mg/dL (70-105); Osmolality,Calculated 273 (280-300); Potassium 4.2 mEq/L (3.5-5.1); Sodium 130 mEq/L (136-145); eGFR For Non-African Americans > 60 (> 60)
[2018-05-12] MEDS ORDERED: Cefepime HCl 1,000 MG in Water for inj. (sterile) 20 ML 10 ML IVP STA (10:27)
--- NOTE | 2018-05-12 17:38 | Internal Med History&Physical ---
Date of Encounter: 05/12/18 Time of Encounter: 17:35 Internal Medicine - H&P: HPI Chief complaint: chest pain Admitted From: Home Plans for Post Hospital Care: Home History of present illness: Mr. HILARIO is a 82 year old male with past medical history of recurrent pleural effusion s/p chest tube placment, lung empyema, DHF, CAD s/p CBAG, DM-II, PAD, TIA, COPD, difficult airway with tracheal intubation, DNRCC who presents with chest pain. Pt states he has had chest pain off and on. Pt's step daughter, who is a nurse came in during my assessment. Pt had Pleur X cath placed 04/12/2018. After cath placed, SNF was recommended and he resufed, went home and had recurrent falls. He presented back to ED 04/17/2018 and was readmitted for falls. At that time he also had issues with cath not draning. so pulm was consulted. CXR done on that visit showed hydropneumothorax. Pt had chest tube placed. He was discharged to [facility] with PO antibiotics. At [facility] chest tube was accidentally cut while SNF nurse was performing dressing change. Pt was taken to [facility] ED 04/23/2018 but transferred here since he was establis [facility] with pulmonary service at [place]. Pulmonology was consulted and recommended out pt f/u with Dr. Rockwell for cath removal 04/28/2018. He was also discharged on Augmentin prescribed 05/02/2018 to complete 14 days course. Pt present to ED with chest pain. CXR in ED showing moderate pleural effusion. Pt states he is not normally on oxygen at home and step daughter verified this. Pt placed on oxygen in the ED at 4L NC. He denies cough or sputum production. In ED WBC 15.5, Hgb 10.9, plt 739, Na 130, Cl 94, Cr 0.57, BNP 114. Chest x ray XR/XR chest 1V portable IMPRESSION: Decreased volume of small left pleural effusion with residual edema versus atelectasis in the left lower lung zone. CTA chest CT/CT angio chest IMPRESSION: 1. No pulmonary embolus. 2. Re-demonstration of a moderate left pleural effusion containing gas. Findings may be iatrogenic or represent an empyema. Adjacent atelectasis of the left lower lobe is also unchanged since 04/19/2018. Superimposed infection would be difficult to exclude. 3. Trace right effusion with adjacent atelectasis. Past Med Surg Social Fam HX - Past Medical History Medical history: COPD, coronary artery disease, dementia, diabetes, hyperlipidemia, hypertension, osteoporosis, peripheral artery disease, TIA Additional medical history: gout, bph Psychiatric history: no psych history - Past Surgical History Surgical History: coronary bypass (CABG), other Additional surgical history: hernia repair, see pt record pt refuses to recall medical history - Social History Smoking Status: Former smoker Smokeless Tobacco Status: No Alcohol use: none Drug use: none - Family History Mother Living Status: Father Living Status: Internal Medicine - H&P: Meds Aspirin [Lo-Dose Aspirin EC] 81 mg PO DAILY 04/08/17 [History] Atorvastatin Calcium [Lipitor] 20 mg PO DAILY 04/08/17 [History] Docusate [Colace] 100 mg PO DAILY 04/08/17 [History] Metoprolol [Lopressor] 12.5 mg PO BID #0 04/08/17 [History] Insulin Glargine,Hum.rec.anlog [Lantus Solostar] 10 unit SQ DAILY 03/09/18 [History] Ondansetron HCl [Zofran] 4 mg PO Q6H PRN 03/09/18 [History] Furosemide [Lasix] 20 mg PO DAILY #30 tablet 03/11/18 [Rx] Omeprazole [PriLOSEC] 40 mg PO DAILY 04/09/18 [History] Donepezil [Aricept] 5 mg PO HS 04/17/18 [History] Metformin HCl [Metformin HCl ER] 1,000 mg PO DAILY 04/17/18 [History] Pioglitazone HCl 45 mg PO QAM 04/17/18 [History] Tamsulosin [Flomax] 0.4 mg PO DAILY 04/17/18 [History] Tolterodine Tartrate [Detrol] 4 mg PO QPM 04/17/18 [History] Linagliptin [Tradjenta] 5 mg PO DAILY 04/18/18 [History] Amoxicillin/Clavulanate [Augmentin] 875 mg PO BID 05/12/18 [History] Fluconazole [Diflucan] 200 mg PO QWEEK 05/12/18 [History] Insulin LISPRO [HumaLOG] 0 unit SQ TID 05/12/18 [History] Lactobacillus Acidophilus [Acidophilus] 1 cap PO BID 05/12/18 [History] Pantothenic Acid 500 mg PO DAILY 05/12/18 [History] Phos-NaK [Neutra-Phos] 1 pack PO DAILY 05/12/18 [History] Pregabalin [Lyrica] 50 mg PO TID 05/12/18 [History] Allergy/AdvReac Type Severity Reaction Status Date / Time horse serum Allergy Itching Uncoded 04/17/18 15:54 All Systems PM: A 10-system review of systems was performed and is negative for pertinent findings except as documented above in the HPI. - Constitutional Vitals: Temp Pulse Resp BP Pulse Ox 97.9 F 89 18 104/64 99 05/12/18 15:58 05/12/18 15:58 05/12/18 15:58 05/12/18 15:58 05/12/18 15:58 General appearance: Present: A&O X 3, no acute distress Exam: . - Head Head exam: Present: atraumatic, normocephalic - Eye Eye exam: Present: PERRL, conjuntiva pink, sclera anicteric Pupils: Present: PERRL - Neck Neck exam general surgery: Present: supple, trachea midline. Absent: lymphadenopathy - Respiratory Respiratory exam: Present: CTAB. Absent: accessory muscle use, rales, rhonchi, wheezes - Cardiovascular Cardiovascular exam: Present: RRR, +S1, +S2. Absent: diastolic murmur, gallop, rubs, systolic murmur - GI/Abdominal GI/Abdominal exam: Present: normal bowel sounds, soft, no peritoneal signs. Absent: distended, tenderness - Extremities Exam Extremities exam: Present: warm, radial pulses palpable and symmetrical. Absent: calf tenderness, cyanotic, pedal edema - Neurological Exam Neurological exam: Present: CN II-XII intact, oriented X3, no focal deficits. Absent: pronater drift, facial droop, speech deficit - Skin Skin exam: Present: dry, intact Internal Med - H&P Results - Labs CBC & Chem 7: 05/12/18 08:06 05/12/18 08:06 Labs: Short CBC 05/12/18 Range/Units 08:06 WBC 15.5 H (4.3-11.1) K/mcL Hgb 10.9 L (12.9-16.9) g/dL Hct 32.8 L (37.5-50.1) % Plt Count 739 H (140-400) K/mcL Neutrophils # 11.7 H (1.6-8.9) K/mcL BMP 05/12/18 08:06 Sodium 130 L Potassium 4.2 Chloride 94 L Carbon Dioxide 29 BUN 11 Creatinine 0.57 L Glucose 161 H Calcium 9.3 Cardiac Enzymes 05/12/18 Range/Units 08:06 Troponin I < 0.03 (< 0.04) ng/mL - Impressions ITS Impressions Chest CTA 05/12/18 08:06 IMPRESSION: 1. No pulmonary embolus. 2. Re-demonstration of a moderate left pleural effusion containing gas. Findings may be iatrogenic or represent an empyema. Adjacent atelectasis of the left lower lobe is also unchanged since 04/19/2018. Superimposed infection would be difficult to exclude. 3. Trace right effusion with adjacent atelectasis. D/ / 05/12/2018 10:22:51 Lisa Helms MD / [facility] Interpreting Provider: Lisa Helms MD Chest X-Ray 05/12/18 08:07 IMPRESSION: Decreased volume of small left pleural effusion with residual edema versus atelectasis in the left lower lung zone. D/ / Jelani Muller MD / Jelani Muller MD Interpreting Provider: Jelani Muller MD - Assessment and plan (1) Chest pain Current Visit: Yes Status: Acute Assessment and plan: Chest pain likely due to pleural effusion. Troponin <0.03. 12 L EKG showed no acute changes when compared to previous. SR and 1st degree AVB with ? nonspecific T wave changes Chest x ray showed L pleural effusion. Will cycle troponin. Pt declines to take Nitro SL. Resume home dose ASA and other CAD meds. Qualifiers: Chest pain type: unspecified Qualified Code(s): R07.9 - Chest pain, unspecified (2) Pleural effusion Current Visit: No Status: Chronic Assessment and plan: chronic recurrent pleural effusion. Pt known [facility] service and have agreed to see him in consult. Will continue oxygen supplement for now and order prn pain control. (3) Leukocytosis Current Visit: No Status: Acute Assessment and plan: Pt had been on Fluconazole and Augmentin both of which he should have completed by now. This will need clarified in am. CT chest mentioned possible iatrogenic or represent an empyema and that superimposed infection could not be ruled out. Pt is afebrile and not complaining of cough. Will place on Vanc and Zosyn empirically and send sputum if pt is able to give a sample. CTA chest CT/CT angio chest IMPRESSION: 1. No pulmonary embolus. 2. Re-demonstration of a moderate left pleural effusion containing gas. Findings may be iatrogenic or represent an empyema. Adjacent atelectasis of the left lower lobe is also unchanged since 04/19/2018. Superimposed infection would be difficult to exclude. 3. Trace right effusion with adjacent atelectasis. Qualifiers: Leukocytosis type: unspecified Qualified Code(s): D72.829 - Elevated white blood cell count, unspecified (4) Hyponatremia Current Visit: Yes Status: Acute Assessment and plan: Will give IVF and recheck in am (5) COPD (chronic obstructive pulmonary disease) Current Visit: No Status: Chronic Assessment and plan: Not in exacerbation. Will place on prn nebs Qualifiers: COPD type: emphysema Emphysema type: unspecified Qualified Code(s): 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 - Time Spent With Patient Total time spent is greater than 50% in coordination of care (as documented) at patient's floor/unit and/or counseling patient: 25 - 35 minutes
[2018-05-12] MEDS ORDERED: Ondansetron ODT 4 MG TAB.RAPDIS PO PRN (18:26)
[2018-05-12] MEDS ORDERED: NON-FORMULARY MEDICATION 1 EACH EACH (Fluconazole [Diflucan] 200 MG) PO SCH (18:30)
[2018-05-12] MEDS ORDERED: Nitroglycerin 0.4 MG TAB.SUBL SL STA (18:34)
[2018-05-12] MEDS ORDERED: Aspirin 325 MG TABLET PO STA (18:34)
[2018-05-12] MEDS ORDERED: *HR* Morphine 2 MG/ML SYRINGE IVP ONE (18:39)
[2018-05-12] MEDS ORDERED: Naloxone 0.4 MG/ML INJ IVP PRN (18:59)
[2018-05-12] MEDS ORDERED: Acetaminophen 325 MG TABLET PO PRN (18:59)
[2018-05-12] MEDS ORDERED: *HR* Dextrose 50 % in Water (Syg) 50 ML SYRINGE IVP PRN (19:14)
[2018-05-12] MEDS ORDERED: D5% in Water 1,000 ML IVC PRN (19:14)
[2018-05-12] MEDS ORDERED: Dextrose Gel 15 GM/37.5 ML TUBE PO PRN ×2 (19:14)
[2018-05-12] MEDS ORDERED: Ipratropium/Albuterol Neb 3 ML IH PRN (19:26)
[2018-05-12] MEDS ORDERED: Nitroglycerin 0.4 MG TAB.SUBL SL PRN (19:41)
[2018-05-12] MEDS ORDERED: *HR* HYDROcodone/Acet 5/325 mg TABLET PO PRN (19:42)
[2018-05-12] MEDS: Lactobacillus 1 EACH CAP.SPRINK PO SCH (20:36)
[2018-05-12] MEDS: Insulin DETEMIR 100 UNIT/ML X5UNITS SQ SCH (20:39)
[2018-05-13 04:34] LABS: Basophils # 0.1 K/mcL (0.0-0.2); Basophils % 0.6 %; Eosinophils # 0.2 K/mcL (0.0-0.6); Eosinophils % 1.1 %; Hematocrit 31.5 % (37.5-50.1); Hemoglobin 10.5 g/dL (12.9-16.9); Immature Granulocytes % 1.4 % (0-4); Lymphocytes # 1.7 K/mcL (0.6-4.6); Lymphocytes % 10.9 %; Mean Corpuscular HGB Conc 33.3 g/dL (31.6-35.5); Mean Corpuscular Hemoglobin 26.3 pg (28.0-33.3); Mean Corpuscular Volume 78.9 fL (83.0-100.0); Mean Platelet Volume 9.7 fL (9.4-12.4); Monocytes # 1.3 K/mcL (0.0-1.3); Monocytes % 8.3 %; Neutrophils # 12.4 K/mcL (1.6-8.9); Platelet Count 685 K/mcL (140-400); Red Blood Count 3.99 M/mcL (4.19-5.50); Red Cell Distribution Width 15.3 % (11.5-14.5); Segmented Neutrophils % 77.7 %
[2018-05-13 04:52] LABS: BUN/Creatinine Ratio 23 (6-26); Blood Urea Nitrogen 14 mg/dL (8-23); Calcium 8.7 mg/dL (8.6-10.3); Carbon Dioxide 26 mEq/L (23-29); Chloride 100 mEq/L (98-107); Glucose 149 mg/dL (70-105); Osmolality,Calculated 281 (280-300); Potassium 4.5 mEq/L (3.5-5.1); Sodium 134 mEq/L (136-145); eGFR For Non-African Americans > 60 (> 60)
[2018-05-13 05:00] LABS: Troponin I < 0.03 ng/mL (< 0.04)
[2018-05-13] MEDS: Piperacillin/Tazobactam 3.375 GM in 0.9 % Sodium Chloride Mini Bag 100 ML IVPB SCH ×2 (06:44→15:29)
--- NOTE | 2018-05-13 06:53 | Pulmonology Consult Note ---
Date of Encounter: 05/13/18 Time of Encounter: 06:53 Assessment and Plan (1) Recurrent left pleural effusion Current Visit: Yes Status: Acute In conclusion this is a 82-year-old gentleman past medical history of multiple medical comorbidities and chronic deconditioning along with recurrent left-sided pleural effusion who had presented from his nursing facility at [facility] for what was described as chest pain and increased oxygen requirement. When I examined the patient in the room today his oxygen was actually off and I checked his oxygen saturation which at that time was 92% that appears to be close to baseline for him he was not endorsing any significant chest pain when I asked him. I had a chance to review his radiology extensively and he does have a recurrent left-sided pleural effusion but actually there is fairly minimal amount of fluid that could not be easily aspirated at bedside however I suspect that there is a better than average chance that this does represent an infected pleural space and he would likely benefit from at least aspiration via ultrasound or CT-guided thoracentesis for drainage of that collection and possibility of a small bore chest tube placement. This would have to be done with interventional radiology and the fluid would have to be sent subsequently for analysis. There is no indication really at this point of replacement of Pleurx catheter given the suspicion for infection and given the loculated nature of his effusion this would be relatively contraindicated in the future In my mind everything hinges upon how aggressive the patient and his family want to be moving forward. It is unclear to me at this point the patient can give informed consent based upon his mental status and my conversation with him this morning. I did call his on the phone and had about a 15 minute conversatio n and she is unclear about his current CODE STATUS her overall prognosis her goals of care apparently a family meeting was to be held today at [facility] to address this. I took the liberty of contacting the palliative care service to facilitate this conversation hopefully today here at [facility]. If the family and the patient are on board with more aggressive care then I recommend placing a order for interventional radiology for thoracentesis with aspiration and possible small bore chest tube placement. In any event until the clear goals are delineated I recommend a continuation of antimicrobials which cover both gram-positive including MRSA as well as anaerobic coverage. If patient family agree on more conservative management then he would have to complete a prolonged course of antimicrobials this would have to be over 3-4 weeks depending upon how he responds clinically. With high probability that this treatment could fail and disease could progress if this does represent empyema Thank you for this consultation pulmonary will continue to follow (2) COPD (chronic obstructive pulmonary disease) Current Visit: Yes Status: Acute Qualifiers: Emphysema type: unspecified Qualified Code(s): 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 (3) Goals of care, counseling/discussion Current Visit: Yes Status: Acute History of Present Illness Consult date: 05/13/18 Requesting physician: Mile Moise Reason for consult: pleural effusion Chief complaint: Difficulty in Breathing History of present illness: This is a 2-year-old gentleman with persistent left pleural effusion with recent placement of a Pleurx catheter with iatrogenic cutting of the catheter with subsequent removal he is a history of a coronary artery disease and CABG as well as COPD. Also, chronic deconditioning and multiple other medical comorbidities such that he was currently enrolled in hospice program. He was brought back to the hospital because of increasing difficulty in breathing, pleuritic chest pain and an increase in baseline oxygen requirement. In the emergency department was noted to have an elevated white count which has been persistently elevated for several weeks CT angiogram was performed which was negative for filling defect but notable for what was described as a moderate sizee pleural effusion with evidence of gas concerning for empyema (versus iatrogenic cause). Pulmonary was consulted for further evaluation. Of note the majority of my information was gathered from the medical record and from speaking with his . The patient is a somewhat unreliable historian and may have some baseline confusion. When I asked about his overall goals of care and what his current CODE STATUS was he was only able to reply to me that he wanted to get up and walk. Past Med Surg Social Fam HX - Past Medical History Medical history: COPD, coronary artery disease, dementia, diabetes, hyperl ipidemia, hypertension, osteoporosis, peripheral artery disease, TIA Additional medical history: gout, bph Psychiatric history: no psych history - Past Surgical History Surgical History: coronary bypass (CABG), other Additional surgical history: hernia repair, see pt record pt refuses to recall medical history - Social History Smoking Status: Former smoker Smokeless Tobacco Status: No Alcohol use: none Drug use: none - Family History Mother Living Status: Father Living Status: Medications and Allergies Aspirin [Lo-Dose Aspirin EC] 81 mg PO DAILY 04/08/17 [History] Atorvastatin Calcium [Lipitor] 20 mg PO DAILY 04/08/17 [History] Docusate [Colace] 100 mg PO DAILY 04/08/17 [History] Metoprolol [Lopressor] 12.5 mg PO BID #0 04/08/17 [History] Insulin Glargine,Hum.rec.anlog [Lantus Solostar] 10 unit SQ DAILY 03/09/18 [ History] Ondansetron HCl [Zofran] 4 mg PO Q6H PRN 03/09/18 [History] Furosemide [Lasix] 20 mg PO DAILY #30 tablet 03/11/18 [Rx] Omeprazole [PriLOSEC] 40 mg PO DAILY 04/09/18 [History] Donepezil [Aricept] 5 mg PO HS 04/17/18 [History] Metformin HCl [Metformin HCl ER] 1,000 mg PO DAILY 04/17/18 [History] Pioglitazone HCl 45 mg PO QAM 04/17/18 [History] Tamsulosin [Flomax] 0.4 mg PO DAILY 04/17/18 [History] Tolterodine Tartrate [Detrol] 4 mg PO QPM 04/17/18 [History] Linagliptin [Tradjenta] 5 mg PO DAILY 04/18/18 [History] Amoxicillin/Clavulanate [Augmentin] 875 mg PO BID 05/12/18 [History] Fluconazole [Diflucan] 200 mg PO QWEEK 05/12/18 [History] Insulin LISPRO [HumaLOG] 0 unit SQ TID 05/12/18 [History] Lactobacillus Acidophilus [Acidophilus] 1 cap PO BID 05/12/18 [History] Pantothenic Acid 500 mg PO DAILY 05/12/18 [History] Phos-NaK [Neutra-Phos] 1 pack PO DAILY 05/12/18 [History] Pregabalin [Lyrica] 50 mg PO TID 05/12/18 [History] Allergy/AdvReac Type Severity Reaction Status Date / Time horse serum Allergy Itching Uncoded 04/17/18 15:54 All Systems: The remainder of the systems were reviewed and are negative Physical Examination Vital Signs: Vital Signs, Last 4 Hours Temp Pulse Resp BP Pulse Ox 05/13/18 03:40 98.1 F 97 17 114/69 93 General appearance: other (Pale frail and weak-appearing appears chronically debilitated) Eyes: nonicteric ENT: oropharynx dry Neck: supple Effort: normal Auscultation: left: diminished breath sounds, right: rales Cardiovascular: regular rate and rhythm Gastrointestinal: normoactive bowel sounds, soft, non-tender Integumentary: normal Extremities: no cyanosis, no edema, no clubbing Musculoskeletal: no deformities, other (Distal extremities are in compression boots) pupils equal and round, other (The patient is able to tell me his name and his current place of residence when asked where he was he told me that he was still at [facility]. He was on sure of the month but when I asked him with the recent major holiday was he was able to tell me Thanksgiving. He has motor and sensory strength is grossly intact although his motor strength is symmetrically diminished in the pattern of generalized weakness) mood appropriate Results - Laboratory Findings CBC and BMP: 05/13/18 04:23 05/13/18 04:23 Abnormal lab findings: Abnormal lab results WBC 16.0 K/mcL (4.3-11.1) H 05/13/18 04:23 RBC 3.99 M/mcL (4.19-5.50) L 05/13/18 04:23 Hgb 10.5 g/dL (12.9-16.9) L 05/13/18 04:23 Hct 31.5 % (37.5-50.1) L 05/13/18 04:23 MCV 78.9 fL (83.0-100.0) L 05/13/18 04:23 MCH 26.3 pg (28.0-33.3) L 05/13/18 04:23 RDW 15.3 % (11.5-14.5) H 05/13/18 04:23 Plt Count 685 K/mcL (140-400) H 05/13/18 04:23 Neutrophils # 12.4 K/mcL (1.6-8.9) H 05/13/18 04:23 Sodium 134 mEq/L (136-145) L 05/13/18 04:23 Creatinine 0.61 mg/dL (0.70-1.30) L 05/13/18 04:23 Glucose 149 mg/dL (70-105) H 05/13/18 04:23 POC Glucose 216 mg/dL (70-99) H 05/12/18 20:35 B-Natriuretic Peptide 114 pg/mL (Less than 100) H 05/12/18 08:06 - Microbiology Findings Microbiology Findings: Microbiology, Last 48 Hours 05/12/18 10:58 Blood Culture - Preliminary Peripheral Venipuncture Culture is incubating and being continuously monitored for growth. Final report to follow. 05/12/18 08:24 Blood Culture - Preliminary Peripheral Venipuncture Culture is incubating and being continuously monitored for growth. Final report to follow. - Diagnostic Findings Chest x-ray: report reviewed, image reviewed CT scan - chest: report reviewed, image reviewed - Clinical Findings Intake & Output: Intake & Output 05/12/18 05/12/18 05/13/18 15:59 23:59 07:59 Intake Total 260 / 260 Output Total 0 / 0 Balance 260 / 260 Weight 69.8 kg 69.4 kg Consult Discharge Plan - Plan Referrals: NONE,PCP [Primary Care Provider] -
[2018-05-13] MEDS: Insulin LISPRO 300 UNITS/3 ML VIAL SQ SCH ×4 (07:16→21:21)
[2018-05-13] MEDS ORDERED: *HR* HYDROcodone/Acet 5/325 mg TABLET PO PRN (07:26)
--- NOTE | 2018-05-13 07:31 | Electrocardiograph Report ---
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
[2018-05-13] MEDS ORDERED: *HR* Metformin 500 MG TABLET PO SCH (08:00)
[2018-05-13] MEDS ORDERED: GI Cocktail 40 ML EACH PO ONE (09:09)
--- NOTE | 2018-05-13 09:16 | Electrocardiograph Report ---
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
[2018-05-13] MEDS: Lactobacillus 1 EACH CAP.SPRINK PO SCH ×2 (09:18→21:21)
[2018-05-13] MEDS: Aspirin Enteric Coated 81 MG Tablet PO SCH (09:19)
[2018-05-13] MEDS: Furosemide 20 MG TABLET PO SCH (09:22)
[2018-05-13] MEDS: *HR* Pioglitazone 45 MG TABLET PO SCH (09:22)
[2018-05-13] MEDS: Pantoprazole 40 MG VIAL IVP SCH ×2 (09:53→17:22)
--- NOTE | 2018-05-13 10:29 | Palliative - Consult Note ---
<Dk Valdez - Last Filed: 05/13/18 17:46> Date of Encounter: 05/13/18 Time of Encounter: 15:30 - Assessment and Plan (1) Chest pain Current Visit: Yes Status: Acute Assessment and plan: - patient had pleuritic chest (likely due to his recurrent pleural effusion) and some epigastric pain when we saw him this morning. We gave him 1mg [place] , re-assessed him an hr later and patient endorsed less pain, and was conversant. Successively he got 0.5 mg Morphine. We recommend 5mg PO q4h PRN Morphine for better pain control, and reassess his pain tomorrow morning Qualifiers: Chest pain type: unspecified Qualified Code(s): R07.9 - Chest pain, unspecified (2) Goals of care, counseling/discussion Current Visit: Yes Status: Acute Assessment and plan: Dr. Dickson and I spoke to the family in detail about goals of care. Family endorses that they would like to know patient's wishes but do acknowledge the fact that he has a chronic condition that is deteriorating. They do not want him to go in home hospice because believes it'll be difficult to take care of him. They would be fine with him going to [facility]. This is a however, a preliminary plan and will be finalized once the patient gives his input. Patient seemed to be listening to our conversation, but refused to participative for some reason. Patient has a 'Do Not Resuscitate' tattoo on his right wrist and family is in agreement with the code status. (3) Pleural effusion Current Visit: No Status: Chronic Assessment and plan: -patient has a Hx of recurrent pleural effusion. He is well known to the pulmonology service and has been s/p pleurax catheter and chest tube placement i n the past - currently on pain control PRN, awiating goals of care discussion with family to see how aggresviely they want to pursue further workup like a CT guided thoracentesis. (4) Leukocytosis Current Visit: No Status: Acute Assessment and plan: - likely due to findings of empyema on chest CT. - patient was admitted with WBC of 15.5, currently 16.0 - patient has been afebrile during the course of his hospital stay, he has decreased breath sounds on exam with mild b/l wheezing -currently on Vanc/Zosyn. Qualifiers: Leukocytosis type: unspecified Qualified Code(s): D72.829 - Elevated white blood cell count, unspecified (5) COPD (chronic obstructive pulmonary disease) Current Visit: No Status: Chronic Assessment and plan: - patient has a Hx of COPD - patient does not appear to be in exacerbation - [place] PRN Qualifiers: COPD type: emphysema Emphysema type: unspecified Qualified Code(s): 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 (6) Hyponatremia Current Visit: Yes Status: Acute Assessment and plan: on IV fluids , being managed by the primary team Palliative-CN HPI - Data of Consult Consult date: 05/13/18 Requesting Physician: Bart Holguin MD Primary Care Provider: PCP NONE - Consult Narrative History of present illness: Mr. Nath is a pleasant 82 year old male with a PMHx of recurrent pleural effusion s/p pleurax catheter placement (04/12), CAD s/p CABG, DM-II, PAD, TIA, COPD who was admitted to the hospital for intermittent chest pain. After placement of the catheter, patient was recommended SNF but he denied and went home. Patient presented to the ED not too long ago on 04/17 secondary to fall and had issues with his catheter not draining and CXR done back then had shown hydropneumothorax. Pulmonology was consulted and chest tube was placed. Thereafter, patient was discharged to the [facility] where his chest tube was accidentally cut while SNF nurse was performing the dressing change. Initial workup in the ED showed moderate pleural effusion with residual edema vs atelectesis in the left lower lung zone, with leukocytosis (15.5) , patient was put on 4L [place] to keep his oxygen saturation. Patient endorses o cough or sputum production, We were consulted to determine the goals of care - to assess how aggressively patient wants to pursue further medical treatment like CT guided thoracentesis and possible small bore chest tube placement, or he would chose conservative management like prolonged course of abx or just resort to comfort care. Patient was in moderate distress when Dr. Dickson and I saw him at this bedside this AM. He was endorsing pleuritic chest pain along with some epigastric pain. Patient was given GI cocktail and [place], went back to reassess the patient in an hour and patient endorsed less pain. We also had a conversation with his Brionna over the phone about meeting in the hospital to discuss goals of care. Later during the day,we had a discussion about goals of care with his Brionna and his two sons, and preliminary plan is to send patient to [facility]. CC: Bart Holguin MD - Time Spent with Patient Time: Total time spent is greater than 50% in coordination of care (as documented) at patient's floor/unit and/or counseling patient: Past Med Surg Social Fam HX - Past Medical History Medical history: COPD, coronary artery disease, dementia, diabetes, hyperlipidemia, hypertension, osteoporosis, peripheral artery disease, TIA Additional medical history: gout, bph Psychiatric history: no psych history - Past Surgical History Surgical History: coronary bypass (CABG), other Additional surgical history: hernia repair, see pt record pt refuses to recall medical history - Social History Smoking Status: Former smoker Smokeless Tobacco Status: No Alcohol use: none Drug use: none - Family History Mother Living Status: Father Living Status: Medications and Allergies Aspirin [Lo-Dose Aspirin EC] 81 mg PO DAILY 04/08/17 [History] Atorvastatin Calcium [Lipitor] 20 mg PO DAILY 04/08/17 [History] Docusate [Colace] 100 mg PO DAILY 04/08/17 [History] Metoprolol [Lopressor] 12.5 mg PO BID #0 04/08/17 [History] Insulin Glargine,Hum.rec.anlog [Lantus Solostar] 10 unit SQ DAILY 03/09/18 [History] Ondansetron HCl [Zofran] 4 mg PO Q6H PRN 03/09/18 [History] Furosemide [Lasix] 20 mg PO DAILY #30 tablet 03/11/18 [Rx] Omeprazole [PriLOSEC] 40 mg PO DAILY 04/09/18 [History] Donepezil [Aricept] 5 mg PO HS 04/17/18 [History] Metformin HCl [Metformin HCl ER] 1,000 mg PO DAILY 04/17/18 [History] Pioglitazone HCl 45 mg PO QAM 04/17/18 [History] Tamsulosin [Flomax] 0.4 mg PO DAILY 04/17/18 [History] Tolterodine Tartrate [Detrol] 4 mg PO QPM 04/17/18 [History] Linagliptin [Tradjenta] 5 mg PO DAILY 04/18/18 [History] Amoxicillin/Clavulanate [Augmentin] 875 mg PO BID 05/12/18 [History] Fluconazole [Diflucan] 200 mg PO QWEEK 05/12/18 [History] Insulin LISPRO [HumaLOG] 0 unit SQ TID 05/12/18 [History] Lactobacillus Acidophilus [Acidophilus] 1 cap PO BID 05/12/18 [History] Pantothenic Acid 500 mg PO DAILY 05/12/18 [History] Phos-NaK [Neutra-Phos] 1 pack PO DAILY 05/12/18 [History] Pregabalin [Lyrica] 50 mg PO TID 05/12/18 [History] Allergy/AdvReac Type Severity Reaction Status Date / Time horse serum Allergy Itching Uncoded 04/17/18 15:54 Palliative Care-Exam - Constitutional Vitals: Temp Pulse Resp BP Pulse Ox 98.1 F 93 18 106/61 92 05/13/18 07:09 05/13/18 07:09 05/13/18 07:09 05/13/18 07:09 05/13/18 07:22 Exam: somnolent - Respiratory Respiratory exam: Present: decreased breath sounds Additional comments: no wheezing or ronchi - Cardiovascular Cardiovascular exam: Present: RRR, +S1, +S2 - GI/Abdominal Exam GI/Abdominal exam: Present: soft additional comments: epigastric tenderness, no guarding or rebound tenderness Internal Medicine - CN: Reslt - Labs CBC & Chem 7: 05/13/18 04:23 05/13/18 04:23 Labs: Short CBC 05/13/18 Range/Units 04:23 WBC 16.0 H (4.3-11.1) K/mcL Hgb 10.5 L (12.9-16.9) g/dL Hct 31.5 L (37.5-50.1) % Plt Count 685 H (140-400) K/mcL Neutrophils # 12.4 H (1.6-8.9) K/mcL BMP 05/13/18 04:23 Sodium 134 L Potassium 4.5 Chloride 100 Carbon Dioxide 26 BUN 14 Creatinine 0.61 L Glucose 149 H Calcium 8.7 Cardiac Enzymes 05/12/18 05/13/18 Range/Units 18:38 04:23 Troponin I < 0.03 < 0.03 (< 0.04) ng/mL - Impressions Impressions Chest CTA 05/12/18 08:06 IMPRESSION: 1. No pulmonary embolus. 2. Re-demonstration of a moderate left pleural effusion containing gas. Findings may be iatrogenic or represent an empyema. Adjacent atelectasis of the left lower lobe is also unchanged since 04/19/2018. Superimposed infection would be difficult to exclude. 3. Trace right effusion with adjacent atelectasis. D/ / 05/12/2018 10:22:51 Lisa Helms MD / iqra Interpreting Provider: Lisa Helms MD Chest X-Ray 05/13/18 06:00 IMPRESSION: Stable appearing left-sided pleural effusion and airspace consolidation which may represent atelectasis or pneumonia in the left chest. No new infiltrate. D/ / Ajay Guan MD / Ajay Guan MD Interpreting Provider: Ajay Guan MD Consult Discharge Plan - Plan Referrals: NONE,PCP [Primary Care Provider] - ([facility]) Palliative Quality Palliative Quality: Screen for Code Status: Yes, Screen for Goals of Care: Yes, Screen for Pain: Yes, If Pain Regimen Started, Initiate Bowel Regimen: No, Screen for Nausea/Vomitting: No Code Status: 05/12/18 18:59 Resuscitation Status: Active [RES] Routine Comment: Resuscitation Status: DNR-Comfort Care <Gabrielle Dickson - Last Filed: 05/13/18 21:32> Date of Encounter: 05/13/18 Palliative-CN HPI - Data of Consult Requesting Physician: Bart Holguin MD Primary Care Provider: PCP NONE - Consult Narrative History of present illness: Mr. Nath is a 82 year old male CC: Bart Holguin MD - Time Spent with Patient Time: Total time spent is greater than 50% in coordination of care (as documented) at patient's floor/unit and/or counseling patient: Palliative Care-Exam - Constitutional Vitals: Temp Pulse Resp BP Pulse Ox 97.7 F 106 16 103/74 92 05/13/18 17:04 05/13/18 17:04 05/13/18 17:04 05/13/18 17:04 05/13/18 17:04 Internal Medicine - CN: Reslt - Labs CBC & Chem 7: 05/13/18 04:23 05/13/18 04:23 Labs: Short CBC 05/13/18 Range/Units 04:23 WBC 16.0 H (4.3-11.1) K/mcL Hgb 10.5 L (12.9-16.9) g/dL Hct 31.5 L (37.5-50.1) % Plt Count 685 H (140-400) K/mcL Neutrophils # 12.4 H (1.6-8.9) K/mcL BMP 05/13/18 04:23 Sodium 134 L Potassium 4.5 Chloride 100 Carbon Dioxide 26 BUN 14 Creatinine 0.61 L Glucose 149 H Calcium 8.7 Cardiac Enzymes 05/13/18 05/13/18 Range/Units 04:23 10:11 Troponin I < 0.03 < 0.03 (< 0.04) ng/mL - Impressions Impressions Chest X-Ray 05/13/18 06:00 IMPRESSION: Stable appearing left-sided pleural effusion and airspace consolidation which may represent atelectasis or pneumonia in the left chest. No new infiltrate. D/ / Ajay Guan MD / Ajay Guan MD Interpreting Provider: Ajay Guan MD - Attending Attestation I was present during history, and physical exam of this patient, my medical decision-making was reviewed with Dr. Valdez, Resident Physician. I agree with the documented findings, disposition and treatment plan as described except to the extent set forth below. Met with pt in the morning, pt was AAO x3, complaining of epigastric and left sided chest pain, unable to participate in complex discussion due to pain. It was noted that pt has a DNR tattoo on his R wrist. upon questioning, pt steated "I just want to once", confirming his DNR status. Pain medication was ordered. Florian pt's and set a family meeting for 15:30. Dr. Valdez and myself condicted a 40 minutes meeting family, present were pt's , pt's 2 sons and one [id number]. Elder son is the POA as per family. Pt was lying down with his eyes closed, and refused to participate in the discussion. Discussed with family pt's code status, and they agreed that pt wished to be DNR/DNI. Explained current medical condition, trajectory of illness, overall poor prognosis and treatment options. family stated that pt at this point was totally bedound, and they sure that at this point his wishes were to be kept comfortable. However, they wanted pt to make thefinal decision and pt seemed to be unable to open eyes for more than a few seconds. It was decided that in consideration of possible Hospice care at [facility], referal will be made for further hospice evaluation, and pt will be reengaged in the morning. I checked a few minutes after meeting, pt was awake in bed, reading newspapers and conversing with family. Referral made to [place] liaison engineer Radha and appointment taken for tomorrow at 15:30 with family, further GOC discussion with pt in the morning. Pain management: Morphine SL 5mg q4hrs prn. Palliative Quality Palliative Quality: If Pain Regimen Started, Initiate Bowel Regimen: Yes, Screen for Nausea/Vomitting: Yes Code Status: 05/12/18 18:59 Resuscitation Status: Active [RES] Routine Comment: Resuscitation Status: DNR-Comfort Care Palliative Scale - Palliative Performance Scale How ambulatory is this patient?: Totally bed bound What is patient's level of activity and evidence of disease?: Unable to do most activity, Extensive disease How much self-care assistance does patient require?: Considerable assistance r equired How much oral intake does the patient have?: Normal or reduced What is this patient's level of consciousness?: Full or confusion Palliative Performance Score: 40 %
--- NOTE | 2018-05-13 13:55 | Gastroenterology Consult Note ---
<Ramirez Ambriz - Last Filed: 05/13/18 13:52> Date of Encounter: 05/13/18 Time of Encounter: 10:55 - Assessment and plan (1) Chest pain Current Visit: Yes Status: Acute Assessment and plan: Esophagitis could be contributing to the discomfort. Planned for EGD tomorrow to r/o esophagitis, gastritis, duodenitis, PUD, MW tear, or AVM. Patient refuses EGD at this time. I discussed risks and benefits with patient, and he continued to refuse EGD. Qualifiers: Chest pain type: unspecified Qualified Code(s): R07.9 - Chest pain, unspecified (2) Recurrent left pleural effusion Current Visit: Yes Status: Acute - Time Spent With Patient Total time spent is greater than 50% in coordination of care (as documented) at patient's floor/unit and/or counseling patient: GI History of Present Illness - Data of Consult Patient: new to practice Consult date: 05/13/18 Requesting Physician: Bart Holguin MD - Consult Narrative Reason for consult: Esophagitis History of present illness: Mr. Nath is a 82 year old male with PMHx of recurrent pleural effusion s/p chest tube placment, lung empyema, DHF, CAD s/p CBAG, DM-II, PAD, TIA, COPD, difficult airway with tracheal intubation, DNRCC who presented with increasing difficulty in breathing, pleuritic chest pain and an increase in baseline oxygen requirement. Pt had Pleur X cath placed 04/12/2018. After cath placed, SNF was r ecommended and he resufed, went home and had recurrent falls. Patient presented to the ED not too long ago on 04/17 secondary to fall and had issues with his catheter not draining and CXR done back then had shown hydropneumothorax. Pulmonology was consulted and chest tube was placed. Thereafter, [facility] his chest tube was accidentally cut while SNF nurse was performing the dressing change. We were consulted to evaluate for possible esophagitis. Patient complains of epigastric pain. Procedures: No record NSAIDs: ASA Anticoagulation: None Past Med Surg Social Fam HX - Past Medical History Medical history: COPD, coronary artery disease, dementia, diabetes, hyperlipidemia, hypertension, osteoporosis, peripheral artery disease, TIA Additional medical history: gout, bph Psychiatric history: no psych history - Past Surgical History Surgical History: coronary bypass (CABG), other Additional surgical history: hernia repair, see pt record pt refuses to recall medical history - Social History Smoking Status: Former smoker Smokeless Tobacco Status: No Alcohol use: none Drug use: none - Family History Mother Living Status: Father Living Status: - Gastrointestinal Gastrointestinal: Present: as per HPI - Constitutional Constitutional: as per HPI - EENT Eyes: as per HPI Ears: Present: as per HPI Nose, mouth and throat: Present: as per HPI - Cardiovascular Cardiovascular ROS: Present: as per HPI - Respiratory Respiratory IM: Present: as per HPI - Genitourinary Genitourinary: Absent: change in color, Urinary frequency - Neurological ROS Neurological GI: Present: as per HPI - Hematologic/Lymphatic Hematologic/Lymphatic pediatric: Present: as per HPI - Musculoskeletal Musculoskeletal ROS GI: Present: as per HPI - Integumentary Integumentary GI: Present: as per HPI - Psychiatric ROS Psychiatric GI: Present: as per HPI - Endocrine Endocrine IM: Present: as per HPI - Constitutional Vitals: Temp Pulse Resp BP Pulse Ox 97.6 F 77 16 108/66 93 05/13/18 11:18 05/13/18 11:18 05/13/18 11:18 05/13/18 11:18 05/13/18 11:18 General appearance: Present: cooperative, A&O X 3, answers questions appropriately Exam: frail, weak appearing - Head Head exam: Present: atraumatic, normocephalic - Eye Eye exam: Present: normal appearance, sclera anicteric - ENT ENT exam: Present: mucous membranes dry - Neck Neck exam general surgery: Present: normal inspection, trachea midline - Respiratory Respiratory exam: Present: rhonchi, wheezes - Cardiovascular Cardiovascular exam: Present: RRR, +S1, +S2 - GI/Abdominal GI/Abdominal exam: Present: soft, tenderness (epigastric), no peritoneal signs. Absent: distended, firm, guarding - Rectal Rectal exam: Present: deferred - Extremities Exam Extremities exam: Present: warm - Neurological Exam Neurological exam: Present: no focal deficits - Psychiatric Psychiatric exam: Present: normal affect, normal mood - Skin Skin exam: Present: dry, intact, normal color, warm Results - Labs CBC & Chem 7: 05/13/18 04:23 05/13/18 04:23 Labs: Last Result Calcium 8.7 mg/dL (8.6-10.3) 05/13/18 04:23 Troponin I < 0.03 ng/mL (< 0.04) 05/13/18 10:11 Entire Visit Hgb 10.5 g/dL (12.9-16.9) L 05/13/18 04:23 Hct 31.5 % (37.5-50.1) L 05/13/18 04:23 - Impressions Impressions Chest CTA 05/12/18 08:06 IMPRESSION: 1. No pulmonary embolus. 2. Re-demonstration of a moderate left pleural effusion containing gas. Findings may be iatrogenic or represent an empyema. Adjacent atelectasis of the left lower lobe is also unchanged since 04/19/2018. Superimposed infection would be difficult to exclude. 3. Trace right effusion with adjacent atelectasis. D/ / 05/12/2018 10:22:51 Lisa Helms MD / iqra Interpreting Provider: Lisa Helms MD Chest X-Ray 05/13/18 06:00 IMPRESSION: Stable appearing left-sided pleural effusion and airspace consolidation which may represent atelectasis or pneumonia in the left chest. No new infiltrate. D/ / Ajay Guan MD / Ajay Guan MD Interpreting Provider: Ajay Guan MD Consult Discharge Plan - Plan Referrals: NONE,PCP [Primary Care Provider] - ([facility]...) <Stef Bearden - Last Filed: 05/13/18 22:19> Date of Encounter: 05/13/18 Time of Encounter: 19:00 - Time Spent With Patient Total time spent is greater than 50% in coordination of care (as documented) at patient's floor/unit and/or counseling patient: GI History of Present Illness - Data of Consult Requesting Physician: Bart Holguin MD - Consult Narrative History of present illness: Mr. Nath is a 82 year old male - Constitutional Vitals: Temp Pulse Resp BP Pulse Ox 97.7 F 106 16 103/74 92 05/13/18 17:04 05/13/18 17:04 05/13/18 17:04 05/13/18 17:04 05/13/18 17:04 Results - Labs CBC & Chem 7: 05/13/18 04:23 05/13/18 04:23 Labs: Last Result Calcium 8.7 mg/dL (8.6-10.3) 05/13/18 04:23 Troponin I < 0.03 ng/mL (< 0.04) 05/13/18 10:11 Entire Visit Hgb 10.5 g/dL (12.9-16.9) L 05/13/18 04:23 Hct 31.5 % (37.5-50.1) L 05/13/18 04:23 - Impressions Impressions Chest X-Ray 05/13/18 06:00 IMPRESSION: Stable appearing left-sided pleural effusion and airspace consolidation which may represent atelectasis or pneumonia in the left chest. No new infiltrate. D/ / Ajay Guan MD / Ajay Guan MD Interpreting Provider: Ajay Guan MD - Attending Attestation I have personally performed a face to face evaluation on this patient. I have reviewed and agree with the care plan. History and Exam by me shows: Pt seen. Complaining of lower Chest pain. O/E: soft abd. A: Pt with atypical CP. Does has Poss pneumonia/pleural effusion. Rec: pt refusing EGD
[2018-05-13] MEDS ORDERED: *HR* Morphine 2 MG/ML SYRINGE IVP STA (15:07)
[2018-05-13] MEDS ORDERED: MORPHINE SUL Oral CONC 10 MG/0.5 ML ORAL.SYG PO PRN (16:24)
--- NOTE | 2018-05-13 17:53 | Internal Med Progress Note ---
Date of Encounter: 05/13/18 Time of Encounter: 09:30 - Time Spent With Patient 25 - 35 minutes - Subjective Interval history: Pt seen and examined today in presence of nurse. Pt c/o constant retrosternal pain sometimes slightly to right side. Pt is a 82 year old male with PMHx of recurrent pleural effusion s/p chest tube placment, lung empyema, DHF, CAD s/p CBAG, DM-II, PAD, TIA, COPD, DNRCC who presented with increasing difficulty in breathing, pleuritic chest pain and an increase in baseline oxygen requirement. Pt had Pleur X cath placed 04/12/2018. After cath placed, SNF was recommended and he resufed, went home and had recurrent falls. Patient presented to the ED not too long ago on 04/17 secondary to fall and had issues with his catheter not draining and CXR done back then had shown hydropneumothorax. Pulmonology was consulted and chest tube was placed. Thereafter, patient was discharged to the [facility] where his chest tube was accidentally cut while SNF nurse was performing the dressing change. Pt present to ED with chest pain. CXR in ED showing moderate pleural effusion. Pt states he is not normally on oxygen at home and step daughter verified this. Pt placed on oxygen in the ED at 4L NC. He denies cough or sputum production. - Constitutional Vitals: Temp Pulse Resp BP Pulse Ox 97.7 F 106 16 103/74 92 05/13/18 17:04 05/13/18 17:04 05/13/18 17:04 05/13/18 17:04 05/13/18 17:04 General appearance: Present: A&O X 3, no acute distress Exam: General appearance: Present: A&O X 3, no acute distress Exam: . - Head Head exam: Present: atraumatic, normocephalic - Eye Eye exam: Present: PERRL, conjuntiva pink, sclera anicteric Pupils: Present: PERRL - Neck Neck exam general surgery: Present: supple, trachea midline. Absent: lymphadenopathy - Respiratory Respiratory exam: Present: CTAB. Absent: accessory muscle use, rales, rhonchi, wheezes - Cardiovascular Cardiovascular exam: Present: RRR, +S1, +S2. Absent: diastolic murmur, gallop, rubs, systolic murmur - GI/Abdominal GI/Abdominal exam: Present: normal bowel sounds, soft, no peritoneal signs. Absent: distended, tenderness - Extremities Exam Extremities exam: Present: warm, radial pulses palpable and symmetrical. Absent: calf tenderness, cyanotic, pedal edema - Neurological Exam Neurological exam: Present: CN II-XII intact, oriented X3, no focal deficits. Absent: pronater drift, facial droop, speech deficit - Skin Skin exam: Present: dry, intact Internal Medicine: Result - Labs CBC & Chem 7: 05/13/18 04:23 05/13/18 04:23 Labs: Short CBC 05/13/18 Range/Units 04:23 WBC 16.0 H (4.3-11.1) K/mcL Hgb 10.5 L (12.9-16.9) g/dL Hct 31.5 L (37.5-50.1) % Plt Count 685 H (140-400) K/mcL Neutrophils # 12.4 H (1.6-8.9) K/mcL BMP 05/13/18 04:23 Sodium 134 L Potassium 4.5 Chloride 100 Carbon Dioxide 26 BUN 14 Creatinine 0.61 L Glucose 149 H Calcium 8.7 Cardiac Enzymes 05/12/18 05/13/18 05/13/18 Range/Units 18:38 04:23 10:11 Troponin I < 0.03 < 0.03 < 0.03 (< 0.04) ng/mL Troponins x 2 negative. - Impressions Impressions Chest X-Ray 05/13/18 06:00 IMPRESSION: Stable appearing left-sided pleural effusion and airspace consolidation which may represent atelectasis or pneumonia in the left chest. No new infiltrate. D/ / Ajay Guan MD / Ajay Guan MD Interpreting Provider: Ajay Guan MD - Assessment and plan (1) Chest pain Current Visit: Yes Status: Acute Assessment and plan: Chest pain due to pleural effusion vs GERD Troponin <0.03. 12 L EKG showed no acute changes when compared to previous. SR and 1st degree AVB with ? nonspecific T wave changes Chest x ray showed L pleural effusion. Start IV PPI GI Consult Qualifiers: Chest pain type: unspecified Qualified Code(s): R07.9 - Chest pain, unspecified (2) Pleural effusion Current Visit: No Status: Chronic Assessment and plan: chronic recurrent pleural effusion. Started Zosyn. Consider Vanc Will continue oxygen supplement for now and order prn pain control. (3) Leukocytosis Current Visit: No Status: Acute Assessment and plan: Zosyn+ Vanc. Follow labs. Qualifiers: Leukocytosis type: unspecified Qualified Code(s): D72.829 - Elevated white blood cell count, unspecified (4) Hyponatremia Current Visit: Yes Status: Acute Assessment and plan: Improved. Follow lab. (5) COPD (chronic obstructive pulmonary disease) Current Visit: No Status: Chronic Assessment and plan: Not in exacerbation. Cont prn nebs Qualifiers: COPD type: emphysema Emphysema type: unspecified Qualified Code(s): 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 Consult Discharge Plan - Plan Referrals: NONE,PCP [Primary Care Provider] - ([facility]...)
[2018-05-13] MEDS: Insulin DETEMIR 100 UNIT/ML X5UNITS SQ SCH (21:21)
[2018-05-14] MEDS: Piperacillin/Tazobactam 3.375 GM in 0.9 % Sodium Chloride Mini Bag 100 ML IVPB SCH ×4 (00:56→23:43)
[2018-05-14 05:00] LABS: Basophils # 0.1 K/mcL (0.0-0.2); Basophils % 0.5 %; Eosinophils # 0.1 K/mcL (0.0-0.6); Eosinophils % 1.1 %; Hematocrit 31.2 % (37.5-50.1); Hemoglobin 10.1 g/dL (12.9-16.9); Immature Granulocytes % 1.1 % (0-4); Lymphocytes # 1.7 K/mcL (0.6-4.6); Lymphocytes % 12.9 %; Mean Corpuscular HGB Conc 32.4 g/dL (31.6-35.5); Mean Corpuscular Volume 80.2 fL (83.0-100.0); Mean Platelet Volume 9.8 fL (9.4-12.4); Monocytes % 7.9 %; Neutrophils # 10.1 K/mcL (1.6-8.9); Platelet Count 677 K/mcL (140-400); Red Blood Count 3.89 M/mcL (4.19-5.50); Red Cell Distribution Width 15.6 % (11.5-14.5); Segmented Neutrophils % 76.5 %
[2018-05-14] MEDS: Pantoprazole 40 MG VIAL IVP SCH ×2 (05:06→17:10)
[2018-05-14 05:16] LABS: BUN/Creatinine Ratio 28 (6-26); Blood Urea Nitrogen 15 mg/dL (8-23); Calcium 8.7 mg/dL (8.6-10.3); Carbon Dioxide 26 mEq/L (23-29); Chloride 99 mEq/L (98-107); Glucose 140 mg/dL (70-105); Osmolality,Calculated 277 (280-300); Potassium 3.8 mEq/L (3.5-5.1); Sodium 132 mEq/L (136-145); eGFR For Non-African Americans > 60 (> 60)
[2018-05-14] MEDS: Insulin LISPRO 300 UNITS/3 ML VIAL SQ SCH ×4 (07:47→20:30)
[2018-05-14] MEDS: Aspirin Enteric Coated 81 MG Tablet PO SCH ×3 (08:57→12:22)
[2018-05-14] MEDS: *HR* Pioglitazone 45 MG TABLET PO SCH ×3 (08:57→12:22)
[2018-05-14] MEDS: Furosemide 20 MG TABLET PO SCH ×3 (08:57→12:24)
[2018-05-14] MEDS: *HR* Metformin 500 MG TABLET PO SCH ×4 (08:58→17:12)
[2018-05-14] MEDS: Lactobacillus 1 EACH CAP.SPRINK PO SCH ×4 (08:58→20:30)
--- NOTE | 2018-05-14 11:50 | Palliative Progress Note ---
<Dk Valdez - Last Filed: 05/14/18 17:36> Date of Encounter: 05/14/18 Time of Encounter: 08:30 - Assessment and plan (1) Chest pain Current Visit: Yes Status: Resolved Assessment and plan: - patient endorsed he had pleuritic chest (likely due to his recurrent pleural effusion) this morning making it difficult for us to do a thorough physical exam, did not endorse any epigastric pain like yesterday. Patient has not required much pain medication during his hospital stay, except this afternoon when he got Morphine 5 mg . Yesterday, we had recommended 5mg PO q4h PRN Morphine for better pain control Qualifiers: Chest pain type: unspecified Qualified Code(s): R07.9 - Chest pain, unspecified (2) Goals of care, counseling/discussion Current Visit: Yes Status: Acute Assessment and plan: Patient was more participated this morning on discussing about goals of care with us. We laid out all the 3 treatment options in front of him. the first one was aggressive intervention with CT-guided thoracentesis of his pleural effusion, the second was conservative management with antibiotics, and the third was comfort care. Patient took a while to think about his options and then said that he would like to pursue that route which keeps him more comfortable. [facility] is going to meet with the patient and family sometime this afternoon to discuss comfort care (3) Pleural effusion Current Visit: No Status: Chronic Assessment and plan: -patient has a Hx of recurrent pleural effusion. He is well known to the pulmonology service and has been s/p pleurax catheter and chest tube placement in the past - currently on pain control PRN, as per the goals of care patient would like to pursue the route of comfort care and has declined further aggressive intervention to treat his pleural effusion. (4) Leukocytosis Current Visit: No Status: Acute Assessment and plan: - likely due to findings of empyema on chest CT. - patient was admitted with WBC of 15.5, - patient has been afebrile during the course of his hospital stay, he has decreased breath sounds on exam with mild b/l wheezing -currently on Vanc/Zosyn. Qualifiers: Leukocytosis type: unspecified Qualified Code(s): D72.829 - Elevated white blood cell count, unspecified (5) COPD (chronic obstructive pulmonary disease) Current Visit: No Status: Chronic Assessment and plan: - patient has a Hx of COPD - patient does not appear to be in exacerbation - Duonebs PRN Qualifiers: COPD type: emphysema Emphysema type: unspecified Qualified Code(s): 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 (6) Hyponatremia Current Visit: Yes Status: Acute Assessment and plan: on IV fluids , being managed by the primary team - Time Spent With Patient Total time spent is greater than 50% in coordination of care (as documented) at patient's floor/unit and/or counseling patient: - Subjective Interval history: Dr Dickson and I met Mr. Nath this morning at the bedside. He seem to be endorsing no acute distress. Continues to be on the 5 mg by mouth morphine sulfate Q4H PRN pain control. Patient was more participated of this morning on discussing about goals of care with us. We laid out all the 3 treatment optio ns in front of him. the first one was aggressive intervention with CT-guided thoracentesis of his pleural effusion, the second was conservative management with antibiotics and the third was comfort care. Patient took a while to think about his options and then said that he would like to pursue that route which keeps him more comfortable. [facility] is going to meet with the patient and family sometime this afternoon to discuss comfort care - Constitutional Vitals: Abnormal lab results WBC 13.2 K/mcL (4.3-11.1) H 05/14/18 03:53 RBC 3.89 M/mcL (4.19-5.50) L 05/14/18 03:53 Hgb 10.1 g/dL (12.9-16.9) L 05/14/18 03:53 Hct 31.2 % (37.5-50.1) L 05/14/18 03:53 MCV 80.2 fL (83.0-100.0) L 05/14/18 03:53 MCH 26.0 pg (28.0-33.3) L 05/14/18 03:53 RDW 15.6 % (11.5-14.5) H 05/14/18 03:53 Plt Count 677 K/mcL (140-400) H 05/14/18 03:53 Neutrophils # 10.1 K/mcL (1.6-8.9) H 05/14/18 03:53 Sodium 132 mEq/L (136-145) L 05/14/18 03:53 Creatinine 0.54 mg/dL (0.70-1.30) L 05/14/18 03:53 BUN/Creatinine Ratio 28 (6-26) H 05/14/18 03:53 Glucose 140 mg/dL (70-105) H 05/14/18 03:53 POC Glucose 273 mg/dL (70-99) H 05/13/18 22:21 Calculated Osmolality 277 (280-300) L 05/14/18 03:53 B-Natriuretic Peptide 114 pg/mL (Less than 100) H 05/12/18 08:06 - Respiratory Additional comments: Unable to perform a comprehensive lung exam because of chest pain - Cardiovascular Cardiovascular exam: Present: RRR, +S1, +S2 Palliative Quality Palliative Quality: Screen for Code Status: Yes, Screen for Goals of Care: Yes, Screen for Pain: Yes, If Pain Regimen Started, Initiate Bowel Regimen: Yes, Screen for Nausea/Vomitting: Yes Code Status: 05/12/18 18:59 Resuscitation Status: Active [RES] Routine Comment: Resuscitation Status: DNR-Comfort Care - Labs CBC & Chem 7: 05/14/18 03:53 05/14/18 03:53 Labs: Laboratory Results - last 24 hr 05/13/18 05/13/18 05/13/18 07:03 10:43 15:52 WBC RBC Hgb Hct MCV MCH MCHC RDW Plt Count MPV Immature Gran % Seg Neutrophils % Lymphocytes % Monocytes % Eosinophils % Basophils % Neutrophils # Lymphocytes # Monocytes # Eosinophils # Basophils # Sodium Potassium Chloride Carbon Dioxide BUN Creatinine Est GFR ( Amer) Est GFR (Non-Af Amer) BUN/Creatinine Ratio Glucose POC Glucose 134 H 207 H 261 H Calculated Osmolality Calcium 05/13/18 05/14/18 05/14/18 22:21 03:53 03:53 WBC 13.2 H RBC 3.89 L Hgb 10.1 L Hct 31.2 L MCV 80.2 L MCH 26.0 L MCHC 32.4 RDW 15.6 H Plt Count 677 H MPV 9.8 Immature Gran % 1.1 Seg Neutrophils % 76.5 Lymphocytes % 12.9 Monocytes % 7.9 Eosinophils % 1.1 Basophils % 0.5 Neutrophils # 10.1 H Lymphocytes # 1.7 Monocytes # 1.0 Eosinophils # 0.1 Basophils # 0.1 Sodium 132 L Potassium 3.8 Chloride 99 Carbon Dioxide 26 BUN 15 Creatinine 0.54 L Est GFR ( Amer) > 60 Est GFR (Non-Af Amer) > 60 BUN/Creatinine Ratio 28 H Glucose 140 H POC Glucose 273 H Calculated Osmolality 277 L Calcium 8.7 Palliative Scale - Palliative Performance Scale How ambulatory is this patient?: Totally bed bound What is patient's level of activity and evidence of disease?: Unable to do most activity, Extensive disease How much self-care assistance does patient require?: Considerable assistance required How much oral intake does the patient have?: Normal or reduced What is this patient's level of consciousness?: Full or confusion Palliative Performance Score: 40 % Consult Discharge Plan - Plan Instructions: Amoxicillin/Clavulanate Potassium (By mouth) Referrals: NONE,PCP [Primary Care Provider] - ([facility]...) Prescriptions: Amoxicillin/Clavulanate [Augmentin] 875 mg PO BID 7 Days #14 tablet <Gabrielle Dickson - Last Filed: 05/15/18 08:40> Date of Encounter: 05/15/18 - Time Spent With Patient Total time spent is greater than 50% in coordination of care (as documented) at patient's floor/unit and/or counseling patient: - Constitutional Vitals: Abnormal lab results WBC 13.2 K/mcL (4.3-11.1) H 05/14/18 03:53 RBC 3.89 M/mcL (4.19-5.50) L 05/14/18 03:53 Hgb 10.1 g/dL (12.9-16.9) L 05/14/18 03:53 Hct 31.2 % (37.5-50.1) L 05/14/18 03:53 MCV 80.2 fL (83.0-100.0) L 05/14/18 03:53 MCH 26.0 pg (28.0-33.3) L 05/14/18 03:53 RDW 15.6 % (11.5-14.5) H 05/14/18 03:53 Plt Count 677 K/mcL (140-400) H 05/14/18 03:53 Neutrophils # 10.1 K/mcL (1.6-8.9) H 05/14/18 03:53 Sodium 132 mEq/L (136-145) L 05/14/18 03:53 Creatinine 0.54 mg/dL (0.70-1.30) L 05/14/18 03:53 BUN/Creatinine Ratio 28 (6-26) H 05/14/18 03:53 Glucose 140 mg/dL (70-105) H 05/14/18 03:53 POC Glucose 198 mg/dL (70-99) H 05/14/18 11:04 Calculated Osmolality 277 (280-300) L 05/14/18 03:53 B-Natriuretic Peptide 114 pg/mL (Less than 100) H 05/12/18 08:06 - Head Head exam: Present: atraumatic - Respiratory Respiratory exam: Present: decreased breath sounds. Absent: wheezes, tachypnea Additional comments: patient unable to take deep breaths due to pain. Reduced air entry in all lung huber, no wheezing or rales. - Cardiovascular Cardiovascular exam: Present: RRR, +S1, +S2 - GI/Abdominal GI/Abdominal exam: Present: normal bowel sounds, soft. Absent: tenderness - Extremities Exam Extremities exam: Present: full ROM. Absent: pedal edema - Attending Attestation I was present during history, and physical exam of this patient, my medical decision-making was reviewed with Dr. Valdez, Resident Physician. I agree with the documented findings, disposition and treatment plan as described except to the extent set forth below. 9:00 Pt was alert and oriented x3. Discussed at length pt's medical condition, and treatment options. I explained option 1 of aggressive treatment including thoracentesis with chest tube placement, option 2 of aggressive medical treatment with group home antibiotics, and option 3 of comfort care only and hospice. Patient was having a difficult time making a choice, he did however state that the his most important goal was to be comfortable. Also he absolutely wants to avoid procedures and frequent labs as well as IV treatment. 15:30 Met with pt's family along with resident Dr. Valdez, primary hospitalist Dr. Rodarte, [employer] chimney [employer] and nurse. Pt's , 2 sons and daughter in law were present. Pt expressed his desire to avoid any invasive procedure. and the fact that he would like to put emphasis on comfort. Family wanted to continue antibiotics treatment PO. Pt was to be discharged back to [facility] on hospice. Due to insurance, pt was unable to be discharged to [facility]. Option of home with hospice vs private pay was discussed. Family chose home with hospice, but needs sometime to plan. Patient is still in pain and meets criteria for GIP. [facility] will GIP pt tomorrow at [facility]. Palliative Quality Code Status: 05/12/18 18:59 Resuscitation Status: Active [RES] Routine Comment: Resuscitation Status: DNR-Comfort Care - Labs CBC & Chem 7: 05/14/18 03:53 05/14/18 03:53 Labs: Laboratory Results - last 24 hr 05/14/18 05/14/18 07:35 11:04 POC Glucose 142 H 198 H
[2018-05-14] MEDS: Miconazole 2% ointment 114 GM TUBE TP SCH ×2 (12:33→20:30)
--- NOTE | 2018-05-14 15:40 | Discharge Summary ---
Orders not resulted at time of discharge: Pending orders 05/12/18 10:58 Culture,Blood [BC] Stat 05/12/18 19:17 Sputum Culture [Culture,Sputum with Gram Stain] [] Routine 05/14/18 17:00 Vancomycin,Trough Timed Date of Encounter: 05/14/18 Time of Encounter: 15:38 - Discharge Diagnosis (1) Recurrent left pleural effusion Priority: Primary Status: Acute (2) Pleural effusion Priority: Primary Status: Chronic (3) COPD (chronic obstructive pulmonary disease) Priority: Primary Status: Chronic Qualifiers: COPD type: emphysema Emphysema type: unspecified Qualified Code(s): 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 (4) Chest pain Priority: Primary Status: Resolved Qualifiers: Chest pain type: unspecified Qualified Code(s): R07.9 - Chest pain, unspecified (5) Leukocytosis Priority: Secondary Status: Acute Qualifiers: Leukocytosis type: unspecified Qualified Code(s): D72.829 - Elevated white blood cell count, unspecified (6) Hyponatremia Priority: Secondary Status: Acute (7) Empyema of lung Priority: Secondary Status: Acute (8) Acute respiratory failure Priority: Primary Status: Acute Qualifiers: Respiratory failure complication: hypoxia Qualified Code(s): J96.01 - Acute respiratory failure with hypoxia Hospital course: Mr. Nath is a 82 year old male past medical history of recurrent pleural effusion s/p chest tube placment, lung empyema, DHF, CAD s/p CBAG, DM-II, PAD, TIA, COPD, difficult airway with tracheal intubation, DNRCC who presents with chest pain. Patient admitted to recurrent pleural effusion, left lower lung collapse, emphysema. Patient started on IV antibiotics. Pulmonology consulted, goal of care discussed with the patient and his family and they requested a palliative care consult. Patient refused any intervention and reported that he wanted to go on hospice. Patient being discharge with hospice. - Time Spent with Patient Total time spent providing and/or coordinating discharge services: Greater than 30 minutes (40) - Discharge Medications Prescriptions: Amoxicillin/Clavulanate [Augmentin] 875 mg PO BID 7 Days #14 tablet Home Medications: Aspirin [Lo-Dose Aspirin EC] 81 mg PO DAILY 04/08/17 [History] Atorvastatin Calcium [Lipitor] 20 mg PO DAILY 04/08/17 [History] Docusate [Colace] 100 mg PO DAILY 04/08/17 [History] Metoprolol [Lopressor] 12.5 mg PO BID #0 04/08/17 [History] Insulin Glargine,Hum.rec.anlog [Lantus Solostar] 10 unit SQ DAILY 03/09/18 [History] Ondansetron HCl [Zofran] 4 mg PO Q6H PRN 03/09/18 [History] Furosemide [Lasix] 20 mg PO DAILY #30 tablet 03/11/18 [Rx] Omeprazole [PriLOSEC] 40 mg PO DAILY 04/09/18 [History] Donepezil [Aricept] 5 mg PO HS 04/17/18 [History] Metformin HCl [Metformin HCl ER] 1,000 mg PO DAILY 04/17/18 [History] Pioglitazone HCl 45 mg PO QAM 04/17/18 [History] Tamsulosin [Flomax] 0.4 mg PO DAILY 04/17/18 [History] Tolterodine Tartrate [Detrol] 4 mg PO QPM 04/17/18 [History] Linagliptin [Tradjenta] 5 mg PO DAILY 04/18/18 [History] Fluconazole [Diflucan] 200 mg PO QWEEK 05/12/18 [History] Insulin LISPRO [HumaLOG] 0 unit SQ TID 05/12/18 [History] Lactobacillus Acidophilus [Acidophilus] 1 cap PO BID 05/12/18 [History] Pantothenic Acid 500 mg PO DAILY 05/12/18 [History] Phos-NaK [Neutra-Phos] 1 pack PO DAILY 05/12/18 [History] Pregabalin [Lyrica] 50 mg PO TID 05/12/18 [History] Amoxicillin/Clavulanate [Augmentin] 875 mg PO BID 7 Days #14 tablet 05/14/18 [ Rx] Allergies/Adverse Reactions: Allergy/AdvReac Type Severity Reaction Status Date / Time horse serum Allergy Itching Uncoded 04/17/18 15:54 Date of admission: 05/12/18 11:13 Primary care physician: PCP NONE Consults: 05/12/18 14:15 Consult to Nutrition [CONS] Stat Comment: Consulting Provider: NUTRITION Reason for Dietary Consult: MST Score Consult to Rehab Director Occupational Therapist [CONS] Stat Reason for SW Consult: return to ECF - [facility] 05/12/18 16:30 Consult to Wound Care [CONS] Routine Reason for Consult: please see wound assessment; pressure injuries to bilateral heels and coccyx; appears to be yeast-like excoriation v. MASD to groin; from ECF; Time Notified: 16:34 Call Completed: Yes 05/12/18 19:03 Consult to Pulmonology [CONS] Routine Consulting Provider: Liz Marks Reason for Consult: Moderate Left pleural effusion Call Completed: Yes 05/13/18 07:33 Consult to Palliative Care [CONS] Stat Comment: Consulting Provider: Palliative Care Kadie Reason for Consult: goals of care Call Completed: Yes 05/13/18 09:20 Consult to Gastroenterology [CONS] Routine Consulting Provider: Gastroenterology Kadie Reason for Consult: RS Chest Pain, possible esophagaitis Time Notified: 09:21 Call Completed: Yes 05/13/18 10:48 Consult to Occupational Therapy [CONS] Routine Comment: Evaluate, develop and implement POC Reason for Consult: eval for ECF pre cert Does patient have active BEDREST order?: No Is patient medically & hemodynamically stable?: Yes Consult to Physical Therapy [CONS] Routine Comment: Evaluate, develop and implement POC Reason for Consult: eval for ECF pre cert Does patient have active BEDREST order?: No Is patient medically & hemodynamically stable?: Yes - Constitutional Vitals: Temp Pulse Resp BP Pulse Ox 98.1 F 92 19 116/66 97 05/14/18 11:06 05/14/18 11:06 05/14/18 11:06 05/14/18 11:06 05/14/18 11:06 General appearance: Present: A&O X 3, no acute distress Exam: Vitals: Reviewed. General: Alert and oriented x3. In mild distress due to shortness of breath. Skin: Normal color, no rash, no lesions. HEENT: EOM, pupils equal, round and reactive. Cardiovascular: RRR, Normal S1 & S2, no rubs, murmurs or gallops. Lungs: clear breath sounds to auscultation b/l, decreased breath sounds in the left lower lobe, no wheezes or crackles. Abdomen: Soft, non-tender, no rigidity. Extremities: No deformity, no edema or tenderness, no joint swelling or clubbing. Neurological: Normal cognition. Rest of the physical exam is non contributory - Patient Status Disposition: Hospice - Medical Facility Condition: Fair Functional capacity at discharge: wheelchair bound Overall status at discharge: patient is not back to baseline - Discharge Instructions Follow Up With: NONE,PCP [Primary Care Provider] - ([facility]...) - Diet and Activity Activity: as per physical therapy Diet: low salt diet
--- NOTE | 2018-05-14 15:50 | Physician Discharge Referral ---
Home Health/Hosp Referral Info Transfer to: Home Health (Patient being discharged to hospice.) - Diagnosis (1) Recurrent left pleural effusion Priority: Primary Status: Acute (2) Pleural effusion Priority: Secondary Status: Chronic (3) COPD (chronic obstructive pulmonary disease) Priority: Secondary Status: Chronic (4) Chest pain Priority: Secondary Status: Resolved (5) Leukocytosis Priority: Secondary Status: Acute (6) Hyponatremia Priority: Secondary Status: Acute (7) Empyema of lung Priority: Secondary Status: Acute (8) Acute respiratory failure Priority: Secondary Status: Acute - Respiratory Orders Oxygen / L per min Smoking Cessation: Smoking cessation has been advised. For more information, call the [employer] Quit Line at [phone]-NOW. - Diet/Nutrition Diet/Nutrition Orders: Regular - Activity Activity Orders: Bedrest - Services Needed Following services are medically necessary services: Nursing - Transfer Medications Prescriptions: Amoxicillin/Clavulanate [Augmentin] 875 mg PO BID 7 Days #14 tablet Home Medications: Aspirin [Lo-Dose Aspirin EC] 81 mg PO DAILY 04/08/17 [History] Atorvastatin Calcium [Lipitor] 20 mg PO DAILY 04/08/17 [History] Docusate [Colace] 100 mg PO DAILY 04/08/17 [History] Metoprolol [Lopressor] 12.5 mg PO BID #0 04/08/17 [History] Insulin Glargine,Hum.rec.anlog [Lantus Solostar] 10 unit SQ DAILY 03/09/18 [History] Ondansetron HCl [Zofran] 4 mg PO Q6H PRN 03/09/18 [History] Furosemide [Lasix] 20 mg PO DAILY #30 tablet 03/11/18 [Rx] Omeprazole [PriLOSEC] 40 mg PO DAILY 04/09/18 [History] Donepezil [Aricept] 5 mg PO HS 04/17/18 [History] Metformin HCl [Metformin HCl ER] 1,000 mg PO DAILY 04/17/18 [History] Pioglitazone HCl 45 mg PO QAM 04/17/18 [History] Tamsulosin [Flomax] 0.4 mg PO DAILY 04/17/18 [History] Tolterodine Tartrate [Detrol] 4 mg PO QPM 04/17/18 [History] Linagliptin [Tradjenta] 5 mg PO DAILY 04/18/18 [History] Fluconazole [Diflucan] 200 mg PO QWEEK 05/12/18 [History] Insulin LISPRO [HumaLOG] 0 unit SQ TID 05/12/18 [History] Lactobacillus Acidophilus [Acidophilus] 1 cap PO BID 05/12/18 [History] Pantothenic Acid 500 mg PO DAILY 05/12/18 [History] Phos-NaK [Neutra-Phos] 1 pack PO DAILY 05/12/18 [History] Pregabalin [Lyrica] 50 mg PO TID 05/12/18 [History] Amoxicillin/Clavulanate [Augmentin] 875 mg PO BID 7 Days #14 tablet 05/14/18 [Rx] Allergies/Adverse Reactions: Allergy/AdvReac Type Severity Reaction Status Date / Time horse serum Allergy Itching Uncoded 04/17/18 15:54 Certification: Further, I certify that my clinical findings support that this patient is homebound (i.e. absences from home require considerable and taxing effort and are for medical reasons or adventism services or infrequently or short duration when for other reasons) because: Homebound Reason: Patient requires assistance of a person or device to safely leave home Attestation: My signature below is to certify that this patient is under my care and that I, or nurse practitioner, or a physician's events administrative assistant working with me, has a [id number] encounter with this patient.
[2018-05-14] MEDS: Insulin DETEMIR 100 UNIT/ML X5UNITS SQ SCH (20:30)
[2018-05-14] MEDS ORDERED: Sennosides 8.6 MG TABLET PO SCH (21:00)
[2018-05-15] MEDS: Miconazole 2% ointment 114 GM TUBE TP SCH ×2 (00:01→07:30)
[2018-05-15] MEDS: Pantoprazole 40 MG VIAL IVP SCH (05:02)
[2018-05-15] MEDS: Insulin LISPRO 300 UNITS/3 ML VIAL SQ SCH ×2 (08:32→12:23)
[2018-05-15] MEDS: Piperacillin/Tazobactam 3.375 GM in 0.9 % Sodium Chloride Mini Bag 100 ML IVPB SCH (10:05)
--- NOTE | 2018-05-15 10:52 | Palliative Progress Note ---
Date of Encounter: 05/15/18 Time of Encounter: 10:30 - Assessment and plan (1) Generalized pain Current Visit: Yes Status: Acute Assessment and plan: Has only utilized Roxanol x1 last 24 hours. Continue and monitor. Prescription completed to go to [facility] with him. (2) Empyema of lung Current Visit: Yes Status: Acute (3) COPD (chronic obstructive pulmonary disease) Current Visit: Yes Status: Acute Qualifiers: Emphysema type: unspecified Qualified Code(s): 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 (4) Goals of care, counseling/discussion Current Visit: Yes Status: Acute Assessment and plan: Spoke with and son, Susie. Brionna does not want him to be cared for at home. She states she will private pay at [facility]. Spoke with son Susie and olga lidia onveyed this information. He called and discussed with her, and called my back, stating that they would private pay and want him to return to [facility]. They did request semi private room. D/W Rosa from [facility] and notified of plan. She will be contacting son for enrollment. D/W Dr. Martinez - pt should be transferred to [place] later today. - Time Spent With Patient Total time spent is greater than 50% in coordination of care (as documented) at patient's floor/unit and/or counseling patient: - Subjective Interval history: Patient awake and alert. Answers questions appropriately. Does not engage much in conversation. Irritated he did not get to leave hospital last night. States he is comfortable, does have some abdominal discomfort when he coughs. Denies dyspnea, on room air currently. No other complaints. + BM yesterday. Eating well most of meals. Vital signs stable. - Constitutional Vitals: Abnormal lab results WBC 13.2 K/mcL (4.3-11.1) H 05/14/18 03:53 RBC 3.89 M/mcL (4.19-5.50) L 05/14/18 03:53 Hgb 10.1 g/dL (12.9-16.9) L 05/14/18 03:53 Hct 31.2 % (37.5-50.1) L 05/14/18 03:53 MCV 80.2 fL (83.0-100.0) L 05/14/18 03:53 MCH 26.0 pg (28.0-33.3) L 05/14/18 03:53 RDW 15.6 % (11.5-14.5) H 05/14/18 03:53 Plt Count 677 K/mcL (140-400) H 05/14/18 03:53 Neutrophils # 10.1 K/mcL (1.6-8.9) H 05/14/18 03:53 Sodium 132 mEq/L (136-145) L 05/14/18 03:53 Creatinine 0.54 mg/dL (0.70-1.30) L 05/14/18 03:53 BUN/Creatinine Ratio 28 (6-26) H 05/14/18 03:53 Glucose 140 mg/dL (70-105) H 05/14/18 03:53 POC Glucose 198 mg/dL (70-99) H 05/14/18 11:04 Calculated Osmolality 277 (280-300) L 05/14/18 03:53 B-Natriuretic Peptide 114 pg/mL (Less than 100) H 05/12/18 08:06 General appearance: Present: no acute distress - Respiratory Respiratory exam: Present: decreased breath sounds, CTAB - Cardiovascular Cardiovascular exam: Present: +S1, +S2 - GI/Abdominal GI/Abdominal exam: Present: normal bowel sounds, soft - Extremities Exam Extremities exam: Present: normal capillary refill, normal inspection - Neurological Exam Neurological exam: Present: alert, oriented X3, strengths equal and symetr throughout - Skin Skin exam: Present: dry, pallor, warm Palliative Quality Palliative Quality: Screen for Code Status: Yes, Screen for Goals of Care: Yes, Screen for Pain: Yes, If Pain Regimen Started, Initiate Bowel Regimen: Yes, Screen for Nausea/Vomitting: Yes Code Status: 05/12/18 18:59 Resuscitation Status: Active [RES] Routine Comment: Resuscitation Status: DNR-Comfort Care - Labs CBC & Chem 7: 05/14/18 03:53 05/14/18 03:53 Labs: Laboratory Results - last 24 hr 05/14/18 05/14/18 07:35 11:04 POC Glucose 142 H 198 H Palliative Scale - Palliative Performance Scale How ambulatory is this patient?: Totally bed bound What is patient's level of activity and evidence of disease?: Unable to do most activity, Extensive disease How much self-care assistance does patient require?: Considerable assistance required How much oral intake does the patient have?: Normal or reduced What is this patient's level of consciousness?: Full or confusion Palliative Performance Score: 40 % Consult Discharge Plan - Plan Instructions: Amoxicillin/Clavulanate Potassium (By mouth) Referrals: NONE,PCP [Primary Care Provider] - ([facility]...) Prescriptions: Amoxicillin/Clavulanate [Augmentin] 875 mg PO BID 7 Days #14 tablet
[2018-05-15 11:05] VITALS: BP 122/77
--- NOTE | 2018-05-15 11:44 | Event Note ---
Date of Encounter: 05/15/18 Time of Encounter: 11:41 I have seen and evaluated the patient at bedside. Resting comfortable. patient denies chest pain, nausea, vomiting or abdominal pain. Physical exam: Vitals: Reviewed. General: Alert and oriented x3. In mild distress due to shortness of breath. HEENT: EOM, pupils equal, round and reactive. Cardiovascular: RRR, Normal S1 & S2, no rubs, 3/6 systolic murmur best heard at the l2nd left intercostal space. Lungs: mild crackles at the bases b/l, no wheezing. Abdomen: Soft, non-tender, no rigidity. Extremities: No edema in the lower extr. Neurological: Normal cognition. Rest of the physical exam is non contributory Assessment and Plan: 1. Recurrent pleural effusion 2. COPD 3. Chest pain (resolved) 4. Hyponatremia 5. Empyema of the lung 6. Acute hypoxemic resp failure (resolved) 7. VTE prophylaxis Plan: Patient will be discharged to hospice later today.
[2018-05-15] MEDS: *HR* Pioglitazone 45 MG TABLET PO SCH (12:21)
[2018-05-15] MEDS: Aspirin Enteric Coated 81 MG Tablet PO SCH (12:21)
[2018-05-15] MEDS: *HR* Metformin 500 MG TABLET PO SCH (12:21)
[2018-05-15] MEDS: Lactobacillus 1 EACH CAP.SPRINK PO SCH (12:21)
[2018-05-15] MEDS: Furosemide 20 MG TABLET PO SCH (12:21)
[2018-05-15] MEDS ORDERED: Aminoglycoside Consult 1 EACH MC ONE (15:15)
== END 2018-05-15 15:16 | disposition hospice, inpatient (51) ==
LOC: EMEROOARM 07:58 → 2ANU 07:58 → SUATTDRO 11:13 → 2ANU 13:09 → UNDODISOB 05-14 17:42
PROVIDERS: ADMIT Internal Medicine Cardiovascular Disease; ATTEND Internal Medicine